=== PATIENT | female | born 1955 | race Caucasian/White ===

== ENCOUNTER 2024-10-13 19:05 | Inpatient (IN) | payer MEDICARE, OTHER, SELFPAY ==
[2024-10-13] VITALS (12 sets, daily range): BP systolic 86–148; BP diastolic 57–87; PULSE 80–91; BMI 37.5; BMI 34.8
[2024-10-13 13:21] LABS: % Basophils 0.3 % (0-2); % Immature Granulocytes 1.4 % (0-0.5); % Lymphocytes 3.8 % (20.5-51.1); % Monocytes 1.8 % (1.7-9.3); % Neutrophils 92.7 % (42.2-75.2); Absolute Basophils 0.1 10^3/uL (0-0.2); Absolute Immature Granulocytes 0.3 10^3/uL (0-0.05); Absolute Lymphocytes 0.8 10^3/uL (1.2-3.4); Absolute Monocytes 0.4 10^3/uL (0.1-0.6); Hematocrit 46.9 % (37.0-47.0); Hemoglobin 15.7 g/dL (12.0-16.0); Mean Corp Hgb Conc. 33.5 g/dL (33.0-37.0); Mean Corpuscular Hgb 31.8 pg (27.0-31.0); Mean Corpuscular Volume 95.1 fL (81.0-99.0); Mean Platelet Volume 11.6 fL (7.4-10.4); Nucleated Red Blood Cells % 0 %; Platelet Count 158 10^3/uL (130-400); Red Blood Cell Count 4.93 10^6/uL (4.20-5.40); Red Cell Dist. Width 15.7 % (11.5-14.5); White Blood Cell Count 21.6 10^3/uL (4.8-10.8)
--- NOTE | 2024-10-13 13:40 | ED.GENMED ---
History of Present Illness
General
Chief Complaint: Abdominal Pain
Source: patient
Exam Limitations: none
Time Seen by Provider: 10/13/24 13:15
Nursing documentation reviewed up to this point in time: agreed with
History of Present Illness
History of Present Illness:
69-year-old female with history as documented presents to the emergency room for evaluation of fatigue, shortness of breath, nausea and upset stomach. Patient has been feeling unwell for over a month now�unfortunately right after [place] she had
norovirus and was having GI symptoms for a week or 2. Then 2 weeks ago she developed influenza and dealt with flulike illness for a week. She says that during that time she was barely moving and sitting most of the day and unfortunately developed
right leg pain pains down the lateral aspect of the right leg for the past week�she saw her primary doctor and was diagnosed with sciatica. She has been taking Tylenol to manage her leg pain. She says that over the past few weeks through the flu
and now leg pain/sciatica she has been having trouble laying flat does she says that with the flu she developed some shortness of breath but never completely resolved and then when she developed the leg pain she noticed that it was worse when she
lays flat and so she has been sitting upright in a chair for the most part to sleep and she says generally speaking very poorly. Last night she says with exception she said she was able to sleep quite well however this morning she woke up and she
was nauseated had an upset stomach. She says that she still tried to go to work and went out to sit in her car but she called her daughter because she was feeling unwell�apparently after she got off the phone with her daughter she fell asleep in
her car because she felt so fatigued; she indicates that she does not believe she passed out. She decided she should come to the ER to be evaluated. She has not had any chest pain. She says that cough and fevers from her flulike syndrome have
resolved. Only other complaint that she offers on review of systems is some increased swelling in her legs that she attributes to sitting upright in a chair to sleep. Of note, patient is normally on 2 L of oxygen apparently after walking back from
triage her pulse ox dropped to 78% on 2 L.
Review of Systems
Review of Systems
All Other Systems: ROS reviewed and negative except as documented in HPI and ROS
Constitutional: Reports fatigue; Denies fever or chills
EENT: Denies sore throat
Respiratory: Reports trouble breathing; Denies cough
Cardiac: Denies chest pain or palpitations
ABD/GI: Reports nausea and vomiting; Denies abdominal pain
: Denies flank pain
Musculoskeletal: Reports edema; Denies neck pain or back pain
Neurological: Denies dizzy or headache
Phy Exam
Physical Exam
Physical Exam:
General: Awake, alert, oriented x3; no acute distress
Head: Normocephalic, atraumatic
Eyes: Conjunctiva normal, sclera anicteric
Throat: Airway intact, handling secretions
Neck: Trachea midline, no JVD
Lungs: Clear to auscultation bilaterally, no wheezing, rales, rhonchi
Heart: Regular rate and rhythm, no murmurs, gallops, or rubs
Abd: Soft, non distended, nontender
Neuro: No gross deficits
Extremities: +1 edema around the ankles bilaterally; no calf tenderness, no skin changes in the lower leg, good pulses in all extremities
Scores
Heart Failure Risk
Heart Failure Risk Score: Not Applicable
Heart Score for Chest Pain Patients
STEMI patient?: Not applicable
Withdrawal Assessment of Alcohol
Withdrawal Assessment Completed?: Not applicable
Course
Orders/Labs/Results
Orders:
Orders
10/13/24 12:50
Electrocardiogram (*1) Urgent
Reason for Study: Shortness of Breath
EKG- Treatment ONCE
10/13/24 13:01
Orthostatic VS- Treatment ONCE
10/13/24 13:06
Complete Blood Count/With Diff Urgent
Comprehensive Metabolic Panel Urgent
Lipase Urgent
10/13/24 13:17
Urinalysis Reflex To Culture Urgent
Date Specimen was Collected: 10/13/24
Time Specimen was Collected: 13:15
Urine Microscopic Reflex Cult Urgent
Urine Culture Urgent
EVITA Source: U
Specimen Description:
Date Specimen was Collected: 10/13/24
Time Specimen was Collected: 13:15
10/13/24 13:39
CR Chest - 2 Views Urgent
Comment:
Reason For Exam: sob, fatigued
10/13/24 14:48
D-Dimer Urgent
NT-proBNP Urgent
Troponin I Urgent
10/13/24 15:25
CT Chest PE Study Urgent
Comment:
Reason For Exam: hypoxia, SOB, +dimer
10/13/24 16:29
Cefepime HCl [Maxipime] 1,000 mg IV NOW STA
10/13/24 16:30
Vancomycin [Vancocin] 2,000 mg 0.9% Sodium Chloride 500 ml [Nss] 500 ml IV NOW
10/13/24 17:07
Blood Culture Q30M
EVITA Source: Blood/Venous
Specimen Description:
Blood Culture Q30M
EVITA Source: Blood/Venous
Specimen Description:
10/13/24 17:19
PTT Urgent
Comment: Obtain baseline before beginning heparin infusion if not already collected
Heparin 4,000 units IV NOW STA
Pharmacy Request to Place See Dose Instructions PO NOW STA
Discontinue all Active Warfarin orders?: Yes
Nursing to Place Non Medication Order As Directed
Physician Order: PTT 6 hours after initial start of Heparin infusion
10/13/24 17:30
Heparin 62077 Units/250 ml 25,000 units in 250 ml IV PER PROTOCOL
Weight to be used for heparin protocol in kilograms (kg):: 96
Protocol:: DVT/PE
PTT Goal Range to be used:: PTT 73 to 111 seconds
Order type:: Initial
INITIAL Infusion Dose (UNITS/KG/hr) & then follow protocol:: 18 units/kg/hr
Infusion Dose in UNITS/hr & then follow protocol (UNITS/hr):: 1,700
INFUSION RATE in mL/hr & then follow protocol (mL/hr):: 17
For DVT/PE algorithm, re-bolus for low PTT?: Yes
PTT less than or equal to 64 seconds:: Re-bolus 80 units/kg (max 10,000units). Increase by 400 units/hr
(+ 4mL/hr)
PTT 64.1 to 72.9 seconds:: Re-bolus 40 units/kg (max 5,000 units). Increase by 200 units/hr
(+ 2mL/hr)
PTT 73 to 111 seconds:: Target Range. No change in rate.
PTT 111.1 to 130.9 seconds:: Decrease rate by 200 units/hr (- 2 mL/hr)
PTT 131 to 199.9 seconds:: HOLD for 1 hr. Then decrease by 300 units/hr (- 3mL/hr)
PTT greater than or equal to 200 seconds:: HOLD for 2 hrs & Notify Provider. Then decrease by 400 units/hr
(- 4mL/hr)
Lab follow-up:: Each change, PTT q6h until 2 consecutive are therapeutic. Then
PTT daily.
10/13/24 18:[address] See Dose Instructions IV DIRECTED
Abnormal Lab Results
10/13/24 10/13/24 10/13/24
13:06 13:17 14:48
WBC 21.6 H 10^3/uL
(4.8-10.8)
MCH 31.8 H pg
(27.0-31.0)
RDW 15.7 H %
(11.5-14.5)
MPV 11.6 H fL
(7.4-10.4)
Abs Immat Gran (auto) 0.3 H 10^3/uL
(0-0.05)
Absolute Neuts (auto) 20.0 H 10^3/uL
(1.4-6.5)
Absolute Lymphs (auto) 0.8 L 10^3/uL
(1.2-3.4)
Immature Gran % 1.4 H %
(0-0.5)
Neutrophils % 92.7 H %
(42.2-75.2)
Lymphocytes % 3.8 L %
(20.5-51.1)
D-Dimer 2.19 H ug/mlFEU
(0.00-0.50)
Sodium 134 L mmol/L
(135-145)
Chloride 96 L mmol/L
(98-107)
BUN 38 H mg/dl
(7-17)
Creatinine 1.1 H mg/dL
(0.6-1.0)
Glucose 130 H mg/dl
(70-99)
Total Bilirubin 2.9 H mg/dl
(0.2-1.3)
Troponin I 0.063 H* ng/ml
Urine Bilirubin 1+ A
(Negative)
Urine Urobilinogen 2+ A
(Neg - 1+)
Leukocyte Esterase Rfl 1+ A
(Negative)
Urine Bacteria (Reflex) Few A
(Negative)
10/13/24 13:06
10/13/24 13:06
Vital Signs
Initial and Last Documented VS:
Initial Vital Signs
Temp Pulse Resp BP Pulse Ox
36.4 C 77 18 125/74 91
10/13/24 13:55 10/13/24 13:55 10/13/24 13:55 10/13/24 13:55 10/13/24 13:55
Last Documented Vital Signs
Temp Pulse Resp BP Pulse Ox
36.4 C 69 12 105/72 94
10/13/24 13:55 10/13/24 14:23 10/13/24 14:23 10/13/24 14:23 10/13/24 14:23
MDM/Problems Addressed
Differential Diagnosis Includes:
Pneumonia, PE, UTI, dehydration/deconditioning, CHF, dysrhythmia, ACS less likely
MDM/Problems Addressed:
69-year-old female presents for evaluation of nausea/upset stomach and tremendous fatigue in the setting of multiple recent issues including norovirus, influenza and now over the past week right leg pain/sciatica. Above. Plan to check labs
including a CBC and a CMP, proBNP. Check a lipase. Will check a D-dimer. Check urinalysis. Check chest x-ray and EKG. Will monitor closely reassess after the above.
Labs reviewed: CBC shows leukocytosis to 21.6, CMP shows creatinine of 1.1 unclear baseline. Add blood cultures with multiple SIRS although daughter mentions the patient recently had course of steroids which could affect WBC. She does have
elevated BUN suggesting that there is likely some dehydration. T. bili elevated but LFTs otherwise normal. Urinalysis no clear infection. Chest x-ray shows linear atelectasis versus pneumonia in the right lower lobe. Clinically patient has been
stable; she has needed increased oxygen requirement here now on on 4 L nasal cannula. Her D-dimer was positive. Certainly pneumonia status post influenza could account for symptoms but given hypoxia out of portion to chest x-ray findings with
positive D-dimer we will check CTA to rule out PE and better evaluate lungs. Will cover with antibiotics. Anticipate admission.
CTA was positive for segmental and subsegmental pulmonary embolism. No signs of heart strain. Normotensive, normal heart rate. Started heparin infusion. Will admit for continued treatment of acute on chronic respiratory failure secondary to PE
and possibly pneumonia. Discussed case with hospitalist.
Chronic conditions affecting care:
Chronic respiratory failure
*Radiology
Radiology exam reviewed: radiology read reviewed
*Pulse Oximetry
Patient hypoxic: no
*EKG
Interpreted by ED Provider?: Yes
Heart Rate: 92
Rate: normal
Rhythm: sinus
Interval: first degree heart block
QRS Pattern: normal QRS
Ischemia: non-specific ST changes
*Critical Care Note
Total Time (30-74mins, 75-104mins- exclusive of procedures): Not Applicable
Data Reviewed
Review of Other/Old Records Reveals: Labs and Records
Source: patient
Patient Management
Discussion with other providers: Hospitalist (Discussed with hospitalist) and Radiologist (Discussed with radiologist)
Escalation/DeEscalation of care consider admission/obs:
Admission indicated
ED Attending Note
-
Portions of this chart may have been created with voice recognition software.� Occasional wrong word or��sound alike� substitutions may have occurred due to the inherent limitations of voice recognition software.
Discharge Plan
Departure
Patient Disposition: Admit
Date of Disposition: 10/13/24
Time of Disposition: 17:22
Admit to doctor: Mayuri
Presentation/result/management discussed w/ accepting MD/DO: Hospitalist
Discharge Problem:
Pulmonary embolism, Pneumonia, Acute and chronic respiratory failure
Prescriptions:
No Action
atorvastatin [Lipitor] 40 mg Tablet
40 mg PO DAILY
fluticasone propion-salmeterol [Advair Diskus] 250-50 mcg/dose Blister With Device
1 inh INHALATION R BID
prednisone 10 mg Tablet
10 mg PO DAILY
cyanocobalamin (vitamin B-12) 1,000 mcg Tablet
1,000 mcg PO DAILY
Theragen Tablet
1 tab PO DAILY
clopidogrel [Plavix] 75 mg Tablet
75 mg PO DAILY
amlodipine [Norvasc] 5 mg Tablet
5 mg PO DAILY
omeprazole 40 mg Capsule,Delayed Release(Dr/Ec)
40 mg PO DAILY
aspirin 81 mg Tablet,Delayed Release (Dr/Ec)
81 mg PO DAILY
losartan-hydrochlorothiazide 100-25 mg Tablet
1 tab PO DAILY
levothyroxine [Synthroid] 125 mcg Tablet
125 mcg PO DAILY
Referrals:
Issa Davis, DO [Family Provider] -
Interventions
Interventions:
*Risk Screen - Suicide Last Done: 10/13/24 13:55
*General Assessment Last Done: 10/13/24 13:55
*Neglect/Abuse Screening Last Done: 10/13/24 13:55
*ED COVID-19 Vaccine History Last Done: 10/13/24 13:55
OF-Hbedmg-Jsjuecwrah Assessment Last Done: 10/13/24 15:53
Discharge Date and Time
Print Language: FRENCH
[2024-10-13 13:44] LABS: ALT (SGPT) 25 U/L (0-35); AST (SGOT) 30 U/L (14-36); Albumin 3.8 g/dl (3.5-5.0); Alkaline Phosphatase 84 U/L (38-126); Blood Urea Nitrogen 38 mg/dl (7-17); Calcium 9.4 mg/dl (8.4-10.2); Chloride 96 mmol/L (98-107); Glucose 130 mg/dl (70-99); Lipase 38 U/L (23-300); Potassium 4.1 mmol/L (3.5-5.1); Sodium 134 mmol/L (135-145); eGFR 54.39
[2024-10-13 13:57] LABS: Carbon Dioxide 29 mmol/L (22-30); Total Bilirubin 2.9 mg/dl (0.2-1.3); Total Protein 6.6 g/dl (6.3-8.2)
[2024-10-13 14:00] LABS: Urine Albumin Trace (Neg - Trace); Urine Bilirubin 1+ (Negative); Urine Character Clear (Clear); Urine Color Amber; Urine Glucose Negative (Negative); Urine Ketone Negative (Negative); Urine Leukocyte 1+ (Negative); Urine Nitrite Negative (Negative); Urine Occult Blood Negative (Negative); Urine Specific Gravity 1.015 (<1.030); Urine Urobilinogen 2+ (Neg - 1+)
[2024-10-13 14:07] LABS: Urine Mucus Few; Urine Red Blood Cell 0-2 /HPF (0-2)
[2024-10-13 14:08] LABS: Urine Bacteria Few (Negative)
[2024-10-13 15:20] LABS: D-Dimer 2.19 ug/mlFEU (0.00-0.50)
[2024-10-13 15:34] LABS: NT-proBNP 4450 pg/ml; Troponin I 0.063 ng/ml
[2024-10-13] MEDS: MAXIPIME 1000 MG IV (17:37)
[2024-10-13 17:45] LABS: APTT 26.4 Sec (23.4-35.0)
[2024-10-13] MEDS: VANCOCIN 540 MG IV (18:18)
[2024-10-13] MEDS: HEPARIN 25000 UNITS/250 ML IV (18:21)
[2024-10-13] MEDS: HEPARIN 4000 UNITS IV (18:21)
--- NOTE | 2024-10-13 18:43 | HPS.HSE ---
Addendum entered and electronically signed by Erwin Sy MD 10/14/24 09:58:
69-year-old female with a past medical history of COPD on 2 L of oxygen as needed at baseline presented with weakness and shortness of breath, and is found to have new acute PE.
She is currently satting 92% on 2 L. She is on aspirin and Plavix, had cardiac stenting 3 years ago.
Will treat with IV heparin drip, check lower extremity Dopplers, check echocardiogram, consult case management for pricing of oral anticoagulants.
Patient's chest CT is also concerning for pneumonia. Will treat with empiric antibiotics.
I have personally seen and examined the patient on 10/13/24, and agree with the plan of care as documented by Ana Mejia PA-C.
Advance care planning discussed, patient is a full code.
All other issues as outlined by the advanced care practitioner.
Total time spent to see the patient on the floor, examine the patient, review data and lab results, discuss treatment plan with patient, nursing staff around 76 minutes.
Original Note:
Family Physician
-
Family Physician: Issa Davis DO
Chief Complaint
-
Fatigue and Shortness of Breath
History of Present Illness
Patient is a 69 y/o female past medical history of ASCVD, Hypertension, and COPD/Pulmonary Fibrosis on oxygen at night and with activity who presents with weakness and shortness of breath. Additional history is obtained from patient's daughter at
the bedside. Patient has been feeling unwell for the past several weeks. She had norovirus around [place] with GI symptoms lasting several weeks. She then had influenza and dealt with flu-like symptoms for about a week. Due to ongoing illness
she has not been very active and developed sciatica. Today patient tried to go to work today, but felt too fatigued, and came to the emergency department for evaluation. Patient was noted to be hypoxic at 78% on 2L while walking back from triage and
took a very long time to recover. Patient has noted some increased swelling of her left lower extremity. She notes her prior cough has improved. She denies fevers.
Medical History
Past Medical History
Past Medical History: Reports Other
Additional Past Medical History:
Coronary Artery Disease s/p Stent
Peripheral Arterial Disease s/p Right Carotid Endarterectomy
Essential Hypertension
Hyperlipidemia
Chronic Hypoxia
COPD / Emphysema / Pulmonary Fibrosis
Hypothyroidism
Past Surgical History: Reports Other
Additional Past Surgical History:
Right Carotid Endarterectomy
Cardiac Stent
Gastric Sleeve
Section
Social History
Tobacco: Former Smoker (Quit about 25 years ago)
Employment: Employed ([employer])
Family History
Family History: Not pertinent
Allergies / Home Medications
Allergies reflects when Allergies were last updated in [employer].
Home Medications with original date entered in [employer]
Allergy/Medication List:
Allergies
Allergy/AdvReac Type Severity Reaction Status Date / Time
No Known Allergies Allergy Verified 10/13/24 14:53
Home Medications
amlodipine 5 mg tablet (Norvasc) 5 mg PO DAILY 10/13/24
aspirin 81 mg tablet,delayed release 81 mg PO DAILY 10/13/24
atorvastatin 40 mg tablet (Lipitor) 40 mg PO DAILY 10/13/24
clopidogrel 75 mg tablet (Plavix) 75 mg PO DAILY 10/13/24
cyanocobalamin (vitamin B-12) 1,000 mcg tablet 1,000 mcg PO DAILY 10/13/24
fluticasone 250 mcg-salmeterol 50 mcg/dose blistr powdr for inhalation (Advair Diskus) 1 inh inhalation R BID 10/13/24
levothyroxine 125 mcg tablet (Synthroid) 125 mcg PO DAILY 10/13/24
losartan 100 mg-hydrochlorothiazide 25 mg tablet 1 tab PO DAILY 10/13/24
omeprazole 40 mg capsule,delayed release 40 mg PO DAILY 10/13/24
prednisone 10 mg tablet 10 mg PO DAILY 10/13/24
therapeutic multivitamin 1 tab PO DAILY 10/13/24
Review of Systems
-
A 12 point ROS was completed and negative except as noted: Yes
Constitutional: Denies Fever or Chills
Respiratory: Reports Trouble Breathing; Denies Cough
Cardiac: Denies Chest Pain or Palpitations
Physical Exam
Vital Signs
Vital Signs
Temp Pulse Resp BP Pulse Ox
97.6 F 69 12 105/72 94
10/13/24 13:55 10/13/24 14:23 10/13/24 14:23 10/13/24 14:23 10/13/24 14:23
Physical Exam
General: No Apparent Distress and Comfortable
HEENT: Anicteric, Moist mucous membranes and Oxygen
Respiratory: Clear and Non Labored Respirations
Cardiac: S1/S2 and Regular Rhythm
GI: Soft and Non Tender
Rectal: Deferred by Provider
Musculoskeletal: No Clubbing, No Cyanosis and Other (Non-pitting edema LLE)
Skin: Warm and Dry
Neuro: Awake, Alert, Oriented and Nonfocal/grossly intact
Psych: Calm
Laboratory Results
-
10/13/24 13:06
10/13/24 13:06
Laboratory Results
APTT Cancelled 10/13/24 17:19
Total Bilirubin 2.9 mg/dl (0.2-1.3) H 10/13/24 13:06
AST 30 U/L (14-36) 10/13/24 13:06
ALT 25 U/L (0-35) 10/13/24 13:06
Alkaline Phosphatase 84 U/L (38-126) 10/13/24 13:06
Troponin I 0.063 ng/ml H* 10/13/24 14:48
Lipase 38 U/L (23-300) 10/13/24 13:06
Data Reviewed
-
CT Scan: Report Reviewed by me
Lab Data: Labs Reviewed by me
Impression/Plan
-
Acute on Chronic Hypoxic Respiratory Failure secondary to Pulmonary Embolism and possible pneumonia
-Continue supplemental oxygen
-Baseline 2L via nasal cannula at night and with activity
Pulmonary Embolism involving Right Middle and Right Lower Lower Subsegmental Arteries
-Consult Pulmonary
-Continue heparin drip
-Check Echo
-Check peripheral vascular ultrasound
Possible Pneumonia
-Initial CXR raised concern for left retro cardiac opacity
-Check strep and legionella antigen
-Continue empiric ceftriaxone and doxycycline
Elevated Creatinine, unknown baseline
-HCTZ on hold
-Recheck creatinine in AM
Incidental 1.6 Mass from Left Adrenal Gland
-Recommend follow-up with CT Abd W/Wo contrast in 6 months
Coronary Artery Disease s/p Stent
Peripheral Vascular Disease s/p Right Carotid Endarterectomy
-Continue Aspirin
-Stop Plavix as patient is on anticoagulation for PE
Essential Hypertension
-Continue amlodipine, and losartan
-Hold HCTZ
Hyperlipidemia
-Continue Lipitor
COPD/Emphysema/Pulmonary Fibrosis
-Continue Advair
-Continue prednisone as prior to admission
GERD
-Continue Protonix
Code Status:Full Code
--- NOTE | 2024-10-13 19:58 | W.PN.UPDATE ---
Update Note
Progress Note Update
For billing purposes.
[2024-10-13 20:26] LABS: COVID-19 Antigen Negative (Negative)
[2024-10-14] VITALS (9 sets, daily range): BP systolic 96–127; BP diastolic 51–71; PULSE 68–69; O2SAT 90–96
[2024-10-14] MEDS: ROCEPHIN 1000 MG IV (00:18)
[2024-10-14] MEDS: VIBRAMYCIN 100 MG PO ×3 (00:18→21:53)
[2024-10-14] MEDS: STERILE WATER FOR INJECTION 10 ML IV (00:18)
[2024-10-14] MEDS: ADVAIR HFA 115/21 MCG INHALER 2 PUFF INH ×3 (00:22→21:24)
[2024-10-14 00:57] LABS: APTT > 200 Sec (23.4-35.0)
[2024-10-14] MEDS: SYNTHROID 125 MCG PO (04:37)
[2024-10-14 05:06] LABS: Hematocrit 40.9 % (37.0-47.0); Mean Corp Hgb Conc. 34.2 g/dL (33.0-37.0); Mean Corpuscular Hgb 31.7 pg (27.0-31.0); Mean Corpuscular Volume 92.5 fL (81.0-99.0); Mean Platelet Volume 10.9 fL (7.4-10.4); Platelet Count 143 10^3/uL (130-400); Red Blood Cell Count 4.42 10^6/uL (4.20-5.40); Red Cell Dist. Width 15.4 % (11.5-14.5); White Blood Cell Count 17.2 10^3/uL (4.8-10.8)
[2024-10-14 05:48] LABS: ALT (SGPT) 20 U/L (0-35); AST (SGOT) 29 U/L (14-36); Albumin 3.1 g/dl (3.5-5.0); Alkaline Phosphatase 77 U/L (38-126); Blood Urea Nitrogen 29 mg/dl (7-17); Carbon Dioxide 26 mmol/L (22-30); Chloride 102 mmol/L (98-107); Direct Bilirubin 0.4 mg/dl (0.0-0.4); Estimated Creatinine Clearance 80 ml/min; Glucose 101 mg/dl (70-99); Potassium 3.6 mmol/L (3.5-5.1); Sodium 135 mmol/L (135-145); Total Bilirubin 1.4 mg/dl (0.2-1.3); Total Protein 5.8 g/dl (6.3-8.2); eGFR > 60.00
[2024-10-14 06:05] LABS: Troponin I 0.036 ng/ml
[2024-10-14 08:39] LABS: APTT 104.7 Sec (23.4-35.0)
[2024-10-14] MEDS: NORVASC 5 MG PO (09:00)
[2024-10-14] MEDS: VITAMIN B-12 1000 MCG PO (09:00)
[2024-10-14] MEDS: PROTONIX 40 MG PO (09:00)
[2024-10-14] MEDS: COZAAR 100 MG PO (09:00)
[2024-10-14] MEDS: LIPITOR 40 MG PO (09:00)
[2024-10-14] MEDS: ASPIR LOW (ENTERIC COATED) 81 MG PO (09:00)
[2024-10-14] MEDS: DELTASONE 10 MG PO (09:01)
--- NOTE | 2024-10-14 09:02 | W.PN.HOSP.TC ---
Today's Communication/Plan
-
see bold
Assessment / Plan
Assessment / Plan
HPI: 69-year-old female with a past medical history of COPD on 2 L of oxygen as needed at baseline presented with weakness and shortness of breath, and is found to have new acute PE.
She is currently satting 92% on 2 L. She is on aspirin and Plavix, had cardiac stenting 3 years ago.
#Acute PE
#Acute left lower extremity DVT
#Chronic hypoxic respiratory failure
She has a history of lower extremity DVT after trauma in the past
Patient wears 2 L of oxygen at baseline
She is currently requiring 2 L at rest
Status post IV heparin drip, now on therapeutic Lovenox, follow-up on echocardiogram
Eliquis and Xarelto prices are high, start Coumadin in case patient goes home on Coumadin
PT rec home PT vs no needs
#Possible pneumonia on chest x-ray
Patient with a leukocytosis upon admission, no fever
She is on prednisone 10 mg daily at home
Covid/flu neg, Legionella/strep antigen negative
Continue empiric antibiotics day 2
#COPD
Continue home prednisone 10 mg daily, bronchodilators
#Obstructive sleep apnea
Intolerant of CPAP, wears oxygen at night
#Acute kidney injury
Creatinine 0.7 today, was 1.1 upon admission
Resolved, continue holding hydrochlorothiazide
#Essential hypertension
Continue amlodipine, losartan
Hold hydrochlorothiazide
#Hyperlipidemia
Continue statin
#Obesity due to excess calories
Affects all aspects of care
DVT prophylaxis�therapeutic Lovenox, to bridge to Coumadin if needed
Full code
Updated daughter at bedside 10/14
Total time spent to see the patient on the floor, examine the patient, review data and lab results, discuss treatment plan with patient, nursing staff around 51 minutes.
Physical Exam
General: Obese, no acute distress
HEENT: Normocephalic, Atraumatic, EOMI, MMM
Respiratory: Clear to Auscultation bilaterally
Cardiac: Normal S1/S2, Regular Rate and Rhythm
GI: Soft, Nontender, Nondistended, Normal Bowel Sounds
Extremities: No Clubbing, Cyanosis, or Edema
Neuro: Nonfocal/Grossly Intact
Psych: Calm, Cooperative
Derm: No Visible lesions
Anticipated Discharge: Within 24 hours
Subjective/Interval History
-
Date of Service: October 14, 2024
Patient continues to feel dyspnea with activity, minimally improved from admission. No chest pain. No fever. No nausea, no vomiting.
Objective Data
-
Labs:
Laboratory Results
10/14/24 10/14/24 10/14/24
00:23 04:51 04:52
WBC 17.2 H
Hgb 14.0
Hct 40.9
Plt Count 143
APTT > 200 H*
Sodium 135
Potassium 3.6
Chloride 102
Carbon Dioxide 26
BUN 29 H
Creatinine 0.7
Glucose 101 H
Calcium 9.0
Total Bilirubin 1.4 H D
AST 29
ALT 20
Alkaline Phosphatase 77
10/14/24 10/14/24
08:03 14:55
WBC
Hgb
Hct
Plt Count
APTT 104.7 H Pending
Sodium
Potassium
Chloride
Carbon Dioxide
BUN
Creatinine
Glucose
Calcium
Total Bilirubin
AST
ALT
Alkaline Phosphatase
Vital Signs:
Vital Signs
Temp Pulse Resp BP Pulse Ox
98.3 F 62 17 127/71 94
10/14/24 08:00 10/14/24 08:00 10/14/24 08:00 10/14/24 08:00 10/14/24 08:00
I&O
10/13/24 10/14/24 10/15/24
06:59 06:59 06:59
Intake Total 480 / 480
Balance 480 / 480
[2024-10-14] MEDS: LOVENOX 80 MG SC ×2 (09:38→21:53)
--- NOTE | 2024-10-14 11:57 | CM ---
Received CM consult for trevizo check of Eliquis 5mg bid and Xarelto starter pack. Cost per [facility] pharmacist is $510/month each. Attending informed. Eliquis 30 day free coupon available.
--- NOTE | 2024-10-14 13:23 | CM ---
Reviewed the chart notes and spoke with the patient and her daughter at the bedside. CM consult received for Living Will. Provided the patient with Advanced Directive form. The patient resides alone in a one story home with two steps to enter.
The patient reports only DME is O2 through [facility]. The patient reports no VN or SNF in the past. The patient confirmed her pharmacy of choice is the [facility] [place] [place]. CM continues to be available to patient/family and is monitoring
medical plan for needs at discharge.
Plan: Discharge to home when medically stable.
--- NOTE | 2024-10-14 16:25 | CON.PUL ---
Consultation
Consultation Request
Date/Time Consultation Requested: 10/14/2024
Date/Time Consultation Performed: 10/14/2024
Requesting Provider: Dr. Sy
Performing Provider: Dr. Kyle Orr
Reason for Consultation: Acute pulmonary embolism.
Medical History
-
History of Present Illness:
69-year-old woman with past medical history significant for cardiovascular disease, hypertension, COPD/pulmonary fibrosis on chronic oxygen therapy at night and with exertion presented with weakness and shortness of breath. Apparently the patient
has not been feeling well the last several weeks. Had an episode of norovirus in [place] and her symptom has lasted several weeks. She has been debilitated. Less mobile.
She then developed influenza for about a week. Developed sciatica due to immobility. She attempted to go to work today but felt very fatigued. She was found to be hypoxemic down to 78% requiring 2 L of supplemental oxygen.
Left lower extremity was swollen. There was no fevers, chills, hemoptysis or chest pain.
Past Medical History
Past Medical History: Other (See assessment and plan)
Social History
Tobacco: Former Smoker (Quit about 25 years ago)
Employment: Employed ([employer])
Family History
Family History: Reviewed & Not Pertinent
Allergies / Home Medications
Allergies
Allergy/AdvReac Type Severity Reaction Status Date / Time
No Known Allergies Allergy Verified 10/13/24 14:53
Home Medications
�Medication �Instructions �Recorded �Confirmed �Last Taken �Type
amlodipine 5 mg tablet (Norvasc) 5 mg PO DAILY Blood Pressure 10/13/24 10/13/24 10/13/24 History
aspirin 81 mg tablet,delayed 81 mg PO DAILY Blood Clot 10/13/24 10/13/24 10/13/24 History
release Prevention/Tx
atorvastatin 40 mg tablet (Lipitor) 40 mg PO DAILY High Cholesterol 10/13/24 10/13/24 10/13/24 History
clopidogrel 75 mg tablet (Plavix) 75 mg PO DAILY Blood Clot 10/13/24 10/13/24 10/13/24 History
Prevention/Tx
cyanocobalamin (vitamin B-12) 1,000 mcg PO DAILY Supplement 10/13/24 10/13/24 10/13/24 History
1,000 mcg tablet
fluticasone 250 mcg-salmeterol 50 1 inh inhalation R BID 10/13/24 10/13/24 10/13/24 History
mcg/dose blistr powdr for Lung/Breathing Issues
inhalation (Advair Diskus)
levothyroxine 125 mcg tablet 125 mcg PO DAILY Thyroid 10/13/24 10/13/24 10/13/24 History
(Synthroid)
losartan 100 1 tab PO DAILY Blood Pressure 10/13/24 10/13/24 10/13/24 History
mg-hydrochlorothiazide 25 mg tablet
omeprazole 40 mg capsule,delayed 40 mg PO DAILY GERD 10/13/24 10/13/24 10/13/24 History
release
prednisone 10 mg tablet 10 mg PO DAILY INFLAMMATION 10/13/24 10/13/24 10/13/24 History
therapeutic multivitamin 1 tab PO DAILY Supplement 10/13/24 10/13/24 10/13/24 History
Review of Systems
-
History Source: Patient
All other systems: Negative unless noted
Vitals / Labs / Diagnostic Testing
Vital Signs
Temp Pulse Resp BP Pulse Ox
98.0 F 65 18 96/54 95
10/14/24 15:55 10/14/24 15:55 10/14/24 15:55 10/14/24 15:55 10/14/24 15:55
Lab Data
10/14/24 04:51
10/14/24 04:52
Laboratory Results
10/13/24 10/13/24 10/14/24
14:48 17:19 00:23
APTT 26.4 Cancelled > 200 H*
10/14/24 10/14/24
08:03 14:55
APTT 104.7 H Cancelled
Microbiology
10/13/24 13:17 Urine Urine Culture - Final
NO GROWTH
10/13/24 18:23 Urine Legionella Urinary Antigen - Final
Negative for Legionella pneumophila Serogroup 1 antigen.
A negative result does not rule out the possiblity of
Legionella infection due to other serogroups or species of
Legionella. Clinical correlation is recommended.
10/13/24 18:23 Urine Streptococcus pneumoniae Antigen (M - Final
Negative for Streptococcus pneumoniae antigen.
A negative result does not exclude infection with
Streptococcus pneumoniae. Clinical correlation is
recommended.
10/13/24 20:00 Nasal Swab Influenza Types A & B ([facility]) - Final
Negative for Influenza A & B, NAAT
Negative results must be combined with clinical observations
and patient history.
Nucleic Acid Amplification test (NAAT)performed on the
[email or web address] platform.
Diagnostic Testing:
Physical Exam
-
HEENT: Normocephalic
Cardiovascular: S1/S2
Respiratory: Non-Labored Respirations
GI: Soft and Non Distended
Neurology: Awake
Skin: Warm
General: Comfortable
Assessment
-
69-year-old woman with past medical history noted, admitted to the hospital due to fatigue and shortness of breath. Since has not been feeling well. Developed norovirus with prolonged GI symptoms. Subsequently developed the flu. Has
not been mobile. Today tried to go to work and felt very fatigued and short of breath came to the emergency room found to be hypoxemic. CT angiogram showed pulmonary embolism. We were consulted on 10/14/2024 for evaluation.
Acute hypoxemic respiratory failure due to pulmonary embolism and possible pneumonia.
Mild troponin leak
Increased proBNP 4000
Acute pulmonary embolism likely provoked due to immobility
CT angiogram: Reviewed, 10/13/2024 right middle lobe and right lower lobe segmental and subsegmental pulmonary embolism.
Increased RV, right atrium suggesting of elevated right pressures.
Patchy areas of linear and groundglass opacities scattered throughout both lungs, there is evidence of associated honeycombing. Emphysematous changes. Coronary artery calcifications
Incidental adrenal mass 1.6 cm-possible adenoma.
Left lower extremity deep venous thrombosis. No evidence for thrombosis in the right leg.
Mitosis
Conditions present prior admission:
Hiatal hernia
Coronary artery disease status post stent placement
Peripheral arterial disease status post right carotic endarterectomy
Essential hypertension
Hyperlipidemia
Chronic hypoxemia
COPD/emphysema/pulmonary fibrosis overlap
Does not follow-up with pulmonary locally.
Advair discus/low-dose prednisone
Hypothyroidism
Obstructive sleep apnea on CPAP
Former smoker quit about 25 years ago
obesity
Assessment and plan:
Acute right-sided pulmonary embolism: Likely provoked due to immobility after developing norovirus and subsequently influenza for the last month.
Patient report history of lower extremity VTE in the setting of a muscle injury 13 years ago.
Acute left lower extremity acute DVT documented this admission. Exam no significant tenderness or discoloration of extremity.
Increased proBNP and mild troponin leak: High risk features for this pulmonary embolism. Echocardiogram
10/14/2024: Showed normal left ventricular size and function. No regional wall tremor abnormalities. Ejection fraction 60 to 65%. Mild LVH. Diastolic dysfunction unable to be determined
Trace MR. Moderate TR. Estimated artery pulmonary pressure 81 mmHg. Enlarged right ventricular size. Reduced right ventricular systolic function. Compared to December 2023 pulmonary pressure has increased and RV function now is hypokinetic.
-
Appears that part of this pulmonary hypertension is chronic. Acute decompensation probably due to her pulmonary embolism.
Patient follows up at [facility] with pulmonary and cardiology.
-
Telemetry monitoring.
Agree with a heparin drip or Lovenox for at least 24 to 72 hours depending on clinical situation
At this point given lack of hypotension, tachycardia or worsening hypoxemia recommend against thrombolysis.
Continue oxygen supplementation to maintain pulse ox above 90%. Currently at 2 L.
-
Not unreasonable to treat for pneumonia as well given underlying pulmonary disease with fibrosis/emphysema and possible COPD, leukocytosis without fever. Not bronchospastic on exam
Not bronchospastic on exam: No indication for increased doses of systemic corticosteroids
Patient on low-dose prednisone at 10 mg continue for now.
Continue inhalers.
Patient does not follow-up locally
So far all microbiology negative
Will continue to follow
-
Continue obstructive sleep -intolerant to CPAP. Only on nocturnal oxygen.
This could partially explain part of her pulmonary hypertension.
-
Will follow.
-
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
[2024-10-14] MEDS: ROXICODONE 5 MG PO (22:02)
[2024-10-15] MEDS: STERILE WATER FOR INJECTION 10 ML IV (00:01)
[2024-10-15] MEDS: ROCEPHIN 1000 MG IV (00:01)
[2024-10-15 03:14] VITALS: BP 107/52
[2024-10-15] MEDS: SYNTHROID 125 MCG PO (06:12)
[2024-10-15 07:22] LABS: Hematocrit 39.1 % (37.0-47.0); Mean Corp Hgb Conc. 33.2 g/dL (33.0-37.0); Mean Corpuscular Hgb 31.6 pg (27.0-31.0); Mean Corpuscular Volume 94.9 fL (81.0-99.0); Mean Platelet Volume 11.8 fL (7.4-10.4); Platelet Count 168 10^3/uL (130-400); Red Blood Cell Count 4.12 10^6/uL (4.20-5.40); Red Cell Dist. Width 15.6 % (11.5-14.5); White Blood Cell Count 13.1 10^3/uL (4.8-10.8)
[2024-10-15 07:50] VITALS: BP 128/78
[2024-10-15] MEDS: COZAAR 100 MG PO (08:07)
[2024-10-15] MEDS: VITAMIN B-12 1000 MCG PO (08:07)
[2024-10-15] MEDS: VIBRAMYCIN 100 MG PO (08:07)
[2024-10-15] MEDS: PROTONIX 40 MG PO (08:07)
[2024-10-15] MEDS: ASPIR LOW (ENTERIC COATED) 81 MG PO (08:07)
[2024-10-15] MEDS: LIPITOR 40 MG PO (08:08)
[2024-10-15] MEDS: DELTASONE 10 MG PO (08:08)
[2024-10-15] MEDS: NORVASC 5 MG PO (08:08)
--- NOTE | 2024-10-15 08:15 | W.PN.HOSP.TC ---
Addendum entered and electronically signed by Erwin Sy MD 10/15/24 13:59:
Non ischemic myocardial injury
Original Note:
Today's Communication/Plan
-
Discharge when patient is able to obtain her Xarelto
Assessment / Plan
Assessment / Plan
HPI: 69-year-old female with a past medical history of COPD on 2 L of oxygen as needed at baseline presented with weakness and shortness of breath, and is found to have new acute PE.
She is currently satting 92% on 2 L. She is on aspirin and Plavix, had cardiac stenting 3 years ago.
#Acute PE
#Acute left lower extremity DVT
#Chronic hypoxic respiratory failure
She has a history of lower extremity DVT after trauma in the past
Patient wears 2 L of oxygen at baseline
She is currently requiring 2 L at rest
Status post IV heparin drip, now on therapeutic Lovenox, echocardiogram reviewed
Patient wishes to go home on Xarelto
PT rec home PT vs no needs
Discharge once patient is able to obtain her Xarelto
#Possible pneumonia on chest x-ray
Patient with a leukocytosis upon admission, no fever
She is on prednisone 10 mg daily at home
Covid/flu neg, Legionella/strep antigen negative
Continue empiric antibiotics day 3, can change to oral antibiotics upon discharge
#COPD
Continue home prednisone 10 mg daily, bronchodilators
#Obstructive sleep apnea
Intolerant of CPAP, wears oxygen at night
#Pulmonary hypertension
Likely due to untreated sleep apnea
#Acute kidney injury
Creatinine 0.7 today, was 1.1 upon admission
Resolved, continue holding hydrochlorothiazide
#Essential hypertension
Continue amlodipine, losartan
Hold hydrochlorothiazide
#Hyperlipidemia
Continue statin
#Obesity due to excess calories
Affects all aspects of care
DVT prophylaxis�therapeutic Lovenox, to bridge to Coumadin if needed
Full code
Updated daughter at bedside 10/14
Total time spent to see the patient on the floor, examine the patient, review data and lab results, discuss treatment plan with patient, nursing staff around 41 minutes.
Physical Exam
General: Obese, no acute distress
HEENT: Normocephalic, Atraumatic, EOMI, MMM
Respiratory: Clear to Auscultation bilaterally
Cardiac: Normal S1/S2, Regular Rate and Rhythm
GI: Soft, Nontender, Nondistended, Normal Bowel Sounds
Extremities: No Clubbing, Cyanosis, or Edema
Neuro: Nonfocal/Grossly Intact
Psych: Calm, Cooperative
Derm: No Visible lesions
Anticipated Discharge: Within 24 hours
Subjective/Interval History
-
Date of Service: October 15, 2024
Patient complains of pain shooting down her right posterior thigh, down her leg. Dyspnea with activity improving, denies coughing, denies hemoptysis. No fever.
Objective Data
-
Labs:
Laboratory Results
10/15/24
06:45
WBC 13.1 H
Hgb 13.0
Hct 39.1
Plt Count 168
Vital Signs:
Vital Signs
Temp Pulse Resp BP Pulse Ox
98.7 F 67 18 128/78 92
10/15/24 07:50 10/15/24 07:50 10/15/24 07:50 10/15/24 07:50 10/15/24 07:50
I&O
10/14/24 10/15/24 10/16/24
06:59 06:59 06:59
Intake Total 480 / 480 1120 / 1120
Balance 480 / 480 1120 / 1120
[2024-10-15] MEDS: ADVAIR HFA 115/21 MCG INHALER 2 PUFF INH (08:58)
[2024-10-15] MEDS: ROXICODONE 5 MG PO (09:47)
[2024-10-15] MEDS: LOVENOX 80 MG SC ×2 (10:46→17:23)
[2024-10-15 11:31] VITALS: BP 139/73
--- NOTE | 2024-10-15 13:37 | PN.CDI ---
CDI
- -
CDI:
Physician Documentation Request
Admit Date: 10/13/24 19:05
Dear Doctor Do,
Clinical Indicators:
Patient admitted with acute PE.
Troponin levels:
10/13/24 10/14/24
14:48 04:51
Troponin I 0.063 H* 0.036 H*
Based on the above, could you clarify in the progress notes, the appropriate diagnosis, if significant, that supports the above abnormalities and additional evaluation, monitoring and/or treatment rendered:
Non ischemic myocardial injury
Abnormal lab value, clinically insignificant
Other
Use of terms such as suspected, likely, concern for, or probable (associated with a specific diagnosis that is being evaluated, monitored, or treated as if it exists) are acceptable and can be coded in the inpatient setting, when documented at the
time of discharge.
Thank you,
Tresa Matthews RN BSN
CDI Specialist
available via tiger text
Please use your independent medical judgment in providing your response.
--- NOTE | 2024-10-15 13:52 | CM ---
Reviewed the chart notes and spoke with the patient at the bedside. IMM reviewed. Patient ok with paying for Xarelto [id number] until the prescription program paperwork is completed for special pricing. CM continues to be available to
patient/family and is monitoring medical plan for needs at discharge.
Plan: Discharge to home with no other needs identified at this time. Patient has home O2. Patient is still employed outside the home.
--- NOTE | 2024-10-15 14:17 | W.DCSUMMARY ---
Discharge Summary
Discharge Data
Date of Admission: 10/13/24
Date of Discharge: 10/15/24
-
Pending Results: No
Hospital Course
Discharge diagnosis:
Acute pulmonary embolism
Acute left lower extremity deep vein thrombosis
Chronic hypoxic respiratory failure
Possible pneumonia on chest x-ray
Chronic obstructive pulmonary disease
Obstructive sleep apnea
Pulmonary hypertension
Right-sided sciatica
Acute kidney injury
Nonischemic myocardial injury troponin elevation
Essential hypertension
Left adrenal mass, likely adenoma
Cholelithiasis
Obesity due to excess calories
Consults: Pulmonology
Echo:
Normal left ventricular size and systolic function. No regional wall motion
abnormalities are seen. LV ejection fraction is 60-65 % by Lamb's method of
discs. Mild concentric left ventricular hypertrophy. Diastolic function
indeterminate.
Mitral sclerosis without stenosis. Posterior mitral annular calcification.
Trace mitral regurgitation.
Structurally normal tricuspid valve. Tricuspid valve opens normally. Moderate
tricuspid regurgitation. Estimated pulmonary artery pressure of 81 mmHg.
Assuming a right atrial pressure of 3 mmHg.
Mildly dilated right atrium.
Enlarged right ventricular size. Reduced right ventricular systolic function.
Since echocardiogram December 2023, right ventricle is now hypokinetic and PA
systolic pressure is increased from 65 mmHg to [address] chest:
Examination is positive for pulmonary embolism involving segmental and subsegmental branches in the right middle lobe and the right lower lobe.
Enlargement of the main pulmonary artery, right ventricle, and right atrium, suggesting elevated right heart pressures. This may be at least partially chronic.
Patchy areas of linear and groundglass opacity scattered within both lungs, which likely represents interstitial fibrosis. Evidence for associated honeycombing. Findings of emphysema within both lungs.
Coronary artery calcifications. Please correlate with symptoms of and risk factors for coronary artery disease, with further workup as clinically appropriate.
Cholelithiasis.
1.6 cm mass arising within the left adrenal gland. This mass is not definitively characterized on the basis of attenuation value, but statistically is most likely an adenoma.
Hospital course:
69-year-old female with a past medical history of chronic hypoxic respiratory failure on 2 L, COPD, hypertension, and gastroesophageal reflux disease was admitted for acute pulmonary embolism and acute left lower extremity deep vein thrombosis.
Patient was seen in conjunction with pulmonology. Patient's PE and DVT were provoked due to immobility from recent influenza and norovirus infections. She was treated with an IV heparin drip, and then transitioned to therapeutic Lovenox.
Patient usually requires 2 L of oxygen at baseline. She continues to require 2 L of oxygen at rest, 4 L with activity.
Patient has obstructive sleep apnea, but is intolerant to CPAP. Her echocardiogram showed pulmonary hypertension, likely from untreated sleep apnea.
Patient was noted to have have acute kidney injury upon admission. Her hydrochlorothiazide was held, her creatinine normalized. Recommend that she discontinue her hydrochlorothiazide. A new prescription was sent for losartan 100 mg daily.
Patient has COPD, and is maintained on her prednisone.
Patient has right-sided sciatica, and was treated with pain meds.
Patient's multiple medical conditions have been optimized. She will be discharged on Xarelto. She needs to follow-up with her primary care doctor in 1 week, and pulmonology in the office in 2-3 weeks.
Disposition: Home self care
Discharge planning: Required 43 minutes
Discharge Plan
-
Patient Disposition: Home (Routine Discharge)
Discharge Diagnosis/Procedures: Chronic hypoxic respiratory failure, acute pulmonary embolism, acute left lower extremity deep vein thrombosis, chronic obstructive pulmonary disease, pulmonary hypertension from untreated sleep apnea, right-sided
sciatica, acute kidney injury likely from dehydration, possible pneumonia
Condition: Fair
Diet: Low Fat and Low Cholesterol
Activity: As tolerated
Driving Restrictions: As prior to admission
Activity Restrictions/Additional Instructions:
You need to take Xarelto 15 mg twice a day for 21 days, then 20 mg daily.
Recommend stopping hydrochlorothiazide due to dehydration, causing acute kidney injury.
Your blood pressure in the hospital was 139/73 without hydrochlorothiazide.
Continue wearing oxygen 2 L at rest, 4 L with activity.
Follow-up with your primary care doctor in 1 week, and pulmonology in the office in 2-3 weeks.
Referrals:
Kyle Villalobos MD [Active] - in two to three weeks
Issa Davis DO [Family Provider] - in one week
Prescriptions:
New
doxycycline hyclate 100 mg Capsule
100 mg PO Q12 5 Days Qty: 10 0RF
losartan 100 mg tablet
100 mg PO DAILY Qty: 30 0RF
Xarelto DVT-PE Treat 30d Start 15 mg (42)- 20 mg (9) tablets,dose pack
See Rx Instructions .ROUTE .COMPLEX Qty: 51 0RF
Rx Instructions:
Take as per package instructions.
cefdinir 300 mg capsule
300 mg PO BID 5 Days Qty: 10 0RF
oxycodone 5 mg tablet
5 mg PO BID PRN (Reason: Pain) Qty: 10 0RF
Continued
atorvastatin [Lipitor] 40 mg Tablet
40 mg PO DAILY
fluticasone propion-salmeterol [Advair Diskus] 250-50 mcg/dose Blister With Device
1 inh INHALATION R BID
prednisone 10 mg Tablet
10 mg PO DAILY
cyanocobalamin (vitamin B-12) 1,000 mcg Tablet
1,000 mcg PO DAILY
therapeutic multivitamin Tablet
1 tab PO DAILY
amlodipine [Norvasc] 5 mg Tablet
5 mg PO DAILY
omeprazole 40 mg Capsule,Delayed Release(Dr/Ec)
40 mg PO DAILY
aspirin 81 mg Tablet,Delayed Release (Dr/Ec)
81 mg PO DAILY
levothyroxine [Synthroid] 125 mcg Tablet
125 mcg PO DAILY
Discontinued
clopidogrel [Plavix] 75 mg Tablet
75 mg PO DAILY
losartan-hydrochlorothiazide 100-25 mg Tablet
1 tab PO DAILY
Discharge Orders:
Discharge Patient (As Directed); Ordered 10/15/24
Ordered By: Erwin Sy
Discharge Date and Time
Discharge Date/Time: 10/15/24 18:03
Print Language: MALAGASY
[2024-10-15 15:22] VITALS: BP 126/63
--- NOTE | 2024-10-15 17:38 | W.PN.PUL3 ---
Today's Communication / Plan
-
Transition to oral anticoagulation complete 3 months
She will follow-up with her animal daycare provider, daughter is at the bedside and thinking about following locally. She has our information.
Wean off oxygen if able.
Agree with discharge planning
Sign off
Assessment
-
69-year-old woman with past medical history noted, admitted to the hospital due to fatigue and shortness of breath. Since Wes has not been feeling well. Developed norovirus with prolonged GI symptoms. Subsequently developed the flu. Has
not been mobile. Today tried to go to work and felt very fatigued and short of breath came to the emergency room found to be hypoxemic. CT angiogram showed pulmonary embolism. We were consulted on 10/14/2024 for evaluation.
Acute hypoxemic respiratory failure due to pulmonary embolism and possible pneumonia.
Mild troponin leak
Increased proBNP 4000
Acute pulmonary embolism likely provoked due to immobility
CT angiogram: Reviewed, 10/13/2024 right middle lobe and right lower lobe segmental and subsegmental pulmonary embolism.
Increased RV, right atrium suggesting of elevated right pressures.
Patchy areas of linear and groundglass opacities scattered throughout both lungs, there is evidence of associated honeycombing. Emphysematous changes. Coronary artery calcifications
Incidental adrenal mass 1.6 cm-possible adenoma.
Left lower extremity deep venous thrombosis. No evidence for thrombosis in the right leg.
Mitosis
Conditions present prior admission:
Hiatal hernia
Coronary artery disease status post stent placement
Peripheral arterial disease status post right carotic endarterectomy
Essential hypertension
Hyperlipidemia
Chronic hypoxemia
COPD/emphysema/pulmonary fibrosis overlap
Does not follow-up with pulmonary locally.
Advair discus/low-dose prednisone
Hypothyroidism
Obstructive sleep apnea on CPAP
Former smoker quit about 25 years ago
obesity
Assessment and plan:
Acute right-sided pulmonary embolism: Likely provoked due to immobility after developing norovirus and subsequently influenza for the last month.
Patient report history of lower extremity VTE in the setting of a muscle injury 13 years ago.
Acute left lower extremity acute DVT documented this admission. Exam no significant tenderness or discoloration of extremity.
Increased proBNP and mild troponin leak: High risk features for this pulmonary embolism. Echocardiogram
10/14/2024: Showed normal left ventricular size and function. No regional wall tremor abnormalities. Ejection fraction 60 to 65%. Mild LVH. Diastolic dysfunction unable to be determined
Trace MR. Moderate TR. Estimated artery pulmonary pressure 81 mmHg. Enlarged right ventricular size. Reduced right ventricular systolic function. Compared to December 2023 pulmonary pressure has increased and RV function now is hypokinetic.
-
Appears that part of this pulmonary hypertension is chronic. Acute decompensation probably due to her pulmonary embolism.
Patient follows up at [facility] with pulmonary and cardiology.
-
Agree with transition to oral anticoagulants and complete 3 months.
Lovenox while able to transition to oral.
At this point given lack of hypotension, tachycardia or worsening hypoxemia recommend against thrombolysis.
Continue oxygen supplementation to maintain pulse ox above 90%. Currently at 2 L. Home oxygen assessment prior to discharge.
-
Not unreasonable to treat for pneumonia as well given underlying pulmonary disease with fibrosis/emphysema and possible COPD, leukocytosis without fever. Not bronchospastic on exam
Not bronchospastic on exam: No indication for increased doses of systemic corticosteroids
Patient on low-dose prednisone at 10 mg continue for now.
Continue inhalers.
Patient does not follow-up locally
So far all microbiology negative
-
Continue obstructive sleep -intolerant to CPAP. Only on nocturnal oxygen.
This could partially explain part of her pulmonary hypertension.
-
After discharge she will return to her animal daycare provider at [facility].
-
Agree with discharge once patient able to obtain oral anticoagulation-will be transition to Xarelto.
Subjective Data
-
Date of Service:
Date of Service: October 15, 2024
Chief Complaint: Pulmonary Follow Up (Pulmonary embolism)
Subjective:
No new pulmonary complaints
Tolerating anticoagulation
Review of Systems
Cardiopulmonary: Dyspnea (Improved) and Dyspnea on Exertion (Improved improved)
GI: Abdominal Pain (n)
Neuro: Headache (n)
Objective Data
Data Reviewed
Vital Signs / I&O / Oxygen:
Vital Signs
Temp Pulse Resp BP Pulse Ox
98.3 F 67 18 126/63 94
10/15/24 15:22 10/15/24 15:22 10/15/24 15:22 10/15/24 15:22 10/15/24 15:22
Intake and Output
10/14/24 10/15/24 10/16/24
06:59 06:59 06:59
Intake Total 480 / 480 1120 / 1120 540 / 540
Balance 480 / 480 1120 / 1120 540 / 540
SaO2 94
Nasal Cannula flow liters per 2
minute
Physical Exam
General: Comfortable
HEENT: Normocephalic
Cardiovascular: S1-S2
Respiratory: Non-Labored Respirations
GI: Soft and Non Distended
Neurology: Awake and Alert
Labs/Micro/Reports
Lab Data
10/15/24 06:45
10/14/24 04:52
Microbiology
10/13/24 17:07 Blood/Venous Blood Culture - Preliminary
No Growth in 48 hours- Final report to follow
10/13/24 17:07 Blood/Venous Blood Culture - Preliminary
No Growth in 48 hours- Final report to follow
10/13/24 13:17 Urine Urine Culture - Final
NO GROWTH
10/13/24 18:23 Urine Legionella Urinary Antigen - Final
Negative for Legionella pneumophila Serogroup 1 antigen.
A negative result does not rule out the possiblity of
Legionella infection due to other serogroups or species of
Legionella. Clinical correlation is recommended.
10/13/24 18:23 Urine Streptococcus pneumoniae Antigen (M - Final
Negative for Streptococcus pneumoniae antigen.
A negative result does not exclude infection with
Streptococcus pneumoniae. Clinical correlation is
recommended.
10/13/24 20:00 Nasal Swab Influenza Types A & B (YUNG) - Final
Negative for Influenza A & B, NAAT
Negative results must be combined with clinical observations
and patient history.
Nucleic Acid Amplification test (NAAT)performed on the
ezeep platform.
== END 2024-10-15 18:03 | disposition home or self-care (01) | DRG 175 ==
LOC: 2 NORTH 19:05
PROVIDERS: Physician Assistant Medical; Registered Nurse; ADMITTING PHYSICIAN Family Medicine; EMERGENCY PHYSICIAN Emergency Medicine; FAMILY PHYSICIAN Family Medicine; OTHER PHYSICIAN Internal Medicine Critical Care Medicine
DX: I26.94 Multiple subsegmental thrombotic pulmonary emboli without acute cor pulmonale (principal); J18.9 Pneumonia, unspecified organism; J96.21 Acute and chronic respiratory failure with hypoxia; I82.432 Acute embolism and thrombosis of left popliteal vein; I82.442 Acute embolism and thrombosis of left tibial vein; I82.452 Acute embolism and thrombosis of left peroneal vein; J44.0 Chronic obstructive pulmonary disease with (acute) lower respiratory infection; N17.9 Acute kidney failure, unspecified; I5A Non-ischemic myocardial injury (non-traumatic); I82.462 Acute embolism and thrombosis of left calf muscular vein; Z86.718 Personal history of other venous thrombosis and embolism; G47.33 Obstructive sleep apnea (adult) (pediatric); I27.20 Pulmonary hypertension, unspecified; I10 Essential (primary) hypertension; E78.5 Hyperlipidemia, unspecified; E66.09 Other obesity due to excess calories; Z68.34 Body mass index [BMI] 34.0-34.9, adult; Z11.52 Encounter for screening for COVID-19; K44.9 Diaphragmatic hernia without obstruction or gangrene; I25.10 Atherosclerotic heart disease of native coronary artery without angina pectoris; Z95.5 Presence of coronary angioplasty implant and graft; I73.9 Peripheral vascular disease, unspecified; J43.9 Emphysema, unspecified; J84.10 Pulmonary fibrosis, unspecified; E03.9 Hypothyroidism, unspecified; Z87.891 Personal history of nicotine dependence; Z79.82 Long term (current) use of aspirin; Z79.02 Long term (current) use of antithrombotics/antiplatelets; M54.31 Sciatica, right side; Z79.01 Long term (current) use of anticoagulants; K21.9 Gastro-esophageal reflux disease without esophagitis; E27.9 Disorder of adrenal gland, unspecified; I08.1 Rheumatic disorders of both mitral and tricuspid valves; Z79.890 Hormone replacement therapy; Z99.81 Dependence on supplemental oxygen
CPT/HCPCS: 71046; 71275; 80053; 81003; 81015; 82248; 83690; 83880; 84484; 85025; 85027; 85379; 85730; 87040; 87086; 87449; 87502; 87811; 87899; 93005; 93306; 93970; 94640; 96365; 96366; 96375; 97162; 97166; 99285; Q9967

== ENCOUNTER 2024-10-30 16:43 | Inpatient (IN) | payer MEDICARE, OTHER, SELFPAY ==
[2024-10-30] VITALS (10 sets, daily range): BP systolic 95–155; BP diastolic 68–87; BMI 36.7; BMI 36.0
--- NOTE | 2024-10-30 13:24 | ED.GENMED ---
History of Present Illness
General
Chief Complaint: Breathing Problem
Source: patient
Exam Limitations: none
Time Seen by Provider: 10/30/24 13:20
Nursing documentation reviewed up to this point in time: agreed with
History of Present Illness
History of Present Illness:
Patient is a 69-year-old female with recent dx of Acute PE and left dvt (admitted 10/13-10/15) history of chronic hypoxic respiratory failure, COPD sleep apnea, pulmonary hypertension presents to the ER for evaluation for evaluation of bilateral
lower extremity swelling shortness of breath and decreased pulse ox.
Patient reports for the past 1 week she has noticed increasing swelling her lower extremities and has had more shortness of breath than normal. She does have a history of COPD and she uses 4 L of oxygen only when she walks however despite this she
is more short of breath than normal. 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 She does mention that when she was here for PE
admission October 13 she was on losartan hydrochlorothiazide however they discontinued her hydrochlorothiazide.
She reports is a lot of swelling in her ankles and lower legs. She has been taking her Xarelto.
Review of Systems
Review of Systems
Allergies reviewed?: Yes
All Other Systems: ROS reviewed and negative except as documented in HPI and ROS
Constitutional: Reports no symptoms; Denies fever, fatigue or chills
Respiratory: Reports trouble breathing; Denies cough
Cardiac: Reports no symptoms
ABD/GI: Reports no symptoms
: Reports no symptoms
Musculoskeletal: Reports other (swelling in lower legs)
Skin: Reports no symptoms
Psychiatric: Reports no symptoms
Phy Exam
General Physical Exam
General Presentation: no apparent distress
General age: appears stated age
General Skin: warm and dry
General Habitus: normal
General Mental: alert
General Hydration: appears well hydrated
Cardiovascular Exam
Cardiovascular Exam: regular rate/rhythm, no murmur and normal peripheral pulses
Pulmonary Exam
Pulmonary Exam: lungs clear and no respiratory distress
Neurological Exam
Neurological Exam: alert and oriented x3
Musculoskeletal Exam
Musculoskeletal Exam: other (+ ankle and lower extremity swelling )
Skin Exam
Skin Exam: normal color and warm/dry
Psychiatric Exam
Psychiatric Exam: normal mood/affect
Scores
Heart Failure Risk
Heart Failure Risk Score: Not Applicable
Course
Orders/Labs/Results
Orders:
Orders
10/30/24 13:00
BNP [NT-proBNP] Urgent
Complete Blood Count/With Diff Urgent
Comprehensive Metabolic Panel Urgent
Troponin I Urgent
10/30/24 13:15
Electrocardiogram (*1) Urgent
Reason for Study: Shortness of Breath
EKG- Treatment ONCE
10/30/24 13:47
Chest [CR Chest - 2 Views ] Urgent
Comment:
Reason For Exam: sob
Abnormal Lab Results
10/30/24
13:00
WBC 17.7 H 10^3/uL
(4.8-10.8)
MCH 32.5 H pg
(27.0-31.0)
RDW 19.1 H %
(11.5-14.5)
MPV 10.8 H fL
(7.4-10.4)
Abs Immat Gran (auto) 0.3 H 10^3/uL
(0-0.05)
Absolute Neuts (auto) 15.5 H 10^3/uL
(1.4-6.5)
Absolute Lymphs (auto) 0.9 L 10^3/uL
(1.2-3.4)
Absolute Monos (auto) 0.8 H 10^3/uL
(0.1-0.6)
Immature Gran % 1.9 H %
(0-0.5)
Neutrophils % 87.8 H %
(42.2-75.2)
Lymphocytes % 4.9 L %
(20.5-51.1)
BUN 21 H mg/dl
(7-17)
Glucose 108 H mg/dl
(70-99)
Total Bilirubin 2.7 H mg/dl
(0.2-1.3)
AST 39 H U/L
(14-36)
ALT 38 H U/L
(0-35)
Troponin I 0.040 H* ng/ml
10/30/24 13:00
10/30/24 13:00
Vital Signs
Initial and Last Documented VS:
Initial Vital Signs
Temp Pulse Resp Pulse Ox
97.9 F 100 26 79
10/30/24 12:47 10/30/24 12:47 10/30/24 12:47 10/30/24 12:47
Last Documented Vital Signs
Temp Pulse Resp BP Pulse Ox
97.9 F 88 21 141/85 94
10/30/24 12:47 10/30/24 14:15 10/30/24 14:15 10/30/24 14:00 10/30/24 14:15
Pecan Picker consulted with Physician
Pecan Picker consulted with physician?: Yes
Name of Physician Consulted: Marleni
MDM/Problems Addressed
Differential Diagnosis Includes:
Not limited to CHF
MDM/Problems Addressed:
69 yr old female recently adm for PE/DVT presents for increasing SOB /l/e swelling she has been taking her anticoagulation.. Her HCT was stopped when she was here to improve with admission related to acute kidney injury however now patient has
elevated BNP with lower extremity swelling and shortness with exertion likely fluid overload. Patient very short of breath with exertion even on her oxygen more than normal. Will give dose of Lasix.
Patient does have a history of COPD is O2 dependent will admit for further evaluation and diuresis. Patient's troponin is elevated however was elevated prior admission patient with no chest pain, bilirubin also elevated
Case d/c with ED physician.
Chronic conditions affecting care:
hx of copd on chronic O2, recent PE/DVT
*Radiology
Radiology exam reviewed: preliminary read by ED provider (Increased vascular congestion)
*Pulse Oximetry
Patient hypoxic: yes
*Critical Care Note
Total Time (30-74mins, 75-104mins- exclusive of procedures): Not Applicable
ED Attending Note
-
Portions of this chart may have been created with voice recognition software.� Occasional wrong word or��sound alike� substitutions may have occurred due to the inherent limitations of voice recognition software.
Discharge Plan
Departure
Patient Disposition: Admit
Date of Disposition: 10/30/24
Time of Disposition: 15:36
Admit to: Telemetry
Admit to doctor: hospitalist
Presentation/result/management discussed w/ accepting MD/DO: Hospitalist
Patient with high blood pressure during this ER visit?: Yes
Covid-19: Not Applicable
Discharge Problem:
Congestive heart failure (CHF), hypoxia
Prescriptions:
No Action
atorvastatin [Lipitor] 40 mg Tablet
40 mg PO DAILY
fluticasone propion-salmeterol [Advair Diskus] 250-50 mcg/dose Blister With Device
1 inh INHALATION R BID
prednisone 10 mg Tablet
10 mg PO DAILY
cyanocobalamin (vitamin B-12) 1,000 mcg Tablet
1,000 mcg PO DAILY
therapeutic multivitamin Tablet
1 tab PO DAILY
amlodipine [Norvasc] 5 mg Tablet
5 mg PO DAILY
omeprazole 40 mg Capsule,Delayed Release(Dr/Ec)
40 mg PO DAILY
aspirin 81 mg Tablet,Delayed Release (Dr/Ec)
81 mg PO DAILY
levothyroxine [Synthroid] 125 mcg Tablet
125 mcg PO DAILY
losartan 100 mg tablet
100 mg PO DAILY Qty: 30 0RF
Xarelto DVT-PE Treat 30d Start 15 mg (42)- 20 mg (9) tablets,dose pack
See Rx Instructions .ROUTE .COMPLEX Qty: 51 0RF
Rx Instructions:
Take as per package instructions.
Referrals:
Issa Davis, [Family Provider] -
Interventions
Interventions:
*Risk Screen - Suicide Last Done: 10/30/24 12:47
*General Assessment Last Done: 10/30/24 12:47
*Neglect/Abuse Screening Last Done: 10/30/24 13:08
ED- Fall Risk Assessment Last Done: 10/30/24 13:08
*ED COVID-19 Vaccine History Last Done: 10/30/24 12:47
ED- Cardiac Assessment Last Done: 10/30/24 13:08
ED- Pulmonary Assessment Last Done: 10/30/24 13:08
Discharge Date and Time
Print Language: FAROESE
[2024-10-30 13:27] LABS: ALT (SGPT) 38 U/L (0-35); AST (SGOT) 39 U/L (14-36); Albumin 4.3 g/dl (3.5-5.0); Alkaline Phosphatase 97 U/L (38-126); Blood Urea Nitrogen 21 mg/dl (7-17); Calcium 9.6 mg/dl (8.4-10.2); Carbon Dioxide 27 mmol/L (22-30); Chloride 103 mmol/L (98-107); Estimated Creatinine Clearance 62 ml/min; Glucose 108 mg/dl (70-99); Potassium 4.5 mmol/L (3.5-5.1); Sodium 140 mmol/L (135-145); Total Bilirubin 2.7 mg/dl (0.2-1.3); Total Protein 7.1 g/dl (6.3-8.2); eGFR > 60.00
[2024-10-30 13:40] LABS: NT-proBNP 7480 pg/ml
[2024-10-30 13:49] LABS: % Basophils 0.5 % (0-2); % Eosinophils 0.3 % (0-6); % Immature Granulocytes 1.9 % (0-0.5); % Lymphocytes 4.9 % (20.5-51.1); % Monocytes 4.6 % (1.7-9.3); % Neutrophils 87.8 % (42.2-75.2); Absolute Basophils 0.1 10^3/uL (0-0.2); Absolute Eosinophils 0.1 10^3/uL (0-0.7); Absolute Immature Granulocytes 0.3 10^3/uL (0-0.05); Absolute Lymphocytes 0.9 10^3/uL (1.2-3.4); Absolute Monocytes 0.8 10^3/uL (0.1-0.6); Absolute Neutrophils 15.5 10^3/uL (1.4-6.5); Hematocrit 44.4 % (37.0-47.0); Hemoglobin 14.7 g/dL (12.0-16.0); Mean Corp Hgb Conc. 33.1 g/dL (33.0-37.0); Mean Corpuscular Hgb 32.5 pg (27.0-31.0); Mean Platelet Volume 10.8 fL (7.4-10.4); Nucleated Red Blood Cells % 0.4 %; Platelet Count 326 10^3/uL (130-400); Red Blood Cell Count 4.53 10^6/uL (4.20-5.40); Red Cell Dist. Width 19.1 % (11.5-14.5); White Blood Cell Count 17.7 10^3/uL (4.8-10.8)
--- NOTE | 2024-10-30 15:56 | HPS.HSE ---
Family Physician
-
Family Physician: Issa Davis, DO
Chief Complaint
-
shortness of breath
History of Present Illness
Ms. Vida Chow is a 69 yo woman with hx COPD, VISH, pulmonary HTN, essential HTN, obesity due to excess calories, recent admission 10/13-10/15/24 for acute PE and DVT (provoked 2/2 recent immobility from influenza and norovirus infections;
discharged on Xarelto) presents to the ER with increased lower extremity swelling and shortness of breath.
Patient states she was feeling well after discharge. Since last week she has noticed increased swelling in her LE associated with trouble breathing with exertion. She normally wears 4L O2 with ambulation but does not need it at her job (works at a
[employer]). She felt very short of breath yesterday and needed oxygen.
She denies chest pain. No recent fevers/chills. No nausea/vomiting. No abdominal pain. No cough/congestion. Her grandson is positive with covid and has been isolating at home.
Medical History
Past Medical History
Past Medical History: Reports Other
Additional Past Medical History:
Coronary Artery Disease s/p Stent
Peripheral Arterial Disease s/p Right Carotid Endarterectomy
Essential Hypertension
Hyperlipidemia
Chronic Hypoxia
COPD / Emphysema / Pulmonary Fibrosis
Hypothyroidism
Past Surgical History: Reports Other
Additional Past Surgical History:
Right Carotid Endarterectomy
Cardiac Stent
Gastric Sleeve
Section
Social History
Tobacco: Former Smoker (Quit about 25 years ago)
Employment: Employed (Hairdresser)
Family History
Family History: Not pertinent
Allergies / Home Medications
Allergies reflects when Allergies were last updated in [facility].
Home Medications with original date entered in [facility]
Allergy/Medication List:
Allergies
Allergy/AdvReac Type Severity Reaction Status Date / Time
No Known Allergies Allergy Verified 10/30/24 12:53
Home Medications
amlodipine 5 mg tablet (Norvasc) 5 mg PO DAILY Blood Pressure 10/13/24
aspirin 81 mg tablet,delayed release 81 mg PO DAILY Blood Clot Prevention/Tx 10/13/24
atorvastatin 40 mg tablet (Lipitor) 40 mg PO DAILY High Cholesterol 10/13/24
cyanocobalamin (vitamin B-12) 1,000 mcg tablet 1,000 mcg PO DAILY Supplement 10/13/24
fluticasone 250 mcg-salmeterol 50 mcg/dose blistr powdr for inhalation (Advair Diskus) 1 inh inhalation R BID Lung/Breathing Issues 10/13/24
levothyroxine 125 mcg tablet (Synthroid) 125 mcg PO DAILY Thyroid 10/13/24
omeprazole 40 mg capsule,delayed release 40 mg PO DAILY GERD 10/13/24
prednisone 10 mg tablet 10 mg PO DAILY INFLAMMATION 10/13/24
therapeutic multivitamin 1 tab PO DAILY Supplement 10/13/24
losartan 100 mg tablet 100 mg PO DAILY #30 tabs 10/15/24
rivaroxaban 15 mg (42)-20 mg (9) tablets in a starter pack (Xarelto DVT-PE Treatment 30-Day Starter) See Rx Instructions PO .COMPLEX #51 ea 10/15/24
Review of Systems
-
History Source: Patient
A 12 point ROS was completed and negative except as noted: Yes
Physical Exam
Vital Signs
Vital Signs
Temp Pulse Resp BP Pulse Ox
97.9 F 88 21 141/85 94
10/30/24 12:47 10/30/24 14:15 10/30/24 14:15 10/30/24 14:00 10/30/24 14:15
Physical Exam
General: No Apparent Distress
HEENT: PERRLA
Respiratory: Clear; No Wheezes
Cardiac: S1/S2, Regular Rhythm and JVD
GI: Soft and Non Tender
Musculoskeletal: Edema, Left Lower Extremity and Edema, Right Lower Extremity
Skin: Warm and Dry; No Rash
Neuro: AO x 3
Psych: Calm
Laboratory Results
-
10/30/24 13:00
10/30/24 13:00
Laboratory Results
Total Bilirubin 2.7 mg/dl (0.2-1.3) H 10/30/24 13:00
AST 39 U/L (14-36) H 10/30/24 13:00
ALT 38 U/L (0-35) H 10/30/24 13:00
Alkaline Phosphatase 97 U/L (38-126) 10/30/24 13:00
Troponin I 0.040 ng/ml H* 10/30/24 13:00
Data Reviewed
-
Diagnostic Radiology: Report Reviewed by me
Lab Data: Labs Reviewed by me
Impression/Plan
-
Ms. Vida Chow is a 69 yo woman with hx COPD, VISH, pulmonary HTN, essential HTN, obesity due to excess calories, recent admission 10/13-10/15/24 for acute PE and DVT (provoked 2/2 recent immobility from influenza and norovirus infections;
discharged on Xarelto) presents to the ER with increased lower extremity swelling and shortness of breath.
Triage VS: T 97.9, P 100, RR 26, SpO2 79% placed on 6L
LABS: WBC 17.7, Hg 14.7, PLT 326, Na 140, K+ 4.5, Co 103, CO2 27, BUN 21, Cr 0.9, Glucose 108, T. Bili 2.7, AST 39, ALT 38, Trop 0.040, BNP 7480
Hypoxic Respiratory Failure
Heart Failure Exacerbation, unknown EF
Recent Diagnosis PE/DVT
-suspect heart failure with increased b/l swelling. HCTZ stopped last admission (previously prescribed for BP, not swelling). However with significant hypoxia and recent PE with RV strain; will repeat CT to confirm patient is responsive to Xarelto
-admit to telemetry
-repeat TTE
-cardiology consult
-IV Lasix
-daily weights, strict I/O
-PURCHASING CLERK Xarelto (she is on 15mg PO BID dosing through 11/02 -- on 11/03 needs to start the 20mg qhs dosing)
GERD - PURCHASING CLERK PPI
COPD on chronic prednisone therapy - continue PURCHASING CLERK prednisone
-no active wheezing on exam
-PURCHASING CLERK Advair
Chronic leukocytosis
-2/2 chronic prednisone and related to stress reaction, no e/o infection
Essential HTN
-PURCHASING CLERK losartan
-hold PURCHASING CLERK amlodipine for now with b/l LE swelling
HLD
-PURCHASING CLERK asa/statin
Hypothyroidism
-F/U TSH
-PURCHASING CLERK Synthroid
DVT PPx PURCHASING CLERK Xarelto
FULL CODE
76 minutes spent on patient care
[2024-10-30 16:38] LABS: COVID-19 Antigen Negative (Negative)
--- NOTE | 2024-10-30 16:44 | CON.CAR ---
Addendum entered and electronically signed by Yvette Evans MD 10/30/24 17:48:
I saw and examined the patient.
The DIRECTOR CHEMISTRY's note was reviewed and I agree with the note.
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
Recent PE with RV dysfunction and further worsening of pulm HTN. She presents with glaser and le edema. On exam, lungs cta, rrr, mild le edema. Oxygen requirement increased. CXR looks to have pulm edema. Agree with diuresis for acute HFpEF, will need
intensive monitoring. Will transition meds to GDMT, no h/o UTI will trevizo out farxiga. Will transition amlodipine to MRA.
Continue DOAC for PE. Plan d/w Dr. Kraus.
Will follow
Original Note:
Consultation
Consultation Request
Date/Time Consultation Requested: 10/30/24 1622
Date/Time Consultation Performed: 10/30/24 1640
Requesting Provider: Dr. Kraus
Performing Provider: Nadege FLORES for Dr. Evans
Reason for Consultation: CHF
Medical History
-
Chief Complaint: SOB, LE edema
History of Present Illness:
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 She was
recently hospitalized and diagnosed with pulmonary embolism and DVT and started on Xarelto. She was feeling well, but then Sunday started to notice an increase in LE edema. Then since Sunday, she has had SOB. Of note, HCTZ 25 mg daily was stopped
last admit. She is in no distress at the time of my assessment. She is on O2 by ME.
Past Medical History
Past Medical History: CAD, COPD, HTN, Hypercholesterolemia, Hypothyroidism and Other (as above )
Social History
Tobacco: Former Smoker
Personal:
Family History
Family History: Reviewed & Not Pertinent
Allergies / Home Medications
Allergy/AdvReac Type Severity Reaction Status Date / Time
No Known Allergies Allergy Verified 10/30/24 12:53
�Medication �Instructions �Recorded �Confirmed �Type
amlodipine 5 mg tablet (Norvasc) 5 mg PO DAILY Blood Pressure 10/13/24 10/30/24 History
aspirin 81 mg tablet,delayed 81 mg PO DAILY Blood Clot 10/13/24 10/30/24 History
release Prevention/Tx
atorvastatin 40 mg tablet (Lipitor) 40 mg PO DAILY High Cholesterol 10/13/24 10/30/24 History
cyanocobalamin (vitamin B-12) 1,000 mcg PO DAILY Supplement 10/13/24 10/30/24 History
1,000 mcg tablet
fluticasone 250 mcg-salmeterol 50 1 inh inhalation R BID 10/13/24 10/30/24 History
mcg/dose blistr powdr for Lung/Breathing Issues
inhalation (Advair Diskus)
levothyroxine 125 mcg tablet 125 mcg PO DAILY Thyroid 10/13/24 10/30/24 History
(Synthroid)
omeprazole 40 mg capsule,delayed 40 mg PO DAILY GERD 10/13/24 10/30/24 History
release
prednisone 10 mg tablet 10 mg PO DAILY INFLAMMATION 10/13/24 10/30/24 History
therapeutic multivitamin 1 tab PO DAILY Supplement 10/13/24 10/30/24 History
losartan 100 mg tablet 100 mg PO DAILY #30 tabs 10/15/24 10/30/24 Rx
rivaroxaban 15 mg (42)-20 mg (9) See Rx Instructions PO .COMPLEX 10/15/24 10/30/24 Rx
tablets in a starter pack (Xarelto #51 ea
DVT-PE Treatment 30-Day Starter)
Review of Systems
-
History Source: Patient
All other systems: Negative unless noted
Constitutional: Weight Gain
Respiratory: Trouble Breathing
Musculoskeletal: Edema
Physical Exam
Vital Signs
Temp Pulse Resp BP Pulse Ox
97.9 F 88 21 141/85 94
10/30/24 12:47 10/30/24 14:15 10/30/24 14:15 10/30/24 14:00 10/30/24 14:15
Lab Results
10/30/24 13:00
10/30/24 13:00
Troponin I 0.040 ng/ml H* 10/30/24 13:00
Lap-L-Tsbnjcrgywb Pept 7480 pg/ml 10/30/24 13:00
Physical Exam
General: Well Developed, Well Nourished and No Apparent Distress
HEENT: Normocephalic and Anicteric
Respiratory: Crackles (b/l bases)
Cardiac: Regular Rhythm
Musculoskeletal: Edema (mild BLE edema)
Skin: Warm and Dry
Neuro: AO x 3
Psych: Calm
Impression / Plan
-
Acute HFpEF:
-agree with IV lasix, which requires intensive monitoring
-BNP 7480, LE edema is noted
-HCTZ recently stopped
-once diuresed further can assess for other meds- SGLT2 inhibitor, spironolactone
-recent echo as noted
PE/DVT:
-on Xarelto
-repeat CT being done per primary
Abnormal troponin:
-acute, non-ischemic myocardial injury in setting of above
-no CP
HTN:
-continue meds and monitor
CAD with hx stenting 2021:
-stable without CP
-on ASA, Xarelto, statin
Data Reviewed
-
EKG: Tracing Personally Visualized and interpreted (NSR 88, right axis, nonspecific T abnormality)
Radiology: Report Reviewed by me (Interstitial opacification with bibasilar opacities, more pronounced on the left, which are likely sequelae of interstitial fibrosis. Superimposed mild edema or interstitial pneumonitis could appear similar.)
Medical Tests (Nuc Med, Echo etc): Report Reviewed by me (Echo 10/14/24: EF 60-65%. Mild concentric LVH. Moderate tricuspid regurgitation. Estimated pulmonary artery pressure of 81 mmHg. Enlarged right ventricular size. Reduced right ventricular
systolic function.)
Labs: Labs Reviewed by me
[2024-10-30] MEDS: LASIX 40 MG IV (16:45)
[2024-10-30] MEDS: XARELTO 15 MG PO (20:48)
[2024-10-30] MEDS: ADVAIR HFA 115/21 MCG INHALER 2 PUFF INH (22:16)
[2024-10-30 22:28] LABS: Troponin I 0.034 ng/ml
--- NOTE | 2024-10-30 23:26 | PTCARENOTE ---
Patient arrived to unit from ED via stretcher. Patient able to safely ambulate into room 318-2 on . Patient AAOx3 and able to make needs known. Pt. reports urinary frequency after lasix in the ED. Oriented to unit. Call paul within reach. Plan
of care ongoing.
[2024-10-31] VITALS (8 sets, daily range): BP systolic 87–146; BP diastolic 55–81; BMI 35.8
[2024-10-31 04:09] LABS: Hematocrit 39.5 % (37.0-47.0); Hemoglobin 13.1 g/dL (12.0-16.0); Mean Corp Hgb Conc. 33.2 g/dL (33.0-37.0); Mean Corpuscular Hgb 32.4 pg (27.0-31.0); Mean Corpuscular Volume 97.8 fL (81.0-99.0); Platelet Count 266 10^3/uL (130-400); Red Blood Cell Count 4.04 10^6/uL (4.20-5.40); Red Cell Dist. Width 18.5 % (11.5-14.5); White Blood Cell Count 13.3 10^3/uL (4.8-10.8)
[2024-10-31 04:31] LABS: ALT (SGPT) 29 U/L (0-35); AST (SGOT) 29 U/L (14-36); Albumin 3.5 g/dl (3.5-5.0); Alkaline Phosphatase 78 U/L (38-126); Blood Urea Nitrogen 23 mg/dl (7-17); Carbon Dioxide 27 mmol/L (22-30); Chloride 103 mmol/L (98-107); Estimated Creatinine Clearance 61 ml/min; Glucose 87 mg/dl (70-99); HDL Cholesterol 59 mg/dl; LDL Cholesterol, Calculated 46 mg/dl; Magnesium 1.7 mg/dl (1.6-2.3); Potassium 3.9 mmol/L (3.5-5.1); Sodium 139 mmol/L (135-145); Total Bilirubin 2.4 mg/dl (0.2-1.3); Total Cholesterol 124 mg/dl (50-199); Total Protein 6.1 g/dl (6.3-8.2); Triglyceride 97 mg/dl (10-149); Very Low Density Lipoprotein 19 mg/dl (0-30); eGFR > 60.00
[2024-10-31 04:39] LABS: Troponin I 0.034 ng/ml
[2024-10-31 04:59] LABS: TSH Reflex To Free T4 0.26 uIU/ml (0.47-4.68)
[2024-10-31] MEDS: SYNTHROID 125 MCG PO (05:20)
[2024-10-31 05:29] LABS: Free T4 1.75 ng/dl (0.78-2.19)
[2024-10-31] MEDS: ADVAIR HFA 115/21 MCG INHALER 2 PUFF INH ×2 (07:27→18:03)
[2024-10-31] MEDS: VITAMIN B-12 1000 MCG PO (08:15)
[2024-10-31] MEDS: LIPITOR 40 MG PO (08:16)
[2024-10-31] MEDS: PROTONIX 40 MG PO (08:16)
[2024-10-31] MEDS: XARELTO 15 MG PO ×2 (08:18→19:43)
[2024-10-31] MEDS: ASPIR LOW (ENTERIC COATED) 81 MG PO (08:18)
[2024-10-31] MEDS: COZAAR 100 MG PO (08:19)
[2024-10-31] MEDS: DELTASONE 10 MG PO (08:20)
[2024-10-31] MEDS: LASIX 40 MG IV ×2 (08:21→15:56)
--- NOTE | 2024-10-31 09:07 | W.PN.CD ---
Today's Communication / Plan
-
Continue IV Lasix 40 mg twice daily. Can likely switch to p.o. tomorrow.
Start spironolactone 25 mg daily.
Await SGLT2 inhibitor pricing by case management
Continue Xarelto for history of PE
Impression / Plan
-
Acute HFpEF:
-agree with IV lasix, which requires intensive monitoring
-BNP 7480, LE edema is improving but crackles persist
-HCTZ recently stopped
-Switch amlodipine to spironolactone. Case management to trevizo SGLT2i
-Continue IV Lasix 40 mg twice daily. Can likely switch to p.o. tomorrow.
PE/DVT:
-on Xarelto
-repeat CT being done per primary
Abnormal troponin:
-acute, non-ischemic myocardial injury in setting of above
-no CP
HTN:
-continue meds and monitor
CAD with hx stenting 2021:
-stable without CP
-on ASA, Xarelto, statin
Subjective: Feels much improved today. Lower extremity swelling is down. Has not been up and walking around.
Physical Exam
Vital Signs/Labs
Vital Signs
Temp Pulse Resp BP Pulse Ox
97.5 F 74 16 144/70 91
10/31/24 07:22 10/31/24 08:21 10/31/24 07:31 10/31/24 08:21 10/31/24 07:31
10/30/24 10/31/24 11/01/24
06:59 06:59 06:59
Actual Weight 88.734 kg
10/31/24 03:54
10/31/24 03:54
Magnesium 1.7 mg/dl (1.6-2.3) 10/31/24 03:54
Triglycerides 97 mg/dl (10-149) 10/31/24 03:54
LDL Cholesterol, Calc 46 mg/dl 10/31/24 03:54
VLDL Cholesterol, Calc 19 mg/dl (0-30) 10/31/24 03:54
HDL Cholesterol 59 mg/dl 10/31/24 03:54
Free T4 1.75 ng/dl (0.78-2.19) 10/31/24 03:54
10/30/24
13:00
Eor-I-Vcrpvmijqqx Pept 7480
LAB Results
10/30/24 10/30/24 10/31/24
13:00 21:52 03:54
Troponin I 0.040 H* 0.034 0.034
Physical Exam
Constitutional: No acute distress and Comfortable
Cardiovascular: Rhythm & rate is regular, Pedal edema is absent, S1S2 is normal and Murmur/rub/gallop absent
Respiratory: Respiratory effort normal and Crackles Present
Neuro/Psych: AO x 3
Data Reviewed
-
Date of Service: October 31, 2024
Medical Decision Making: Reviewed Test Results, Independent Historian Assessment, Test Interpretation and Review of Case with other Provider
EKG: Tracing Personally Visualized and interpreted
Echo: Report Reviewed by me
Labs: Labs Reviewed by me
[2024-10-31] MEDS: ALDACTONE 25 MG PO (09:44)
--- NOTE | 2024-10-31 10:47 | W.PN.HOSP.TC ---
Today's Communication/Plan
-
Assessment / Plan
Assessment / Plan
NAD, without evidence of conversational dyspnea, requiring supplemental oxygen
Scleral Anicteric
MMM
No JVD
Bibasilar crackles
RRR, S1/S2
Soft, NT, ND, BS+
Warm, Dry
AAOx3
Calm
Acute on chronic HFpEF exacerbation with known EF of 60 to 65%
-IV diuretics
-Start MRA
-Await SGLT2 inhibitor pricing by case management
-Monitor urinary output
-Keep K greater than 4
-Keep mag greater than 2
-Follow renal function
-2D echocardiogram pending
-Per cardiology likely able to transition to p.o. diuretics within the next 24 hours
PE�subacute, believed to be provoked due to immobility per pulmonary
-Continue Xarelto loading dose until November 02. Then start Xarelto maintenance dose November 03
GERD
-Continue PPI
COPD on chronic prednisone therapy
Hypertension
Continue losartan
Hold amlodipine due to lower extremity edema
Hypothyroidism
Continue Synthroid
Repeat TFTs in 6 weeks with PCP
Anticipated Discharge: 24 - 48 hours
Subjective/Interval History
-
Date of Service: October 31, 2024
seen and examined. no new comaplitns. no acute overnight events
states b/l le swelling improved
breathing improving
use at home 2l at night
3-4l when walking into work
0l when at work and sitting
Objective Data
-
Labs:
Laboratory Results
10/31/24
03:54
WBC 13.3 H
Hgb 13.1
Hct 39.5
Plt Count 266
Sodium 139
Potassium 3.9
Chloride 103
Carbon Dioxide 27
BUN 23 H
Creatinine 0.9
Glucose 87
Calcium 9.0
Total Bilirubin 2.4 H
AST 29
ALT 29
Alkaline Phosphatase 78
Vital Signs:
Vital Signs
Temp Pulse Resp BP Pulse Ox
97.5 F 90 16 115/63 91
10/31/24 07:22 10/31/24 09:44 10/31/24 07:31 10/31/24 09:44 10/31/24 07:31
[2024-10-31] MEDS: FLUSH (NSS) 2 FLUSH IV (15:57)
--- NOTE | 2024-10-31 16:42 | PN.CDI ---
CDI
- -
CDI:
Physician Documentation Request
Admit Date: 10/30/24 16:43
Dear Doctor Titi,
Please review the following and provide your response in the progress notes.
Clinical Indicators:
Documentation in the H&P record on 10/30/2024 includes the diagnosis of respiratory failure. The patient's respiratory clinical indicators were the following:
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 She felt very short of breath yesterday and needed oxygen.'
Pt on 4-6L O2NC
Selected Entries
10/30/24
12:47 10/30/24
13:08 10/30/24
13:13
Resp Rate 26 28
SaO2 79 81
Nasal Cannula flow liters per minute 3 6
Recognized standard criteria for respiratory failure includes:
(Source: [employer] [facility] Jul 2013)
ABGs (1 or more)
�PO2 <60 or RA SpO2 <91%
�PcO2 >50 and pH <7.35
�pO2 decrease or pcO2 increase by 10 mmHg from baseline if known Symptoms:
�Tachypnea, SOB, dyspnea
�Pallor or cyanosis
�Anxiety or restlessness
�Use of accessory muscles
�Retractions (grunting in newborns)
�Unable to speak in complete sentences
Supplemental O2 requirement of 40% (5LPM) or more Intubation is not required
Based on the above information and the recognized standard for respiratory failure could you please verify this diagnoses is still accurate and reflective of the patient�s condition to ensure quality of the medical record.
Please clarify in the Progress Notes:
�Respiratory failure is/was present and is a clinical diagnosis
�After study respiratory failure has been ruled out
�Other
Use of terms such as suspected, likely, concern for, or probable (associated with a specific diagnosis that is being evaluated, monitored, or treated as if it exists) are acceptable and can be coded in the inpatient setting, when documented at the
time of discharge.
Thank you,
Columba Keating RN, BSN
CDI Specialist
[place] [facility]
Please use your independent medical judgment in providing your response.
[2024-11-01 03:53] VITALS: BP 120/71
[2024-11-01 05:49] VITALS: BMI 34.9
[2024-11-01] MEDS: SYNTHROID 125 MCG PO (05:49)
[2024-11-01 08:35] VITALS: BP 111/63
[2024-11-01] MEDS: PROTONIX 40 MG PO (08:35)
[2024-11-01] MEDS: ALDACTONE 25 MG PO (08:35)
[2024-11-01] MEDS: ASPIR LOW (ENTERIC COATED) 81 MG PO (08:35)
[2024-11-01] MEDS: DELTASONE 10 MG PO (08:35)
[2024-11-01] MEDS: LIPITOR 40 MG PO (08:35)
[2024-11-01] MEDS: COZAAR 100 MG PO (08:35)
[2024-11-01] MEDS: LASIX 40 MG IV (08:36)
[2024-11-01] MEDS: XARELTO 15 MG PO (08:36)
[2024-11-01] MEDS: VITAMIN B-12 1000 MCG PO (08:36)
[2024-11-01] MEDS: ADVAIR HFA 115/21 MCG INHALER 2 PUFF INH (08:37)
[2024-11-01 09:53] LABS: Hematocrit 44.9 % (37.0-47.0); Hemoglobin 14.5 g/dL (12.0-16.0); Mean Corp Hgb Conc. 32.3 g/dL (33.0-37.0); Mean Corpuscular Hgb 32.3 pg (27.0-31.0); Mean Platelet Volume 11.4 fL (7.4-10.4); Platelet Count 285 10^3/uL (130-400); Red Blood Cell Count 4.49 10^6/uL (4.20-5.40); Red Cell Dist. Width 19.1 % (11.5-14.5); White Blood Cell Count 14.7 10^3/uL (4.8-10.8)
[2024-11-01 10:14] LABS: Blood Urea Nitrogen 33 mg/dl (7-17); Calcium 9.2 mg/dl (8.4-10.2); Carbon Dioxide 35 mmol/L (22-30); Chloride 97 mmol/L (98-107); Estimated Creatinine Clearance 54 ml/min; Glucose 72 mg/dl (70-99); Potassium 3.9 mmol/L (3.5-5.1); Sodium 141 mmol/L (135-145); eGFR > 60.00
--- NOTE | 2024-11-01 11:09 | W.DCSUMMARY ---
Discharge Summary
Discharge Data
Date of Admission: 10/30/24
Date of Discharge: 11/01/24
-
Pending Results: No
Hospital Course
69 yo woman with hx COPD, VISH, pulmonary HTN, essential HTN, obesity due to excess calories, recent admission 10/13-10/15/24 for acute PE and DVT (provoked 2/2 recent immobility from influenza and norovirus infections; discharged on Xarelto)
Presented with acute on chronic shortness of breath requiring increased amount of oxygen. Found to be in acute heart failure exacerbation requiring diuresis. Was evaluated by cardiology, continued on IV diuretics 40 mg twice a day and will
transition to 40 mg daily, additionally started on Aldactone. Additionally, will provide Jardiance coupon for 1 month supply for an SGLT2 inhibitor which would be consistent with goal-directed medical therapy for heart failure. Will need to
follow-up with outpatient cardiology.
Additionally should be noted recent diagnosis of provoked pulmonary embolism only on Xarelto 15 mg p.o. twice daily. Will need to start taking Xarelto 20 mg daily starting November 03 as November 02 is the final day for Xarelto 15 mg p.o. twice a
day.
CONCLUSIONS
Normal LV size and function with no regional wall motion abnormalities.
LVEF is 60-65% by visual estimation.
Flattened septum in systole and diastole consistent with RV pressure and volume
overload.
Dilated RV with reduced systolic function.
Moderate tricuspid regurgitation.
Estimated pulmonary artery pressure of 80-85 mmHg. Assuming a right atrial
pressure of 3 mmHg.
Compared to prior from October 14, 2024, estimated PASP remains severely
elevated and there is no significant change.
Discharge Plan
-
Patient Disposition: Home with Home Care
Discharge Diagnosis/Procedures: HFpEF exacterbation
Acute on chronic hypoxemic respiratory failure
Condition: Fair
Diet: As tolerated, Low Fat, Low Cholesterol, 2 Gram Sodium and Restrict fluids to 48 oz
Activity: As tolerated
Specialty Instructions: Weigh Daily- Call MD for wt gain/loss 3 lbs overnight/5 lbs in 1 week
Activity Restrictions/Additional Instructions:
Presented with acute on chronic shortness of breath requiring increased amount of oxygen. Found to be in acute heart failure exacerbation requiring diuresis. Was evaluated by cardiology, continued on IV diuretics 40 mg twice a day and will
transition to 40 mg daily, additionally started on Aldactone. Additionally, will provide Jardiance coupon for 1 month supply for an SGLT2 inhibitor which would be consistent with goal-directed medical therapy for heart failure. Will need to
follow-up with outpatient cardiology.
Additionally should be noted recent diagnosis of provoked pulmonary embolism only on Xarelto 15 mg p.o. twice daily. Will need to start taking Xarelto 20 mg daily starting November 03 as November 02 is the final day for Xarelto 15 mg p.o. twice a
day.
CONCLUSIONS
Normal LV size and function with no regional wall motion abnormalities.
LVEF is 60-65% by visual estimation.
Flattened septum in systole and diastole consistent with RV pressure and volume
overload.
Dilated RV with reduced systolic function.
Moderate tricuspid regurgitation.
Estimated pulmonary artery pressure of 80-85 mmHg. Assuming a right atrial
pressure of 3 mmHg.
Compared to prior from October 14, 2024, estimated PASP remains severely
elevated and there is no significant change.
Referrals:
Issa Davis DO [Family Provider] -
Yvette Evans MD [Active] - in two weeks
Additional Discharge Medication Instructions: Start Lasix 40 mg daily
Start Jardiance 10 mg daily
Start Aldactone 25 mg daily
Start Xarelto 20 mg p.o. nightly on 11/03
Stop Xarelto 50 mg twice a day last dose 11/02 night
Stop amlodipine 5 mg p.o. daily
Prescriptions:
New
spironolactone 25 mg Tablet
25 mg PO DAILY Qty: 30 0RF
Jardiance 10 mg tablet
10 mg PO DAILY Qty: 30 0RF
furosemide [Lasix] 40 mg tablet
40 mg PO DAILY Qty: 30 0RF
Continued
atorvastatin [Lipitor] 40 mg Tablet
40 mg PO DAILY
fluticasone propion-salmeterol [Advair Diskus] 250-50 mcg/dose Blister With Device
1 inh INHALATION R BID
prednisone 10 mg Tablet
10 mg PO DAILY
cyanocobalamin (vitamin B-12) 1,000 mcg Tablet
1,000 mcg PO DAILY
therapeutic multivitamin Tablet
1 tab PO DAILY
omeprazole 40 mg Capsule,Delayed Release(Dr/Ec)
40 mg PO DAILY
aspirin 81 mg Tablet,Delayed Release (Dr/Ec)
81 mg PO DAILY
levothyroxine [Synthroid] 125 mcg Tablet
125 mcg PO DAILY
losartan 100 mg tablet
100 mg PO DAILY Qty: 30 0RF
Xarelto DVT-PE Treat 30d Start 15 mg (42)- 20 mg (9) tablets,dose pack
See Rx Instructions .ROUTE .COMPLEX
Rx Instructions:
Take as per package instructions.
Discontinued
amlodipine [Norvasc] 5 mg Tablet
5 mg PO DAILY
Discharge Orders:
Discharge Patient (As Directed); Ordered 11/01/24
Ordered By: Randy Walls
Discharge Date and Time
Print Language: TANZANIAN
--- NOTE | 2024-11-01 11:10 | W.PN.HOSP.TC ---
Addendum entered and electronically signed by Randy Walls MD 11/01/24 14:01:
acute on chornic respiratory fialure, present on admit
Original Note:
Today's Communication/Plan
-
DC home
More than 30 minutes spent in discharge including
Final examination of the patient
Summarizing hospital stay
Instructions for continuing care to all relevant caregivers
Preparation of discharge records, prescriptions, and referral forms
Total time spent (in minutes): 33mins
Assessment / Plan
Assessment / Plan
NAD, without evidence of conversational dyspnea, requiring supplemental oxygen
Scleral Anicteric
MMM
No JVD
Crackles worse on the right base than left
RRR, S1/S2
Soft, NT, ND, BS+
Warm, Dry
AAOx3
Calm
Acute on chronic HFpEF exacerbation with known EF of 60 to 65%
-IV diuretics, bump in bicarb, transition to p.o. diuretics
-Started MRA
-SGLT2 inhibitor -Jardiance initiated for outpatient. 30-day free coupon provided
-Monitor urinary output
-Keep K greater than 4
-Keep mag greater than 2
-Follow renal function
-2D echocardiogram completed
PE�subacute, believed to be provoked due to immobility per pulmonary
-Continue Xarelto loading dose until November 02. Then start Xarelto maintenance dose November 03
GERD
-Continue PPI
COPD on chronic prednisone therapy
Hypertension
Continue losartan
Hold amlodipine due to lower extremity edema
Hypothyroidism
Continue Synthroid
Repeat TFTs in 6 weeks with PCP
Anticipated Discharge: Today
Subjective/Interval History
-
Date of Service: November 01, 2024
Seen and examined. No new complaints. No acute overnight events
Objective Data
-
Labs:
Laboratory Results
11/01/24
08:41
WBC 14.7 H
Hgb 14.5
Hct 44.9
Plt Count 285
Sodium 141
Potassium 3.9
Chloride 97 L
Carbon Dioxide 35 H
BUN 33 H
Creatinine 1.0
Glucose 72
Calcium 9.2
Vital Signs:
Vital Signs
Temp Pulse Resp BP Pulse Ox
98.7 F 86 16 111/63 94
11/01/24 08:35 11/01/24 08:42 11/01/24 08:42 11/01/24 08:35 11/01/24 08:42
[2024-11-01 11:42] VITALS: BP 101/44
--- NOTE | 2024-11-01 13:00 | CM ---
Alert awake oriented patient who lives alone in a 2 story home with 1 steps to enter and 2 steps to bed/bathroom. She is independent in activates of daily living.She does drive .She uses oxygen at home with [employer].Her dgt will drive her home. Pt
will be staying with dgt for a while till feeloing better .Offered Vn she delcined she is not home bound.MD requested cost of Jardiance and Lauro Called [facility] pharmacist said $120.00 Pt is in agreement with trevizo.
Never had VN in past . No SNF hx
Pharmacy [facility]
PCP Dr Patel
PLAN Home with no needs
== END 2024-11-01 12:25 | disposition home or self-care (01) | DRG 291 ==
LOC: 3 WEST ACU 16:43
PROVIDERS: Emergency Medicine; ADMITTING PHYSICIAN Student in an Organized Health Care Education/Training Program; ATTENDING PHYSICIAN Hospitalist; CONSULT PHYSICIAN Internal Medicine Cardiovascular Disease; EMERGENCY PHYSICIAN Emergency Medicine; FAMILY PHYSICIAN Family Medicine
DX: I11.0 Hypertensive heart disease with heart failure (principal); I50.33 Acute on chronic diastolic (congestive) heart failure; J96.21 Acute and chronic respiratory failure with hypoxia; J43.9 Emphysema, unspecified; I27.20 Pulmonary hypertension, unspecified; G47.33 Obstructive sleep apnea (adult) (pediatric); Z11.52 Encounter for screening for COVID-19; Z86.711 Personal history of pulmonary embolism; E66.09 Other obesity due to excess calories; Z68.34 Body mass index [BMI] 34.0-34.9, adult; I25.10 Atherosclerotic heart disease of native coronary artery without angina pectoris; Z95.5 Presence of coronary angioplasty implant and graft; I73.9 Peripheral vascular disease, unspecified; E78.00 Pure hypercholesterolemia, unspecified; J84.10 Pulmonary fibrosis, unspecified; E03.9 Hypothyroidism, unspecified; Z87.891 Personal history of nicotine dependence; Z79.82 Long term (current) use of aspirin; Z79.890 Hormone replacement therapy; K21.9 Gastro-esophageal reflux disease without esophagitis; Z79.51 Long term (current) use of inhaled steroids; Z79.899 Other long term (current) drug therapy; Z86.718 Personal history of other venous thrombosis and embolism; I08.1 Rheumatic disorders of both mitral and tricuspid valves; Z98.84 Bariatric surgery status; I5A Non-ischemic myocardial injury (non-traumatic)
CPT/HCPCS: 93308; 71046; 71275; 80048; 80053; 80061; 83735; 83880; 84439; 84443; 84484; 85025; 85027; 87811; 93005; 93321; 93325; 94640; 99285; Q9967

== ENCOUNTER 2025-05-08 19:28 | Inpatient (IN) | payer MEDICARE, OTHER, SELFPAY ==
[2025-05-08] VITALS (12 sets, daily range): BP systolic 131–167; BP diastolic 78–108; BMI 32.0; BMI 31.6
--- NOTE | 2025-05-08 15:23 | ED.GENMED ---
History of Present Illness
General
Chief Complaint: Breathing Problem
Source: patient
Exam Limitations: none
Time Seen by Provider: 05/08/25 15:08
Nursing documentation reviewed up to this point in time: agreed with
History of Present Illness
History of Present Illness:
Note:
CHIEF COMPLAINT(S)
Fall with resultant arm and knee pain, difficulty breathing, and nausea.
HISTORY OF PRESENT ILLNESS
The patient is a 69-year-old female who presented following a fall at home. She reports that she tripped while carrying items, subsequently striking a crate before hitting her head. The fall resulted in tenderness to her arms and knees. She
additionally describes difficulty breathing and feelings of nausea following the incident. The patient was last described as being short of breath but is now talking in full sentences after oxygen application. The right breast appears to have a
hematoma.
REVIEW OF SYSTEMS
- Musculoskeletal: Tenderness noted in arms and knees following trauma.
- Respiratory: Reports difficulty with breathing post-fall, now improved.
- Gastrointestinal: Experienced nausea following the fall.
PHYSICAL EXAM
General: Alert, no acute distress.
Skin: Warm, dry. Evidence of hematoma on the right breast.
Head: Normocephalic, atraumatic.
Neck: Supple, trachea midline.
Eyes, ears, nose, mouth and throat: Oral mucosa moist.
Cardiovascular: Normal peripheral perfusion, no edema.
Respiratory: Respirations are non-labored, lungs clear bilaterally.
Gastrointestinal: Abdomen nondistended.
Back: Normal range of motion, normal alignment.
Musculoskeletal: Tenderness noted in arms and knees. Normal range of motion and strength.
Neurological: Alert and oriented to person, place, time, and situation. No focal neurological deficit observed.
Psychiatric: Cooperative, appropriate mood & affect.
PLAN
1. Monitor respiratory status and oxygen needs.
2. Provide pain management for bruising and tenderness.
3. Assess for any potential respiratory complications, such as a pulmonary embolism, considering the patients history and symptoms.
4. Follow up with appropriate imaging if necessary to rule out fractures or internal injuries related to the fall.
DIFFERENTIAL DIAGNOSIS
The Differential Diagnosis includes, in no particular order and is not limited to:
1. Pulmonary embolism
2. Rib fracture
3. Contusion
4. Musculoskeletal strain
5. Hemothorax
6. Pneumothorax
7. Head injury/concussion
8. Acute respiratory distress
9. Deep vein thrombosis
10. Acute myocardial infarction
CARE-UPDATE
05/08/25 - 17:54
Recent reassessment indicates the patient is stable but continues to require increased oxygen support. Server Programmer recommends monitoring fluid status closely and adjusting diuretics as necessary based on daily weight and electrolytes. Consideration
for non-invasive ventilation if respiratory status worsens.
EKG
My independent EKG interpretation is:
- Time of EKG: Not specified
- Rhythm: Normal sinus rhythm
- Heart rate: Not specified
- MI interval: Not mentioned
- QRS duration: Normal
- QT interval: Normal
- [place]: Rightward axis
- Abnormalities observed: No specific ST abnormality
Disposition:
SUMMARY OF ENCOUNTER
The patient, a 69-year-old female, was seen in the emergency department following a fall at home. She presented with arm and knee tenderness, difficulty breathing, and nausea. After initial treatment, including oxygen application, her respiratory
status improved. Management involved monitoring respiratory function and assessing potential complications such as pulmonary embolism or fractures.
DISPOSITION
Admit to hospitalists.
ASSESSMENT
The patient is experiencing acute respiratory failure likely secondary to heart failure exacerbation following the fall.
PLAN
Continue monitoring respiratory status and oxygen needs, provide pain management, and assess for any potential respiratory complications. Admit the patient to the hospital for further management and monitoring.
INDEPENDENT REVIEW OF LABS AND INTERPRETATION OF TESTS
My independent EKG interpretation is normal sinus rhythm, rightward axis with no specific ST abnormality.
MEDICATION RECONCILIATION
The patient will be evaluated for pain management medication needs.
MEDICAL DECISION MAKING
- Complexity of Data Reviewed: Chronic conditions affecting care include heart failure exacerbation. Differential Diagnosis includes pulmonary embolism, rib fracture, contusion, musculoskeletal strain, hemothorax, pneumothorax, head
injury/concussion, acute respiratory distress, deep vein thrombosis, acute myocardial infarction.
- Data:
Category 1
My independent interpretation of the EKG indicates normal sinus rhythm with a rightward axis.
Category 3
Discussion of management with hospitalists regarding the condition and need for admission due to acute respiratory failure and possible exacerbated CHF.
-Risk: Consideration of Admission/Observation: Escalation of care including admission was considered essential due to the complexity and risk presented by the acute respiratory failure and heart failure exacerbation. Admission is necessary for
further evaluation and management due to the high risk of morbidity.
DIAGNOSIS
- Acute Respiratory Failure (ICD-10: J96.00)
- Congestive Heart Failure Exacerbation (ICD-10: I50.9)
Phy Exam
Physical Exam
Physical Exam:
.
Scores
Heart Failure Risk
Heart Failure Risk Score: Yes
History of Stroke or TIA: No
History of intubation for respiratory distress: No
Heart rate on ED arrival >/= 110: No
SaO2 <90% on arrival on room air: No
HR >/=110 during 3min walk test (or too ill to perform test): Yes
ECG has acute ischemic changes: No
Urea >/=12mmol/L (BUN 33.6mg/dL): No
Serum CO2>/=35mmol/L: No
Troponin I or T elevated to OR Level (0.4mg/dL): No
NT-proBNP >/=5,000ng/L (5,000pg/ml): Yes
HF Risk Score: 3
Admission Status: HIGH RISK 15.9% Consider SNF treatment or admission to hospital
Sepsis
Sepsis Screening
Sepsis Assessment: Sepsis Ruled Out
Sepsis Screen
Sepsis Screen: Sepsis Ruled Out
Date: 05/08/25
Time: 20:02
Course
Orders/Labs/Results
Orders:
Orders
05/08/25 15:22
Electrocardiogram (*1) Stat
Reason for Study: Other
Other Reason for Exam: pneumonia
Cardiac Monitoring- Treatment ONCE
EKG- Treatment ONCE
IV Insert/Care/Rem.- Treatment PRN
O2 Therapy [RESP] Stat
Titrate/Wean O2 to maintain O2 sat greater than (%): 91
Pulse Ox/cont/shift [RESP] Stat
Quantity: 1
05/08/25 15:23
CR Chest Portable - 1 View Urgent
Comment:
Reason For Exam: hit right ribs, short of breath
Reason Study Needs to be Portable: Patient Unstable
05/08/25 15:33
Complete Blood Count/With Diff Urgent
Comprehensive Metabolic Panel Urgent
NT-proBNP Urgent
Prothrombin Time Urgent
Troponin I Urgent
05/08/25 17:52
Furosemide [Lasix] 40 mg IV NOW STA
05/08/25 18:49
Admit/Transfer Patient As Directed
Co-Sign Provider:
Level of Care: Inpatient admission
Assign to:: Telemetry
Physician / Group: Mayuri
Diagnosis: Hypoxia, CHf
Reason for Telemetry: Acute Heart Failure
Date to Stop Telemetry: 05/11/25
Time to Stop Telemetry: 11:00
Reason for Hospitalization: IV diuretics
Expected length of stay greater than two midnights?: Yes
ELOS- Estimated Length of Stay in days: 3
I certify the patient meets the requirements for IP care: Yes
05/08/25 18:52
PRN Pain Medication Management As Directed
May give lesser potent ordered pain med per pt: Yes
preference::
Protocol:: Medication orders for pain may be administered in a
manner that supports deferring to patient preference
when the pt is:
- Requesting an ordered lesser potent pain medication.
Least to most potent pain medications are defined
as: acetaminophen < NSAID < tramadol < opioids
(morphine, oxycodone, hydromorphone).
- Requesting a lesser dose of the same medication IF
ORDERED.
- Requesting a less intrusive route of administration
if both routes are prescribed by the provider (PO <
IV).
05/08/25 18:53
Code Status As Directed
Resuscitation Status: Full Code
05/11/25 11:00
DC Protocol for Telemetry ONCE
Abnormal Lab Results
05/08/25
15:33
WBC 16.6 H 10^3/uL
(4.8-10.8)
MCHC 32.1 L g/dL
(33.0-37.0)
RDW 15.4 H %
(11.5-14.5)
MPV 12.2 H fL
(7.4-10.4)
Abs Immat Gran (auto) 0.2 H 10^3/uL
(0-0.05)
Absolute Neuts (auto) 15.2 H 10^3/uL
(1.4-6.5)
Absolute Lymphs (auto) 0.7 L 10^3/uL
(1.2-3.4)
Immature Gran % 1.0 H %
(0-0.5)
Neutrophils % 91.5 H %
(42.2-75.2)
Lymphocytes % 4.2 L %
(20.5-51.1)
PT 27.5 H Sec
(11.4-14.6)
BUN 29 H mg/dl
(7-17)
Creatinine 1.1 H mg/dL
(0.6-1.0)
Glucose 136 H mg/dl
(70-99)
Total Bilirubin 1.9 H mg/dl
(0.2-1.3)
Troponin I 0.041 H* ng/ml
05/08/25 15:33
05/08/25 15:33
Vital Signs
Initial and Last Documented VS:
Initial Vital Signs
Temp Pulse Resp BP Pulse Ox
98.3 F 98 25 141/95 90
05/08/25 14:57 05/08/25 14:57 05/08/25 14:57 05/08/25 14:57 05/08/25 14:57
Last Documented Vital Signs
Temp Pulse Resp BP Pulse Ox
98.4 F 76 16 151/87 95
05/08/25 18:20 05/08/25 19:15 05/08/25 19:15 05/08/25 19:00 05/08/25 19:15
*Pulse Oximetry
SaO2: 90
Nasal Cannula flow liters per minute: 4
Patient hypoxic: yes
*Critical Care Note
Total Time (30-74mins, 75-104mins- exclusive of procedures): 32
comment:
Critical care statement: A total of 32 minutes of critical care time was provided for this patient. This includes management of unstable vital signs, evaluation of the patient at bedside, reviewing the patient's pertinent medical records, discussion
with consultants, review of old EKGs and review of pertinent medical records. This time with separate from time utilized to perform the aforementioned documented procedures
ED Attending Note
-
Portions of this chart may have been created with voice recognition software.� Occasional wrong word or��sound alike� substitutions may have occurred due to the inherent limitations of voice recognition software.
Discharge Plan
Departure
Patient Disposition: Admit
Date of Disposition: 05/08/25
Time of Disposition: 17:55
Admit to: Telemetry
Presentation/result/management discussed w/ accepting MD/DO: Hospitalist
Patient with high blood pressure during this ER visit?: Yes
Condition: Fair
Discharge Problem:
Acute and chronic respiratory failure, Acute on chronic diastolic (congestive) heart failure, COPD (chronic obstructive pulmonary disease)
Interventions
Interventions:
*Risk Screen - Suicide Last Done: 05/08/25 15:38
*General Assessment Last Done: 05/08/25 15:45
*Neglect/Abuse Screening Last Done: 05/08/25 15:38
*ED- Fall Risk Assessment Last Done: 05/08/25 15:38
*ED COVID-19 Vaccine History Last Done: 05/08/25 15:38
ED- Cardiac Assessment Last Done: 05/08/25 15:40
ED- Pulmonary Assessment Last Done: 05/08/25 15:40
[2025-05-08 15:41] LABS: Hematocrit 43.6 % (37.0-47.0); Hemoglobin 14.0 g/dL (12.0-16.0); Mean Corp Hgb Conc. 32.1 g/dL (33.0-37.0); Mean Corpuscular Volume 95.4 fL (81.0-99.0); Nucleated Red Blood Cells % 0 %; Platelet Count 215 10^3/uL (130-400); Red Cell Dist. Width 15.4 % (11.5-14.5)
[2025-05-08 15:57] LABS: INR 2.56; PT 27.5 Sec (11.4-14.6)
[2025-05-08 16:17] LABS: Troponin I 0.041 ng/ml
[2025-05-08 16:19] LABS: ALT (SGPT) 26 U/L (0-35); AST (SGOT) 33 U/L (14-36); Albumin 4.3 g/dl (3.5-5.0); Alkaline Phosphatase 89 U/L (38-126); Blood Urea Nitrogen 29 mg/dl (7-17); Calcium 9.8 mg/dl (8.4-10.2); Carbon Dioxide 24 mmol/L (22-30); Chloride 101 mmol/L (98-107); Estimated Creatinine Clearance 49 ml/min; Glucose 136 mg/dl (70-99); Potassium 4.1 mmol/L (3.5-5.1); Sodium 136 mmol/L (135-145); Total Protein 7.2 g/dl (6.3-8.2); eGFR 54.39
--- NOTE | 2025-05-08 18:09 | HPS.HSE ---
Addendum entered and electronically signed by Dev Messina MD 05/08/25 19:18:
This is an addendum to H&P written by Ana Jean-Baptiste on 05/08/2025. �Patient seen and examined independently with PA.
69-year-old female past medical history of HFpEF, pulmonary embolism on Xarelto/DVT, pulmonary fibrosis, COPD on 2 to 4 L baseline, GERD, hypertension, hypothyroidism, anxiety/depression, presenting with fall yesterday. �Short of breath and hypoxic
with increased productive cough. �Patient recently had upper respiratory infection treated with doxycycline transient cefuroxime and prednisone.
Vital signs show hypoxemia patient requiring 6 L oxygen.
Labs show leukocytosis of 16. �Cardiac BNP of 6200. �Troponin 0.04. �Creatinine of 1.1. �Chest x-ray shows similar appearance of the bibasilar predominant airspace opacities more pronounced in the left likely related to chronic interstitial fibrosis
although superimposed pneumonitis or pneumonia be difficult to exclude.
Hypoxemic respiratory insufficiency secondary to likely acute HFpEF exacerbation. �40 IV Lasix daily. �Cardiology consulted. �If no improvement with diuresis may require antibiotics for pneumonia although seems less likely.
Original Note:
Family Physician
-
Family Physician: Deny Rollins
Chief Complaint
-
Weakness, Fall and Shortness of Breath
History of Present Illness
Patient is a 69 y/o female past medical history of ASCVD, CHF, HTN, COPD / Pulmonary Fibrosis, DVT/PE and Hypothyroidism who presents with weakness, fall and shortness of breath. Patient reports tripped last evening while carrying some crates. She
hit the right side of her chest on the crates and subsequently developed a large bruising over the right breast. She denies hitting her head during the event. Patient states since the fall she has felt weak and reports some shortness of breath. She
reports she was recently treated with two different of antibiotics and coarse of steroids at the end of March for an upper respiratory infection. She reports slightly cough today with some mucus production. She denies increased lower extremity.
She does weigh herself on a daily basis and states her weight is unchanged.
Medical History
Past Medical History
Past Medical History: Reports Other
Additional Past Medical History:
Coronary Artery Disease s/p Stent
Peripheral Arterial Disease s/p Right Carotid Endarterectomy
Chronic HFpEF
Essential Hypertension
Hyperlipidemia
Chronic Hypoxia
COPD / Emphysema / Pulmonary Fibrosis
Hypothyroidism
DVT/PE
Past Surgical History: Reports Other
Additional Past Surgical History:
Right Carotid Endarterectomy
Cardiac Stent
Gastric Sleeve
Section
Social History
Tobacco: Former Smoker (Quit about 25 years ago)
Employment: Employed ([employer])
Family History
Family History: Not pertinent
Allergies / Home Medications
Allergies reflects when Allergies were last updated in [facility].
Home Medications with original date entered in [facility]
Allergy/Medication List:
Allergies
Allergy/AdvReac Type Severity Reaction Status Date / Time
No Known Allergies Allergy Verified 05/08/25 15:04
Home Medications
aspirin 81 mg tablet,delayed release 81 mg PO DAILY Blood Clot Prevention/Tx 10/13/24
atorvastatin 40 mg tablet (Lipitor) 40 mg PO DAILY High Cholesterol 10/13/24
fluticasone 250 mcg-salmeterol 50 mcg/dose blistr powdr for inhalation (Advair Diskus) 1 inh inhalation R BID Lung/Breathing Issues 10/13/24
levothyroxine 125 mcg tablet (Synthroid) 125 mcg PO DAILY Thyroid 10/13/24
omeprazole 40 mg capsule,delayed release 40 mg PO DAILY GERD 10/13/24
prednisone 10 mg tablet 10 mg PO DAILY INFLAMMATION 10/13/24
therapeutic multivitamin 1 tab PO DAILY Supplement 10/13/24
furosemide 40 mg tablet (Lasix) 40 mg PO DAILY Fluid Retention/Swelling 05/08/25
rivaroxaban 20 mg tablet (Xarelto) 20 mg PO DAILY 05/08/25
sertraline 50 mg tablet 50 mg PO DAILY Mental Health 05/08/25
spironolactone 25 mg tablet 25 mg PO DAILY Heart Failure 05/08/25
Review of Systems
-
A 12 point ROS was completed and negative except as noted: Yes
Constitutional: Denies Fever or Chills
Respiratory: Denies Cough or Trouble Breathing
Cardiac: Denies Chest Pain or Palpitations
Physical Exam
Vital Signs
Vital Signs
Temp Pulse Resp BP Pulse Ox
98.3 F 73 21 153/83 98
05/08/25 14:57 05/08/25 17:15 05/08/25 17:15 05/08/25 17:00 05/08/25 15:48
Physical Exam
General: Comfortable and Conversant
HEENT: Anicteric, Moist mucous membranes and Oxygen (Nasal Cannula)
Respiratory: Other (Decreased breath sounds left base; Rales bilaterally more prominent on the right)
Cardiac: S1/S2 and Regular Rhythm
GI: Soft and Non Tender
Rectal: Deferred by Provider
Musculoskeletal: No Clubbing, No Cyanosis and No Edema
Skin: Warm and Dry
Neuro: Awake, Alert, Oriented and Nonfocal/grossly intact
Psych: Calm
Laboratory Results
-
05/08/25 15:33
05/08/25 15:33
Laboratory Results
PT 27.5 Sec (11.4-14.6) H 05/08/25 15:33
INR 2.56 05/08/25 15:33
Total Bilirubin 1.9 mg/dl (0.2-1.3) H 05/08/25 15:33
AST 33 U/L (14-36) 05/08/25 15:33
ALT 26 U/L (0-35) 05/08/25 15:33
Alkaline Phosphatase 89 U/L (38-126) 05/08/25 15:33
Troponin I 0.041 ng/ml H* 05/08/25 15:33
Chest X-Ray:
There is similar appearance of the basilar predominant airspace opacities, more pronounced on the left, which are likely related chronic interstitial fibrosis although superimposed pneumonitis or pneumonia would be difficult to exclude.
Data Reviewed
-
Lab Data: Labs Reviewed by me
Impression/Plan
-
Acute on Chronic Hypoxic Respiratory Failure secondary to Acute on Chronic Heart Failure
-Continue supplemental oxygen - Baseline is 2L at rest and 4L with activity, currently on 6L
-Consult Cardiology
-Continue Lasix 40mg IV Daily
-Continue Spironolactone
Coronary Artery Disease s/p Stent
Peripheral Arterial Disease s/p Right Carotid Endarterectomy
-Continue aspirin
Hyperlipidemia
-Continue atorvastatin
COPD / Emphysema / Pulmonary Fibrosis - No acute exacerbation
-Continue chronic prednisone
-Continue Advair
Hypothyroidism
-Continue levothyroxine
DVT/PE - September 2024
-Continue Xarelto
Code Status: Full Code
[2025-05-08] MEDS: LASIX 40 MG IV (18:22)
[2025-05-08] MEDS: FLUSH (NSS) 1 FLUSH IV (20:45)
[2025-05-08 21:29] LABS: Troponin I 0.057 ng/ml
--- NOTE | 2025-05-08 22:15 | PTCARENOTE ---
Pt transferred to 4W. Pt able to walk from stretcher to bed, but [place] and 6L o2. Pt AAOx3, oriented to room and unit. Pt requested to stay on purwick throughout the night since she received Lasix later in the day in the ED but agreeable to use
bedside commode in the AM. Hat placed in commode to measure urine output. Bed alarm in place d/t recent fall, safety measures in place, call paul within reach.
[2025-05-09 03:08] LABS: Troponin I 0.067 ng/ml
[2025-05-09 03:28] VITALS: BP 114/62
[2025-05-09] MEDS: SYNTHROID 125 MCG PO (05:36)
[2025-05-09 05:53] VITALS: BMI 31.6
[2025-05-09 07:16] VITALS: BP 121/73
--- NOTE | 2025-05-09 07:35 | W.PN.HOSP.TC ---
Today's Communication/Plan
-
See A/P
Assessment / Plan
Assessment / Plan
Assessment/plan
#Acute on chronic HFpEF
#Acute on chronic hypoxic respiratory failure secondary to above
-CXR on presentation- There is similar appearance of the basilar predominant airspace opacities, more pronounced on the left, which are likely related chronic interstitial fibrosis although superimposed pneumonitis or pneumonia would be difficult to
exclude.
-proBNP 6290
-S/p 40 mg IV Lasix in the ED
-Continue on 40 mg IV Lasix twice daily
-Cardiology input appreciated
-Echocardiogram 10/31/2024�LVEF 60 to 65%, normal LV size and function with no regional wall abnormalities. Moderate tricuspid regurg.
-Daily weights, I's and O's
-Currently on 6 L, wean O2 to baseline 2 L at rest, 4 L with activity
-Continue spironolactone
-Jardiance stopped due to lightheadedness
#Nonischemic myocardial injury the setting of CHF
-Peak troponin 0.06, now downtrending
-Denies acute chest pain
-EKG normal sinus rhythm, no ischemic changes
-Trend trops
#CAD s/p stent 2021
#PAD s/p right carotid endarterectomy
-Continue aspirin
#Hyperlipidemia
-Continue atorvastatin
#DVT/PE�September 2024
-Continue anticoagulation with Xarelto
#COPD on chronic prednisone therapy
-Not in acute exacerbation
-Continue home
#Hypothyroidism
-Check TSH, T4
-Might possibly need adjustment of levothyroxine dose
CODE STATUS full code
DVT prophylaxis Xarelto
Anticipated Discharge: 24 - 48 hours
Subjective/Interval History
-
Date of Service: May 09, 2025
Objective Data
-
Labs:
Laboratory Results
08/23/25
06:00
WBC Pending
Hgb Pending
Hct Pending
Plt Count Pending
Sodium Pending
Potassium Pending
Chloride Pending
Carbon Dioxide Pending
BUN Pending
Creatinine Pending
Glucose Pending
Calcium Pending
Vital Signs:
Vital Signs
Temp Pulse Resp BP Pulse Ox
98.6 F 76 16 121/73 92
05/09/25 07:16 05/09/25 07:16 05/09/25 07:16 05/09/25 07:16 05/09/25 07:16
I&O
05/08/25 05/09/25 05/10/25
06:59 06:59 06:59
Intake Total 240 / 240
Output Total 1050 / 1050
Balance -810 / -810
Review of Systems
-
All other systems: Reviewed and negative (Except as documented)
Physical Exam
-
General: Well Developed and No Apparent Distress
HEENT: Oxygen
Respiratory: Crackles (Bilateral lower bases)
Cardiac: Regular Rhythm and S1/S2
GI: Soft, Nontender, Nondistended and Normal Bowel Sounds
Musculoskeletal: No Edema
Skin: Warm
Neuro: Awake, Alert, Oriented and AO x 3
Psych: Calm
[2025-05-09] MEDS: ADVAIR HFA 115/21 MCG INHALER 2 PUFF INH ×2 (08:14→18:14)
[2025-05-09 08:58] LABS: Hematocrit 38.5 % (37.0-47.0); Hemoglobin 12.6 g/dL (12.0-16.0); Mean Corp Hgb Conc. 32.7 g/dL (33.0-37.0); Mean Corpuscular Volume 92.8 fL (81.0-99.0); Platelet Count 180 10^3/uL (130-400); Red Cell Dist. Width 15.3 % (11.5-14.5)
[2025-05-09] MEDS: PROTONIX 40 MG PO (09:18)
[2025-05-09] MEDS: ASPIR LOW (ENTERIC COATED) 81 MG PO (09:18)
[2025-05-09] MEDS: LIPITOR 40 MG PO (09:19)
[2025-05-09] MEDS: ZOLOFT 50 MG PO (09:19)
[2025-05-09] MEDS: ALDACTONE 25 MG PO (09:19)
[2025-05-09] MEDS: DELTASONE 10 MG PO (09:20)
[2025-05-09] MEDS: XARELTO 20 MG PO (09:20)
[2025-05-09] MEDS: LASIX 40 MG IV ×2 (09:21→19:41)
[2025-05-09 09:27] LABS: Troponin I 0.057 ng/ml
[2025-05-09 09:29] LABS: Blood Urea Nitrogen 26 mg/dl (7-17); Calcium 9.6 mg/dl (8.4-10.2); Carbon Dioxide 29 mmol/L (22-30); Chloride 102 mmol/L (98-107); Estimated Creatinine Clearance 59 ml/min; Glucose 84 mg/dl (70-99); Magnesium 1.8 mg/dl (1.6-2.3); Potassium 4.0 mmol/L (3.5-5.1); Sodium 138 mmol/L (135-145); eGFR > 60.00
--- NOTE | 2025-05-09 09:53 | W.PN.UPDATE ---
Update Note
Progress Note Update
I saw and evaluated the patient. I reviewed the resident�s note and agree with findings and plan as documented in the resident�s note.
Shortness of breath improving.
Gen: NAD, AAOx3.
Eyes: EOMI, PERRLA, no scleral icterus.
Neck: supple.
CV: RRR, +S1/S2, no m/r/g.
Resp: Faint Velcro rales in the bases
Abd: +BS, soft, NT, ND
Skin: No rashes. No lower extremity edema.
Neuro: CN 2-12 intact, non-focal.
Psych: Normal mood and affect.
CXR: Similar appearance of the basilar predominant airspace opacities, more pronounced on the left, which are likely related chronic interstitial fibrosis although superimposed pneumonitis or pneumonia would be difficult to exclude.
Acute on Chronic Hypoxic Respiratory Failure due to Acute on Chronic HFpEF:
-proBNP 6290, CXR above
-Cont O2 support, Baseline is 2L at rest and 4L with activity, currently on 6L
-Consult Cardiology
-Change Lasix to 40mg IV BID
-Cont Spironolactone
-daily wts, I/Os
Other problems:
CAD s/p stent: cont ASA
PAD s/p R-CEA: cont ASA
COPD/Pulmonary Fibrosis, not in acute exac: Cont prednisone/Advair
HLD: cont statin
Hypothyroidism: cont Levoxyl
h/o DVT/PE: cont Xarelto
FULL/Xarelto
[2025-05-09 12:01] VITALS: BP 120/74
--- NOTE | 2025-05-09 13:27 | CON.CAR ---
Consultation
Consultation Request
Date/Time Consultation Requested: 05/08/2025 at 9:58 PM
Date/Time Consultation Performed: 05/09/2025 at 1:00 PM
Requesting Provider: ETIENNE Ley
Performing Provider: Thomas Bajwa MD
Reason for Consultation: volume overload
Medical History
-
Chief Complaint: SOB
History of Present Illness:
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
presents for acute SOB. Patient reports that she was feeling like her normal self until night when she had a fall. The following day she was going into work, walking from her car, when she felt short of breath all of a sudden and had to
sit down. She had to be taken in a wheelchair up to the floor that she works on. She worked for a bit but then continued to feel short of breath so came to the ER. She was given 40 mg IV Lasix yesterday and this morning. She feels dramatically
improved and 90% back to baseline. Notably, she did not have any recent dietary indiscretion or medication noncompliance. Her weight at home has been running ~176 lb with no significant weight gain or lower extremity edema. She last saw Dr. Crowell
on 04/23/2025 at which time she was doing well and no changes were made. She was hospitalized at in October for HFpEF exacerbation. She was discharged on p.o. Lasix 40 mg daily, spironolactone 25 mg daily, and Jardiance. Jardiance has since
been stopped due to lightheadedness.
Past Medical History
Past Medical History: CAD, COPD, HTN, Hypercholesterolemia, Hypothyroidism and Other (as above )
Social History
Tobacco: Former Smoker
Personal:
Family History
Family History: Reviewed & Not Pertinent
Allergies / Home Medications
Allergy/AdvReac Type Severity Reaction Status Date / Time
No Known Allergies Allergy Verified 05/08/25 15:04
�Medication �Instructions �Recorded �Confirmed �Type
aspirin 81 mg tablet,delayed 81 mg PO DAILY Blood Clot 10/13/24 05/08/25 History
release Prevention/Tx
atorvastatin 40 mg tablet (Lipitor) 40 mg PO DAILY High Cholesterol 10/13/24 05/08/25 History
fluticasone 250 mcg-salmeterol 50 1 inh inhalation R BID 10/13/24 05/08/25 History
mcg/dose blistr powdr for Lung/Breathing Issues
inhalation (Advair Diskus)
levothyroxine 125 mcg tablet 125 mcg PO DAILY Thyroid 10/13/24 05/08/25 History
(Synthroid)
omeprazole 40 mg capsule,delayed 40 mg PO DAILY GERD 10/13/24 05/08/25 History
release
prednisone 10 mg tablet 10 mg PO DAILY INFLAMMATION 10/13/24 05/08/25 History
therapeutic multivitamin 1 tab PO DAILY Supplement 10/13/24 05/08/25 History
furosemide 40 mg tablet (Lasix) 40 mg PO DAILY Fluid 05/08/25 05/08/25 History
Retention/Swelling
rivaroxaban 20 mg tablet (Xarelto) 20 mg PO DAILY 05/08/25 05/08/25 History
sertraline 50 mg tablet 50 mg PO DAILY Mental Health 05/08/25 05/08/25 History
spironolactone 25 mg tablet 25 mg PO DAILY Heart Failure 05/08/25 05/08/25 History
Review of Systems
-
All other systems: Negative unless noted
Physical Exam
Vital Signs
Temp Pulse Resp BP Pulse Ox
97.9 F 92 18 120/74 93
05/09/25 12:01 05/09/25 12:01 05/09/25 12:01 05/09/25 12:01 05/09/25 12:01
Lab Results
05/09/25 08:29
05/09/25 08:29
Troponin I 0.057 ng/ml H* 05/09/25 08:29
Oex-L-Cmtgqkzeasg Pept 6290 pg/ml 05/08/25 15:33
Physical Exam
General: Well Developed and Well Nourished
Respiratory: Crackles and Non Labored Respirations
Cardiac: S1/S2, Regular Rhythm and Murmur; Negative Peripheral Edema
Neuro: AO x 3
Impression / Plan
-
69-year-old female with HFpEF, CAD with PCI in 2021, pulmonary hypertension, COPD, VISH, carotid endarterectomy who presents for shortness of breath. Cardiology is consulted for CHF exacerbation.
Acute Care Clinical Nurse Specialist: Porter Crowell
Heart failure with preserved ejection fraction, acute on chronic
-Severe exacerbation requiring IV diuresis and close monitoring of labs and telemetry. Unclear trigger.
-Admitted with elevated NT proBNP and dyspnea which improved with diuresis
-Reported home dry weight ~176lb
-Continue BID IV diuresis. Suspect we can switch to p.o. tomorrow.
-Continue spironolactone. Jardiance stopped due to lightheadedness
-On discharge, we should consider increasing Lasix to 40 mg daily with BID dosing MWF
Abnormal troponin
-Suspect due to nonischemic myocardial injury in the setting of CHF exacerbation
-She denies chest discomfort. Current symptoms are different from those she presented with when she needed PCI.
-Peak troponin 0.067 and downtrending. No ischemic changes on ECG
Pulmonary hypertension
-Severe with PASP 80-85 mmHg on echo in October
-She is scheduled for repeat TTE on 05/20 with outpatient cardiology
PE/DVT
-Continue Xarelto
CAD with PCI in 2021
-Stable. Symptoms on presentation were different than those with PCI
-Continue aspirin and statin. Could consider stopping aspirin given systemic AC but will defer to primary script supervisor.
Data Reviewed
-
EKG: Tracing Personally Visualized and interpreted (NSR, no ischemia) and Discussed with Physician
Radiology: Image Personally Visualized and interpreted (interstitial fibrosis) and Discussed with Physician
Medical Tests (Nuc Med, Echo etc): Report Reviewed by me
Labs: Labs Reviewed by me, Discussed with Physician and Discussed with Patient
Old Records: Reviewed
--- NOTE | 2025-05-09 15:02 | CM ---
Initial assessment completed with patient who lives alone in a 1 story rancher with no basement, B/B are 2 steps up (rail) from kitchen to main level.1 step to enter. 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 She does drive. Uses O2 @ 2L
continuously through [facility] ([facility]). No in-home services. No HC-POA. No psychiatric hospitalizations or VA benefits. PCP is Dr. Deny Rollins with [facility]. Pharmacy is [facility] in [place]. IMM completed.
Discharge POC: Awaiting therapy evaluation.
[2025-05-09 15:05] LABS: Troponin I 0.036 ng/ml
[2025-05-09 16:00] VITALS: BP 127/85
[2025-05-09 20:29] VITALS: BP 110/76
[2025-05-09 23:52] VITALS: BP 146/76
[2025-05-10 03:26] VITALS: BP 123/71
[2025-05-10] MEDS: SYNTHROID 125 MCG PO (05:07)
[2025-05-10 05:19] VITALS: BMI 30.9
--- NOTE | 2025-05-10 07:16 | W.PN.HOSP.TC ---
Today's Communication/Plan
-
See A/P
Assessment / Plan
Assessment / Plan
Assessment/plan
#Acute on chronic HFpEF
#Acute on chronic hypoxic respiratory failure secondary to above
-CXR on presentation- There is similar appearance of the basilar predominant airspace opacities, more pronounced on the left, which are likely related chronic interstitial fibrosis although superimposed pneumonitis or pneumonia would be difficult to
exclude.
-proBNP 6290
-S/p 40 mg IV Lasix in the ED
-Continue on 40 mg IV Lasix twice daily
-To be discharged today on Lasix 40 mg daily except Sunday, Sunday, Sunday 40 mg twice daily
-Cardiology input appreciated
-Echocardiogram 10/31/2024�LVEF 60 to 65%, normal LV size and function with no regional wall abnormalities. Moderate tricuspid regurg.
-Daily weights, I's and O's
-Currently on 6 L, wean O2 to baseline 2 L at rest, 4 L with activity
-Continue spironolactone
-Jardiance stopped due to lightheadedness
#Nonischemic myocardial injury the setting of CHF
-Peak troponin 0.06, now downtrending
-Denies acute chest pain
-EKG normal sinus rhythm, no ischemic changes
-Trend trops
#CAD s/p stent 2021
#PAD s/p right carotid endarterectomy
-Continue aspirin
#Hyperlipidemia
-Continue atorvastatin
#DVT/PE�September 2024
-Continue anticoagulation with Xarelto
#COPD on chronic prednisone therapy
-Not in acute exacerbation
-Continue home
#Hypothyroidism
Levothyroxine
CODE STATUS full code
DVT prophylaxis Xarelto
Anticipated Discharge: Today
Subjective/Interval History
-
Date of Service: May 10, 2025
Objective Data
-
Labs:
Laboratory Results
05/10/25
06:00
WBC Pending
Hgb Pending
Hct Pending
Plt Count Pending
Sodium Pending
Potassium Pending
Chloride Pending
Carbon Dioxide Pending
BUN Pending
Creatinine Pending
Glucose Pending
Calcium Pending
Vital Signs:
Vital Signs
Temp Pulse Resp BP Pulse Ox
98.0 F 78 18 123/71 94
05/10/25 03:26 05/10/25 03:26 05/10/25 03:26 05/10/25 03:26 05/10/25 03:26
I&O
05/09/25 05/10/25 05/11/25
06:59 06:59 06:59
Intake Total 240 / 240 940 / 940
Output Total 1050 / 1050 2550 / 2550
Balance -810 / -810 -1610 / -1610
Review of Systems
-
All other systems: Reviewed and negative (Except as documented)
Physical Exam
-
General: Well Developed and No Apparent Distress
HEENT: Oxygen
Respiratory: Clear to Auscultation
Cardiac: Regular Rhythm and S1/S2
GI: Soft, Nontender, Nondistended and Normal Bowel Sounds
Musculoskeletal: No Edema
Skin: Warm
Neuro: Awake, Alert, Oriented and AO x 3
Psych: Calm
[2025-05-10 07:30] VITALS: BP 139/87
[2025-05-10] MEDS: ADVAIR HFA 115/21 MCG INHALER 2 PUFF INH (08:00)
[2025-05-10] MEDS: PROTONIX 40 MG PO (08:21)
[2025-05-10] MEDS: ALDACTONE 25 MG PO (08:21)
[2025-05-10] MEDS: LIPITOR 40 MG PO (08:21)
[2025-05-10] MEDS: ZOLOFT 50 MG PO (08:21)
[2025-05-10] MEDS: XARELTO 20 MG PO (08:21)
[2025-05-10] MEDS: DELTASONE 10 MG PO (08:21)
[2025-05-10] MEDS: LASIX 40 MG IV (08:21)
[2025-05-10] MEDS: ASPIR LOW (ENTERIC COATED) 81 MG PO (08:21)
[2025-05-10 09:10] VITALS: BP 148/78; PULSE 74; O2SAT 90
[2025-05-10 09:21] LABS: Hematocrit 39.8 % (37.0-47.0); Hemoglobin 13.0 g/dL (12.0-16.0); Mean Corp Hgb Conc. 32.7 g/dL (33.0-37.0); Mean Corpuscular Volume 92.6 fL (81.0-99.0); Nucleated Red Blood Cells % 0 %; Platelet Count 199 10^3/uL (130-400); Red Cell Dist. Width 15.2 % (11.5-14.5)
[2025-05-10 09:43] LABS: Blood Urea Nitrogen 26 mg/dl (7-17); Calcium 9.5 mg/dl (8.4-10.2); Carbon Dioxide 31 mmol/L (22-30); Chloride 101 mmol/L (98-107); Estimated Creatinine Clearance 66 ml/min; Glucose 83 mg/dl (70-99); Magnesium 1.7 mg/dl (1.6-2.3); Potassium 3.7 mmol/L (3.5-5.1); Sodium 137 mmol/L (135-145); eGFR > 60.00
--- NOTE | 2025-05-10 10:13 | W.PN.CD ---
Today's Communication / Plan
-
Okay for discharge
Discharge diuretic regimen: Lasix 40 mg daily and twice daily MWF
Impression / Plan
-
69-year-old female with HFpEF, CAD with PCI in 2021, pulmonary hypertension, COPD, VISH, carotid endarterectomy who presents for shortness of breath. Cardiology is consulted for CHF exacerbation.
Mortar Carrier: Porter Crowell
Heart failure with preserved ejection fraction, acute on chronic
-Improved with IV diuresis
-Back to dry weight. 174 lb today
-Switch to p.o. Lasix with plan for 40 mg daily and twice daily on Sunday.
-Continue spironolactone. Jardiance stopped due to lightheadedness
Abnormal troponin
-Suspect due to nonischemic myocardial injury in the setting of CHF exacerbation
-She denies chest discomfort. Current symptoms are different from those she presented with when she needed PCI.
-Peak troponin 0.067 and downtrending. No ischemic changes on ECG
Pulmonary hypertension
-Severe with PASP 80-85 mmHg on echo in October
-She is scheduled for repeat TTE on 05/20 with outpatient cardiology
PE/DVT
-Continue Xarelto
CAD with PCI in 2021
-Stable. Symptoms on presentation were different than those with PCI
-Continue aspirin and statin. Could consider stopping aspirin given systemic AC but will defer to primary internet sales representative.
Subjective: Feels back to baseline. Weight is dry weight.
Physical Exam
Vital Signs/Labs
Vital Signs
Temp Pulse Resp BP Pulse Ox
97.9 F 75 16 139/87 96
05/10/25 07:30 05/10/25 08:03 05/10/25 08:03 05/10/25 07:30 05/10/25 07:30
05/09/25 05/10/25 05/11/25
06:59 06:59 06:59
Actual Weight 178 lb 2 oz 174 lb 7 oz
05/10/25 08:36
05/10/25 08:36
PT 27.5 Sec (11.4-14.6) H 05/08/25 15:33
INR 2.56 05/08/25 15:33
Magnesium 1.7 mg/dl (1.6-2.3) 05/10/25 08:36
Free T4 2.41 ng/dl (0.78-2.19) H 05/09/25 08:29
05/08/25
15:33
Jhv-N-Xlkpjwqzxrg Pept 6290
LAB Results
05/08/25 05/08/25 05/09/25
15:33 20:45 02:27
Troponin I 0.041 H* 0.057 H* D 0.067 H*
05/09/25 05/09/25
08:29 14:30
Troponin I 0.057 H* 0.036 H* D
Physical Exam
Constitutional: No acute distress and Comfortable
Cardiovascular: Rhythm & rate is regular, Pedal edema is absent, S1S2 is normal and Murmur/rub/gallop absent
Respiratory: Respiratory effort normal and Lungs clear to auscul.
Neuro/Psych: AO x 3
Data Reviewed
-
Date of Service: May 10, 2025
Medical Decision Making: Reviewed Test Results, Independent Historian Assessment, Test Interpretation and Review of Case with other Provider
EKG: Tracing Personally Visualized and interpreted
Echo: Report Reviewed by me
Labs: Labs Reviewed by me
--- NOTE | 2025-05-10 10:35 | W.PN.UPDATE ---
Update Note
Progress Note Update
I saw and evaluated the patient. I reviewed the resident�s note and agree with findings and plan as documented in the resident�s note.
Shortness of breath has improved
Gen: NAD, AAOx3.
Eyes: EOMI, PERRLA, no scleral icterus.
Neck: supple.
CV: remains RRR, +S1/S2, no m/r/g.
Resp: remains with faint Velcro rales in the bases
Abd: +BS, soft, NT, ND
Skin: No rashes. No lower extremity edema.
Neuro: remains CN 2-12 intact, non-focal.
Psych: Normal mood and affect.
CXR: Similar appearance of the basilar predominant airspace opacities, more pronounced on the left, which are likely related chronic interstitial fibrosis although superimposed pneumonitis or pneumonia would be difficult to exclude.
Acute on Chronic Hypoxic Respiratory Failure due to Acute on Chronic HFpEF:
-proBNP 6290, CXR above
-Cont O2 support, Baseline is 2L at rest and 4L with activity, currently on 6L
-s/p IV lasix, d/c on PO lasix today as per cards
-Cont Spironolactone
-daily wts, I/Os
Other problems:
CAD s/p stent: cont ASA
PAD s/p R-CEA: cont ASA
COPD/Pulmonary Fibrosis, not in acute exac: Cont prednisone/Advair
HLD: cont statin
Hypothyroidism: cont Levoxyl
h/o DVT/PE: cont Xarelto
FULL/Xarelto
Medically cleared for d/c.
Total time spent on d/c = 32 min. This included today's physical exam, progress note, review of laboratory and diagnostic data, preparation of discharge documents and prescriptions, and discussions about the pt's hospital course and discharge plan
with the patient and other medical clerk involved in the patient's care.
[2025-05-10 10:41] VITALS: BP 148/78; O2SAT 90
[2025-05-10 11:23] VITALS: BP 106/67
--- NOTE | 2025-05-10 11:56 | CM ---
Chart reviewed and patient is for discharge to home home today, patient home oxygen needs have increased however per patient she has a concentrator that goes up to 6 liters at home, patient also has a [employer] portable concentrator, and portable O2
tanks. Per patient she is getting a delivery on Sunday at home. movie theater manager offered patient visiting nurses however patient declined stating that her daughter and niece are nurses and will follow with her at home.
Plan: Home today, message left with [employer] patient's home oxygen company.
--- NOTE | 2025-05-10 15:18 | W.DCSUMMARY ---
Discharge Summary
Discharge Data
Date of Admission: 05/08/25
Date of Discharge: 05/10/25
-
Pending Results: No
Hospital Course
Brief Hospital course; this is a 69-year-old female with past medical history of HFpEF, pulmonary embolism on Xarelto/DVT, COPD on 2 to 4 L baseline who presented to ED 05/08 complaining of shortness of breath, hypoxia and increased productive
cough. She required 6L of oxygen on presentation. Laboratory showed leukocytosis of 16. proBNP level was 6290. She was evaluated with a chest x-ray which showed basilar predominant airspace opacities, more pronounced on the left likely related
to chronic interstitial fibrosis although superimposed pneumonitis or pneumonia will be difficult to exclude. Etiology of symptoms was suspected to be related to CHF. She was administered 40 mg IV of Lasix in the ED, admitted on IV Lasix 40 mg
twice daily. On the second day of hospitalization, significant improvement in her symptoms. She was evaluated by cardiology, who continued the IV Lasix 40 mg twice daily, continued on home spironolactone. On the third day of hospitalization,
significant improvement of her symptoms. She was transitioned to p.o. of Lasix, and discharged home on Lasix 40 mg daily, except Sunday, Sunday, Sunday at which time she is to take medication 40 mg twice daily.
Discharge Plan
-
Patient Disposition: Home (Routine Discharge)
Discharge Diagnosis/Procedures: Acute on Chronic Hypoxic Respiratory Failure due to Acute on Chronic HFpEF
Condition: Fair
Diet: 2 Gram Sodium and Restrict fluids to 48 oz
Activity: As tolerated
Driving Restrictions: As prior to admission
Specialty Instructions: Weigh Daily- Call MD for wt gain/loss 3 lbs overnight/5 lbs in 1 week
Referrals:
Deny Rollins, DO [Family Provider, Family Practice] - in less than 1 week
Additional Discharge Medication Instructions: Lasix 40mg Daily, and twice daily on Sunday, Sunday and Sunday
Prescriptions:
New
furosemide 40 mg Tablet
40 mg PO DAILY Qty: 90 0RF
Rx Instructions:
40mg daily Sunday, , Sunday,Sunday
40mg BID Sunday, Sunday, Sunday,
Continued
atorvastatin [Lipitor] 40 mg Tablet
40 mg PO DAILY
fluticasone propion-salmeterol [Advair Diskus] 250-50 mcg/dose Blister With Device
1 inh INHALATION R BID
prednisone 10 mg Tablet
10 mg PO DAILY
therapeutic multivitamin Tablet
1 tab PO DAILY
omeprazole 40 mg Capsule,Delayed Release(Dr/Ec)
40 mg PO DAILY
aspirin 81 mg Tablet,Delayed Release (Dr/Ec)
81 mg PO DAILY
levothyroxine [Synthroid] 125 mcg Tablet
125 mcg PO DAILY
rivaroxaban [Xarelto] 20 mg Tablet
20 mg PO DAILY
sertraline 50 mg tablet
50 mg PO DAILY
spironolactone 25 mg tablet
25 mg PO DAILY
Discontinued
furosemide [Lasix] 40 mg tablet
40 mg PO DAILY
Discharge Orders:
Discharge Patient (As Directed); Ordered 05/10/25
Ordered By: Tim Hughes
Discharge Date and Time
Discharge Date/Time: 05/10/25 13:04
Print Language: LIBERIAN
== END 2025-05-10 13:04 | disposition home or self-care (01) | DRG 291 ==
LOC: 4 WEST ACU 19:28
PROVIDERS: Physician Assistant Medical; Student in an Organized Health Care Education/Training Program; ADMITTING PHYSICIAN Hospitalist; ATTENDING PHYSICIAN Internal Medicine; CONSULT PHYSICIAN Student in an Organized Health Care Education/Training Program; EMERGENCY PHYSICIAN Emergency Medicine; FAMILY PHYSICIAN Family Medicine
DX: I11.0 Hypertensive heart disease with heart failure (principal); I50.33 Acute on chronic diastolic (congestive) heart failure; J96.21 Acute and chronic respiratory failure with hypoxia; J18.9 Pneumonia, unspecified organism; I5A Non-ischemic myocardial injury (non-traumatic); J43.9 Emphysema, unspecified; K21.9 Gastro-esophageal reflux disease without esophagitis; F32.A Depression, unspecified; F41.9 Anxiety disorder, unspecified; J84.10 Pulmonary fibrosis, unspecified; I27.20 Pulmonary hypertension, unspecified; I25.10 Atherosclerotic heart disease of native coronary artery without angina pectoris; I73.9 Peripheral vascular disease, unspecified; E03.9 Hypothyroidism, unspecified; E78.00 Pure hypercholesterolemia, unspecified; G47.33 Obstructive sleep apnea (adult) (pediatric); S20.01XA Contusion of right breast, initial encounter; W01.198A Fall on same level from slipping, tripping and stumbling with subsequent striking against other object, initial encounter; Y93.01 Activity, walking, marching and hiking; Y92.009 Unspecified place in unspecified non-institutional (private) residence as the place of occurrence of the external cause; Z60.2 Problems related to living alone; Z79.01 Long term (current) use of anticoagulants; Z86.711 Personal history of pulmonary embolism; Z86.718 Personal history of other venous thrombosis and embolism; Z99.81 Dependence on supplemental oxygen; Z87.891 Personal history of nicotine dependence; Z95.5 Presence of coronary angioplasty implant and graft; Z98.84 Bariatric surgery status; Z79.82 Long term (current) use of aspirin; Z79.51 Long term (current) use of inhaled steroids; Z79.52 Long term (current) use of systemic steroids; Z79.890 Hormone replacement therapy
CPT/HCPCS: 71045; 80048; 80053; 83735; 83880; 84439; 84443; 84484; 85025; 85027; 85610; 93005; 94640; 96374; 97162; 97166; 99291

== ENCOUNTER 2025-05-27 07:48 | Emergency (ER) | payer MEDICARE, OTHER, SELFPAY ==
[2025-05-27 07:50] VITALS: BP 137/85
--- NOTE | 2025-05-27 08:04 | ED.GENMED ---
History of Present Illness
General
Chief Complaint: Fall
Time Seen by Provider: 05/27/25 08:03
History of Present Illness
History of Present Illness:
FOCUSED PAST MEDICAL HISTORY
- The patient has had DVT/PE in the past and is on Xarelto, HFpEF COPD/pulmonary fibrosis, CAD
REVIEW OF OLD RECORDS
- The patient was admitted here last month and was diuresed for acute exacerbation of HFpEF
Note:
CHIEF COMPLAINT(S)
Facial trauma following a fall.
HISTORY OF PRESENT ILLNESS
The patient is a 69-year-old female with a history of chronic obstructive pulmonary disease (COPD), pulmonary fibrosis, and heart failure, who presents with facial trauma after a fall. The incident occurred earlier this morning at approximately 5:30
AM. The patient fell forward onto her side after attempting to turn towards the center of the bed. The fall resulted in visible facial trauma, specifically bruising on the forehead and periorbital ecchymosis. She reports a mild headache but denies
any acute pain in her arms, legs, or abdomen. There are no new respiratory difficulties, and her pulmonary examination suggests stable lung status. She is currently on oxygen therapy and uses a continuous flow of 4 liters per minute. The patient is
also on anticoagulant therapy with rivaroxaban (Xarelto). There is tenderness over the nasal bone with swelling, raising the suspicion of a nasal fracture, although no active bleeding is noted. Recent hospital admission related to heart failure was
mentioned. The patient denies significant discomfort and refuses pain medication due to concerns about causing nausea.
PAST MEDICAL AND SURGICAL HISTORY
The patient has a history of COPD, pulmonary fibrosis, and heart failure.
CHRONIC MEDICAL CONDITIONS SIGNIFICANTLY AFFECTING CARE
- Chronic obstructive pulmonary disease (COPD)
- Pulmonary fibrosis
- Heart failure
MEDICATIONS
- Rivaroxaban (Xarelto)
REVIEW OF SYSTEMS
- Headache: Mild, described as 'just a snitch'
- Respiratory: No new issues, stable on current oxygen therapy
PHYSICAL EXAM
General: Alert, no acute distress.
Skin: Warm, dry.
C-spine: No midline C-spine tenderness with excellent active range of motion
Head: Tenderness over nasal bone, periorbital ecchymosis and forehead bruising noted, no signs of acute active bleeding, there is some evidence of recent bleeding to both nostrils, no septal hematoma
Neck: Supple, trachea midline.
Eyes, ears, nose, mouth, and throat: Oral mucosa moist. Dried blood in the nose, no active epistaxis.
Cardiovascular: Normal peripheral perfusion, no edema.
Respiratory: Respirations are non-labored, lungs sounds slightly diminished.
Gastrointestinal: Abdomen nondistended, non-tender on palpation.
Back: Normal range of motion, normal alignment.
Musculoskeletal: Normal range of motion, normal strength, no pain with passive range of motion of any extremity.
Neurological: Alert and oriented to person, place, time, and situation. No focal neurological deficit observed.
Psychiatric: Cooperative, appropriate mood and affect.
PROBLEM LIST
Acute Problems:
- Facial trauma
- Possible nasal fracture
Chronic Problems:
- Chronic obstructive pulmonary disease (COPD)
- Pulmonary fibrosis
- Heart failure
PLAN
- Perform computed tomography (CT) of the head and facial bones to evaluate for any intracranial bleeding or facial bone fractures.
- If CT scan is negative, discharge with appropriate follow-up recommendations.
- Apply ice to facial contusions.
- Offer acetaminophen as needed for pain relief, though the patient currently declines due to nausea concerns.
DIFFERENTIAL DIAGNOSIS
The Differential Diagnosis includes, in no particular order and is not limited to:
- Nasal fracture
- Facial contusion
- Intracranial hemorrhage
- Orbital fracture
- Subdural hematoma
- Epidural hematoma
- Concussion
- Skull fracture
- Sinus fracture
- Frontal bone fracture
RADIOLOGY
- CT head and facial bones obtained�no sign of intracranial hemorrhage nor skull fracture noted
SUMMARY OF ENCOUNTER
The patient, a 69-year-old female with a known history of chronic obstructive pulmonary disease (COPD), pulmonary fibrosis, and heart failure, was seen in the emergency department following a fall this morning which resulted in facial trauma. The
fall caused visible bruising on her forehead and periorbital area, and there was tenderness over the nasal bone with suspicion of nasal fracture. The patient had a mild headache and denied acute pain in her arms, legs, or abdomen. She was on
anticoagulant therapy with rivaroxaban (Xarelto). A CT scan of the head and facial bones was performed to assess for intracranial bleeding or facial bone fractures, further evaluating any deviation or damage to the nasal septum. The CT scan showed
no signs of internal bleeding or broken bones. Swelling and bruising were noted to likely worsen before improvement, with no septal hematoma observed.
DISPOSITION
Discharge.
ASSESSMENT
The patient has sustained facial trauma with possible nasal fracture following a fall, currently stable without evidence of acute complications on imaging.
PLAN
- Apply ice to facial contusions to manage swelling and bruising effectively.
- Acetaminophen can be taken as needed for pain relief, although the patient has expressed concerns about nausea with medication.
- Recommend use of nasal oxygen mask if the patient is more comfortable with this delivery method due to nasal congestion.
- Follow-up with primary care provider or ENT specialist as needed for monitoring and managing potential nasal fracture if symptoms persist or worsen.
INDEPENDENT REVIEW OF LABS AND INTERPRETATION OF TESTS
My independent interpretation of the CT scan of the head and facial bones indicates no intracranial bleeding or facial bone fractures. There is a noted deviation of the nasal septum, which could be chronic.
PATIENT EDUCATION AND COUNSELING
The patient was informed that facial swelling and bruising may appear worse before it improves and that further healing is expected over time. Advised to use a nasal oxygen mask for comfort if nasal congestion is an issue.
FOLLOW-UP INSTRUCTIONS
Please follow up with your primary care physician or ENT specialist for any further assessment and management, especially if nasal symptoms persist or worsen.
MEDICATION RECONCILIATION
Patient is on anticoagulant therapy with rivaroxaban (Xarelto). Offered acetaminophen as needed for pain relief, but patient currently declines due to nausea concerns.
MEDICAL DECISION MAKING
-Complexity of Data Reviewed: Chronic conditions affecting care (COPD, pulmonary fibrosis, heart failure). The DDx includes nasal fracture, facial contusion, intracranial hemorrhage, orbital fracture, subdural hematoma, epidural hematoma,
concussion, skull fracture, sinus fracture, and frontal bone fracture.
-Data:
Category 1
My independent interpretation of the CT scan indicates no intracranial bleeding or facial bone fractures. Deviation of the nasal septum was noted but may be chronic in nature.
-Risk:
Consideration of Admission/Observation: Escalation of care including admission/observation was considered given the complexity and risk of the patients presenting complaint, exam findings, and underlying comorbidities. However, the patient is deemed
safe for outpatient management with close follow-up. Reasoning: Work-up reassuring, does not reveal any acute life/organ-threatening processes, patients symptoms well controlled upon reevaluation, reexamination is reassuring, vitals are stable,
patient agreeable with discharge, reliable for follow-up.
DIAGNOSIS
- Facial trauma, unspecified (S09.93XA).
- Facial contusion
- Head injury on Xarelto
Discussed use of facemask instead of nasal cannula while she is unable to breathe out of her nostrils related to trauma
Phy Exam
Physical Exam
Physical Exam:
See HPI
Course
Orders/Labs/Results
Orders:
Orders
05/27/25 08:[address] Facial Bones W/o Iv Contras Urgent
Comment:
Reason For Exam: trauma upper facial trauma
CT Head W/o Iv Contrast Urgent
Comment:
Reason For Exam: trauma xarelto
Vital Signs
Initial and Last Documented VS:
Initial Vital Signs
Temp Pulse Resp BP Pulse Ox
36.4 C 99 20 137/85 78
05/27/25 07:50 05/27/25 07:50 05/27/25 07:50 05/27/25 07:50 05/27/25 07:50
Last Documented Vital Signs
Temp Pulse Resp BP Pulse Ox
36.4 C 87 18 118/87 91
05/27/25 07:50 05/27/25 08:38 05/27/25 08:38 05/27/25 08:38 05/27/25 08:38
*Pulse Oximetry
SaO2: 78
Nasal Cannula flow liters per minute: 4
Patient hypoxic: yes
Comment: The patient is hypoxic on room air but is improved with nasal cannula oxygen, hypoxia is chronic
*Critical Care Note
Total Time (30-74mins, 75-104mins- exclusive of procedures): Not Applicable
ED Attending Note
-
Portions of this chart may have been created with voice recognition software.� Occasional wrong word or��sound alike� substitutions may have occurred due to the inherent limitations of voice recognition software.
Discharge Plan
Departure
Patient Disposition: Home (Routine Discharge)
Date of Disposition: 05/27/25
Time of Disposition: 09:24
Patient with high blood pressure during this ER visit?: Yes
Discharge Problem:
Acute head trauma
Instructions: Head Injury in Adults (DC), Contusion (DC)
Prescriptions:
No Action
atorvastatin [Lipitor] 40 mg Tablet
40 mg PO DAILY
fluticasone propion-salmeterol [Advair Diskus] 250-50 mcg/dose Blister With Device
1 inh INHALATION R BID
prednisone 10 mg Tablet
10 mg PO DAILY
therapeutic multivitamin Tablet
1 tab PO DAILY
omeprazole 40 mg Capsule,Delayed Release(Dr/Ec)
40 mg PO DAILY
aspirin 81 mg Tablet,Delayed Release (Dr/Ec)
81 mg PO DAILY
levothyroxine [Synthroid] 125 mcg Tablet
125 mcg PO DAILY
rivaroxaban [Xarelto] 20 mg Tablet
20 mg PO DAILY
sertraline 50 mg tablet
50 mg PO DAILY
spironolactone 25 mg tablet
25 mg PO DAILY
furosemide 40 mg Tablet
40 mg PO DAILY Qty: 90 0RF
Rx Instructions:
40mg daily Sunday, , Sunday,Sunday
40mg BID Sunday, Sunday, Sunday,
Referrals:
Issa Davis DO [Family Provider, [facility]]
Activity Restrictions/Additional Instructions:
The CAT scan of the brain and facial bones showed no sign of bleeding or broken bones. Continue Xarelto. Return here if worse or other concerns.
Interventions
Interventions:
*Risk Screen - Suicide Last Done: 05/27/25 07:51
*General Assessment Last Done: 05/27/25 08:38
*Neglect/Abuse Screening Last Done: 05/27/25 08:38
*ED COVID-19 Vaccine History Last Done: 05/27/25 08:38
ED-Musculoskeletal Assessment Last Done: 05/27/25 09:23
ED- Neurological Assessment Last Done: 05/27/25 09:23
ED-Skin Assessment Last Done: 05/27/25 09:23
Discharge Date and Time
Print Language: KAZAKH
[2025-05-27 08:38] VITALS: BP 118/87; BMI 31.4
[2025-05-27 10:27] VITALS: BP 140/94
== END 2025-05-27 10:27 | disposition home or self-care (01) ==
LOC: EMR 07:48
PROVIDERS: EMERGENCY PHYSICIAN Emergency Medicine; FAMILY PHYSICIAN Family Medicine
DX: S09.90XA Unspecified injury of head, initial encounter (principal); J34.2 Deviated nasal septum; I25.10 Atherosclerotic heart disease of native coronary artery without angina pectoris; I50.33 Acute on chronic diastolic (congestive) heart failure; J44.9 Chronic obstructive pulmonary disease, unspecified; J84.10 Pulmonary fibrosis, unspecified; Z79.01 Long term (current) use of anticoagulants; Z79.82 Long term (current) use of aspirin; Z86.711 Personal history of pulmonary embolism; Z99.81 Dependence on supplemental oxygen; W01.10XA Fall on same level from slipping, tripping and stumbling with subsequent striking against unspecified object, initial encounter; Y92.003 Bedroom of unspecified non-institutional (private) residence as the place of occurrence of the external cause
CPT/HCPCS: 99284; 70450; 70486

== ENCOUNTER 2025-07-21 21:45 | Inpatient (IN) | payer MEDICARE, OTHER, SELFPAY ==
[2025-07-21] VITALS (7 sets, daily range): BP systolic 103–130; BP diastolic 80–97; BMI 30.8
[2025-07-21 18:01] LABS: Hematocrit 37.8 % (37.0-47.0); Hemoglobin 11.1 g/dL (12.0-16.0); Mean Corp Hgb Conc. 29.4 g/dL (33.0-37.0); Mean Corpuscular Volume 85.1 fL (81.0-99.0); Nucleated Red Blood Cells % 0.3 %; Platelet Count 320 10^3/uL (130-400); Red Cell Dist. Width 18.6 % (11.5-14.5)
[2025-07-21 18:28] LABS: ALT (SGPT) 70 U/L (0-35); AST (SGOT) 64 U/L (14-36); Albumin 4.1 g/dl (3.5-5.0); Alkaline Phosphatase 173 U/L (38-126); Blood Urea Nitrogen 42 mg/dl (7-17); Calcium 9.2 mg/dl (8.4-10.2); Carbon Dioxide 30 mmol/L (22-30); Chloride 93 mmol/L (98-107); Estimated Creatinine Clearance 34 ml/min; Glucose 107 mg/dl (70-99); Potassium 3.2 mmol/L (3.5-5.1); Sodium 130 mmol/L (135-145); Total Protein 7.3 g/dl (6.3-8.2); eGFR 37.49
--- NOTE | 2025-07-21 19:04 | ED.GENMED ---
History of Present Illness
<Marianela Cash FITTER WELDER - Last Filed: 07/21/25 20:19>
General
Chief Complaint: Breathing Problem
Source: patient
Exam Limitations: none
Time Seen by Provider: 07/21/25 18:58
Nursing documentation reviewed up to this point in time: agreed with
History of Present Illness
History of Present Illness:
69-year-old female with history of COPD, home oxygen 4-5 L n.c., PE/DVT on Xarelto, CAD,, HTN, HLD, hypothyroid, gastric sleeve surgery, cardiac stent, right carotid endarterectomy presents for SOB, 'my feel and legs are swelling' despite taking her
daily Lasix and Aldactone. Takes Lasix 40 mg a.m. and on takes 40 in p.m. also. Took Lasix 80 mg today.
Denies CP, abdominal pain, n/v/d/c. Denies fever. Denies cough.
Past History
<Marianela Cash, FITTER WELDER - Last Filed: 07/21/25 20:19>
Past History
ED Past Medical History: COPD, HTN, Hypercholesterolemia, Hypothyroidism and Other (PE/DVT on Xarelto)
ED Past Surgical History: Cardiac (stent, R carotid endarterectomy), and Other (gastric sleeve)
Social History
Tobacco: Former smoker
Personal: Single
Living: alone
Review of Systems
<Marianela Cash, FITTER WELDER - Last Filed: 07/21/25 20:19>
Review of Systems
Allergies reviewed?: Yes
All Other Systems: ROS reviewed and negative except as documented in HPI and ROS
Phy Exam
<Marianela Cash, FITTER WELDER - Last Filed: 07/21/25 20:19>
Physical Exam
Physical Exam:
GENERAL: No acute distress. A&Ox3.
CONSTITUTIONAL: Afebrile.
EYES: clear, conjunctivae normal
ENMT: moist mucus membranes, Pharynx nl
RESPIRATORY: Regular respirations, nonlabored, lungs with diminished sounds throughout.
CARDIOVASCULAR: Regular rate and rhythm, no murmurs, no rubs.
GI: Soft, nontender, normal BS
MUSCULOSKELETAL: Moves with ease. Well perfused. +1-2 edema bilateral LEs
SKIN: Warm, dry, pale
PSYCH: Normal mood and affect. Well kept, interactive and appropriate
NEUROLOGIC: Awake, alert and oriented. No focal neurological deficits
Scores
<Marianela Cash, FITTER WELDER - Last Filed: 07/21/25 20:19>
Heart Failure Risk
Heart Failure Risk Score: Yes
History of Stroke or TIA: No
History of intubation for respiratory distress: No
Heart rate on ED arrival >/= 110: No
SaO2 <90% on arrival on room air: Yes
HR >/=110 during 3min walk test (or too ill to perform test): Yes
ECG has acute ischemic changes: No
Urea >/=12mmol/L (BUN 33.6mg/dL): Yes
Serum CO2>/=35mmol/L: No
Troponin I or T elevated to [place] Level (0.4mg/dL): No
NT-proBNP >/=5,000ng/L (5,000pg/ml): Yes
HF Risk Score: 5
Admission Status: VERY HIGH RISK 39.8% Consider admission to hospital
<Jasiel Sher DO - Last Filed: 07/21/25 20:28>
Heart Failure Risk
HF Risk Score: 5
Admission Status: VERY HIGH RISK 39.8% Consider admission to hospital
Course
<Marianela Cash, FITTER WELDER - Last Filed: 07/21/25 20:19>
Orders/Labs/Results
Orders:
Orders
07/21/25 17:14
Electrocardiogram (*1) Urgent
Reason for Study: Shortness of Breath
07/21/25 17:15
EKG- Treatment ONCE
07/21/25 17:49
BNP [NT-proBNP] Urgent
CBC/With Diff [Complete Blood Count/With Diff] Urgent
CMP [Comprehensive Metabolic Panel] Urgent
07/21/25 17:51
CR Chest - 2 Views Urgent
Comment:
Reason For Exam: sob, chf
07/21/25 19:25
Furosemide [Lasix] 60 mg IV NOW STA
Abnormal Lab Results
07/21/25
17:49
WBC 17.7 H 10^3/uL
(4.8-10.8)
Hgb 11.1 L g/dL
(12.0-16.0)
MCH 25.0 L pg
(27.0-31.0)
MCHC 29.4 L g/dL
(33.0-37.0)
RDW 18.6 H %
(11.5-14.5)
MPV 11.0 H fL
(7.4-10.4)
Abs Immat Gran (auto) 0.1 H 10^3/uL
(0-0.05)
Absolute Neuts (auto) 16.6 H 10^3/uL
(1.4-6.5)
Absolute Lymphs (auto) 0.4 L 10^3/uL
(1.2-3.4)
Immature Gran % 0.6 H %
(0-0.5)
Neutrophils % 94.0 H %
(42.2-75.2)
Lymphocytes % 2.4 L %
(20.5-51.1)
Sodium 130 L mmol/L
(135-145)
Potassium 3.2 L mmol/L
(3.5-5.1)
Chloride 93 L mmol/L
(98-107)
BUN 42 H mg/dl
(7-17)
Creatinine 1.5 H mg/dL
(0.6-1.0)
Glucose 107 H mg/dl
(70-99)
Total Bilirubin 4.2 H mg/dl
(0.2-1.3)
AST 64 H U/L
(14-36)
ALT 70 H U/L
(0-35)
Alkaline Phosphatase 173 H U/L
(38-126)
07/21/25 17:49
07/21/25 17:49
Vital Signs
Initial and Last Documented VS:
Initial Vital Signs
Temp Pulse Resp Pulse Ox
97.6 F 91 15 97
07/21/25 17:15 07/21/25 17:15 07/21/25 17:15 07/21/25 17:15
Last Documented Vital Signs
Temp Pulse Resp BP Pulse Ox
97.6 F 94 15 103/91 92
07/21/25 17:15 07/21/25 19:34 07/21/25 19:00 07/21/25 19:34 07/21/25 19:07
<Jasiel Sher, DO - Last Filed: 07/21/25 20:28>
Orders/Labs/Results
Orders:
Orders
07/21/25 17:14
Electrocardiogram (*1) Urgent
Reason for Study: Shortness of Breath
07/21/25 17:15
EKG- Treatment ONCE
07/21/25 17:49
BNP [NT-proBNP] Urgent
CBC/With Diff [Complete Blood Count/With Diff] Urgent
CMP [Comprehensive Metabolic Panel] Urgent
07/21/25 17:51
CR Chest - 2 Views Urgent
Comment:
Reason For Exam: sob, chf
07/21/25 19:25
Furosemide [Lasix] 60 mg IV NOW STA
Abnormal Lab Results
07/21/25
17:49
WBC 17.7 H 10^3/uL
(4.8-10.8)
Hgb 11.1 L g/dL
(12.0-16.0)
MCH 25.0 L pg
(27.0-31.0)
MCHC 29.4 L g/dL
(33.0-37.0)
RDW 18.6 H %
(11.5-14.5)
MPV 11.0 H fL
(7.4-10.4)
Abs Immat Gran (auto) 0.1 H 10^3/uL
(0-0.05)
Absolute Neuts (auto) 16.6 H 10^3/uL
(1.4-6.5)
Absolute Lymphs (auto) 0.4 L 10^3/uL
(1.2-3.4)
Immature Gran % 0.6 H %
(0-0.5)
Neutrophils % 94.0 H %
(42.2-75.2)
Lymphocytes % 2.4 L %
(20.5-51.1)
Sodium 130 L mmol/L
(135-145)
Potassium 3.2 L mmol/L
(3.5-5.1)
Chloride 93 L mmol/L
(98-107)
BUN 42 H mg/dl
(7-17)
Creatinine 1.5 H mg/dL
(0.6-1.0)
Glucose 107 H mg/dl
(70-99)
Total Bilirubin 4.2 H mg/dl
(0.2-1.3)
AST 64 H U/L
(14-36)
ALT 70 H U/L
(0-35)
Alkaline Phosphatase 173 H U/L
(38-126)
07/21/25 17:49
07/21/25 17:49
Vital Signs
Initial and Last Documented VS:
Initial Vital Signs
Temp Pulse Resp Pulse Ox
97.6 F 91 15 97
07/21/25 17:15 07/21/25 17:15 07/21/25 17:15 07/21/25 17:15
Last Documented Vital Signs
Temp Pulse Resp BP Pulse Ox
97.6 F 94 15 103/91 92
07/21/25 17:15 07/21/25 19:34 07/21/25 19:00 07/21/25 19:34 07/21/25 19:07
<Marianela Cash, FITTER WELDER - Last Filed: 07/21/25 20:19>
MDM/Problems Addressed
Differential Diagnosis Includes:
CHF, fluid overload
MDM/Problems Addressed:
69-year-old female with history of COPD, home oxygen 4-5 L O2 [place] PE/DVT on Xarelto, CAD,, HTN, HLD, hypothyroid, gastric sleeve surgery, cardiac stent, right carotid endarterectomy presents for SOB, 'my feel and legs are swelling' despite taking
her daily Lasix and Aldactone. Takes Lasix 40 mg a.m. and on takes 40 in p.m. also. Took Lasix 80 mg today.
Denies CP, abdominal pain, n/v/d/c. Denies fever. Denies cough.
EKG: Sinus rhythm w PACs, RBBB
CBC: WBC 17.7, (patient on prednisone)
CMP: BUN/creat 42/1.5
BNP 10,400
CXR: Report pending. Reviewed with Dr. Sher who agrees with admit for CHF
8:15 p.m.
Admit: CHF, Acute kidney insufficiency
Hospitalist notified of admission.
Chronic conditions affecting care: HTN and COPD
<Marianela Cash FITTER WELDER - Last Filed: 07/21/25 20:19>
*Pulse Oximetry
SaO2: 92
Nasal Cannula flow liters per minute: 5
Patient hypoxic: yes
Comment: Pt on 5L NC O2. which she uses at home
*EKG
EKG Intrepretation Date: 07/21/25
Interpretation: abnormal
Comparison EKG: changes noted (PACs)
Heart Rate: 91
Rate: normal
Rhythm: sinus
[place]: normal axis
Interval: normal interval
QRS Pattern: right bundle branch block
Ischemia: non-specific ST changes
*Critical Care Note
Total Time (30-74mins, 75-104mins- exclusive of procedures): Not Applicable
ED Attending Note
<Marianela Cash FITTER WELDER - Last Filed: 07/21/25 20:19>
-
Portions of this chart may have been created with voice recognition software.� Occasional wrong word or��sound alike� substitutions may have occurred due to the inherent limitations of voice recognition software.
<Jasiel Sher DO - Last Filed: 07/21/25 20:28>
ED Attending Note
Patient seen and examined by attending physician: Yes
ED Attending Note:
I have reviewed and agree with history treatment plan by Rose cash DNP. My exam revealed 69-year-old female with diminished breath sounds throughout, pitting edema bilateral lower extremities. Patient with COPD exacerbation, acute renal
insufficiency, hyperbilirubinemia and CHF exacerbation. Patient will require diuresis. Further evaluation of hyperbilirubinemia. Abdomen exam benign.
Discharge Plan
Departure
Patient Disposition: Admit
Date of Disposition: 07/21/25
Time of Disposition: 20:11
Presentation/result/management discussed w/ accepting MD/DO: Hospitalist
Condition: Fair
Discharge Problem:
CHF (congestive heart failure), Acute kidney insufficiency
Prescriptions:
No Action
atorvastatin [Lipitor] 40 mg Tablet
40 mg PO DAILY
fluticasone propion-salmeterol [Advair Diskus] 250-50 mcg/dose Blister With Device
1 inh INHALATION R BID
prednisone 10 mg Tablet
10 mg PO DAILY
therapeutic multivitamin Tablet
1 tab PO DAILY
omeprazole 40 mg Capsule,Delayed Release(Dr/Ec)
40 mg PO DAILY
aspirin 81 mg Tablet,Delayed Release (Dr/Ec)
81 mg PO DAILY
levothyroxine [Synthroid] 125 mcg Tablet
125 mcg PO DAILY
rivaroxaban [Xarelto] 20 mg Tablet
20 mg PO DAILY
sertraline 50 mg tablet
50 mg PO DAILY
spironolactone 25 mg tablet
25 mg PO DAILY
furosemide 40 mg Tablet
40 mg PO DAILY Qty: 90 0RF
Rx Instructions:
40mg daily Sunday, , Sunday,Sunday
40mg BID Sunday, Sunday, Sunday,
Referrals:
Issa Davis DO [Family Provider, Family Practice]
Interventions
Interventions:
*Risk Screen - Suicide Last Done: 07/21/25 17:15
*General Assessment Last Done: 07/21/25 17:15
*Neglect/Abuse Screening Last Done: 07/21/25 17:15
*ED COVID-19 Vaccine History Last Done: 07/21/25 17:15
*ED Influenza Vaccine History Last Done: 07/21/25 17:15
ED- Cardiac Assessment Last Done: 07/21/25 18:24
ED- Pulmonary Assessment Last Done: 07/21/25 18:24
Discharge Date and Time
Print Language: CROATIAN
[2025-07-21] MEDS: LASIX 60 MG IV (19:34)
--- NOTE | 2025-07-21 20:39 | HPS.HSE ---
Addendum entered and electronically signed by Dev Messina MD 07/21/25 21:47:
This is an addendum to H&P written by Eden Monson on 07/21/2025. �Patient seen and examined independently with INFORMATION SCIENTIST.
69-year-old female past medical history of CAD, HFpEF, pulmonary embolism/DVT on Xarelto, pulmonary fibrosis, pulmonary hypertension, COPD on 5 L baseline, carotid stenosis status post right carotid endarterectomy, obstructive sleep apnea,
presenting with lower extremity edema, shortness of breath with exertion, worsening of chronic cough now with occasional blood-tinged sputum.
Vital signs unremarkable. Slight rales on exam. No wheezing.�
Labs show potassium 3.2. �Creatinine 1.5. �Transaminitis with bilirubin up to 4.2. �Cardiac BNP of 10,000. �Troponin 0.036. �EKG shows sinus rhythm with premature atrial complexes, incomplete right bundle branch block. �Leukocytosis of 17.
Chest x-ray shows moderate combined emphysema and interstitial pulmonary fibrosis.
Patient with likely acute CHF exacerbation. �SHANNON likely cardiorenal. �Continue 60 IV Lasix daily. �Cardiology consulted.
Original Note:
Family Physician
-
Family Physician: Issa Davis,
Chief Complaint
-
sob and LE edema
History of Present Illness
69-year-old female with history of COPD, home oxygen 4-5 L n.c., PE/DVT on Xarelto, CAD,, HTN, HLD, hypothyroid, gastric sleeve surgery, cardiac stent, right carotid endarterectomy presents for SOB which is worse with exertion for past few days.
patient stated that her legs are swollen. denied weight gain. she complained of worsening cough with clear and at times blood tinged sputum. she took extra dose of Lasix due to the sob and LE edema. denied fever, chills, LIU,dizzy or syncope. denied
abdominal pain,n,v,d. denied dysuria or hematuria.
recived a dose of lasix in ER. admitting for further management.
Medical History
Past Medical History
Past Medical History: Reports Other
Additional Past Medical History:
HLD, pulmonary HTN, CAD, HTN,CHF
Past Surgical History: Reports Other
Additional Past Surgical History:
bariatric surgery, c section.
Social History
Tobacco: Non-smoker
Alcohol: None
Drug: None
Living: With Family
Family History
Family History: Not pertinent
Allergies / Home Medications
Allergies reflects when Allergies were last updated in [facility].
Home Medications with original date entered in [facility]
Allergy/Medication List:
Allergies
Allergy/AdvReac Type Severity Reaction Status Date / Time
tape Allergy Unknown Uncoded 05/13/25 18:54
Home Medications
aspirin 81 mg tablet,delayed release 81 mg PO DAILY Blood Clot Prevention/Tx 10/13/24
levothyroxine 125 mcg tablet (Synthroid) 125 mcg PO DAILY Thyroid 10/13/24
omeprazole 40 mg capsule,delayed release 20 mg PO DAILY GERD 10/13/24
prednisone 10 mg tablet 10 mg PO DAILY INFLAMMATION 10/13/24
therapeutic multivitamin 1 tab PO DAILY Supplement 10/13/24
rivaroxaban 20 mg tablet (Xarelto) 20 mg PO DAILY 05/08/25
sertraline 50 mg tablet 50 mg PO DAILY Mental Health 05/08/25
spironolactone 25 mg tablet 25 mg PO DAILY Heart Failure 05/08/25
furosemide 40 mg tablet 40 mg PO DAILY Heart Failure #90 tabs 05/10/25
fluticasone 100 mcg-salmeterol 50 mcg/dose blistr powdr for inhalation (Wixela Inhub) 1 inh inhalation BID 07/21/25
Review of Systems
-
Constitutional: Reports No Symptoms
EENT: Reports No Symptoms
Respiratory: Reports Trouble Breathing
Cardiac: Reports Chest Pain
Abdomen/GI: Reports No Symptoms
: Reports No Symptoms
Musculoskeletal: Reports Edema (LE edema)
Skin: Reports No Symptoms
Neurological: Reports No Symptoms
Endocrine: Reports No Symptoms
Hematologic/Lymphatic: Reports No Symptoms
Psych: Reports No Symptoms
Physical Exam
Vital Signs
Vital Signs
Temp Pulse Resp BP Pulse Ox
97.6 F 94 15 103/91 92
07/21/25 17:15 07/21/25 19:34 07/21/25 19:00 07/21/25 19:34 07/21/25 19:07
Physical Exam
General: Well Developed, Well Nourished and No Apparent Distress
HEENT: NormoCephalic, Moist mucous membranes and Atraumatic
Respiratory: Crackles
Cardiac: S1/S2 and Regular Rhythm; No Murmur or Rub
GI: Soft, Non Tender, Non Distended and Normal Bowel Sounds; No Organomegaly
Rectal: Deferred by Provider
Musculoskeletal: No Clubbing, No Cyanosis and Other (LE edema)
Skin: No Rash
Neuro: AO x 3 and Nonfocal/grossly intact
Psych: Calm
Laboratory Results
-
07/21/25 17:49
07/21/25 17:49
Laboratory Results
Total Bilirubin 4.2 mg/dl (0.2-1.3) H 07/21/25 17:49
AST 64 U/L (14-36) H 07/21/25 17:49
ALT 70 U/L (0-35) H 07/21/25 17:49
Alkaline Phosphatase 173 U/L (38-126) H 07/21/25 17:49
Impression/Plan
-
#CHF exacerbation
-BNP 20485
-Lasix continued
-strict I&O, daily weight, fluid restriction
-cardiology consulted
-recent ECHO with EF of 65%
-chest x ray Moderate combined emphysema and interstitial pulmonary fibrosis.
2. Chronic pulmonary arterial hypertension.
3. Mildly decreased bilateral lung volumes.
4. No radiographic evidence for pleural effusion.
#chronic leukocytosis
-wbc 17.7, patient is afebrile
-ctm
#hypervolemic hyponatremia
#hypokalemia
#acute renal failure likely from fluid overload
-na 130, k 3.2, cr 1.5
-fluid restriction
-oral kcl
-ctm BMP
#transaminitis likely hepatic congestion
-elevated Bili
-T Bili 4.2,AST 64,ALT 70,ALK 173
-CTM
#CAD s/p stent 2021
#PAD s/p right carotid endarterectomy
-Continue aspirin
#DVT/PE�September 2024
-Continue anticoagulation with Xarelto
#COPD on chronic prednisone therapy
#chronic hypoxic respiratory failure multifactorial
-5l at home
-continue supplemental oxygen to keep sat>88-92
-wean as tolerated
#Hypothyroidism
Levothyroxine
CODE STATUS full code
DVT prophylaxis Xarelto
[2025-07-21] MEDS: KCL 40 MEQ PO (21:29)
--- NOTE | 2025-07-21 23:29 | PTCARENOTE ---
Rec'd pt from ER. Pt transferred over to bed as unable to walk as she becomes too short of breath. Denies pain. Anabel maintained. Pt on . Call beverly in reach and oriented tot the unit.
[2025-07-22] VITALS (9 sets, daily range): BP systolic 100–140; BP diastolic 60–85; PULSE 81; O2SAT 90; BMI 30.8
[2025-07-22] MEDS: SYNTHROID 125 MCG PO (05:53)
[2025-07-22] MEDS: ADVAIR HFA 115/21 MCG INHALER 2 PUFF INH ×2 (07:39→19:24)
--- NOTE | 2025-07-22 07:48 | W.PN.HOSP.TC ---
Addendum entered and electronically signed by Wilson Mobley MD 07/22/25 14:35:
69-year-old female with shortness of breath and approximately edema.
Chest [id number] combined emphysema and interstitial pulmonary fibrosis. Chronic pulmonary artery hypertension. Mildly decreased bilateral lung volumes. No radiographic evidence of pleural effusion.
EKG-sinus rhythm with PACs. Incomplete right bundle branch block. ST-T wave abnormality possibly inferior ischemia
Echo 06/11/2025-technically difficult study. LV normal in size and wall thickness. EF 65%. Grade 1 diastolic dysfunction. RV is moderately dilated and mildly hypokinetic. Tricuspid valve is normal. Leaflets have adequate excursion. Trivial TR.
RV systolic pressure 78 mmHg.
Patient awake alert
Cardiovascular system S1-S2 appreciated
Chest clear to auscultation
Abdomen soft and nontender
Not much pedal edema noted today
# Acute on chronic HFpEF-recent EF 65%
BNP 10,400
Patient is on Lasix 40 mg daily as outpatient
Got IV Lasix yesterday however creatinine is going up. She looks more euvolemic now therefore we will hold off on further IV Lasix until we get creatinine tomorrow.
Intake output charting, daily weights and fluid restriction
Patient is on Aldactone as outpatient-Hold for now.
Unclear why not on SGLT2 inhibitors.
# Acute kidney injury-bladder scan with no retention. Hold Aldactone and Lasix.
# Coronary disease with history of stent 2021
# Pulmonary hypertension-severe
# Hyponatremia- improved
# Hypokalemia-replace and follow
# Transaminitis-Hepatitis panel. Check Routine USS.
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
# NNSW-iponhct-dcezzhdsu
Chronic hypoxic respiratory failure on 5 L of oxygen as outpatient
Continue Wixela or equivalent
# Hypothyroidism-continue levothyroxine 125 mcg daily
# Peripheral artery disease with history of right carotid endarterectomy
# Chronic leukocytosis
# GERD-continue PPI
# Depression-continue sertraline
# Sleep apnea-CPAP
# Obesity with a BMI of 30-history of gastric sleeve procedure
# Ex-smoker
# DVT prophylaxis-Xarelto
# Full code
Add on Sed Rate , CRP and compliment levels.
D/W RN at bed side
D/W Cardiology at bed side
D/W Pulmonary
Part of this note was created using voice recognition system. Occasional wrong word or��sound alike� substitutions may have inadvertently occurred due to the inherent limitations of voice recognition software. If noted kindly bring it to my
attention for correction.
Original Note:
Today's Communication/Plan
-
Lasix per cardio; recommend holding
fu on sCr
pulm consult
Assessment / Plan
Assessment / Plan
#Acute on chronic HFpEF exacerbation
-BNP 42658
-Lasix iv 60 daily per cardio; since sCr rising i would recommend holding
-strict I&O, daily weight, fluid restriction
-recent ECHO with EF of 65%
chest x ray Moderate combined emphysema and interstitial pulmonary fibrosis.
2. Chronic pulmonary arterial hypertension.
3. Mildly decreased bilateral lung volumes.
4. No radiographic evidence for pleural effusion.
#chronic leukocytosis
-wbc 17.7 on admission; improved
- Patient on chronic steroids
-ctm
#hypervolemic hyponatremia; improved
#hypokalemia; resolved
#acute renal failure likely from fluid overload; worsening
#transaminitis likely hepatic congestion
-elevated Bili
-T Bili 4.2,AST 64,ALT 70,ALK 173 on arrival
#CAD s/p stent 2021
#PAD s/p right carotid endarterectomy
-Continue aspirin
#DVT/PE�September 2024
-Continue anticoagulation with Xarelto
#COPD on chronic prednisone therapy
#chronic hypoxic respiratory failure multifactorial
-5l at home
-continue supplemental oxygen to keep sat>88-92
-wean as tolerated
- consult pulm
- x ray as above
#Hypothyroidism
Levothyroxine
CODE STATUS full code
DVT prophylaxis Xarelto
Anticipated Discharge: Within 24 hours
Subjective/Interval History
-
Date of Service: July 22, 2025
AFVSS. states she is feeling better
Objective Data
-
Labs:
Laboratory Results
07/22/25
07:07
WBC Pending
Hgb Pending
Hct Pending
Plt Count Pending
Sodium Pending
Potassium Pending
Chloride Pending
Carbon Dioxide Pending
BUN Pending
Creatinine Pending
Glucose Pending
Calcium Pending
Total Bilirubin Pending
AST Pending
ALT Pending
Alkaline Phosphatase Pending
Vital Signs:
Vital Signs
Temp Pulse Resp BP Pulse Ox
97.5 F 85 20 122/85 96
07/22/25 03:01 07/22/25 07:47 07/22/25 07:47 07/22/25 03:01 07/22/25 07:47
I&O
07/21/25 07/22/25 07/23/25
06:59 06:59 06:59
Output Total 750 / 750
Balance -750 / -750
Review of Systems
-
All other systems: Reviewed and negative (Except as documented)
Physical Exam
-
General: No Apparent Distress
HEENT: Oxygen
Respiratory: Clear to Auscultation
Cardiac: Regular Rhythm and S1/S2
GI: Soft, Nontender, Nondistended and Normal Bowel Sounds
Skin: Warm
Neuro: Awake, Alert, Oriented and AO x 3
Psych: Calm
Data Reviewed
-
Diagnostic Radiology: Report Reviewed by me, Discussed with Physician and Discussed with Patient
Labs: Labs Reviewed by me, Discussed with Physician and Discussed with Patient
[2025-07-22] MEDS: ALDACTONE 25 MG PO (08:08)
[2025-07-22] MEDS: ZOLOFT 50 MG PO (08:08)
[2025-07-22] MEDS: PROTONIX 40 MG PO (08:08)
[2025-07-22] MEDS: THERAGRAN 1 TABLET PO (08:08)
[2025-07-22] MEDS: XARELTO 20 MG PO (08:08)
[2025-07-22] MEDS: ASPIR LOW (ENTERIC COATED) 81 MG PO (08:08)
[2025-07-22] MEDS: LASIX 60 MG IV (08:09)
[2025-07-22] MEDS: DELTASONE 10 MG PO (08:09)
[2025-07-22 08:23] LABS: Hematocrit 36.3 % (37.0-47.0); Hemoglobin 10.9 g/dL (12.0-16.0); Mean Corp Hgb Conc. 30.0 g/dL (33.0-37.0); Mean Corpuscular Volume 84.2 fL (81.0-99.0); Platelet Count 334 10^3/uL (130-400); Red Cell Dist. Width 18.5 % (11.5-14.5)
--- NOTE | 2025-07-22 08:25 | CON.CAR ---
Addendum entered and electronically signed by Sarbjit Merchant MD 07/22/25 11:17:
I saw and examined the patient independently, and performed majority of MDM.
The RETAIL DEPARTMENT MANAGER's note was reviewed and I agree with the note with changes/additions below.
Comment: 69 yo female with PMH of chronic HFPEF, pulm HTN, cor pulmonale, CAD, last PCI 2021, PE on xarelto is admitted with SOB, edema. She feels better after 2 doses of IV lasix. Exam with RRR, no murmurs, trace LE edema. Cr 1.6.
SOB. Likely multifactorial with lung disease contributing. Pulmonology consulted as well.
Acute on chronic HFPEF. SHANNON noted. Will need to monitor Cr closely. Hold IV lasix, and aldactone; and await AM labs before dosing diuretic.
Discussed with hospitalist team.
Original Note:
Consultation
Consultation Request
Date/Time Consultation Requested: 07/21/25 7636
Date/Time Consultation Performed: 07/22/25 [id number]
Requesting Provider: Eden FLORES
Performing Provider: Nadege FLORES for Dr. Merchant
Reason for Consultation: CHF
Medical History
-
Chief Complaint: LE edema
History of Present Illness:
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
hypothyroidism. She was hospitalized 04/2025 with HFpEF exacerbation. Lasix was increased at d/c. She is back with reports of LE edema with associated SOB for about 1 week. She has not been eating as much (it is inconvenient for her to walk to get
food) and has lost weight since last admit. She has been urinating less. There has also been a productive cough (sometimes blood-tinged). BNP elevated 10,400. She has SHANNON. CXR with evidence for lung disease as well- see below. She is admitted with
CHF and being diuresed. She is in no distress at the time of my assessment. She feels much better after some diuresis, which she reports has been successful. AM labs pending at the time of my assessment.
Past Medical History
Past Medical History: CAD, COPD, HTN, Hypercholesterolemia, Hypothyroidism and Other (as above )
Social History
Tobacco: Former Smoker
Family History
Family History: Reviewed & Not Pertinent
Allergies / Home Medications
Allergy/AdvReac Type Severity Reaction Status Date / Time
tape Allergy Unknown Uncoded 05/13/25 18:54
�Medication �Instructions �Recorded �Confirmed �Type
aspirin 81 mg tablet,delayed 81 mg PO DAILY Blood Clot 10/13/24 07/21/25 History
release Prevention/Tx
levothyroxine 125 mcg tablet 125 mcg PO DAILY Thyroid 10/13/24 07/21/25 History
(Synthroid)
omeprazole 40 mg capsule,delayed 20 mg PO DAILY GERD 10/13/24 07/21/25 History
release
prednisone 10 mg tablet 10 mg PO DAILY INFLAMMATION 10/13/24 07/21/25 History
therapeutic multivitamin 1 tab PO DAILY Supplement 10/13/24 07/21/25 History
rivaroxaban 20 mg tablet (Xarelto) 20 mg PO DAILY Blood Clot 05/08/25 07/21/25 History
Prevention/Tx
sertraline 50 mg tablet 50 mg PO DAILY Mental Health 05/08/25 07/21/25 History
spironolactone 25 mg tablet 25 mg PO DAILY Heart Failure 05/08/25 07/21/25 History
furosemide 40 mg tablet 40 mg PO DAILY Heart Failure #90 05/10/25 07/21/25 Rx
tabs
fluticasone 100 mcg-salmeterol 50 1 inh inhalation BID 07/21/25 07/21/25 History
mcg/dose blistr powdr for
inhalation (Wixela Inhub)
Review of Systems
-
History Source: Patient
Constitutional: Weight Loss
Respiratory: Cough and Trouble Breathing
Musculoskeletal: Edema
Physical Exam
Vital Signs
Temp Pulse Resp BP Pulse Ox
97.5 F 85 20 122/85 96
07/22/25 03:01 07/22/25 07:47 07/22/25 07:47 07/22/25 03:01 07/22/25 07:47
Lab Results
07/22/25 07:07
Dvi-D-Yeytlsymhtl Pept 79646 pg/ml 07/21/25 17:49
Physical Exam
General: Well Developed, Well Nourished and No Apparent Distress
HEENT: Normocephalic and Anicteric
Respiratory: Crackles and Other (on O2 by NC)
Cardiac: Regular Rhythm
Musculoskeletal: Edema (mild BLE)
Skin: Warm and Dry
Neuro: AO x 3
Psych: Calm
Impression / Plan
-
SOB:
-likely multifactorial with lung disease and CHF- see below for CHF
-CXR: Moderate combined emphysema and interstitial pulmonary fibrosis. Chronic pulmonary arterial hypertension. Mildly decreased bilateral lung volumes. Reports some blood-tinged sputum at times. She is on prednisone as OP.
-Pulmonary is consulted for this.
Heart failure with preserved ejection fraction, acute on chronic:
-Echo 06/11/25: The left ventricle is normal in size with normal wall thicknesses. Overall left ventricular wall motion and systolic function is normal with an estimated ejection fraction of 65%, although because of the suboptimal nature of the
imaging a localized wall motion abnormality cannot be excluded. There is grade 1 diastolic dysfunction. The right ventricle is moderately dilated and mildly hypokinetic. The tricuspid valve is normal. Leaflets have adequate excursion. There is
trivial tricuspid regurgitation. The right ventricular systolic pressure is estimated at 78 mmHg. Similar to previous on my review.
-on spironolactone. Jardiance stopped due to lightheadedness in the past. Lasix dosing is 40 mg daily, and BID on MWF- she reports compliance. She denies any excess sodium or fluid recently.
-agree with IV lasix, which requires intensive monitoring. Await AM renal labs for help with dosing. There is also hypokalemia (replaced) and hyponatremia.
Hx PE/DVT
-on Xarelto
CAD with PCI in 2021:
-Stable without reports of CP. EKG is stable overall.
HTN:
-stable
Data Reviewed
-
EKG: Tracing Personally Visualized and interpreted (SR with PAC's, IC RBBB- similar when compared with previous)
Radiology: Report Reviewed by me (CXR as noted)
Medical Tests (Nuc Med, Echo etc): Report Reviewed by me (echo as noted)
Labs: Labs Reviewed by me
[2025-07-22 09:15] LABS: ALT (SGPT) 75 U/L (0-35); AST (SGOT) 63 U/L (14-36); Albumin 3.7 g/dl (3.5-5.0); Alkaline Phosphatase 156 U/L (38-126); Blood Urea Nitrogen 41 mg/dl (7-17); Calcium 9.2 mg/dl (8.4-10.2); Carbon Dioxide 30 mmol/L (22-30); Chloride 95 mmol/L (98-107); Estimated Creatinine Clearance 32 ml/min; Glucose 98 mg/dl (70-99); HDL Cholesterol 33 mg/dl; LDL Cholesterol, Calculated 27 mg/dl; Magnesium 2.3 mg/dl (1.6-2.3); Potassium 4.1 mmol/L (3.5-5.1); Sodium 134 mmol/L (135-145); Total Protein 6.9 g/dl (6.3-8.2); Very Low Density Lipoprotein 18 mg/dl (0-30); eGFR 34.70
[2025-07-22 09:49] LABS: COVID-19 Antigen Negative (Negative)
--- NOTE | 2025-07-22 10:33 | CON.PUL ---
Consultation
Consultation Request
Date/Time Consultation Requested: 07/22/2025
Date/Time Consultation Performed: 07/22/2025
Requesting Provider: Dr. Mobley
Performing Provider: Dr. Kyle Orr
Reason for Consultation: Hypoxemic respiratory failure-interstitial lung disease
Medical History
-
History of Present Illness:
69-year-old woman with past medical history significant for cardiovascular disease, pulmonary embolism/DVT on Xarelto, hypertension, COPD/pulmonary fibrosis on chronic oxygen therapy at night and with exertion 5 L nasal cannula, presented to the
hospital complaining of lower extremity edema, shortness of breath with exertion, worsening coughing with occasional blood-tinged sputum.
Patient is noted that her proBNP is 10,000. Mild troponin leak.
Initially diuresed.
Creatinine increased.
Her chest x-ray showed emphysema/pulmonary fibrosis overlap.
We were consulted on 07/22/2025 for evaluation.
Cardiology was consulted-patient has preserved ejection fraction. With grade 1 diastolic dysfunction with moderately dilated RV with hypokinesis.
Continues to be on diuresis.
-
Denies purulent sputum production
Denies fevers or chills
Denies swallowing problems or GERD
Past Medical History
Past Medical History: Other
Social History
Tobacco: Former Smoker (Quit about 25 years ago)
Employment: Employed (Hairdresser)
Family History
Family History: Reviewed & Not Pertinent
Allergies / Home Medications
Allergies
Allergy/AdvReac Type Severity Reaction Status Date / Time
tape Allergy Unknown Uncoded 05/13/25 18:54
Home Medications
�Medication �Instructions �Recorded �Confirmed �Last Taken �Type
aspirin 81 mg tablet,delayed 81 mg PO DAILY Blood Clot 10/13/24 07/21/25 07/21/25 History
release Prevention/Tx
levothyroxine 125 mcg tablet 125 mcg PO DAILY Thyroid 10/13/24 07/21/25 07/21/25 History
(Synthroid)
omeprazole 40 mg capsule,delayed 20 mg PO DAILY GERD 10/13/24 07/21/25 07/21/25 History
release
prednisone 10 mg tablet 10 mg PO DAILY INFLAMMATION 10/13/24 07/21/25 07/21/25 History
therapeutic multivitamin 1 tab PO DAILY Supplement 10/13/24 07/21/25 07/21/25 History
rivaroxaban 20 mg tablet (Xarelto) 20 mg PO DAILY Blood Clot 05/08/25 07/21/25 07/21/25 History
Prevention/Tx
sertraline 50 mg tablet 50 mg PO DAILY Mental Health 05/08/25 07/21/25 07/21/25 History
spironolactone 25 mg tablet 25 mg PO DAILY Heart Failure 05/08/25 07/21/25 07/21/25 History
furosemide 40 mg tablet 40 mg PO DAILY Heart Failure #90 05/10/25 07/21/25 07/21/25 Rx
tabs
fluticasone 100 mcg-salmeterol 50 1 inh inhalation BID 07/21/25 07/21/25 07/21/25 History
mcg/dose blistr powdr for
inhalation (Wixela Inhub)
Review of Systems
-
History Source: Patient
All other systems: Negative unless noted
Vitals / Labs / Diagnostic Testing
Vital Signs
Temp Pulse Resp BP Pulse Ox
97.4 F 85 20 140/84 5
07/22/25 07:35 07/22/25 07:47 07/22/25 07:47 07/22/25 07:35 07/22/25 08:10
Lab Data
07/22/25 07:07
07/22/25 07:07
Diagnostic Testing:
Physical Exam
-
HEENT: Normocephalic
Cardiovascular: S1/S2
Respiratory: Rales and Non-Labored Respirations
GI: Soft and Non Distended
Neurology: Awake
Skin: Warm
General: Comfortable
Assessment
-
69-year-old woman with past medical history noted, admitted to the hospital due worsening lower extremity edema and shortness of breath. Chest x-ray with chronic bilateral infiltrates. proBNP significantly elevated. Lower extremity edema on
exam. We were consulted on 07/22/2025 for evaluation.
Acute hypoxemic respiratory failure -acute on chronic heart failure with preserved ejection fraction/some component of RV failure as well. Chronic cor pulmonale
Mild troponin leak
Increased proBNP 36712
Chronic hypoxemic respiratory failure on 5 L
Pulmonary fibrosis/emphysema gwxkylx-bjyejx-iwgdokf stable on chest x-ray
Acute kidney injury-post diuresis
Conditions present prior admission:
Pulmonary embolism 09/2024-on Xarelto
Left lower extremity deep venous thrombosis
Hiatal hernia
Coronary artery disease status post stent placement
Peripheral arterial disease status post right carotic endarterectomy
Essential hypertension
Hyperlipidemia
Chronic hypoxemia
COPD/emphysema/pulmonary fibrosis overlap
Does not follow-up with pulmonary locally.
Advair discus/low-dose prednisone
Pulmonary hypertension with RV dysfunction-cor pulmonale
Hypothyroidism
Obstructive sleep apnea on CPAP
Former smoker quit about 25 years ago
obesity
Assessment and plan:
-
Worsening symptoms-possibly due to volume overload-given proBNP. Underlying pulmonary disease/cor pulmonale also contributing to symptoms.
Report improvement of lower extremity edema and symptoms with diuresis.
Denies increased phlegm production or hemoptysis.
Patient does have leukocytosis but no other signs of infection at this point.
Chest x-ray reviewed, appears stable compared to April 21, 2025.
No need to obtain CT chest at this point.
Oxygenation at baseline 5 L. (baseline)
Will continue to follow closely.
-
Did receive diuresis but developed acute kidney injury-gentle diuresis going forward given RV dysfunction.
Patient has pulmonary hypertension with RV dysfunction which could explain some of her proBNP increased
Cardiology followed patient and monitoring closely
Echocardiogram noted
-
Patient does have history of severe emphysema/pulmonary fibrosis overlap-follows up at [facility].
Her pulmonary fibrosis is undifferentiated-no details available.
Not on antifibrotic therapy. She definitely has progressed compared to few years ago as she is now on 5 L supplemental oxygen.
Continue inhaler therapy
No indication for systemic corticosteroids
She is not bronchospastic on exam
-
Continue obstructive sleep -intolerant to CPAP. Only on nocturnal oxygen.
This could partially explain part of her pulmonary hypertension.
-
Continue anticoagulation
-
After discharge she will return to her ceo and founder at [facility]-- Dr. Chavez
-
Will follow
Data reviewed:
-
Chest x-ray 07/21/2025:
Emphysema/pulmonary fibrosis overlap. Signs of pulmonary hypertension.
Low lung volumes
-
CT chest 11/09/2024: No evidence for pulmonary embolism.
Emphysematous lung changes. Scattered regions of parenchymal scarring and traction bronchiectasis. Subtle groundglass opacity has increased in the left lung base, raising possibility of mild pneumonia. However, no dense consolidation.
Mild to moderate hiatal hernia. Opaque sutures associated with the distal esophagus and stomach.
-
Echocardiogram 06/11/2025:
Normal LVEF. Ejection fraction 65%. Grade 1 diastolic dysfunction
Right ventricle is moderately dilated and mildly hypokinetic.
[2025-07-22 15:10] LABS: C-Reactive Protein 29.10 mg/L (0.0-10.00)
--- NOTE | 2025-07-22 16:04 | CM ---
CM reviewed chart, patient seen bedside, initial assessment completed.
Patient resides independently in a ranch style home, one step to enter.
DME includes O2- [employer], RW.
Patient confirms current with home health- believes [facility], referral placed in [facility] to confirm.
PCP Issa Davis, Pharmacy [facility], confirms prescription coverage.
Patient confirms family support.
CM will continue to follow for all d/c planning needs.
Plan; home with [facility]
[2025-07-22] MEDS: ATARAX 25 MG PO (21:18)
[2025-07-23] VITALS (7 sets, daily range): BP systolic 106–138; BP diastolic 67–91; O2SAT 97; BMI 30.2
[2025-07-23] MEDS: SYNTHROID 125 MCG PO (05:16)
--- NOTE | 2025-07-23 07:16 | W.PN.HOSP.TC ---
Addendum entered and electronically signed by Wilson Mobley MD 07/23/25 14:16:
69-year-old female with shortness of breath and LE edema
Chest [id number]-[id number] combined emphysema and interstitial pulmonary fibrosis. Chronic pulmonary artery hypertension. Mildly decreased bilateral lung volumes. No radiographic evidence of pleural effusion.
EKG-sinus rhythm with PACs. Incomplete right bundle branch block. ST-T wave abnormality possibly inferior ischemia
Echo 06/11/2025-technically difficult study. LV normal in size and wall thickness. EF 65%. Grade 1 diastolic dysfunction. RV is moderately dilated and mildly hypokinetic. Tricuspid valve is normal. Leaflets have adequate excursion. Trivial TR.
RV systolic pressure 78 mmHg.
Patient awake alert
Cardiovascular system S1-S2 appreciated
Chest clear to auscultation
Abdomen soft and nontender
Mild pedal edema
# Acute on chronic HFpEF-recent EF 65%
BNP 10,400
Patient is on Lasix 40 mg daily as outpatient
Got IV Lasix X 2 doses however creatinine is going up. Stop further doses.
Intake output charting, daily weights and fluid restriction
Patient is on Aldactone as outpatient-hold for now
Unclear why not on SGLT2 inhibitors as OP
She is still feeling SOB
Unclear if due to pulm reasons
Will request a RHC
# Acute kidney injury-bladder scan with no retention. Hold Aldactone and Lasix. Check USS.
# Coronary disease with history of stent 2021
# Pulmonary hypertension-severe
# Hyponatremia- improved
# Hypokalemia-replace and follow
# Transaminitis-Hepatitis panel. Check Routine USS
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
# [id number]
Chronic hypoxic respiratory failure on 5 L of oxygen as outpatient
Continue Wixela or equivalent
# Hypothyroidism-continue levothyroxine 125 mcg daily
# Peripheral artery disease with history of right carotid endarterectomy
# Chronic leukocytosis
# GERD-continue PPI
# Depression-continue sertraline
# Sleep apnea-CPAP
# Obesity with a BMI of 30-history of gastric sleeve procedure
# Ex-smoker
# DVT prophylaxis-Xarelto
# Full code
Sed Rate and CRP. and compliment levels OK
I have requested for RHC .
D/W Pt's cousin Emmanuelle who works as an RN here with pt's permission.
Part of this note was created using voice recognition system. Occasional wrong word or��sound alike� substitutions may have inadvertently occurred due to the inherent limitations of voice recognition software. If noted kindly bring it to my
attention for correction.
Original Note:
Today's Communication/Plan
-
us abd
diuretics per cardio
Assessment / Plan
Assessment / Plan
#Acute on chronic HFpEF exacerbation
-BNP 90222
-Lasix currently on hold given elevated sCr. sCr rising
-strict I&O, daily weight, fluid restriction
-recent ECHO with EF of 65%
chest x ray Moderate combined emphysema and interstitial pulmonary fibrosis.
2. Chronic pulmonary arterial hypertension.
3. Mildly decreased bilateral lung volumes.
4. No radiographic evidence for pleural effusion.
#chronic leukocytosis
-wbc 17.7 on admission; improved
- Patient on chronic steroids
-ctm
#hypervolemic hyponatremia; improved
#hypokalemia; resolved
#acute renal failure likely from fluid overload; worsening
#transaminitis likely hepatic congestion
-elevated Bili
-T Bili 4.2,AST 64,ALT 70,ALK 173 on arrival
- crp elevated . esr normal, c3 c4 wnl
-usg today
#CAD s/p stent 2021
#PAD s/p right carotid endarterectomy
-Continue aspirin
#DVT/PE�September 2024
-Continue anticoagulation with Xarelto
#COPD on chronic prednisone therapy
#chronic hypoxic respiratory failure multifactorial
-5l at home; continue
-continue supplemental oxygen to keep sat>88-92
-wean as tolerated
- pulm following
- x ray as above
#Hypothyroidism
Levothyroxine
CODE STATUS full code
DVT prophylaxis Xarelto
Anticipated Discharge: 24 - 48 hours
Subjective/Interval History
-
Date of Service: July 23, 2025
AFVSS. states there is swelling on the legs again today
Objective Data
-
Labs:
Laboratory Results
07/23/25
06:00
WBC Pending
Hgb Pending
Hct Pending
Plt Count Pending
Sodium Pending
Potassium Pending
Chloride Pending
Carbon Dioxide Pending
BUN Pending
Creatinine Pending
Glucose Pending
Calcium Pending
Vital Signs:
Vital Signs
Temp Pulse Resp BP Pulse Ox
97.4 F 86 20 115/69 92
07/23/25 03:00 07/23/25 03:00 07/23/25 03:00 07/23/25 03:00 07/23/25 03:00
I&O
07/22/25 07/23/25 07/24/25
06:59 06:59 06:59
Intake Total 360 / 360
Output Total 750 / 750
Balance -750 / -750 360 / 360
Review of Systems
-
All other systems: Reviewed and negative (Except as documented)
Physical Exam
-
General: No Apparent Distress
HEENT: Oxygen (5L; chronic)
Respiratory: Clear to Auscultation
Cardiac: Regular Rhythm and S1/S2
GI: Soft, Nontender, Nondistended and Normal Bowel Sounds
Musculoskeletal: Edema, Right Lower Extrem and Edema, Left Lower Extrem
Skin: Warm
Neuro: Awake, Alert, Oriented and AO x 3
Psych: Calm
Data Reviewed
-
Labs: Labs Reviewed by me, Discussed with Physician and Discussed with Patient
[2025-07-23] MEDS: ADVAIR HFA 115/21 MCG INHALER 2 PUFF INH ×2 (08:01→20:01)
[2025-07-23 08:46] LABS: Hematocrit 37.4 % (37.0-47.0); Hemoglobin 11.4 g/dL (12.0-16.0); Mean Corp Hgb Conc. 30.5 g/dL (33.0-37.0); Mean Corpuscular Volume 86.4 fL (81.0-99.0); Platelet Count 370 10^3/uL (130-400); Red Cell Dist. Width 18.6 % (11.5-14.5)
--- NOTE | 2025-07-23 08:52 | W.PN.CD ---
Today's Communication / Plan
-
Holding lasix
Await AM Cr
Likely resume home lasix dosing tomorrow: She takes [facility] lasix
Impression / Plan
-
SOB:
-likely multifactorial with lung disease and CHF- see below for CHF
-CXR: Moderate combined emphysema and interstitial pulmonary fibrosis. Chronic pulmonary arterial hypertension. Mildly decreased bilateral lung volumes. Reports some blood-tinged sputum at times. She is on prednisone as OP.
-Pulmonary is consulted for this.
Heart failure with preserved ejection fraction, acute on chronic:
-Echo 06/11/25: The left ventricle is normal in size with normal wall thicknesses. Overall left ventricular wall motion and systolic function is normal with an estimated ejection fraction of 65%, although because of the suboptimal nature of the
imaging a localized wall motion abnormality cannot be excluded. There is grade 1 diastolic dysfunction. The right ventricle is moderately dilated and mildly hypokinetic. The tricuspid valve is normal. Leaflets have adequate excursion. There is
trivial tricuspid regurgitation. The right ventricular systolic pressure is estimated at 78 mmHg. Similar to previous on my review.
-on spironolactone. Jardiance stopped due to lightheadedness in the past. Lasix dosing is 40 mg daily, and BID on MWF- she reports compliance. She denies any excess sodium or fluid recently.
-HOLD lasix await labs
- Likely resume home dosing of lasix
- suspect SOB mostly due to lung disease
Hx PE/DVT
-on Xarelto
CAD with PCI in 2021:
-Stable without reports of CP. EKG is stable overall.
HTN:
-stable
Subjective: feeling improved
Physical Exam
Vital Signs/Labs
Vital Signs
Temp Pulse Resp BP Pulse Ox
97.2 F 88 18 138/88 91
07/23/25 07:00 07/23/25 07:00 07/23/25 08:05 07/23/25 07:00 07/23/25 08:05
07/22/25 07/23/25 07/24/25
06:59 06:59 06:59
Actual Weight 168 lb 4.8 oz 165 lb 3 oz
07/23/25 08:07
Magnesium 2.3 mg/dl (1.6-2.3) 07/22/25 07:07
Triglycerides 92 mg/dl (10-149) 07/22/25 07:07
LDL Cholesterol, Calc 27 mg/dl 07/22/25 07:07
VLDL Cholesterol, Calc 18 mg/dl (0-30) 07/22/25 07:07
HDL Cholesterol 33 mg/dl 07/22/25 07:07
07/21/25
17:49
Qpa-U-Eklwvitpbql Pept 29907
Physical Exam
Constitutional: No acute distress and Comfortable
EENT: Anicteric
Cardiovascular: Rhythm & rate is regular and Pedal edema present (trace)
Respiratory: Respiratory effort normal and Wheeze Present
GI: Soft
Neuro/Psych: AO x 3
Data Reviewed
-
Date of Service: July 23, 2025
Medical Decision Making: Reviewed Test Results
EKG: Tracing Personally Visualized and interpreted (sr)
Echo: Report Reviewed by me
Labs: Labs Reviewed by me
[2025-07-23] MEDS: THERAGRAN 1 TABLET PO (09:33)
[2025-07-23] MEDS: ASPIR LOW (ENTERIC COATED) 81 MG PO (09:33)
[2025-07-23] MEDS: PROTONIX 40 MG PO (09:33)
[2025-07-23] MEDS: XARELTO 20 MG PO (09:33)
[2025-07-23] MEDS: DELTASONE 10 MG PO (09:34)
[2025-07-23] MEDS: ZOLOFT 50 MG PO (09:34)
[2025-07-23 09:57] LABS: Blood Urea Nitrogen 49 mg/dl (7-17); Calcium 9.4 mg/dl (8.4-10.2); Carbon Dioxide 27 mmol/L (22-30); Chloride 94 mmol/L (98-107); Estimated Creatinine Clearance 26 ml/min; Glucose 101 mg/dl (70-99); Potassium 4.0 mmol/L (3.5-5.1); Sodium 134 mmol/L (135-145); eGFR 28.23
--- NOTE | 2025-07-23 12:37 | W.PN.PUL3 ---
Today's Communication / Plan
-
Workup for acute kidney injury
Diuresis on hold
No indication for systemic corticosteroids from my perspective at this point
If urine sediment abnormal can consider autoimmune evaluation.
Will follow
Assessment
-
69-year-old woman with past medical history noted, admitted to the hospital due worsening lower extremity edema and shortness of breath. Chest x-ray with chronic bilateral infiltrates. proBNP significantly elevated. Lower extremity edema on
exam. We were consulted on 07/22/2025 for evaluation.
Acute hypoxemic respiratory failure -acute on chronic heart failure with preserved ejection fraction/some component of RV failure as well. Chronic cor pulmonale
Mild troponin leak
Increased proBNP 78655
Chronic hypoxemic respiratory failure on 5 L
Pulmonary fibrosis/emphysema [id number]-oepdckx stable on chest x-ray
Acute kidney injury-?post diuresis
Conditions present prior admission:
Pulmonary embolism 09/2024-on Xarelto
Left lower extremity deep venous thrombosis
Hiatal hernia
Coronary artery disease status post stent placement
Peripheral arterial disease status post right carotic endarterectomy
Essential hypertension
Hyperlipidemia
Chronic hypoxemia
COPD/emphysema/pulmonary fibrosis overlap
Does not follow-up with pulmonary locally.
Advair discus/low-dose prednisone
Pulmonary hypertension with RV dysfunction-cor pulmonale
Hypothyroidism
Obstructive sleep apnea on CPAP
Former smoker quit about 25 years ago
obesity
Assessment and plan:
-
Worsening symptoms-possibly due to volume overload-given proBNP. Underlying pulmonary disease/cor pulmonale also contributing to symptoms.
Report improvement of lower extremity edema and symptoms with diuresis.
Denies increased phlegm production or hemoptysis.
Patient does have leukocytosis but no other signs of infection at this point.
Chest x-ray reviewed, appears stable compared to April 21, 2025.
No need to obtain CT chest at this point.
Oxygenation at baseline 5 L. (baseline)
Will continue to follow closely.
-
Did receive diuresis but developed acute kidney injury-gentle diuresis going forward given RV dysfunction.
Creatinine continues to rise
I agree with workup for acute kidney injury including ultrasound of the kidney, urinalysis etc.
If active sediment may need to do autoimmune serology
CRP is only 29-doubt related to any autoimmune disorder at this point but is possible. Will need to be followed closely
Her interstitial lung disease-it is not clear to me etiology as she follows up at [facility].
Patient is not on any anti-inflammatories or antifibrotic therapy.
-
Patient has pulmonary hypertension with RV dysfunction which could explain some of her proBNP increased
Patient has cor pulmonale and likely sensitive to diuresis.
Cardiology followed patient and monitoring closely
Echocardiogram noted
-
Patient does have history of severe emphysema/pulmonary fibrosis overlap-follows up at [facility].
Her pulmonary fibrosis is undifferentiated-no details available.
Not on antifibrotic therapy. She definitely has progressed compared to few years ago as she is now on 5 L supplemental oxygen.
Continue inhaler therapy
No indication for systemic corticosteroids
She is not bronchospastic on exam
-
Continue obstructive sleep -intolerant to CPAP. Only on nocturnal oxygen.
This could partially explain part of her pulmonary hypertension.
-
Continue anticoagulation
-
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 Chavez
-
Will follow
Data reviewed:
-
Chest x-ray 07/21/2025:
Emphysema/pulmonary fibrosis overlap. Signs of pulmonary hypertension.
Low lung volumes
-
CT chest 11/09/2024: No evidence for pulmonary embolism.
Emphysematous lung changes. Scattered regions of parenchymal scarring and traction bronchiectasis. Subtle groundglass opacity has increased in the left lung base, raising possibility of mild pneumonia. However, no dense consolidation.
Mild to moderate hiatal hernia. Opaque sutures associated with the distal esophagus and stomach.
-
Echocardiogram 06/11/2025:
Normal LVEF. Ejection fraction 65%. Grade 1 diastolic dysfunction
Right ventricle is moderately dilated and mildly hypokinetic.
Subjective Data
-
Date of Service:
Date of Service: July 23, 2025
Chief Complaint: Pulmonary Follow Up (Shortness of breath-interstitial lung disease)
Subjective:
Patient denies any new complaints
Remains on baseline oxygen requirement
Denies hemoptysis or phlegm production
Review of Systems
General: Fever (n)
Cardiopulmonary: Dyspnea and Dyspnea on Exertion
GI: Abdominal Pain (n)
Objective Data
Data Reviewed
Vital Signs / I&O / Oxygen:
Vital Signs
Temp Pulse Resp BP Pulse Ox
97.6 F 92 18 136/82 93
07/23/25 12:20 07/23/25 12:20 07/23/25 12:20 07/23/25 12:20 07/23/25 12:20
Intake and Output
07/22/25 07/23/25 07/24/25
06:59 06:59 06:59
Intake Total 360 / 360
Output Total 750 / 750
Balance -750 / -750 360 / 360
SaO2 93
Nasal Cannula flow liters per 5
minute
Physical Exam
General: Comfortable
HEENT: Normocephalic
Cardiovascular: Regular Rhythm
Respiratory: Crackles
GI: Soft and Non Distended
Neurology: Awake, Alert and AO x 3
Skin: Other (Chronic venous stasis)
Labs/Micro/Reports
Lab Data
07/23/25 08:07
07/23/25 08:07
--- NOTE | 2025-07-23 13:20 | CM ---
CM reviewed chart, patient seen bedside.
Plan remains home with [facility] once stable.
CM will continue to follow for all d.c needs.
Plan; home with [facility]
--- NOTE | 2025-07-23 13:48 | W.CON.NEPH ---
Consultation
-
Date/Time Consultation Requested: 07/23/2025 11 AM
Date/Time Consultation Performed: 07/23/2025 12 PM
Requesting Provider: Dr. Messina
Performing Provider: Dr. Garcia
Reason for Consultation: SHANNON
Medical History
-
Chief Complaint: Shortness of breath
History of Present Illness:
This is a 69-year-old female who has heart failure with preserved ejection fraction chronic diuretic therapy for which she does take a double dose on Wednesdays and Fridays but says that recently does not appear to have been maintaining
volume status. She states that she has been good with her medications as well as her diet. No new events have occurred that she thinks would have tipped her heart failure. She does have COPD with interstitial fibrosis on chronic oxygen therapy at
5 L at home. She has noticed that her breathing has also been somewhat different. She has also noticed worsening lower extremity edema. Ultimately she came to the emergency room and was felt to be in heart failure decompensated. Her creatinine
was slightly off her baseline at 1.5 from 0.9. She was given intravenous Lasix with improvement of edema, but her creatinine has risen up to 1.9. We are asked to assist in management of the acute kidney injury. She does have chronically elevated
white count given chronic prednisone usage. She denies any issues with bowel or bladder habits.
Past Medical History
HLD
COPD/IPF on 5L at home
pulmonary HTN
CAD/PCI
HTN
CHFpEF
hypothyroidism
PE/DVT
bariatric surgery gastric sleeve
R CEA
c section.
Social History
Tobacco: Former Smoker
Alcohol: None
Family History
Family History: Not Pertinent
Allergies / Home Medications
Allergy/AdvReac Type Severity Reaction Status Date / Time
tape Allergy Unknown Uncoded 05/13/25 18:54
�Medication �Instructions �Recorded �Confirmed �Type
aspirin 81 mg tablet,delayed 81 mg PO DAILY Blood Clot 10/13/24 07/21/25 History
release Prevention/Tx
levothyroxine 125 mcg tablet 125 mcg PO DAILY Thyroid 10/13/24 07/21/25 History
(Synthroid)
omeprazole 40 mg capsule,delayed 20 mg PO DAILY GERD 10/13/24 07/21/25 History
release
prednisone 10 mg tablet 10 mg PO DAILY INFLAMMATION 10/13/24 07/21/25 History
therapeutic multivitamin 1 tab PO DAILY Supplement 10/13/24 07/21/25 History
rivaroxaban 20 mg tablet (Xarelto) 20 mg PO DAILY Blood Clot 05/08/25 07/21/25 History
Prevention/Tx
sertraline 50 mg tablet 50 mg PO DAILY Mental Health 05/08/25 07/21/25 History
spironolactone 25 mg tablet 25 mg PO DAILY Heart Failure 05/08/25 07/21/25 History
furosemide 40 mg tablet 40 mg PO DAILY Heart Failure #90 05/10/25 07/21/25 Rx
tabs
fluticasone 100 mcg-salmeterol 50 1 inh inhalation BID 07/21/25 07/21/25 History
mcg/dose blistr powdr for
inhalation (Wixela Inhub)
hydroxyzine HCl 25 mg tablet 25 mg PO HS PRN sleep 07/22/25 07/22/25 History
Review of Systems
-
mild SOB
no CP
edema improving
All other systems: Negative unless noted
Physical Exam
Vital Signs
Vital Signs
Temp Pulse Resp BP Pulse Ox
97.6 F 92 18 136/82 93
07/23/25 12:20 07/23/25 12:20 07/23/25 12:20 07/23/25 12:20 07/23/25 12:20
Lab Results
WBC 14.2 10^3/uL (4.8-10.8) H 07/23/25 08:07
RBC 4.33 10^6/uL (4.20-5.40) 07/23/25 08:07
Hgb 11.4 g/dL (12.0-16.0) L 07/23/25 08:07
Hct 37.4 % (37.0-47.0) 07/23/25 08:07
Plt Count 370 10^3/uL (130-400) 07/23/25 08:07
Sodium 134 mmol/L (135-145) L 07/23/25 08:07
Potassium 4.0 mmol/L (3.5-5.1) 07/23/25 08:07
Chloride 94 mmol/L (98-107) L 07/23/25 08:07
Carbon Dioxide 27 mmol/L (22-30) 07/23/25 08:07
BUN 49 mg/dl (7-17) H 07/23/25 08:07
Creatinine 1.9 mg/dL (0.6-1.0) H 07/23/25 08:07
eGFR 28.23 07/23/25 08:07
Glucose 101 mg/dl (70-99) H 07/23/25 08:07
Calcium 9.4 mg/dl (8.4-10.2) 07/23/25 08:07
Fon-I-Qtzhaanttdx Pept 31529 pg/ml 07/21/25 17:49
Albumin 3.7 g/dl (3.5-5.0) 07/22/25 07:07
Physical Exam
Patient is awake alert oriented and in no distress. Mood and affect were pleasant, insight and judgment were good. Pupils are equal round and reactive to light, extraocular movements are intact, sclera were anicteric. Hearing was normal, ears and
nose are intact. Oropharynx was clear. Neck was supple with trachea midline and no thyromegaly. Heart was regular rate and rhythm without rubs. Lower extremities with 1+ edema. Lungs were coarse to auscultation bilaterally and with normal
excursion. Abdomen was soft, nontender, with normal active bowel sounds, and no hepatosplenomegaly. Skin was without rash and with normal turgor.
Data Reviewed
-
Radiology: Image Personally Visualized and interpreted (Chest x-ray 07/21/2025 by my reading pulmonary fibrosis, vascular prominence, cardiomegaly)
Medical Tests (Nuc Med, Echo etc): Image Personally Visualized and interpreted (EKG 07/21/2025 by my reading sinus rhythm incomplete right bundle branch block inferior ST-T wave abnormality) and Report Reviewed by me (Echocardiogram 06/11/2025
ejection fraction 65% diastolic dysfunction)
Labs: Labs Reviewed by me
Old Records: Reviewed
Assessment/Plan
-
Assessment
HFpEF
CAD/PCI
COPD/IPF chronic 5L
SHANNON
edema
HTN
PE/DVT hx
hyponatremia
Plan
hold lasix today
check Urine studies tomorrow off lasix
If there is concern she is still volume overloaded despite lower weights than last admission, would favor RHC
follow BMP
possibly SHANNON of decompensated HF worsened with fast diuresis
await abdominal US reading
check bladder scan
[2025-07-23 14:56] LABS: Urine Character Clear (Clear)
[2025-07-23 15:00] LABS: Hepatitis C Antibody Negative (Negative)
[2025-07-23 15:21] LABS: Urine Red Blood Cell 0-2 /HPF (0-2)
[2025-07-23 18:22] LABS: Hepatitis B Surface Antigen Negative (Negative)
[2025-07-23 19:40] LABS: Hepatitis A Antibody, Total Borderline (Negative)
[2025-07-23] MEDS: ATARAX 25 MG PO (20:59)
[2025-07-24] VITALS (9 sets, daily range): BP systolic 99–131; BP diastolic 71–85; BMI 30.2
[2025-07-24] MEDS: SYNTHROID 125 MCG PO (05:45)
[2025-07-24] MEDS: ADVAIR HFA 115/21 MCG INHALER 2 PUFF INH ×2 (07:41→20:18)
[2025-07-24] MEDS: XARELTO 20 MG PO (08:57)
[2025-07-24] MEDS: ZOLOFT 50 MG PO (08:57)
[2025-07-24] MEDS: PROTONIX 40 MG PO (08:57)
[2025-07-24] MEDS: THERAGRAN 1 TABLET PO (08:57)
[2025-07-24] MEDS: DELTASONE 10 MG PO (08:57)
[2025-07-24] MEDS: ASPIR LOW (ENTERIC COATED) 81 MG PO (08:57)
[2025-07-24 09:17] LABS: Blood Urea Nitrogen 51 mg/dl (7-17); Calcium 9.4 mg/dl (8.4-10.2); Carbon Dioxide 31 mmol/L (22-30); Chloride 96 mmol/L (98-107); Estimated Creatinine Clearance 34 ml/min; Glucose 85 mg/dl (70-99); Potassium 3.8 mmol/L (3.5-5.1); Sodium 135 mmol/L (135-145); eGFR 37.49
--- NOTE | 2025-07-24 12:02 | W.PN.HOSP.TC ---
Today's Communication/Plan
-
RHC
Assessment / Plan
Assessment / Plan
69-year-old female with shortness of breath and LE edema
Chest p-oes-ksqfurdo combined emphysema and interstitial pulmonary fibrosis. Chronic pulmonary artery hypertension. Mildly decreased bilateral lung volumes. No radiographic evidence of pleural effusion.
EKG-sinus rhythm with PACs. Incomplete right bundle branch block. ST-T wave abnormality possibly inferior ischemia
Echo 06/11/2025-technically difficult study. LV normal in size and wall thickness. EF 65%. Grade 1 diastolic dysfunction. RV is moderately dilated and mildly hypokinetic. Tricuspid valve is normal. Leaflets have adequate excursion. Trivial TR.
RV systolic pressure 78 mmHg.
Ultrasound of the abdomen-no acute intra-abdominal process. Limited evaluation of the midline structures secondary to overlying bowel gas. Cholelithiasis
Patient awake alert
Cardiovascular system S1-S2 appreciated
Chest clear to auscultation
Abdomen soft and nontender
Trace pedal edema
# Acute on chronic HFpEF-recent EF 65%
BNP 10,400
Patient is on Lasix 40 mg daily as outpatient
Got IV Lasix X 2 doses however creatinine is going up. Stop further doses.
Intake output charting, daily weights and fluid restriction
Patient is on Aldactone as outpatient-hold for now
Unclear why not on SGLT2 inhibitors as OP
She is still feeling SOB
Unclear if due to pulm reasons
RHC today
# Acute kidney injury-bladder scan with no retention. Hold Aldactone and Lasix. Ultrasound without any obstruction of the kidneys. Creat better.
# Coronary disease with history of stent 2021
# Pulmonary hypertension-severe
# Hyponatremia- improved
# Hypokalemia-Better
# Transaminitis-Hepatitis panel neg. Routine USS Neg
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
# [id number]-yrynjlxti
Chronic hypoxic respiratory failure on 5 L of oxygen as outpatient
Continue Wixela or equivalent
# Hypothyroidism-continue levothyroxine 125 mcg daily
# Peripheral artery disease with history of right carotid endarterectomy
# Chronic leukocytosis
# GERD-continue PPI
# Depression-continue sertraline
# Sleep apnea-CPAP
# Obesity with a BMI of 30-history of gastric sleeve procedure
# Ex-smoker
# DVT prophylaxis-Xarelto
# Full code
Sed Rate and CRP. and compliment levels OK
07/23/25-D/W Pt's cousin Emmanuelle who works as an RN here with pt's permission.
Part of this note was created using voice recognition system. Occasional wrong word or��sound alike� substitutions may have inadvertently occurred due to the inherent limitations of voice recognition software. If noted kindly bring it to my
attention for correction.
Anticipated Discharge: 24 - 48 hours
Subjective/Interval History
-
Date of Service: July 24, 2025
Objective Data
-
Labs:
Laboratory Results
07/24/25
07:30
Sodium 135
Potassium 3.8
Chloride 96 L
Carbon Dioxide 31 H
BUN 51 H
Creatinine 1.5 H
Glucose 85
Calcium 9.4
Vital Signs:
Vital Signs
Temp Pulse Resp BP Pulse Ox
97.4 F 89 18 123/77 94
07/24/25 11:05 07/24/25 11:05 07/24/25 11:05 07/24/25 11:05 07/24/25 11:05
I&O
07/23/25 07/24/25 07/25/25
06:59 06:59 06:59
Intake Total 360 / 360 480 / 480
Balance 360 / 360 480 / 480
[2025-07-24 12:33] LABS: ALT (SGPT) 91 U/L (0-35); AST (SGOT) 66 U/L (14-36); Albumin 3.8 g/dl (3.5-5.0); Alkaline Phosphatase 143 U/L (38-126); Total Protein 6.6 g/dl (6.3-8.2)
--- NOTE | 2025-07-24 13:17 | W.PN.PUL3 ---
Addendum entered and electronically signed by Kyle Villalobos MD 07/24/25 14:33:
Right heart catheterization reviewed:
SBP 140/77 (mean 102) mmHg
RA 22 mmHg
RV 81/10 (EDP 25) mmHg
PA 86/43 (mean 54) mmHg
PCWP 14 mmHg
SaO2 93.0%
SvO2 37.2%
Hb 11.0 g/dL
Weight 74.9 kg
CO/CI 2.63/1.50 L/min/m2
SVR 2433 dsc*-5
PVR 15.2 Wood units
CONCLUSION: Elevated right-sided filling pressure and severe precapillary pulmonary hypertension with severely decreased cardiac outpu.
- Surprisingly not hypotensive.
Renal function already improving with diuresis
On hold
Patient has known pulmonary hypertension-follows with pulmonary at [facility].
I did discuss with her cardiac catheterization report and she acknowledged that she knew about it.
She would like to transfer care locally-my information will be left in the chart.
I am hoping her creatinine improves and she can be discharged home. I am not sure whether she has had evaluation for pulmonary arterial hypertension including connective tissue disease, sleep study etc. She definitely has underlying pulmonary
disease COPD/pulmonary fibrosis overlap which could explain some of her pulmonary hypertension.
-
Ideally: She will need to be [facility] given multiple mechanisms for pulmonary hypertension in her case. She understands that and would like to hear more in the outpatient setting.
No indication for pulmonary vasodilators acutely at this point.
-
She seems to be at baseline from the pulmonary perspective.
Will continue to follow briefly over the weekend.
Original Note:
Today's Communication / Plan
-
Right heart cath today
Diuresis per nephrology/cardiology
No indication for increased systemic corticosteroids
Continue oxygen therapy-baseline
Will follow hemodynamic numbers
Assessment
-
69-year-old woman with past medical history noted, admitted to the hospital due worsening lower extremity edema and shortness of breath. Chest x-ray with chronic bilateral infiltrates. proBNP significantly elevated. Lower extremity edema on
exam. We were consulted on 07/22/2025 for evaluation.
Acute hypoxemic respiratory failure -acute on chronic heart failure with preserved ejection fraction/some component of RV failure as well. Chronic cor pulmonale
Mild troponin leak
Increased proBNP 28685
Chronic hypoxemic respiratory failure on 5 L
Pulmonary fibrosis/emphysema idoktnc-timdub-wngvrot stable on chest x-ray
Acute kidney injury-?post diuresis
Conditions present prior admission:
Pulmonary embolism 09/2024-on Xarelto
Left lower extremity deep venous thrombosis
Hiatal hernia
Coronary artery disease status post stent placement
Peripheral arterial disease status post right carotic endarterectomy
Essential hypertension
Hyperlipidemia
Chronic hypoxemia
COPD/emphysema/pulmonary fibrosis overlap
Does not follow-up with pulmonary locally.
Advair discus/low-dose prednisone
Pulmonary hypertension with RV dysfunction-cor pulmonale
Hypothyroidism
Obstructive sleep apnea on CPAP
Former smoker quit about 25 years ago
obesity
Assessment and plan:
-
Worsening symptoms-possibly due to volume overload-given proBNP. Underlying pulmonary disease/cor pulmonale also contributing to symptoms.
Report improvement of lower extremity edema and symptoms with diuresis.
Denies increased phlegm production or hemoptysis.
Patient does have leukocytosis but no other signs of infection at this point.
Chest x-ray reviewed, appears stable compared to April 21, 2025.
No need to obtain CT chest at this point-unlikely to private branch exchange repairer.
Oxygenation at baseline 5 L. (baseline)
-
Did receive diuresis but developed acute kidney injury-gentle diuresis going forward given RV dysfunction.
Creatinine has stabilized
Right heart cath will be obtained as it is difficult to assess volume status with underlying interstitial lung disease.
-
Acute kidney injury
Suspect post diuresis in the setting of RV dysfunction.
Sediment is bland
Nephrology following patient
Right heart catheterization to be performed
CRP is only 29-doubt related to any autoimmune disorder at this point but is possible.
-
Patient has pulmonary hypertension with RV dysfunction which could explain some of her proBNP increased
Patient has cor pulmonale and likely sensitive to diuresis.
Cardiology followed patient and monitoring closely
Echocardiogram noted
By her cath today
-
Patient does have history of severe emphysema/pulmonary fibrosis overlap-follows up at [facility].
Her pulmonary fibrosis is undifferentiated-no details available.
Dmvdfdz-tqjgkqdzp-00 mg of prednisone
Not on antifibrotic therapy. She definitely has progressed compared to few years ago as she is now on 5 L supplemental oxygen.
Continue inhaler therapy
No indication for increased systemic corticosteroids.
She is not bronchospastic on exam
-
Continue obstructive sleep -intolerant to CPAP. Only on nocturnal oxygen.
This could partially explain part of her pulmonary hypertension.
-
Continue anticoagulation
-
After discharge she will return to her marinator at [facility]-- Dr. Chavez
-
Will follow
Data reviewed:
-
Chest x-ray 07/21/2025:
Emphysema/pulmonary fibrosis overlap. Signs of pulmonary hypertension.
Low lung volumes
-
CT chest 11/09/2024: No evidence for pulmonary embolism.
Emphysematous lung changes. Scattered regions of parenchymal scarring and traction bronchiectasis. Subtle groundglass opacity has increased in the left lung base, raising possibility of mild pneumonia. However, no dense consolidation.
Mild to moderate hiatal hernia. Opaque sutures associated with the distal esophagus and stomach.
-
Echocardiogram 06/11/2025:
Normal LVEF. Ejection fraction 65%. Grade 1 diastolic dysfunction
Right ventricle is moderately dilated and mildly hypokinetic.
Subjective Data
-
Date of Service:
Date of Service: July 24, 2025
Chief Complaint: Pulmonary Follow Up (Shortness of breath-interstitial lung disease)
Subjective:
She offers no new complaints
Denies increased cough or phlegm production
Oxygen requirements at baseline
Review of Systems
Cardiopulmonary: Dyspnea and Dyspnea on Exertion
Objective Data
Data Reviewed
Vital Signs / I&O / Oxygen:
Vital Signs
Temp Pulse Resp BP Pulse Ox
97.4 F 89 18 123/77 94
07/24/25 11:05 07/24/25 11:05 07/24/25 11:05 07/24/25 11:05 07/24/25 11:05
Intake and Output
07/23/25 07/24/25 07/25/25
06:59 06:59 06:59
Intake Total 360 / 360 480 / 480
Balance 360 / 360 480 / 480
SaO2 94
Nasal Cannula flow liters per 5
minute
Physical Exam
General: Comfortable
HEENT: Normocephalic
Cardiovascular: Regular Rhythm
Respiratory: Crackles
GI: Soft and Non Distended
Neurology: Awake, Alert and AO x 3
Skin: Other (Chronic venous stasis)
Labs/Micro/Reports
Lab Data
07/23/25 08:07
07/24/25 07:30
--- NOTE | 2025-07-24 13:34 | ITS.CL.PN ---
[employer] Consultant - Procedure Note
Procedure
Procedure Note:
CARDIAC CATHETERIZATION REPORT
Date of Procedure: 07/24/2025
Referring: Dr. Gelacio Westbrook MD
Indication: heart failure
PROCEDURE: right heart catheterization
ACCESS: 5F right antecubital vein (closure: manual hemostasis)
CATHETERS: 5F Inez-Jennifer
HEMODYNAMIC DATA
SBP 140/77 (mean 102) mmHg
RA 22 mmHg
RV 81/10 (EDP 25) mmHg
PA 86/43 (mean 54) mmHg
PCWP 14 mmHg
SaO2 93.0%
SvO2 37.2%
Hb 11.0 g/dL
Weight 74.9 kg
CO/CI 2.63/1.50 L/min/m2
SVR 2433 dsc*-5
PVR 15.2 Wood units
CONCLUSION: Elevated right-sided filling pressure and severe precapillary pulmonary hypertension with severely decreased cardiac output
RECOMMENDATIONS
1. No further diuresis today. Further diuretic to maintain stable weight.
2. Need to follow-up with pulmonary hypertension specialist.
Copy to: Dr. Porter Crowell MD (bearing press machine operator); Dr. Issa Davis DO (PCP)
Signed: Feliciano Blanco MD, PhD
--- NOTE | 2025-07-24 13:45 | W.PN.CD ---
Today's Communication / Plan
-
severe pre-capillary pulmonary HTN on echo
hold lasix again today
monitor Cr
Impression / Plan
-
SOB:
-likely 2/2 severe pulmonary hypertension and underlying severe lung disease
-CXR: Moderate combined emphysema and interstitial pulmonary fibrosis. Chronic pulmonary arterial hypertension. Mildly decreased bilateral lung volumes. Reports some blood-tinged sputum at times. She is on prednisone as OP.
-Pulmonary is consulted for this.
Severe pHTN
-RHC today with RA 22, PA 86/43(54), PCWP 14, PVR 15.2, CO/CI 2.6/1.5 --> severe pre capillary pulmonary hypertension, elevated RV filling pressure, and reduced cardiac output
-likely group 3 given severe underlying lung disease
Heart failure with preserved ejection fraction, acute on chronic:
-Echo 06/11/25: The left ventricle is normal in size with normal wall thicknesses. Overall left ventricular wall motion and systolic function is normal with an estimated ejection fraction of 65%, although because of the suboptimal nature of the
imaging a localized wall motion abnormality cannot be excluded. There is grade 1 diastolic dysfunction. The right ventricle is moderately dilated and mildly hypokinetic. The tricuspid valve is normal. Leaflets have adequate excursion. There is
trivial tricuspid regurgitation. The right ventricular systolic pressure is estimated at 78 mmHg. Similar to previous on my review.
-on spironolactone. Jardiance stopped due to lightheadedness in the past. Lasix dosing is 40 mg daily, and BID on MWF- she reports compliance. She denies any excess sodium or fluid recently. Would
-Cr improved today with lasix held, would hold again today and monitor for further improvement as left sided filling pressure is normal. In long run will need evaluation for pHTN target therapy.
Hx PE/DVT
-on Xarelto
CAD with PCI in 2021:
-Stable without reports of CP. EKG is stable overall.
HTN:
-stable
Physical Exam
Vital Signs/Labs
Vital Signs
Temp Pulse Resp BP Pulse Ox
36.6 C 83 18 131/71 97
07/24/25 13:30 07/24/25 13:30 07/24/25 13:30 07/24/25 13:30 07/24/25 13:30
07/23/25 07/24/25 07/25/25
06:59 06:59 06:59
Actual Weight 74.928 kg 74.899 kg
07/23/25 08:07
07/24/25 07:30
Magnesium 2.3 mg/dl (1.6-2.3) 07/22/25 07:07
Triglycerides 92 mg/dl (10-149) 07/22/25 07:07
LDL Cholesterol, Calc 27 mg/dl 07/22/25 07:07
VLDL Cholesterol, Calc 18 mg/dl (0-30) 07/22/25 07:07
HDL Cholesterol 33 mg/dl 07/22/25 07:07
07/21/25
17:49
Yrj-B-Ikvjvtayrnu Pept [id number]
Physical Exam
Constitutional: Comfortable
Cardiovascular: Rhythm & rate is regular
Respiratory: Respiratory effort normal
Neuro/Psych: AO x 3
Data Reviewed
-
Date of Service: July 24, 2025
Medical Decision Making: Reviewed Test Results
EKG: Tracing Personally Visualized and interpreted
Echo: Tracing Personally Visualized and interpreted
Labs: Labs Reviewed by me
--- NOTE | 2025-07-24 16:18 | W.PN.NEPH.PH ---
Today's Communication / Plan
-
Continue to hold diuretics
Assessment/Plan
-
Assessment
HFpEF
CAD/PCI
COPD/IPF chronic 5L
SHANNON
edema
HTN
PE/DVT hx
hyponatremia
Plan
Status post right heart cath�Elevated right-sided filling pressure and severe precapillary pulmonary hypertension with severely decreased cardiac output/wedge 14
Agree with holding diuretics for now as patient is on her maintenance 5 L
Creatinine improved 1.5
May benefit from sildenafil and pulm hypertension. Patient apparently sees a credit specialist at [place] but will be moving here and will be transferring care.
AM lab
Discussed with hospital medicine
-
-
Date of Service: July 24, 2025
CC / HPI / ROS
-
Chief Complaint:
Acute kidney injury
History of Present Illness:
Diastolic heart kidney injury creatinine 1.5 up to 1.9
Review of Systems:
Appears to be at her baseline per her acknowledgment on 5 L
No chest pain
Labs
-
Labs:
WBC 14.2 10^3/uL (4.8-10.8) H 07/23/25 08:07
RBC 4.33 10^6/uL (4.20-5.40) 07/23/25 08:07
Hgb 11.4 g/dL (12.0-16.0) L 07/23/25 08:07
Hct 37.4 % (37.0-47.0) 07/23/25 08:07
Plt Count 370 10^3/uL (130-400) 07/23/25 08:07
Sodium 135 mmol/L (135-145) 07/24/25 07:30
Potassium 3.8 mmol/L (3.5-5.1) 07/24/25 07:30
Chloride 96 mmol/L (98-107) L 07/24/25 07:30
Carbon Dioxide 31 mmol/L (22-30) H 07/24/25 07:30
BUN 51 mg/dl (7-17) H 07/24/25 07:30
Creatinine 1.5 mg/dL (0.6-1.0) H 07/24/25 07:30
eGFR 37.49 07/24/25 07:30
Glucose 85 mg/dl (70-99) 07/24/25 07:30
Calcium 9.4 mg/dl (8.4-10.2) 07/24/25 07:30
Khr-N-Ocnfjspapdq Pept 32565 pg/ml 07/21/25 17:49
Albumin 3.8 g/dl (3.5-5.0) 07/24/25 07:30
Physical Exam
-
Vital Signs:
Vital Signs
Temp Pulse Resp BP Pulse Ox
98.3 F 90 16 130/85 96
07/24/25 14:37 07/24/25 14:37 07/24/25 14:37 07/24/25 14:37 07/24/25 14:37
Respiratory:: Bilateral: CTA
Lung Excursion:: Normal
Abdomen:: Soft
Bowel Sounds:: Normal
Extremity Edema:: None: Bilateral:
[2025-07-24] MEDS: ATARAX 25 MG PO (21:38)
[2025-07-25 03:00] VITALS: BP 140/83
[2025-07-25] MEDS: SYNTHROID 125 MCG PO (06:27)
[2025-07-25 07:25] VITALS: BP 114/77
[2025-07-25] MEDS: ADVAIR HFA 115/21 MCG INHALER 2 PUFF INH ×2 (07:25→19:53)
[2025-07-25 07:52] LABS: Hematocrit 36.0 % (37.0-47.0); Hemoglobin 10.5 g/dL (12.0-16.0); Mean Corp Hgb Conc. 29.2 g/dL (33.0-37.0); Mean Corpuscular Volume 85.7 fL (81.0-99.0); Nucleated Red Blood Cells % 0.6 %; Platelet Count 323 10^3/uL (130-400); Red Cell Dist. Width 18.6 % (11.5-14.5)
[2025-07-25 08:17] LABS: ALT (SGPT) 78 U/L (0-35); AST (SGOT) 51 U/L (14-36); Albumin 3.6 g/dl (3.5-5.0); Alkaline Phosphatase 135 U/L (38-126); Blood Urea Nitrogen 52 mg/dl (7-17); Calcium 9.2 mg/dl (8.4-10.2); Carbon Dioxide 32 mmol/L (22-30); Chloride 95 mmol/L (98-107); Estimated Creatinine Clearance 36 ml/min; Glucose 101 mg/dl (70-99); Potassium 3.5 mmol/L (3.5-5.1); Sodium 134 mmol/L (135-145); Total Protein 6.7 g/dl (6.3-8.2); eGFR 40.73
[2025-07-25] MEDS: ASPIR LOW (ENTERIC COATED) 81 MG PO (08:36)
[2025-07-25] MEDS: DELTASONE 10 MG PO (08:36)
[2025-07-25] MEDS: XARELTO 20 MG PO (08:36)
[2025-07-25] MEDS: PROTONIX 40 MG PO (08:36)
[2025-07-25] MEDS: THERAGRAN 1 TABLET PO (08:36)
[2025-07-25] MEDS: ZOLOFT 50 MG PO (08:36)
--- NOTE | 2025-07-25 10:47 | W.PN.CD ---
Today's Communication / Plan
-
- Holding LAsix and Aldactone today
- Start Revatio 20 mg TID.
Impression / Plan
-
SOB:
-likely 2/2 severe pulmonary hypertension and underlying severe lung disease
-CXR: Moderate combined emphysema and interstitial pulmonary fibrosis. Chronic pulmonary arterial hypertension. Mildly decreased bilateral lung volumes. Reports some blood-tinged sputum at times. She is on prednisone as OP.
-Pulmonary is consulted for this.
Severe pHTN
-RHC today with RA 22, PA 86/43(54), PCWP 14, PVR 15.2, CO/CI 2.6/1.5 --> severe pre capillary pulmonary hypertension, elevated RV filling pressure, and reduced cardiac output
-likely group 3 given severe underlying lung disease
-Will start Revatio 20 mg TID.
Heart failure with preserved ejection fraction, acute on chronic:
-Echo 06/11/25: The left ventricle is normal in size with normal wall thicknesses. Overall left ventricular wall motion and systolic function is normal with an estimated ejection fraction of 65%, although because of the suboptimal nature of the
imaging a localized wall motion abnormality cannot be excluded. There is grade 1 diastolic dysfunction. The right ventricle is moderately dilated and mildly hypokinetic. The tricuspid valve is normal. Leaflets have adequate excursion. There is
trivial tricuspid regurgitation. The right ventricular systolic pressure is estimated at 78 mmHg. Similar to previous on my review.
-on spironolactone. Jardiance stopped due to lightheadedness in the past. Lasix dosing is 40 mg daily, and BID on MWF- she reports compliance. She denies any excess sodium or fluid recently. Would
-Cr improved today with lasix held. Holding today but likely restart tomorrow.
-Starting Revatio today.
Hx PE/DVT
-on Xarelto
CAD with PCI in 2021:
-Stable without reports of CP. EKG is stable overall.
HTN:
-stable
Physical Exam
Vital Signs/Labs
Vital Signs
Temp Pulse Resp BP Pulse Ox
97.5 F 90 15 114/77 97
07/25/25 07:25 07/25/25 07:27 07/25/25 07:27 07/25/25 07:25 07/25/25 09:13
07/24/25 07/25/25 07/26/25
06:59 06:59 06:59
Actual Weight 74.899 kg 74.446 kg
07/25/25 07:00
07/25/25 07:00
Magnesium 2.3 mg/dl (1.6-2.3) 07/22/25 07:07
Triglycerides 92 mg/dl (10-149) 07/22/25 07:07
LDL Cholesterol, Calc 27 mg/dl 07/22/25 07:07
VLDL Cholesterol, Calc 18 mg/dl (0-30) 07/22/25 07:07
HDL Cholesterol 33 mg/dl 07/22/25 07:07
07/21/25
17:49
Xfk-E-Srcabgaetct Pept [id number]
Physical Exam
Constitutional: No acute distress and Comfortable
EENT: Anicteric and Moist mucous membranes
Cardiovascular: Rhythm & rate is regular, Pedal edema is absent and JVD pressure is normal
Respiratory: Respiratory effort normal, Lungs clear to auscul. and Wheeze Absent
GI: Soft, Non tender and Normal bowel sounds
Neuro/Psych: Alert, Oriented and AO x 3
Data Reviewed
-
Date of Service: July 25, 2025
Medical Decision Making: Reviewed Test Results, Test Interpretation and Review of Case with other Provider
EKG: Tracing Personally Visualized and interpreted
Echo: Report Reviewed by me
Labs: Labs Reviewed by me
Old Records: Reviewed
[2025-07-25 11:20] VITALS: BP 119/84
--- NOTE | 2025-07-25 14:54 | W.PN.HOSP.TC ---
Today's Communication/Plan
-
Mild epistaxis-Has been happening as OP- watch with the start of Ravatio- which can make it worse
Watch creatinine, once creatinine is better we can push some more gentle diuresis for right heart failure
Assessment / Plan
Assessment / Plan
69-year-old female with shortness of breath and LE edema
Chest g-whd-mflmoilb combined emphysema and interstitial pulmonary fibrosis. Chronic pulmonary artery hypertension. Mildly decreased bilateral lung volumes. No radiographic evidence of pleural effusion.
EKG-sinus rhythm with PACs. Incomplete right bundle branch block. ST-T wave abnormality possibly inferior ischemia
Echo 06/11/2025-technically difficult study. LV normal in size and wall thickness. EF 65%. Grade 1 diastolic dysfunction. RV is moderately dilated and mildly hypokinetic. Tricuspid valve is normal. Leaflets have adequate excursion. Trivial TR.
RV systolic pressure 78 mmHg.
Ultrasound of the abdomen-no acute intra-abdominal process. Limited evaluation of the midline structures secondary to overlying bowel gas. Cholelithiasis
Right heart catheterization-elevated right-sided filling pressure and severe precapillary pulmonary hypertension with severely decreased cardiac output. PA pressure 86/43. Wedge 14 mmHg
Patient awake alert
Cardiovascular system S1-S2 appreciated
Chest clear to auscultation
Abdomen soft and nontender
Trace pedal edema
# Acute on chronic HFpEF-recent EF 65%
BNP 10,400
Patient is on Lasix 40 mg daily as outpatient
Got IV Lasix X 2 doses however creatinine is going up. Hold further doses.
Intake output charting, daily weights and fluid restriction
Patient is on Aldactone as outpatient-hold for now
Unclear why not on SGLT2 inhibitors as OP
Likely has right heart failure/cor pulmonale
Pulmonary hypertension-started on Revatio
# Mild epistaxis-Has been happening as OP- watch with the start of Ravatio- which can make it worse
# Acute kidney injury-bladder scan with no retention. Hold Aldactone and Lasix. Ultrasound without any obstruction of the kidneys. Creat better.
# Coronary disease with history of stent 2021
# Pulmonary hypertension-severe
# Hyponatremia- improved
# Hypokalemia-Better
# Transaminitis-Hepatitis panel neg. Routine USS Neg. Likely secondary to right heart failure/cor pulmonale
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
# PWIU-eagpagp-fwanlmits
Chronic hypoxic respiratory failure on 5 L of oxygen as outpatient
Continue Wixela or equivalent
# Hypothyroidism-continue levothyroxine 125 mcg daily
# Peripheral artery disease with history of right carotid endarterectomy
# Chronic leukocytosis
# GERD-continue PPI
# Depression-continue sertraline
# Sleep apnea-CPAP
# Obesity with a BMI of 30-history of gastric sleeve procedure
# Ex-smoker
# DVT prophylaxis-Xarelto
# Full code
Discussed with nephrology
Discussed with patient's daughter on the phone and updated
Part of this note was created using voice recognition system. Occasional wrong word or��sound alike� substitutions may have inadvertently occurred due to the inherent limitations of voice recognition software. If noted kindly bring it to my
attention for correction.
Anticipated Discharge: 24 - 48 hours
Subjective/Interval History
-
Date of Service: July 25, 2025
Objective Data
-
Labs:
Laboratory Results
07/25/25
07:00
WBC 13.5 H
Hgb 10.5 L
Hct 36.0 L
Plt Count 323
Sodium 134 L
Potassium 3.5
Chloride 95 L
Carbon Dioxide 32 H
BUN 52 H
Creatinine 1.4 H
Glucose 101 H
Calcium 9.2
Total Bilirubin 3.9 H
AST 51 H
ALT 78 H
Alkaline Phosphatase 135 H
Vital Signs:
Vital Signs
Temp Pulse Resp BP Pulse Ox
97.7 F 96 16 119/84 97
07/25/25 11:20 07/25/25 11:20 07/25/25 11:20 07/25/25 11:20 07/25/25 11:20
I&O
07/24/25 07/25/25 07/26/25
06:59 06:59 06:59
Intake Total 480 / 480 720 / 720
Balance 480 / 480 720 / 720
[2025-07-25 15:35] VITALS: BP 114/68
[2025-07-25] MEDS: REVATIO 20 MG PO ×2 (16:14→21:15)
[2025-07-25 16:44] LABS: Vitamin B12 970 pg/ml (239-931)
[2025-07-25 19:56] VITALS: BP 113/73
[2025-07-25] MEDS: BACTROBAN 2% OINTMENT 1 APPLIC NASAL (20:02)
[2025-07-25 23:13] VITALS: BP 98/79
[2025-07-26 03:00] VITALS: BP 103/56
[2025-07-26] MEDS: SYNTHROID 125 MCG PO (05:24)
[2025-07-26 06:00] VITALS: BMI 30.1
[2025-07-26 07:00] VITALS: BP 123/68
[2025-07-26] MEDS: ADVAIR HFA 115/21 MCG INHALER 2 PUFF INH ×2 (07:26→19:51)
[2025-07-26] MEDS: THERAGRAN 1 TABLET PO (08:06)
[2025-07-26] MEDS: BACTROBAN 2% OINTMENT 1 APPLIC NASAL ×2 (08:06→20:30)
[2025-07-26] MEDS: REVATIO 20 MG PO ×3 (08:06→21:34)
[2025-07-26] MEDS: ZOLOFT 50 MG PO (08:06)
[2025-07-26] MEDS: PROTONIX 40 MG PO (08:06)
[2025-07-26] MEDS: ASPIR LOW (ENTERIC COATED) 81 MG PO (08:06)
[2025-07-26] MEDS: XARELTO 20 MG PO (08:06)
[2025-07-26] MEDS: DELTASONE 10 MG PO (08:06)
[2025-07-26 08:16] LABS: Hematocrit 35.2 % (37.0-47.0); Hemoglobin 10.7 g/dL (12.0-16.0); Mean Corp Hgb Conc. 30.4 g/dL (33.0-37.0); Mean Corpuscular Volume 84.8 fL (81.0-99.0); Platelet Count 318 10^3/uL (130-400); Red Cell Dist. Width 18.7 % (11.5-14.5)
[2025-07-26 09:15] LABS: Blood Urea Nitrogen 43 mg/dl (7-17); Calcium 9.1 mg/dl (8.4-10.2); Carbon Dioxide 30 mmol/L (22-30); Chloride 99 mmol/L (98-107); Estimated Creatinine Clearance 42 ml/min; Glucose 77 mg/dl (70-99); Potassium 3.9 mmol/L (3.5-5.1); Sodium 137 mmol/L (135-145); eGFR 49.00
[2025-07-26 11:00] VITALS: BP 117/65
--- NOTE | 2025-07-26 11:20 | W.PN.CD ---
Today's Communication / Plan
-
- Continue Revatio
- Resume Lasix 40 mg p.o. once a day. Continue Xarelto and Aldactone
Impression / Plan
-
SOB:
-likely 2/2 severe pulmonary hypertension and underlying severe lung disease
-CXR: Moderate combined emphysema and interstitial pulmonary fibrosis. Chronic pulmonary arterial hypertension. Mildly decreased bilateral lung volumes. Reports some blood-tinged sputum at times. She is on prednisone as OP.
-Pulmonary is consulted for this.
Severe pHTN
-RHC today with RA 22, PA 86/43(54), PCWP 14, PVR 15.2, CO/CI 2.6/1.5 --> severe pre capillary pulmonary hypertension, elevated RV filling pressure, and reduced cardiac output
-likely group 3 given severe underlying lung disease
-Revatio 20 mg TID started on 07/25/25 - tolerated well. uptitration likely as outpatient.
Heart failure with preserved ejection fraction, acute on chronic:
-Echo 06/11/25: The left ventricle is normal in size with normal wall thicknesses. Overall left ventricular wall motion and systolic function is normal with an estimated ejection fraction of 65%, although because of the suboptimal nature of the
imaging a localized wall motion abnormality cannot be excluded. There is grade 1 diastolic dysfunction. The right ventricle is moderately dilated and mildly hypokinetic. The tricuspid valve is normal. Leaflets have adequate excursion. There is
trivial tricuspid regurgitation. The right ventricular systolic pressure is estimated at 78 mmHg. Similar to previous on my review.
-on spironolactone. Jardiance stopped due to lightheadedness in the past. Lasix dosing is 40 mg daily, and BID on MWF- she reports compliance. She denies any excess sodium or fluid recently. Would
-Cr improved today with lasix held. restart today especially with steroids on board.
-On Revatio.
Hx PE/DVT
-on Xarelto
CAD with PCI in 2021:
-Stable without reports of CP. EKG is stable overall.
HTN:
-stable
Physical Exam
Vital Signs/Labs
Vital Signs
Temp Pulse Resp BP Pulse Ox
97.5 F 80 14 123/68 92
07/26/25 07:00 07/26/25 07:28 07/26/25 07:28 07/26/25 07:00 07/26/25 07:28
07/25/25 07/26/25 07/27/25
06:59 06:59 06:59
Actual Weight 74.446 kg 74.644 kg
07/26/25 07:48
07/26/25 07:48
Magnesium 2.3 mg/dl (1.6-2.3) 07/22/25 07:07
Triglycerides 92 mg/dl (10-149) 07/22/25 07:07
LDL Cholesterol, Calc 27 mg/dl 07/22/25 07:07
VLDL Cholesterol, Calc 18 mg/dl (0-30) 07/22/25 07:07
HDL Cholesterol 33 mg/dl 07/22/25 07:07
07/21/25
17:49
Wen-G-Ezkecxjqtay Pept [id number]
Physical Exam
Constitutional: No acute distress and Comfortable
EENT: Anicteric and Moist mucous membranes
Cardiovascular: Rhythm & rate is regular, Pedal edema is absent and JVD present
Respiratory: Respiratory effort normal and Rhonchi Present
GI: Soft, Non tender and Normal bowel sounds
Neuro/Psych: Alert and AO x 3
Data Reviewed
-
Date of Service: July 26, 2025
Medical Decision Making: Reviewed Test Results, Test Interpretation and Review of Case with other Provider
EKG: Tracing Personally Visualized and interpreted
Echo: Report Reviewed by me
Labs: Labs Reviewed by me
Old Records: Reviewed
--- NOTE | 2025-07-26 13:46 | W.PN.HOSP.TC ---
Today's Communication/Plan
-
Lasix restarted
Watch Creat tomorrow
Also CBC and LFTS in am
Aldactone on hold as BP low.
Assessment / Plan
Assessment / Plan
69-year-old female with shortness of breath and LE edema
Chest h-dvq-girznofw combined emphysema and interstitial pulmonary fibrosis. Chronic pulmonary artery hypertension. Mildly decreased bilateral lung volumes. No radiographic evidence of pleural effusion.
EKG-sinus rhythm with PACs. Incomplete right bundle branch block. ST-T wave abnormality possibly inferior ischemia
Echo 06/11/2025-technically difficult study. LV normal in size and wall thickness. EF 65%. Grade 1 diastolic dysfunction. RV is moderately dilated and mildly hypokinetic. Tricuspid valve is normal. Leaflets have adequate excursion. Trivial TR.
RV systolic pressure 78 mmHg.
Ultrasound of the abdomen-no acute intra-abdominal process. Limited evaluation of the midline structures secondary to overlying bowel gas. Cholelithiasis
Right heart catheterization-elevated right-sided filling pressure and severe precapillary pulmonary hypertension with severely decreased cardiac output. PA pressure 86/43. Wedge 14 mmHg
Patient awake alert
Cardiovascular system S1-S2 appreciated
Chest clear to auscultation
Abdomen soft and nontender
Trace pedal edema
# Acute on chronic HFpEF-recent EF 65%
BNP 10,400
Patient is on Lasix 40 mg daily as outpatient
Got IV Lasix X 2 doses and held ,however creatinine now trending down Started on PO lasix on 07/26/25
Intake output charting, daily weights and fluid restriction
Patient is on Aldactone as outpatient-holding as BP lower.
Unclear why not on SGLT2 inhibitors as OP
Likely has right heart failure/cor pulmonale
Pulmonary hypertension-started on Revatio on 07/25/25
# Mild epistaxis-Has been happening as OP- watch with the start of Ravatio- which can make it worse
# Acute kidney injury-bladder scan with no retention. Hold Aldactone and Lasix. Ultrasound without any obstruction of the kidneys. Creat better.
# Coronary disease with history of stent 2021
# Pulmonary hypertension-severe
# Hyponatremia- improved
# Hypokalemia-Better
# Transaminitis-Hepatitis panel neg. Routine USS Neg. Likely secondary to right heart failure/cor pulmonale
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
# SFPB-clfzzrk-uhwwjkebw
Chronic hypoxic respiratory failure on 5 L of oxygen as outpatient
Continue Wixela or equivalent
# Hypothyroidism-continue levothyroxine 125 mcg daily
# Peripheral artery disease with history of right carotid endarterectomy
# Leucocytosis- Unclear cause. Check Blddo Cx and follow. No source of infection- Hold off on AB
# GERD-continue PPI
# Depression-continue sertraline
# Sleep apnea-CPAP
# Obesity with a BMI of 30-history of gastric sleeve procedure
# Ex-smoker
# DVT prophylaxis-Xarelto
# Full code
Discussed with coufloresita Handley at bed side ( ER nurse)
Discussed with patient's daughter on the phone and updated
Part of this note was created using voice recognition system. Occasional wrong word or��sound alike� substitutions may have inadvertently occurred due to the inherent limitations of voice recognition software. If noted kindly bring it to my
attention for correction.
Anticipated Discharge: Within 24 hours
Subjective/Interval History
-
Date of Service: July 26, 2025
Objective Data
-
Labs:
Laboratory Results
07/26/25
07:48
WBC 16.0 H
Hgb 10.7 L
Hct 35.2 L
Plt Count 318
Sodium 137
Potassium 3.9
Chloride 99
Carbon Dioxide 30
BUN 43 H
Creatinine 1.2 H
Glucose 77
Calcium 9.1
Vital Signs:
Vital Signs
Temp Pulse Resp BP Pulse Ox
97.9 F 92 20 117/65 93
07/26/25 11:00 07/26/25 11:00 07/26/25 11:00 07/26/25 11:00 07/26/25 11:00
I&O
07/25/25 07/26/25 07/27/25
06:59 06:59 06:59
Intake Total 720 / 720 240 / 240
Balance 720 / 720 240 / 240
--- NOTE | 2025-07-26 14:01 | W.PN.NEPH.PH ---
Today's Communication / Plan
-
Lasix restarted
Assessment/Plan
-
Assessment
HFpEF
CAD/PCI
COPD/IPF chronic 5L
SHANNON
edema
HTN
PE/DVT hx
hyponatremia
Plan
Status post right heart cath�Elevated right-sided filling pressure and severe precapillary pulmonary hypertension with severely decreased cardiac output/wedge 14
patient is on her maintenance 5 L
Creatinine improved 1.5> 1.2
Now on sildenafil for pulm hypertension.
Lasix restarted maintenance with Aldactone still on hold
The patient will follow-up with us locally per her request
-
-
Date of Service: July 26, 2025
CC / HPI / ROS
-
Chief Complaint:
Acute kidney injury
History of Present Illness:
Diastolic heart kidney injury creatinine 1.5 up to 1.9
Review of Systems:
Appears to be at her baseline per her acknowledgment on 5 L
No chest pain
Labs
-
Labs:
WBC 16.0 10^3/uL (4.8-10.8) H 07/26/25 07:48
RBC 4.15 10^6/uL (4.20-5.40) L 07/26/25 07:48
Hgb 10.7 g/dL (12.0-16.0) L 07/26/25 07:48
Hct 35.2 % (37.0-47.0) L 07/26/25 07:48
Plt Count 318 10^3/uL (130-400) 07/26/25 07:48
Sodium 137 mmol/L (135-145) 07/26/25 07:48
Potassium 3.9 mmol/L (3.5-5.1) 07/26/25 07:48
Chloride 99 mmol/L (98-107) 07/26/25 07:48
Carbon Dioxide 30 mmol/L (22-30) 07/26/25 07:48
BUN 43 mg/dl (7-17) H 07/26/25 07:48
Creatinine 1.2 mg/dL (0.6-1.0) H 07/26/25 07:48
eGFR 49.00 07/26/25 07:48
Glucose 77 mg/dl (70-99) 07/26/25 07:48
Calcium 9.1 mg/dl (8.4-10.2) 07/26/25 07:48
Vak-T-Vzstsblnsvr Pept 10243 pg/ml 07/21/25 17:49
Physical Exam
-
Vital Signs:
Vital Signs
Temp Pulse Resp BP Pulse Ox
97.9 F 92 20 117/65 93
07/26/25 11:00 07/26/25 11:00 07/26/25 11:00 07/26/25 11:00 07/26/25 11:00
Respiratory:: Bilateral: CTA
Lung Excursion:: Normal
Abdomen:: Soft
Bowel Sounds:: Normal
Extremity Edema:: None: Bilateral:
[2025-07-26 14:22] LABS: ALT (SGPT) 69 U/L (0-35); AST (SGOT) 45 U/L (14-36); Albumin 3.5 g/dl (3.5-5.0); Alkaline Phosphatase 132 U/L (38-126); Total Protein 6.3 g/dl (6.3-8.2)
[2025-07-26 15:00] VITALS: BP 121/72
[2025-07-26 19:00] VITALS: BP 110/66
[2025-07-26 23:00] VITALS: BP 156/98
[2025-07-27 03:00] VITALS: BP 136/89
[2025-07-27] MEDS: SYNTHROID 125 MCG PO (05:44)
[2025-07-27 07:32] VITALS: BP 129/75
[2025-07-27] MEDS: ADVAIR HFA 115/21 MCG INHALER 2 PUFF INH (07:40)
--- NOTE | 2025-07-27 07:54 | W.PN.CD ---
Today's Communication / Plan
-
resume MRA as op if bp allows with new revatio
continue remaining medications
Primary director records management: Dr Crowell, she is moving shortly and may want to transition care to office. She can call [phone] if she moves, otherwise recommend follow up with Dr Crowell.
Impression / Plan
-
Primary director records management: Dr Crowell, she is moving shortly and may want to transition care to office.
SOB:
-likely 2/2 severe pulmonary hypertension and underlying severe lung disease
-CXR: Moderate combined emphysema and interstitial pulmonary fibrosis. Chronic pulmonary arterial hypertension. Mildly decreased bilateral lung volumes. Reports some blood-tinged sputum at times. She is on prednisone as OP.
-recommend pulm follow up.
Severe pHTN
-RHC 07/24/2022 with RA 22, PA 86/43(54), PCWP 14, PVR 15.2, CO/CI 2.6/1.5 --> severe pre capillary pulmonary hypertension, elevated RV filling pressure, and reduced cardiac output
-likely group 3 given severe underlying lung disease
-Revatio 20 mg TID started on 07/25/25 - tolerated well. uptitration likely as outpatient.
Heart failure with preserved ejection fraction, acute on chronic:
-Echo 06/11/25: The left ventricle is normal in size with normal wall thicknesses. Overall left ventricular wall motion and systolic function is normal with an estimated ejection fraction of 65%, although because of the suboptimal nature of the
imaging a localized wall motion abnormality cannot be excluded. There is grade 1 diastolic dysfunction. The right ventricle is moderately dilated and mildly hypokinetic. The tricuspid valve is normal. Leaflets have adequate excursion. There is
trivial tricuspid regurgitation. The right ventricular systolic pressure is estimated at 78 mmHg. Similar to previous on my review.
-on spironolactone. Jardiance stopped due to lightheadedness in the past. Lasix dosing is 40 mg daily, and BID on MWF- she reports compliance. MRA on hold. She denies any excess sodium or fluid recently.
-Lasix resumed for today
-On Revatio.
Hx PE/DVT
-on Xarelto
CAD with PCI in 2021:
-Stable without reports of CP. EKG is stable overall.
HTN:
-stable
Physical Exam
Vital Signs/Labs
Vital Signs
Temp Pulse Resp BP Pulse Ox
97.5 F 86 18 129/75 93
07/27/25 07:32 07/27/25 07:43 07/27/25 07:43 07/27/25 07:32 07/27/25 07:43
07/26/25 07/27/25 07/28/25
06:59 06:59 06:59
Actual Weight 164 lb 9 oz
Magnesium 2.3 mg/dl (1.6-2.3) 07/22/25 07:07
Triglycerides 92 mg/dl (10-149) 07/22/25 07:07
LDL Cholesterol, Calc 27 mg/dl 07/22/25 07:07
VLDL Cholesterol, Calc 18 mg/dl (0-30) 07/22/25 07:07
HDL Cholesterol 33 mg/dl 07/22/25 07:07
07/21/25
17:49
Pff-Q-Uapfbbatplh Pept [id number]
Physical Exam
Constitutional: No acute distress
Cardiovascular: Rhythm & rate is regular, Pedal edema is absent, JVD pressure is normal, Systolic murmur absent and Diastolic murmur absent
Respiratory: Respiratory effort normal, Lungs clear to auscul., Wheeze Absent, Crackles Absent and Rhonchi Absent
Neuro/Psych: AO x 3
Data Reviewed
-
Date of Service: July 27, 2025
Medical Decision Making: Review of Case with other Provider (Dr Walls, will sign off)
[2025-07-27 08:10] LABS: Hematocrit 34.2 % (37.0-47.0); Hemoglobin 9.9 g/dL (12.0-16.0); Mean Corp Hgb Conc. 28.9 g/dL (33.0-37.0); Mean Corpuscular Volume 88.6 fL (81.0-99.0); Nucleated Red Blood Cells % 0.4 %; Platelet Count 241 10^3/uL (130-400); Red Cell Dist. Width 18.6 % (11.5-14.5)
[2025-07-27] MEDS: LASIX 40 MG PO (08:10)
[2025-07-27] MEDS: REVATIO 20 MG PO ×2 (08:10→15:37)
[2025-07-27] MEDS: ASPIR LOW (ENTERIC COATED) 81 MG PO (08:10)
[2025-07-27] MEDS: DELTASONE 10 MG PO (08:10)
[2025-07-27] MEDS: XARELTO 20 MG PO (08:10)
[2025-07-27] MEDS: PROTONIX 40 MG PO (08:10)
[2025-07-27] MEDS: ZOLOFT 50 MG PO (08:10)
[2025-07-27] MEDS: THERAGRAN 1 TABLET PO (08:10)
[2025-07-27] MEDS: BACTROBAN 2% OINTMENT 1 APPLIC NASAL (08:11)
[2025-07-27 08:40] LABS: ALT (SGPT) 64 U/L (0-35); AST (SGOT) 43 U/L (14-36); Albumin 3.2 g/dl (3.5-5.0); Alkaline Phosphatase 119 U/L (38-126); Blood Urea Nitrogen 42 mg/dl (7-17); Calcium 8.8 mg/dl (8.4-10.2); Carbon Dioxide 31 mmol/L (22-30); Chloride 99 mmol/L (98-107); Estimated Creatinine Clearance 46 ml/min; Glucose 67 mg/dl (70-99); Potassium 3.7 mmol/L (3.5-5.1); Sodium 137 mmol/L (135-145); Total Protein 5.9 g/dl (6.3-8.2); eGFR 54.39
[2025-07-27 09:44] LABS: Anisocytosis 2+; Burr Cells 2+; Hypochromasia 2+; Microcytosis 1+; Normal RBC Morphology No; Stomatocytes 1+
[2025-07-27 11:00] VITALS: BP 131/81
[2025-07-27 11:24] LABS: Glucose - Point of Care 115 mg/dl (70-99)
--- NOTE | 2025-07-27 13:29 | CM ---
CM reviewed chart, patient for d.c today.
Updates to [facility], aware of d/c today.
Patient confirms transport home, confirms O2 at home.
IMM verbally reviewed, patient provided with copy, placed in chart.
CM will continue to follow.
Plan; home with [facility]
--- NOTE | 2025-07-27 13:55 | W.PN.NEPH.PH ---
Today's Communication / Plan
-
d/c plan
Assessment/Plan
-
Assessment
HFpEF
CAD/PCI
COPD/IPF chronic 5L
SHANNON
edema
HTN
PE/DVT hx
hyponatremia
Plan
Status post right heart cath�Elevated right-sided filling pressure and severe precapillary pulmonary hypertension with severely decreased cardiac output/wedge 14
patient is on her maintenance 5 L
Creatinine improved to 1.1
Now on sildenafil for pulm hypertension.
Lasix restarted maintenance with Aldactone still on hold
The patient will follow-up with us locally per her request
d/w pt
-
-
Date of Service: July 27, 2025
CC / HPI / ROS
-
Chief Complaint:
Acute kidney injury
History of Present Illness:
Diastolic heart kidney injury
cr better at 1.1
k norml, hb low 9.9
Review of Systems:
Appears to be at her baseline per her acknowledgment on 5 L
No chest pain
Labs
-
Labs:
WBC 11.3 10^3/uL (4.8-10.8) H 07/27/25 06:41
RBC 3.86 10^6/uL (4.20-5.40) L 07/27/25 06:41
Hgb 9.9 g/dL (12.0-16.0) L 07/27/25 06:41
Hct 34.2 % (37.0-47.0) L 07/27/25 06:41
Plt Count 241 10^3/uL (130-400) D 07/27/25 06:41
Sodium 137 mmol/L (135-145) 07/27/25 06:41
Potassium 3.7 mmol/L (3.5-5.1) 07/27/25 06:41
Chloride 99 mmol/L (98-107) 07/27/25 06:41
Carbon Dioxide 31 mmol/L (22-30) H 07/27/25 06:41
BUN 42 mg/dl (7-17) H 07/27/25 06:41
Creatinine 1.1 mg/dL (0.6-1.0) H 07/27/25 06:41
eGFR 54.39 07/27/25 06:41
Glucose 67 mg/dl (70-99) L 07/27/25 06:41
Calcium 8.8 mg/dl (8.4-10.2) 07/27/25 06:41
Niy-J-Wahzwjiuybf Pept 79146 pg/ml 07/21/25 17:49
Albumin 3.2 g/dl (3.5-5.0) L 07/27/25 06:41
Physical Exam
-
Vital Signs:
Vital Signs
Temp Pulse Resp BP Pulse Ox
98.3 F 96 20 130/87 98
07/27/25 15:00 07/27/25 15:00 07/27/25 15:00 07/27/25 15:00 07/27/25 15:00
Respiratory:: Bilateral: CTA
Lung Excursion:: Normal
Abdomen:: Nontender and Soft
Bowel Sounds:: Normal
Extremity Edema:: None: Bilateral:
Waller Catheter: No
--- NOTE | 2025-07-27 14:30 | PTCARENOTE ---
while removing IV from LFA, RN noticed plastic tape on IV. pt has very fragile skin. RN used adhesive remover on skin to remove IV, but pt skin still teared. skin tear was cleansed with normal saline and covered with adaptic and form.
[2025-07-27 15:00] VITALS: BP 130/87
--- NOTE | 2025-07-27 17:09 | W.DCSUMMARY ---
Discharge Summary
Discharge Data
Date of Admission: 07/21/25
Date of Discharge: 07/27/25
-
Pending Results: No
Hospital Course
Discharging Physician : Dr John Walls
Disposition : To home
Primary care physician : Dr Issa Davis
Principal Discharge diagnosis :
Acute on chronic diastolic congestive heart failure
Severe pulmonary hypertension
Acute kidney injury
Hyponatremia
Transaminitis
Chronic Discharge diagnosis :
Chronic obstructive pulmonary disease
Coronary disease with history of stents
History of deep venous thrombosis and pulm embolism
Hypothyroidism
Peripheral artery disease
Gastroesophageal reflux disease
Depression
Obstructive sleep apnea on positive airway pressure therapy
Obesity
Former smoker
Physical examination:
GEN: aox3
HEENT: moist mucus membrane,
Chest: mild rhonchi
Heart: N s1/s2, RRR, no murmur
Abd: N BS, soft, nontender,
Neuro: No motor or sensory deficits
Ext: No edema
Hospital Course :
Patient is a 69-year-old female with above-mentioned past medical history came to ER with new onset of shortness of breath with exertion and lower extremity swelling. Chest x-ray showing moderate changes of emphysema and interstitial pulmonary
fibrosis. Patient was noted to be volume overloaded on exam. Blood work showing patient having renal dysfunction. Patient was initially felt to having heart failure exacerbation and possibly renal dysfunction from cardiorenal syndrome. Patient
was started on IV diuretic therapy and cardiology and pulmonology was involved in care. Patient was started on IV diuretic therapy. Patient had slow improvement in symptoms. A follow-up right heart catheterization was done which showed patient
having severe pulmonary hypertension with increased RV filling pressure. Patient was diagnosed to having group 3 pulmonary hypertension. Cardiology started patient on Revatio. Patient was put back on her home dose of oral Lasix as well. After
improvement in clinical symptoms patient was discharged home with plan for patient to follow-up in cardiology in office.
Important imaging findings :
None
Procedure findings :
None
Discharge Plan
-
Patient Disposition: Home (Routine Discharge)
Discharge Diagnosis/Procedures: Diastolic HF exacerbation, Pulmonary hypertension
Condition: Fair
Diet: Low Cholesterol
Activity: As tolerated
Driving Restrictions: No driving
Bathing Restrictions: OK to Shower
Referrals:
Kyle Villalobos MD [Active, Pulmonary Medicine] - in four to six weeks
Referral Note: six minute walk test
PFT
Issa Davis DO [Family Provider, Family Practice] - in one week
Prescriptions:
New
sildenafil (pulm.hypertension) 20 mg Tablet
20 mg PO TID Qty: 90 2RF
Continued
prednisone 10 mg Tablet
10 mg PO DAILY
therapeutic multivitamin Tablet
1 tab PO DAILY
omeprazole 40 mg Capsule,Delayed Release(Dr/Ec)
20 mg PO DAILY
aspirin 81 mg Tablet,Delayed Release (Dr/Ec)
81 mg PO DAILY
levothyroxine [Synthroid] 125 mcg Tablet
125 mcg PO DAILY
Xarelto 20 mg Tablet
20 mg PO DAILY
sertraline 50 mg tablet
50 mg PO DAILY
fluticasone propion-salmeterol [Wixela Inhub] 100-50 mcg/dose Blister With Device
1 inh INHALATION BID
hydroxyzine HCl 25 mg Tablet
25 mg PO HS PRN (Reason: sleep)
furosemide 40 mg Tablet
40 mg PO DAILY Qty: 90 0RF
Held
spironolactone 25 mg tablet
25 mg PO DAILY
Hold Instructions: Resume on 08/10/25. Resume after discussion with cardiology on follow up
Discharge Orders:
Discharge Patient (As Directed); Ordered 07/27/25
Ordered By: John Walls
Discharge Date and Time
Discharge Date/Time: 07/27/25 16:21
Print Language: KYRGYZ
--- NOTE | 2025-07-28 14:05 | W.HF.CON ---
Heart Failure
- LV Function
Left ventricular function study result: LV Ejection fraction >/= 50%
Ejection Fraction Percentage: 65
- ARNI
Patient already on ARNI: No
Heart Failure ARNI Not Indicated: LV Ejection Fraction >/= 40%
- ACEI/ARB
Patient already on ACEI/ARB: No
Heart Failure ACEI/ARB Not Indicated: LV Ejection Fraction > 40%
- Beta Mary
Patient already on Evidence Based Beta Mary: No
Heart Failure Evidence Based Beta Mary Not Indicated: LV Ejection Fraction > 40%
- Mineralocorticord Receptor Antagonist
Patient already on MRA: Yes
- SGLT-2 Inhibitor
Patient already on SGLT-2 Inhibitor: No
Heart Failure SGLT-2 Inhibitor Contraindication: Patient Refusal
- Afib Anticoagulation
Patient already on Anticoagulation for Afib: Yes
- NYHA CHF Classification
NYHA CHF Classification Level: Class III - Symptoms w/ min exertion, interferes w/ nml daily activity (pulmonary HTN, on home oxygen)
- ACC/AHA Stage
ACC/AHA Stage: Stage C: Symptomatic Heart Failure
== END 2025-07-27 16:21 | disposition home health service (06) | DRG 286 ==
LOC: 4 WEST ACU 21:45
PROVIDERS: Hospitalist; Registered Nurse; Student in an Organized Health Care Education/Training Program; ADMITTING PHYSICIAN Hospitalist; ATTENDING PHYSICIAN Hospitalist; CONSULT PHYSICIAN Internal Medicine Critical Care Medicine; CONSULT PHYSICIAN Specialist; EMERGENCY PHYSICIAN Emergency Medicine; FAMILY PHYSICIAN Family Medicine; OTHER PHYSICIAN Internal Medicine
PROC: 4A023N6 Measurement of Cardiac Sampling and Pressure, Right Heart, Percutaneous Approach (ICD-10-PCS; 2025-07-24)
DX: I11.0 Hypertensive heart disease with heart failure (principal); I50.33 Acute on chronic diastolic (congestive) heart failure; J96.21 Acute and chronic respiratory failure with hypoxia; N17.9 Acute kidney failure, unspecified; E87.1 Hypo-osmolality and hyponatremia; J44.1 Chronic obstructive pulmonary disease with (acute) exacerbation; I82.402 Acute embolism and thrombosis of unspecified deep veins of left lower extremity; I27.23 Pulmonary hypertension due to lung diseases and hypoxia; I27.21 Secondary pulmonary arterial hypertension; Z86.718 Personal history of other venous thrombosis and embolism; Z86.711 Personal history of pulmonary embolism; E03.9 Hypothyroidism, unspecified; I73.9 Peripheral vascular disease, unspecified; K21.9 Gastro-esophageal reflux disease without esophagitis; G47.33 Obstructive sleep apnea (adult) (pediatric); E66.9 Obesity, unspecified; Z87.891 Personal history of nicotine dependence; J43.9 Emphysema, unspecified; J84.10 Pulmonary fibrosis, unspecified; I25.10 Atherosclerotic heart disease of native coronary artery without angina pectoris; I45.10 Unspecified right bundle-branch block; Z79.82 Long term (current) use of aspirin; Z79.899 Other long term (current) drug therapy; Z79.890 Hormone replacement therapy; Z79.52 Long term (current) use of systemic steroids; D72.829 Elevated white blood cell count, unspecified; E78.00 Pure hypercholesterolemia, unspecified; E87.6 Hypokalemia; I27.81 Cor pulmonale (chronic); I49.1 Atrial premature depolarization; K44.9 Diaphragmatic hernia without obstruction or gangrene; K76.1 Chronic passive congestion of liver; Z79.01 Long term (current) use of anticoagulants; Z91.048 Other nonmedicinal substance allergy status; Z95.5 Presence of coronary angioplasty implant and graft; Z98.84 Bariatric surgery status; Z99.81 Dependence on supplemental oxygen; Z11.52 Encounter for screening for COVID-19
CPT/HCPCS: 71046; 76700; 80048; 80053; 80061; 81003; 81015; 82248; 82607; 82962; 83735; 83880; 84300; 84443; 85025; 85027; 85652; 86140; 86160; 86706; 86708; 86709; 86803; 87040; 87086; 87340; 87811; 93005; 93451; 94640; 96374; 97116; 97162; 97530; 99285; C1894

== ENCOUNTER 2025-07-30 21:40 | Observation (INO) | payer MEDICARE, OTHER, SELFPAY ==
[2025-07-30] VITALS (10 sets, daily range): BP systolic 100–116; BP diastolic 55–75; BMI 29.1; BMI 30.1
[2025-07-30 17:56] LABS: Hematocrit 32.9 % (37.0-47.0); Hemoglobin 9.7 g/dL (12.0-16.0); Mean Corp Hgb Conc. 29.5 g/dL (33.0-37.0); Mean Corpuscular Volume 85.5 fL (81.0-99.0); Nucleated Red Blood Cells % 0.3 %; Platelet Count 280 10^3/uL (130-400); Red Cell Dist. Width 19.5 % (11.5-14.5)
[2025-07-30 18:19] LABS: ALT (SGPT) 57 U/L (0-35); AST (SGOT) 42 U/L (14-36); Albumin 3.5 g/dl (3.5-5.0); Alkaline Phosphatase 111 U/L (38-126); Blood Urea Nitrogen 42 mg/dl (7-17); Calcium 9.0 mg/dl (8.4-10.2); Carbon Dioxide 31 mmol/L (22-30); Chloride 96 mmol/L (98-107); Estimated Creatinine Clearance 39 ml/min; Glucose 119 mg/dl (70-99); Potassium 3.7 mmol/L (3.5-5.1); Sodium 131 mmol/L (135-145); Total Protein 6.5 g/dl (6.3-8.2); eGFR 44.51
--- NOTE | 2025-07-30 19:16 | ED.GENMED ---
History of Present Illness
<Jasiel Sher DO - Last Filed: 07/30/25 19:22>
General
Chief Complaint: Fall
Time Seen by Provider: 07/30/25 17:16
<Tiffany Andino NP - Last Filed: 07/30/25 20:58>
General
Source: patient and family (Daughter)
Exam Limitations: none
Nursing documentation reviewed up to this point in time: agreed with
History of Present Illness
History of Present Illness:
Patient to the emergency department after falling this morning. Patient states that she lost her footing and fell in the bathroom was unable to get herself. This had occurred around 5 AM. She remained on the floor in the bathroom until about 1030
and her daughter arrived at the home. Daughter was able to help patient up off of the floor. Patient refused to come to the emergency department at that time. Patient had been incontinent of stool. According to daughter patient had developed
loose stools during her hospitalization last week and this has continued. Patient denies any abdominal pain nausea or vomiting. She denies fever or chills. Patient admits to hitting her head on the floor. She has a hematoma present to the
forehead. On xarelto. She has a skin tear to her left forearm and right serrano. Visiting nurse arrived late this afternoon and advised patient that she needed to come to the emergency department for further evaluation the patient agreed. On arrival
she was awake alert and oriented without complaint. This is her second fall this week she was discharged home from an inpatient stay here on Sunday. She states she lost her footing and fell Sunday evening. She agrees that she has a weak and
having some difficulty managing at home.
Past History
<Jasiel Sher, - Last Filed: 07/30/25 19:22>
Past History
ED Past Medical History: COPD, HTN, Hypercholesterolemia, Hypothyroidism and Other (PE/DVT on Xarelto)
ED Past Surgical History: Cardiac (stent, R carotid endarterectomy), and Other (gastric sleeve)
Social History
Tobacco: Former smoker
Personal: Single
Living: alone
Review of Systems
<iTffany Andino NP - Last Filed: 07/30/25 20:58>
Review of Systems
Allergies reviewed?: Yes
All Other Systems: ROS reviewed and negative except as documented in HPI and ROS
Constitutional: Reports fatigue
EENT: Reports no symptoms
Respiratory: Reports other (Patient with a history of COPD, wears continuous O2. Pulse ox on arrival was 92%5LNC. No change in resp. status)
Cardiac: Reports no symptoms
ABD/GI: Reports no symptoms
: Reports no symptoms
Musculoskeletal: Reports no symptoms
Skin: Reports other (Skin tear to right forearm and left serrano, hematoma to forehead)
Neurological: Reports weakness
Psychiatric: Reports no symptoms
Phy Exam
<Tiffany Andino CABLE TELEVISION INSTALLER - Last Filed: 07/30/25 20:58>
General Physical Exam
General Presentation: no apparent distress
General age: appears older than age
General Skin: warm, dry and other (Multiple areas of bruising noted.)
General Habitus: normal
General Mental: alert
Cardiovascular Exam
Cardiovascular Exam: regular rate/rhythm
Pulmonary Exam
Oxygen Status: other (O2 5LNC Pulse ox 93%)
Cough: no cough
Breath Sounds: Crackles: left lower and right lower
Gastrointestinal Exam
Gastrointestinal Exam: non tender and soft
Neurological Exam
Neurological Exam: alert, oriented x3, CN II-XII intact, no motor deficits, no sensory deficits and speech normal
Musculoskeletal Exam
Musculoskeletal Exam: full ROM and neuro vasc intact
Skin Exam
Skin Exam: warm/dry and other (Skin tear to left forearm, right serrano. )
Psychiatric Exam
Psychiatric Exam: normal mood/affect
Course
<Jasiel Sher, DO - Last Filed: 07/30/25 19:22>
Orders/Labs/Results
Orders:
Orders
07/30/25 17:35
Cervical Spine wo Contrast CT [CT Cervical Spine W/o Iv Contr] Urgent
Comment:
Reason For Exam: FALL, PAIN
07/30/25 17:37
CT Head W/o Iv Contrast Urgent
Comment:
Reason For Exam: fall, onxarelto
07/30/25 17:46
CPK [Creatine Phosphokinase] Urgent
Complete Blood Count/With Diff Urgent
Comprehensive Metabolic Panel Urgent
07/30/25 19:58
Urinalysis Reflex To Culture Urgent
Date Specimen was Collected: 07/30/25
Time Specimen was Collected: 18:18
07/30/25 20:13
Case Management Consult ONCE
Case Management Consult: Other
Abnormal Lab Results
07/30/25
17:46
WBC 12.7 H 10^3/uL
(4.8-10.8)
RBC 3.85 L 10^6/uL
(4.20-5.40)
Hgb 9.7 L g/dL
(12.0-16.0)
Hct 32.9 L %
(37.0-47.0)
MCH 25.2 L pg
(27.0-31.0)
MCHC 29.5 L g/dL
(33.0-37.0)
RDW 19.5 H %
(11.5-14.5)
MPV 10.9 H fL
(7.4-10.4)
Abs Immat Gran (auto) 0.2 H 10^3/uL
(0-0.05)
Absolute Neuts (auto) 11.3 H 10^3/uL
(1.4-6.5)
Absolute Lymphs (auto) 0.7 L 10^3/uL
(1.2-3.4)
Immature Gran % 1.3 H %
(0-0.5)
Neutrophils % 89.0 H %
(42.2-75.2)
Lymphocytes % 5.3 L %
(20.5-51.1)
Sodium 131 L mmol/L
(135-145)
Chloride 96 L mmol/L
(98-107)
Carbon Dioxide 31 H mmol/L
(22-30)
BUN 42 H mg/dl
(7-17)
Creatinine 1.3 H mg/dL
(0.6-1.0)
Glucose 119 H mg/dl
(70-99)
Total Bilirubin 4.0 H mg/dl
(0.2-1.3)
AST 42 H U/L
(14-36)
ALT 57 H U/L
(0-35)
07/30/25 17:46
07/30/25 17:46
Vital Signs
Initial and Last Documented VS:
Initial Vital Signs
Temp Pulse Resp BP Pulse Ox
98.5 F 93 24 106/66 92
07/30/25 17:10 07/30/25 17:10 07/30/25 17:10 07/30/25 17:10 07/30/25 17:10
Last Documented Vital Signs
Temp Pulse Resp BP Pulse Ox
98.6 F 90 20 116/72 91
07/30/25 17:48 07/30/25 19:30 07/30/25 19:30 07/30/25 19:00 07/30/25 19:30
[place];Tiffany Andino NP - Last Filed: 07/30/25 20:58>
Orders/Labs/Results
Orders:
Orders
07/30/25 17:35
Cervical Spine wo Contrast CT [CT Cervical Spine W/o Iv Contr] Urgent
Comment:
Reason For Exam: FALL, PAIN
07/30/25 17:37
CT Head W/o Iv Contrast Urgent
Comment:
Reason For Exam: fall, onxarelto
07/30/25 17:46
CPK [Creatine Phosphokinase] Urgent
Complete Blood Count/With Diff Urgent
Comprehensive Metabolic Panel Urgent
07/30/25 19:58
Urinalysis Reflex To Culture Urgent
Date Specimen was Collected: 07/30/25
Time Specimen was Collected: 18:18
07/30/25 20:13
Case Management Consult ONCE
Case Management Consult: Other
Abnormal Lab Results
07/30/25
17:46
WBC 12.7 H 10^3/uL
(4.8-10.8)
RBC 3.85 L 10^6/uL
(4.20-5.40)
Hgb 9.7 L g/dL
(12.0-16.0)
Hct 32.9 L %
(37.0-47.0)
MCH 25.2 L pg
(27.0-31.0)
MCHC 29.5 L g/dL
(33.0-37.0)
RDW 19.5 H %
(11.5-14.5)
MPV 10.9 H fL
(7.4-10.4)
Abs Immat Gran (auto) 0.2 H 10^3/uL
(0-0.05)
Absolute Neuts (auto) 11.3 H 10^3/uL
(1.4-6.5)
Absolute Lymphs (auto) 0.7 L 10^3/uL
(1.2-3.4)
Immature Gran % 1.3 H %
(0-0.5)
Neutrophils % 89.0 H %
(42.2-75.2)
Lymphocytes % 5.3 L %
(20.5-51.1)
Sodium 131 L mmol/L
(135-145)
Chloride 96 L mmol/L
(98-107)
Carbon Dioxide 31 H mmol/L
(22-30)
BUN 42 H mg/dl
(7-17)
Creatinine 1.3 H mg/dL
(0.6-1.0)
Glucose 119 H mg/dl
(70-99)
Total Bilirubin 4.0 H mg/dl
(0.2-1.3)
AST 42 H U/L
(14-36)
ALT 57 H U/L
(0-35)
07/30/25 17:46
07/30/25 17:46
Vital Signs
Initial and Last Documented VS:
Initial Vital Signs
Temp Pulse Resp BP Pulse Ox
98.5 F 93 24 106/66 92
07/30/25 17:10 07/30/25 17:10 07/30/25 17:10 07/30/25 17:10 07/30/25 17:10
Last Documented Vital Signs
Temp Pulse Resp BP Pulse Ox
98.6 F 90 20 116/72 91
07/30/25 17:48 07/30/25 19:30 07/30/25 19:30 07/30/25 19:00 07/30/25 19:30
<Jasiel Sher, DO - Last Filed: 07/30/25 19:22>
*Pulse Oximetry
SaO2: 91
Nasal Cannula flow liters per minute: 5
<Tiffany Andino CABLE TELEVISION INSTALLER - Last Filed: 07/30/25 20:58>
*Pulse Oximetry
Patient hypoxic: no
*Critical Care Note
Total Time (30-74mins, 75-104mins- exclusive of procedures): Not Applicable
<Tiffany Andino NP - Last Filed: 07/30/25 20:58>
Update Note
Update Note:
Patient to the emergency department after falling today at home. Patient states she has been having loose stools since her admission here last week. She was attempting to get to shower to clean self but lost her balance and fell. This occurred
around 5:30 AM. She stayed on the floor until 10:30 AM when her daughter arrived. She had refused initially to come to the emergency department but after she was evaluated by the visiting nurse this evening she agreed to come into the emergency
department for evaluation. She was inpatient here from 07/21 to 07/27. Discharge diagnosis includes CHF, pulmonary hypertension, SHANNON, transaminitis. she had a fall on Sunday after arriving home. Patient and daughter both feel that she is too
weak and unsteady to safely be managed at home at this point. Patient and family requesting inpatient rehab facility. Will place consult for case management to be seen in AM. She hit her head this morning has hematoma x2 on her forehead. CT of
head and neck completed, negative for acute findings. Labs reviewed. Sodium 131 noted. Daughter states she is on a strict fluid and sodium restriction. Daughter reports she is following prescribed recommendations. All other labs are consistent
with her discharge labs from Sunday. Patient to be admitted to the hospitalist for her weakness, frequent falls. Case management consult pending. Case discussed with Dr. Sher who also evaluated this patient and he is agreeable to this plan
ED Attending Note
<Jasiel Sher DO - Last Filed: 07/30/25 19:22>
ED Attending Note
Patient seen and examined by attending physician: Yes
ED Attending Note:
I reviewed and agree with history treatment plan by Tiffany Andino NP. My exam revealed skin tears left forearm and left leg forehead contusion. Vital signs stable. No acute lab abnormalities. CT head cervical spine no acute findings. Patient
with multiple falls, concern for safety at home, and weakness. Will admit to hospitalist for further management.
-
Portions of this chart may have been created with voice recognition software.� Occasional wrong word or��sound alike� substitutions may have occurred due to the inherent limitations of voice recognition software.
Discharge Plan
Departure
Patient Disposition: Admit
Date of Disposition: 07/30/25
Time of Disposition: 20:10
Presentation/result/management discussed w/ accepting MD/DO: Hospitalist
Patient with high blood pressure during this ER visit?: No
Condition: Fair
Covid-19: Not Applicable
Discharge Problem:
Weakness
Prescriptions:
No Action
prednisone 10 mg Tablet
10 mg PO DAILY
therapeutic multivitamin Tablet
1 tab PO DAILY
omeprazole 40 mg Capsule,Delayed Release(Dr/Ec)
20 mg PO DAILY
aspirin 81 mg Tablet,Delayed Release (Dr/Ec)
81 mg PO DAILY
levothyroxine [Synthroid] 125 mcg Tablet
125 mcg PO DAILY
Xarelto 20 mg Tablet
20 mg PO DAILY
sertraline 50 mg tablet
50 mg PO DAILY
spironolactone 25 mg tablet
25 mg PO DAILY
fluticasone propion-salmeterol [Wixela Inhub] 100-50 mcg/dose Blister With Device
1 inh INHALATION BID
hydroxyzine HCl 25 mg Tablet
25 mg PO HS PRN (Reason: sleep)
sildenafil (pulm.hypertension) 20 mg Tablet
20 mg PO TID Qty: 90 2RF
furosemide 40 mg Tablet
40 mg PO DAILY Qty: 90 0RF
Referrals:
Issa Davis DO [Family Provider, Family Practice]
Interventions
Interventions:
*Risk Screen - Suicide Last Done: 07/30/25 17:10
*General Assessment Last Done: 07/30/25 17:48
*Neglect/Abuse Screening Last Done: 07/30/25 17:10
*ED- Fall Risk Assessment Last Done: 07/30/25 17:48
*ED COVID-19 Vaccine History Last Done: 07/30/25 17:48
*ED Influenza Vaccine History Last Done: 07/30/25 17:48
ED-Musculoskeletal Assessment Last Done: 07/30/25 17:48
ED- Neurological Assessment Last Done: 07/30/25 17:48
ED-Skin Assessment Last Done: 07/30/25 17:48
Discharge Date and Time
Print Language: POLISH
--- NOTE | 2025-07-30 20:22 | HPS.HSE ---
Addendum entered and electronically signed by Dev Messina MD 07/30/25 21:56:
This is an addendum to H&P written by Sandy Orlando on 07/30/2025. �Patient seen and examined independently with SHANK TAPPER.
69-year-old female past medical history of HFpEF, CAD with history of stent, severe pulmonary hypertension, history of DVT/PE, COPD on 5 L baseline, hypothyroidism, PAD with history of right carotid endarterectomy, prior gastric sleeve surgery,
GERD, depression, obstructive sleep apnea on CPAP, obesity, presenting with fall hitting her head associated with weakness in the legs and lightheadedness.
Also been having diarrhea described as frequent small loose bowel movement occasionally associated with mucus and pink blood since recent admission.
She was recently admitted here from 07/21 to 07/27 for shortness of breath and lower extremity swelling. �She was treated for CHF exacerbation cardiorenal syndrome with diuretics. �She evidently lost 5 pounds.
Vital signs unremarkable.
Labs show chronic leukocytosis of 4.7. �Hemoglobin stable at 9.7. �Mild transaminitis stable. �Creatinine 1.3 from 1[address] head shows no acute intracranial abnormality. �CT cervical spine no acute abnormality.
Patient here with weakness and fall after recent admission for CHF exacerbation. �Weakness could be secondary to deconditioning versus lightheadedness from ongoing diarrhea which was noted to have some mucus and blood. �Diarrhea could be secondary
to recently started sildenafil although should not be bloody. �Check orthostatics. �Check stool studies.�
Continue to monitor Hemoglobin and consider stopping Xarelto and GI workup if concern for more significant bleeding develops.�
Patient saturating 88 to 90% on 5 L oxygen which appears to be her baseline.
Case management consulted for rehab.
Leukocytosis and hyperbilirubinemia appears to be from CHF as she had US which only showed cholelithiasis. Hepatitis serologies were negative.
Original Note:
Family Physician
-
Family Physician: Issa Davis, DO
Chief Complaint
-
recurrent fall
History of Present Illness
Patient is a 69-year-old female with past medical history significant for CAD, PAD, chronic HFpEF, hypertension, hyperlipidemia, COPD, hypothyroidism and DVT/PE who presented to [facility] ED for evaluation of recurrent fall. Patient with recent
hospitalization 07/21/2025 -07/27/2025 for newly diagnoses severe pulmonary hypertension, acute on chronic HFpEF, SHANNON, hyponatremia and transaminitis. Patient reports that there has been no changes since discharge but has had recurrent diarrhea
since prior to discharge that is gelatinous and bloody today. She stated that Sunday evening she became weak and lowered herself to the floor, today she reports attempting to change a soiled brief when she did not clear foot and trip herself falling
forward, hitting her head on tub at home. She was unable to get up and stated on floor for a few hours until her daughter arrived and found her. Patient denies any weight gain, fever, chills, cough, shortness of breath, chest pain, nausea or
vimiting since discharge.
Medical History
Past Medical History
Past Medical History: Reports Other
Additional Past Medical History:
Coronary Artery Disease s/p Stent
Peripheral Arterial Disease s/p Right Carotid Endarterectomy
Chronic HFpEF
Essential Hypertension
Hyperlipidemia
Chronic Hypoxia
COPD / Emphysema / Pulmonary Fibrosis
Hypothyroidism
DVT/PE
Obesity
Obstructive Sleep Apnea
Past Surgical History: Reports Other
Additional Past Surgical History:
Right Carotid Endarterectomy
Cardiac Stent
Gastric Sleeve
Section
Social History
Tobacco: Former Smoker (Quit about 25 years ago)
Employment: Employed (Hairdresser)
Family History
Family History: Not pertinent
Allergies / Home Medications
Allergies reflects when Allergies were last updated in [employer]
Home Medications with original date entered in [employer]
Allergy/Medication List:
Allergies
Allergy/AdvReac Type Severity Reaction Status Date / Time
tape Allergy Unknown Uncoded 07/30/25 17:09
Home Medications
aspirin 81 mg tablet,delayed release 81 mg PO DAILY Blood Clot Prevention/Tx 10/13/24
levothyroxine 125 mcg tablet (Synthroid) 125 mcg PO DAILY Thyroid 10/13/24
omeprazole 40 mg capsule,delayed release 20 mg PO DAILY GERD 10/13/24
prednisone 10 mg tablet 10 mg PO DAILY INFLAMMATION 10/13/24
therapeutic multivitamin 1 tab PO DAILY Supplement 10/13/24
rivaroxaban 20 mg tablet (Xarelto) 20 mg PO DAILY Blood Clot Prevention/Tx 05/08/25
sertraline 50 mg tablet 50 mg PO DAILY Mental Health 05/08/25
spironolactone 25 mg tablet 25 mg PO DAILY Heart Failure 05/08/25
Held on 07/27/25. Instructions: Resume on 08/10/25. Resume after discussion with cardiology on follow up
fluticasone 100 mcg-salmeterol 50 mcg/dose blistr powdr for inhalation (Ender Inhub) 1 inh inhalation BID 07/21/25
hydroxyzine HCl 25 mg tablet 25 mg PO HS PRN sleep 07/22/25
furosemide 40 mg tablet 40 mg PO DAILY Heart Failure #90 tabs 07/27/25
sildenafil (pulm.hypertension) 20 mg tablet 20 mg PO TID #90 tabs 07/27/25
Review of Systems
-
History Source: Patient
Constitutional: Denies Fever or Chills
EENT: Denies Sore Throat
Respiratory: Denies Cough, Hemoptysis or Trouble Breathing
Cardiac: Denies Chest Pain, Diaphoresis, Palpitations or Syncope
Abdomen/GI: Reports Diarrhea; Denies Abdominal Pain, Nausea, Vomiting or Constipated
: Denies Dysuria, Frequency or Urgency
Musculoskeletal: Reports Other (generalized weakness and difficulty performing ADLs independently ); Denies Joint Pain
Skin: Denies Rash
Neurological: Reports Weakness; Denies Dizzy, Headache or Numbness
Endocrine: Denies Polyuria or Polydipsia
Physical Exam
Vital Signs
Vital Signs
Temp Pulse Resp BP Pulse Ox
98.6 F 90 20 116/72 91
07/30/25 17:48 07/30/25 19:30 07/30/25 19:30 07/30/25 19:00 07/30/25 19:30
Physical Exam
General: Well Developed, Well Nourished, No Apparent Distress, Comfortable, Conversant and Obese
HEENT: NormoCephalic, Moist mucous membranes, Atraumatic, Nose Appears Normal, Ears Appear Normal and Other (bruising noted to right forehead, right cheek )
Respiratory: Clear, Non Labored Respirations and Decreased Breath Sounds; No Wheezes
Cardiac: Regular Rhythm; No Murmur or Peripheral Edema
GI: Soft, Non Tender, Non Distended and Normal Bowel Sounds
Musculoskeletal: No Clubbing, No Cyanosis and No Edema
Skin: Warm, IV/Catheter Site and Other (multiple areas of bruising over head and body, left fore arm skin tear and right serrano skin tear )
Neuro: Awake and AO x 3
Psych: Calm and Intact Judgment/Insight
Laboratory Results
-
07/30/25 17:46
07/30/25 17:46
Laboratory Results
Total Bilirubin 4.0 mg/dl (0.2-1.3) H 07/30/25 17:46
AST 42 U/L (14-36) H 07/30/25 17:46
ALT 57 U/L (0-35) H 07/30/25 17:46
Alkaline Phosphatase 111 U/L (38-126) 07/30/25 17:46
Data Reviewed
-
CT Scan: Report Reviewed by me (C-spine: No evidence of acute fracture or dislocation.)
Lab Data: Labs Reviewed by me (WBC 12.7, hgb 9.7, hct 32.9, Neut 89.0, Na 131, BUN 42, Creat 1.3, est CrCl 39, eGFR 44.51, Tot bili 4.0, AST 42, ALT 57)
Impression/Plan
-
IMPRESSION/PLAN:
#recurrent falls 2/2 deconditioning vs. AFTT vs. orthostatic hypotension from diarrhea
recent hospitalization 07/21/2025 - 07/27/2025, generalized weakness
WBC 12.7, hgb 9.7, hct 32.9, Neut 89.0
C-Spine CT: No evidence of acute fracture or dislocation.
Head CT: No evidence of acute intracranial abnormality.
- Admit to med/surg
- Consult Case Management for placement
- Consult PT/OT
- orthostatic VS
#recurrent diarrhea
started during previous hospitalization 07/21/2025 - 07/27/2025
was started on Sildenafil
- stool cultures
- orthostatic VS
#acute kidney injury
Na 131, BUN 42, Creat 1.3, est CrCl 39, eGFR 44.51
- monitor BMP
#transaminitis
Tot bili 4.0, AST 42, ALT 57
Hepatitis panel neg. Routine USS Neg. Likely secondary to right heart failure/cor pulmonale
- monitor LFTs
#pulmonary hypertension
- continue sildenafil
#Chronic HFpEF
- daily weights
- I & Os
- continue furosemide
- spironolactone on hold
#COPD / Emphysema / Pulmonary Fibrosis
chronic hypoxic respiratory failure, requires 5L of oxygen at home
- continue Wixela
#Hypothyroidism
- continue levothyroxine
#Coronary Artery Disease
s/p Stent
- continue aspirin
#Peripheral Arterial Disease
s/p Right Carotid Endarterectomy
#DVT/PE
- continue Xarelto
#Obesity
Hx gastric sleeve
- encourage balanced diet and exercise to promote weight loss
#Obstructive Sleep Apnea
CPAP at HS
#Essential Hypertension
#Hyperlipidemia
#Chronic Hypoxia
Code status: Full code
DVT prophylaxis: Xarelto
[2025-07-30] MEDS: REVATIO 20 MG PO (22:42)
--- NOTE | 2025-07-30 23:25 | PTCARENOTE ---
Pt arrived to unit from ED at 2155-pt pulled over to bed. Pt reports weakness in LE consistent with baseline prior to admission. Pt denies nausea, vomiting or diarrhea since arrival to hospital. Pt remains on 5L O2. VSS. Pt denies pain at this time.
Bed in lowest position and locked, call paul within reach, pt has no further complaints at this time.
[2025-07-31] VITALS (7 sets, daily range): BP systolic 96–140; BP diastolic 57–93; PULSE 88–101; O2SAT 89–90; BMI 30.1
[2025-07-31] MEDS: SYNTHROID 125 MCG PO (05:55)
[2025-07-31 06:07] LABS: Hematocrit 29.5 % (37.0-47.0); Hemoglobin 8.7 g/dL (12.0-16.0); Mean Corp Hgb Conc. 29.5 g/dL (33.0-37.0); Mean Corpuscular Volume 85.8 fL (81.0-99.0); Platelet Count 249 10^3/uL (130-400); Red Cell Dist. Width 19.5 % (11.5-14.5)
[2025-07-31 06:30] LABS: Blood Urea Nitrogen 45 mg/dl (7-17); Calcium 8.7 mg/dl (8.4-10.2); Carbon Dioxide 29 mmol/L (22-30); Chloride 99 mmol/L (98-107); Estimated Creatinine Clearance 39 ml/min; Glucose 82 mg/dl (70-99); Potassium 3.9 mmol/L (3.5-5.1); Sodium 132 mmol/L (135-145); eGFR 44.51
[2025-07-31] MEDS: ADVAIR HFA 45/21 MCG INHALER 2 PUFF INH ×2 (07:52→19:54)
[2025-07-31] MEDS: ASPIR LOW (ENTERIC COATED) 81 MG PO (08:52)
[2025-07-31] MEDS: ZOLOFT 50 MG PO (08:52)
[2025-07-31] MEDS: THERAGRAN 1 TABLET PO (08:52)
[2025-07-31] MEDS: REVATIO 20 MG PO ×3 (08:52→21:43)
[2025-07-31] MEDS: PROTONIX 40 MG PO (08:53)
[2025-07-31] MEDS: LASIX 40 MG PO (08:53)
[2025-07-31] MEDS: DELTASONE 10 MG PO (08:53)
[2025-07-31] MEDS: XARELTO 20 MG PO (08:53)
--- NOTE | 2025-07-31 11:35 | W.PN.HOSP.TC ---
Today's Communication/Plan
-
Following telemetry
Continued orthostatic blood pressure monitoring
Follow H&H closely
Hold Xarelto
Consult GI
Assessment / Plan
Assessment / Plan
#recurrent falls 2/2 deconditioning vs. AFTT vs. orthostatic hypotension from diarrhea/new medication
recent hospitalization 07/21/2025 - 07/27/2025, generalized weakness
C-Spine CT: No evidence of acute fracture or dislocation.
Head CT: No evidence of acute intracranial abnormality.
- Follow on telemetry to rule out any arrhythmias
- orthostatic VS
#recurrent diarrhea with blood in the stools
started during previous hospitalization 07/21/2025 - 07/27/2025
was started on Sildenafil
-Slow drop in H&H to 8.7 which is the lowest recorded will hold the Xarelto consult GI.
-Follow H&H
- stool cultures
- orthostatic VS
# Chronic kidney disease stage IIIa
- monitor BMP
#transaminitis
Tot bili 4.0, AST 42, ALT 57
Hepatitis panel neg. Routine USS Neg. Likely secondary to right heart failure/cor pulmonale
- monitor LFTs
#pulmonary hypertension
- continue sildenafil
#Chronic HFpEF
- daily weights
- I & Os
- continue furosemide
- spironolactone on hold
#COPD / Emphysema / Pulmonary Fibrosis
chronic hypoxic respiratory failure, requires 5L of oxygen at home
- continue Wixela
#Hypothyroidism
- continue levothyroxine
#Coronary Artery Disease
s/p Stent
- continue aspirin
#Peripheral Arterial Disease
s/p Right Carotid Endarterectomy
#DVT/PE
- Hold Xarelto due to bleeding
#Obesity
Hx gastric sleeve
- encourage balanced diet and exercise to promote weight loss
#Obstructive Sleep Apnea
CPAP at HS
#Essential Hypertension
#Hyperlipidemia
#Chronic Hypoxia
Code status: Full code
DVT prophylaxis: Seq teds starting tomorrow
Discussed with GI
Anticipated Discharge: > 48 hours
Subjective/Interval History
-
Date of Service: July 31, 2025
She feels generally weak.
That she has been feeling lightheaded at home. She fell down but do not think she passed out. Denies any chest pains or palpitations.
She does not do much strength she feels in her legs. Not sure if it has anything to do with the initiation of sildenafil.
She had loose stools while she was here in the hospital last week and not continued on at home but she is also seeing some pink blood in the stool.
Denies any shortness of breath. No fever or chills. No nausea vomiting.
Objective Data
-
Labs:
Laboratory Results
07/31/25 07/31/25
05:35 18:00
WBC 11.9 H
Hgb 8.7 L Pending
Hct 29.5 L Pending
Plt Count 249
Sodium 132 L
Potassium 3.9
Chloride 99
Carbon Dioxide 29
BUN 45 H
Creatinine 1.3 H
Glucose 82
Calcium 8.7
Vital Signs:
Vital Signs
Temp Pulse Resp BP Pulse Ox
97.8 F 95 18 122/71 98
07/31/25 07:00 07/31/25 08:53 07/31/25 07:57 07/31/25 08:53 07/31/25 09:57
Physical Exam
-
General: Comfortable
HEENT: Moist Mucous Membranes
Respiratory: Crackles (Bibasilar) and Non Labored Respirations; Negative Accessory Resp Muscle Use
Cardiac: Regular Rhythm and S1/S2; Negative Tachycardic
GI: Soft and Nontender
Musculoskeletal: Edema, Right Upper Extrem and Edema, Left Upper Extrem (1+)
Neuro: AO x 3
Psych: Calm
Data Reviewed
-
Labs: Labs Reviewed by me
--- NOTE | 2025-07-31 12:20 | CON.GI ---
Addendum entered and electronically signed by Jean Sales DO 07/31/25 14:39:
I saw and examined the patient.
The FORK ASSEMBLER's note was reviewed and I agree with the note.
Comment: Ms Chow is a 69 y.o female with an extensive past medical history as listed below and notable for HFpEF, CAD (s/p prior stent), severe pulmonary HTN, hx of DVT/PE, COPD on 5 L of O2 at baseline, PAD, CEA, hx of prior gastric sleeve
surgery, VISH on CPAP, and morbid obesity who presented to the ED after a mechanical fall. Has recent admission for an acute on chronic CHF exacerbation. Found to have elevated LFTs likely secondary to congestive hepatopathy as well. Now representing
with mechanical fall and weakness and drop in Hgb 8.7 for which GI has been consulted. Denies any melena or hematochezia prior to admission. Does note multiple looser brown stools with small amount of painless, red / pink tinged blood with wiping
but denies any blood clots or overt blood within toilet bowel. She is having brown bowel movements today without any overt GI bleeding and denies any prior history of GI bleeding in the past. Prior colon[facility] was [facility] no records of this. Currently, she clearly expressed to defer any plans for an EGD or Colonoscopy given her current clinical condition. Clinically, suspect her previous small volume rectal bleeding in setting of
hemorrhoids versus mucosal irritation from over wiping. This has now resolved and having brown stools. She does have risk factors for AVMs but seems less likely. Much less likely bleeding lesion/malignancy as last colonoscopy 2-3 years ago. Suspect
her anemia is likely multifactorial but again would defer any further endoscopic work-up at this time.
Recommendations:
- Diet as tolerated
- Follow-up rest of infectious stool studies, currently pending
- Trend Hgb with serial CBC, transfuse for goal Hgb > 8.0 given cardiac hx
- Trend down serial LFTs, suspect secondary to congestive hepatopathy
- If Hgb continues to drop, would recommend dry CT Abd/pelvis w/out contrast to exclude RP bleed given falls
- Favor holding a/c over next 24 hrs if Hgb stabilizes
- No plans for any EGD or Colonoscopy as without any further bleeding and per patient request as declining any further procedures at this time. Recommend close outpatient f/u with her primary GI at [facility] ([facility])
- Notify GI if patient were to experience recurrent GI bleeding
- Rest of care as outlined below
Discussed with primary internal medicine team. GI will sign-off, please re-contact with any questions or concerns.
Original Note:
Consultation
-
Date/Time Consultation Requested: 07/31/25 1130
Date/Time Consultation Performed: 07/31/25 1230
Requesting Provider: Kali Novak MD
Performing Provider: MARK Thapa, Jean Sales DO
Reason for Consultation: anemia/GI bleeding
Medical History
Chief Complaint / HPI
Chief Complaint: weakness and falls
History of Present Illness:
Pt is a 69yo with hx PE/ DVT on chronic Xarelto, lucio's per EGD 2007 (pt did not recall), CAD with prior stent, CHF, COPD with chronic 5 liter O2 at home, GERD, prior gastric sleeve, HTN, hyperlipidemia, hypothyroidism, prior PNA, PAD,
hypoxemia, pulm fibrosis, obesity, sleep apnea presents with fall. Pt with recent admission with acute on chronic CHF, severe pulm HTN, SHANNON and hyponatremia and transaminitis. Pt has also had chronic LFT's with concern for cardiac related process.
She is now noted with drop in hbg. She was noted with normal hbg 12-13 range in April then drop ot 10 last admission and now noted 8.7. She admits to chronic GERD on Omeprazole, rectal bleeding with small amount of blood with stool prior to
admission, diarrhea during last hospital stay and wt loss of about 50 lbs which she related to stress since her spouse . She was also noted with orthostasis with physical therapy today and admits to nausea with low blood pressors at times.
Pt currently denies odynophagia, dysphagia, vomiting, or black stools. hx colonoscopy 2007 with diverticulosis, congestion in colon 5 mm non bleeding polyp TC, non bleeding hemorrhoids. EGD 2007 with lucio's. Pt reports follow up last 2-3
years with [facility] and continued to follow with GI in that group.
Past Medical History
Past Medical History: CAD, CHF, COPD, GERD, HTN, Hypercholesterolemia, Hypothyroidism and Other (Pulm HTN, PE/ DVT, prior PNA, PAD, hypoxemia, pulm fibrosis, obesity, sleep apnea, lucio's per EGD 2007)
Past Surgical History: Cardiac (prior stent ), and Other (bariatric surgery - gastric sleeve 2012, right CEA)
Social History
Tobacco: Non-Smoker
Drug: None
Personal:
Living: Alone
Employment: Retired
Family History
Family History: Other
Allergies / Home Medications
Allergy/AdvReac Type Severity Reaction Status Date / Time
tape Allergy Unknown Uncoded 07/30/25 17:09
�Medication �Instructions �Recorded
aspirin 81 mg tablet,delayed 81 mg PO DAILY Blood Clot 10/13/24
release Prevention/Tx
levothyroxine 125 mcg tablet 125 mcg PO DAILY Thyroid 10/13/24
(Synthroid)
omeprazole 40 mg capsule,delayed 20 mg PO DAILY GERD 10/13/24
release
prednisone 10 mg tablet 10 mg PO DAILY INFLAMMATION 10/13/24
therapeutic multivitamin 1 tab PO DAILY Supplement 10/13/24
rivaroxaban 20 mg tablet (Xarelto) 20 mg PO DAILY Blood Clot 05/08/25
Prevention/Tx
sertraline 50 mg tablet 50 mg PO DAILY Mental Health 05/08/25
spironolactone 25 mg tablet 25 mg PO DAILY Heart Failure 05/08/25
Held on 07/27/25.
Instructions: Resume on
08/10/25. Resume after
discussion with cardiology on
follow up
fluticasone 100 mcg-salmeterol 50 1 inh inhalation BID 07/21/25
mcg/dose blistr powdr for Lung/Breathing Issues
inhalation (Wixela Inhub)
hydroxyzine HCl 25 mg tablet 25 mg PO HS PRN sleep 07/22/25
furosemide 40 mg tablet 40 mg PO DAILY Heart Failure #90 07/27/25
tabs
sildenafil (pulm.hypertension) 20 20 mg PO TID #90 tabs 07/27/25
mg tablet
Review of Systems
-
History Source: Patient
Constitutional: Reports Weight Loss and Fatigue
EENT: Reports No Symptoms
Respiratory: Reports Trouble Breathing and Other (chronic O2 )
Cardiac: Reports No Symptoms
Abdomen/GI: Reports Nausea, Diarrhea and Bloody Stools (small amount prior to admission)
: Reports No Symptoms
Musculoskeletal: Reports Other (recent falls)
Skin: Reports Other (bruising)
Neurological: Reports Weakness
Hematologic/Lymphatic: Reports Bleeding
Vital Signs
Temp Pulse Resp BP Pulse Ox
97.8 F 95 18 122/71 98
07/31/25 07:00 07/31/25 08:53 07/31/25 07:57 07/31/25 08:53 07/31/25 09:57
Physical Exam
Exam
General: Other (chronic ill appearing, slight shortness of breath with working with PT)
HEENT: Normocephalic and Other (slight jaundice )
Respiratory: Other (decreased )
Cardiac: Regular Rhythm
GI: Soft, Non Tender and Non Distended
Rectal: Brown, Hem Positive and Other (soft formed stool in rectal vault heme neg -registered nursing professor assist with rectal exam )
Musculoskeletal: No Clubbing and No Cyanosis
Skin: Warm, Dry and Other (marked bruising throughout back, face, arms )
Neuro: Awake, Alert and AO x 3
Psych: Calm
Results
WBC 11.9 10^3/uL (4.8-10.8) H 07/31/25 05:35
Hgb 8.7 g/dL (12.0-16.0) L 07/31/25 05:35
Hct 29.5 % (37.0-47.0) L 07/31/25 05:35
MCV 85.8 fL (81.0-99.0) 07/31/25 05:35
Plt Count 249 10^3/uL (130-400) 07/31/25 05:35
Absolute Neuts (auto) 11.3 10^3/uL (1.4-6.5) H 07/30/25 17:46
Sodium 132 mmol/L (135-145) L 07/31/25 05:35
Potassium 3.9 mmol/L (3.5-5.1) 07/31/25 05:35
Chloride 99 mmol/L (98-107) 07/31/25 05:35
Carbon Dioxide 29 mmol/L (22-30) 07/31/25 05:35
BUN 45 mg/dl (7-17) H 07/31/25 05:35
Creatinine 1.3 mg/dL (0.6-1.0) H 07/31/25 05:35
Calcium 8.7 mg/dl (8.4-10.2) 07/31/25 05:35
Total Bilirubin 4.0 mg/dl (0.2-1.3) H 07/30/25 17:46
AST 42 U/L (14-36) H 07/30/25 17:46
ALT 57 U/L (0-35) H 07/30/25 17:46
Alkaline Phosphatase 111 U/L (38-126) 07/30/25 17:46
Diagnostic Image Results:
US Abdomen Complete/Upper
1. No acute intra-abdominal process identified sonographically.
2. Limited evaluation of midline structures secondary to overlying bowel gas as above.
3. Cholelithiasis.
Prior GI Procedures:
EGD:2007 [facility] - Esophageal mucosal changes suspicious for
short-segment Lucio's esophagus.
- Gastritis.
- No gross lesions in duodenum.
bx + lucio's
Colonoscopy: 2007 [facility] - Diverticulosis sigmoid colon and descending colon.
- Congested mucosa in the colon.
- A 5 mm, non-bleeding polyp in the transverse colon,
proximal. Resected and retrieved.
- Internal, non bleeding, mild hemorrhoids were found.
2-3 years ago normal HR[facility] ? repeated EGD in past
Assessment / Plan
-
Pt is a 69yo with hx PE/ DVT on chronic Xarelto, lucio's per EGD 2007 (pt did not recall), CAD with prior stent, CHF, COPD with chronic 5 liter O2 at home, GERD, prior gastric sleeve, HTN, hyperlipidemia, hypothyroidism, prior PNA, PAD,
hypoxemia, pulm fibrosis, obesity, sleep apnea presents with fall. Pt with recent admission with acute on chronic CHF, severe pulm HTN, SHANNON and hyponatremia and transaminitis. Pt has also had chronic LFT's with concern for cardiac related process.
She is now noted with drop in hbg. She was noted with normal hbg 12-13 range in April then drop ot 10 last admission and now noted 8.7. She admits to chronic GERD on Omeprazole, rectal bleeding with small amount of blood with stool prior to
admission, diarrhea during last hospital stay and wt loss of about 50 lbs which she related to stress since her spouse . She was also noted with orthostasis with physical therapy today and admits to nausea with low blood pressors at times.
Pt currently denies odynophagia, dysphagia, vomiting, or black stools. hx colonoscopy 2007 with diverticulosis, congestion in colon 5 mm non bleeding polyp TC, non bleeding hemorrhoids. EGD 2007 with lucio's. Pt reports follow up last 2-3
years with [facility] and continued to follow with GI in that group.
-anemia with progressive drop in hbg since April
-recent diarrhea- soft stool in rectal exam
-PE/DVT on chronic Xarelto
-falls with multiple bruises
-orthostasis with PT
-recent admit with acute on chronic CHF, severe pulm HTN, SHANNON and hyponatremia and transaminitis
-hx gastric sleeve
-increased LFT's possible secondary to cardiac congestion
-SHANNON on admission
-wt loss
other med problems:
lucio's per EGD 2007 (pt did not recall), CAD with prior stent, CHF, COPD with chronic 5 liter O2 at home, GERD, HTN, hyperlipidemia, hypothyroidism, prior PNA, PAD, hypoxemia, pulm fibrosis, obesity, sleep apnea
PLAN:
etiology of anemia related slow GI loss-- currently heme + brown stool on exam-- no aggressive GI loss, vs prior gastric sleeve related, vs other
if continued drop consider CT to eval for RP bleed with hx multiple fall
reviewed with patient for EGD/colon -- with multiple medical issues pt declines to proceed
trend hbg, transfuse as needed - consider OP heme to follow
pt remains on Xarelto
LFt elevated likely secondary to cardiac disease as noted higher last admission
monitor for diarrhea - c-diff neg stool cx pending -- pt newly started Sildenafil per up to date 9-12 % diarrhea risk
OP follow up with known GI at [facility]
-
-
Thank you for consultation and allowing me to participate in the patient's care. Please call the distribution sales representative GI physician during the after hours with any questions or concerns.
--- NOTE | 2025-07-31 12:26 | CM ---
Addendum entered by Deshawn Carvajal 07/31/25 16:11:
CM spoke to [facility] business unit director and she confirmed that pt is accepted for admission when medically stable.
Addendum entered by Deshawn Carvajal 07/31/25 15:14:
Requested pt's clinical from last admission 07/21/24-07/27/25 faxed to [facility] [phone]
Original Note:
CM following re: discharge planning.
Reviewed pt's chart, met with pt and spoke to pt's daughter Coby over the phone.
Pt is a 69 year old female, admitted with OBS status and primary dx of recurrent falls 2/2 deconditioning vs. AFTT vs. orthostatic hypotension from diarrhea. OBS status reviewed with the pt and her daughter, [facility] letter signed, placed on chart, pt
has a copy.
Pt reports she lives alone in a rancher style house, no steps, has 2 supportive children, ambulates with a walker, has home O2, 5L NC at baseline. Pt requested to go to a SNF for a short term rehab and pt asked to discuss SNF options with her
daughter Coby who is [facility] and [facility]. Pt stated she understands OBS status and pt stated she was here in the beginning of July this year, was staying more than 3 days and she can use those days for qualification for SNF level of care.
CM confirmed pt admission from 07/21/25 till 07/27/25. pt stated she went home last admission and it was her mistake, she needs to go to a SNF.
CM spoke to rogerio Tenorio [phone] and she requested following SNFs: [facility], [facility], [facility], [facility] and [facility]. Pt stated she already spoke to [facility] business unit director Ondina and she confirmed
they do have a bed available and they just need pt's clinical. A referral to above SNFs made.
PT and OT will evaluate the pt to determine a level of care at discharge.
D/C plan: preferred SNF.
CM will follow to assist pt with discharge to a preferred SNF.
[2025-07-31 13:16] LABS: Urine Character Clear (Clear)
[2025-07-31 14:25] LABS: Urine Squamous Cell 0-2 /LPF (Few)
[2025-07-31 14:26] LABS: Urine Red Blood Cell 0-2 /HPF (0-2); Urine White Cell 26-30 /HPF (0-5)
[2025-08-01] VITALS (7 sets, daily range): BP systolic 102–124; BP diastolic 61–81; PULSE 84–97; BMI 30.6
[2025-08-01] MEDS: SYNTHROID 125 MCG PO (05:16)
[2025-08-01] MEDS: ADVAIR HFA 45/21 MCG INHALER 2 PUFF INH ×2 (07:57→19:33)
[2025-08-01 08:09] LABS: Hematocrit 31.4 % (37.0-47.0); Hemoglobin 9.0 g/dL (12.0-16.0); Mean Corp Hgb Conc. 28.7 g/dL (33.0-37.0); Mean Corpuscular Volume 86.7 fL (81.0-99.0); Platelet Count 284 10^3/uL (130-400); Red Cell Dist. Width 19.7 % (11.5-14.5)
[2025-08-01] MEDS: ZOLOFT 50 MG PO (09:32)
[2025-08-01] MEDS: DELTASONE 10 MG PO (09:32)
[2025-08-01] MEDS: ASPIR LOW (ENTERIC COATED) 81 MG PO (09:32)
[2025-08-01] MEDS: LASIX 40 MG PO (09:32)
[2025-08-01] MEDS: REVATIO 20 MG PO ×3 (09:32→22:34)
[2025-08-01] MEDS: THERAGRAN 1 TABLET PO (09:32)
[2025-08-01] MEDS: PROTONIX 40 MG PO (09:32)
--- NOTE | 2025-08-01 12:12 | W.PN.HOSP.TC ---
Today's Communication/Plan
-
Started midodrine
Resume Xarelto and follow H&H
Will ask primary tugboat engineer on Sunday regarding role of use of aspirin while on Xarelto.
Assessment / Plan
Assessment / Plan
#recurrent falls 2/2 deconditioning vs. AFTT vs. orthostatic hypotension from diarrhea/new medication
recent hospitalization 07/21/2025 - 07/27/2025, generalized weakness
C-Spine CT: No evidence of acute fracture or dislocation.
Head CT: No evidence of acute intracranial abnormality.
- Follow on telemetry to rule out any arrhythmias
- cw orthostatic VS
# Orthostatic hypotension
Patient already on steroids so doubt adrenal insufficiency. TSH was normal recently.
Sildenafil was recently started which can play some role
Start midodrine
#recurrent diarrhea with blood in the stools
started during previous hospitalization 07/21/2025 - 07/27/2025
was started on Sildenafil
-Slow drop in H&H to 8.7 which is the lowest recorded but repeat shows stability
- Appt GI input
- No further blood in stools and color is brown
- Resume Xarelto ;will follow HH
- Will check with Cards re: role of asa and xarelto
# Chronic kidney disease stage IIIa
- monitor BMP
#transaminitis
Tot bili 4.0, AST 42, ALT 57
Hepatitis panel neg. Routine USS Neg. Likely secondary to right heart failure/cor pulmonale
- monitor LFTs
#pulmonary hypertension
- continue sildenafil
#Chronic HFpEF
- daily weights
- I & Os
- continue furosemide
- spironolactone on hold
#COPD / Emphysema / Pulmonary Fibrosis
chronic hypoxic respiratory failure, requires 5L of oxygen at home
- continue Wixela
#Hypothyroidism
- continue levothyroxine
#Coronary Artery Disease
s/p Stent
- continue aspirin
#Peripheral Arterial Disease
s/p Right Carotid Endarterectomy
#DVT/PE
- Resume Xarelto due to bleeding
#Obesity
Hx gastric sleeve
- encourage balanced diet and exercise to promote weight loss
#Obstructive Sleep Apnea
CPAP at HS
#Essential Hypertension
#Hyperlipidemia
#Chronic Hypoxia
Code status: Full code
DVT prophylaxis: Xarelto
Anticipated Discharge: > 48 hours
Subjective/Interval History
-
Date of Service: August 01, 2025
Feels dizzy with standing.
Denies any shortness of breath. Positive cough. No chest pain. No palpitations.
She was noticing dizziness even before she went on sildenafil
Objective Data
-
Labs:
Laboratory Results
08/01/25
06:32
WBC 13.4 H
Hgb 9.0 L
Hct 31.4 L
Plt Count 284
Vital Signs:
Vital Signs
Temp Pulse Resp BP Pulse Ox
97.7 F 90 16 124/81 96
08/01/25 10:58 08/01/25 10:58 08/01/25 10:58 08/01/25 10:58 08/01/25 10:58
I&O
07/31/25 08/01/25 08/02/25
06:59 06:59 06:59
Intake Total 1140 / 1140
Output Total 440 / 440
Balance 700 / 700
Physical Exam
-
General: Comfortable
Respiratory: Crackles (Bibasilar) and Non Labored Respirations; Negative Wheezes or Accessory Resp Muscle Use
Cardiac: Regular Rhythm and S1/S2; Negative Tachycardic
GI: Soft
Musculoskeletal: Edema, Right Lower Extrem and Edema, Left Lower Extrem
Neuro: AO x 3
Psych: Calm
Data Reviewed
-
Labs: Labs Reviewed by me
[2025-08-02 03:21] VITALS: BP 118/78
[2025-08-02] MEDS: SYNTHROID 125 MCG PO (05:28)
[2025-08-02 06:00] VITALS: BMI 30.6
[2025-08-02 06:56] LABS: Hematocrit 30.0 % (37.0-47.0); Hemoglobin 8.5 g/dL (12.0-16.0); Mean Corp Hgb Conc. 28.3 g/dL (33.0-37.0); Mean Corpuscular Volume 87.2 fL (81.0-99.0); Platelet Count 223 10^3/uL (130-400); Red Cell Dist. Width 19.8 % (11.5-14.5)
[2025-08-02 07:00] VITALS: BP 124/74
[2025-08-02] MEDS: ADVAIR HFA 45/21 MCG INHALER 2 PUFF INH ×2 (07:46→17:55)
[2025-08-02] MEDS: PROTONIX 40 MG PO (07:53)
[2025-08-02] MEDS: ASPIR LOW (ENTERIC COATED) 81 MG PO (07:53)
[2025-08-02] MEDS: LASIX 40 MG PO (07:53)
[2025-08-02] MEDS: REVATIO 20 MG PO ×3 (07:53→23:02)
[2025-08-02] MEDS: THERAGRAN 1 TABLET PO (07:53)
[2025-08-02] MEDS: DELTASONE 10 MG PO (07:54)
[2025-08-02] MEDS: ZOLOFT 50 MG PO (07:54)
--- NOTE | 2025-08-02 10:34 | W.PN.HOSP.TC ---
Today's Communication/Plan
-
Continue with midodrine.
Resume Xarelto.
Check with primary cardiology on Sunday regarding the role of aspirin use while on anticoagulation.
Follow H&H.
Assessment / Plan
Assessment / Plan
#recurrent falls 2/2 deconditioning vs. AFTT vs. orthostatic hypotension from diarrhea/new medication
recent hospitalization 07/21/2025 - 07/27/2025, generalized weakness
C-Spine CT: No evidence of acute fracture or dislocation.
Head CT: No evidence of acute intracranial abnormality.
- Follow on telemetry to rule out any arrhythmias
- cw orthostatic VS
# Orthostatic hypotension
Patient already on steroids so doubt adrenal insufficiency. TSH was normal recently.
Sildenafil was recently started which can play some role
Started midodrine-continue and uptitrate as needed
#recurrent diarrhea with blood in the stools
started during previous hospitalization 07/21/2025 - 07/27/2025
was started on Sildenafil
-Patient now with loose stools but not frequent. Had 2 yesterday. No blood seen.
- Appt GI input
- No further blood in stools and color is brown
- Resume Xarelto ;will follow HH
- Will check with primary cardiology re: role of asa and xarelto
# Chronic kidney disease stage IIIa
- monitor BMP
#transaminitis
Tot bili 4.0, AST 42, ALT 57
Hepatitis panel neg. Routine USS Neg. Likely secondary to right heart failure/cor pulmonale
- monitor LFTs
#pulmonary hypertension
- continue sildenafil
#Chronic HFpEF
- daily weights
- I & Os
- continue furosemide
- spironolactone on hold
#COPD / Emphysema / Pulmonary Fibrosis
chronic hypoxic respiratory failure, requires 5L of oxygen at home
- continue Wixela
#Hypothyroidism
- continue levothyroxine
#Coronary Artery Disease
s/p Stent
- continue aspirin
#Peripheral Arterial Disease
s/p Right Carotid Endarterectomy
#DVT/PE
- Resume Xarelto due to bleeding
#Obesity
Hx gastric sleeve
- encourage balanced diet and exercise to promote weight loss
#Obstructive Sleep Apnea
CPAP at HS
#Essential Hypertension
#Hyperlipidemia
#Chronic Hypoxia
Code status: Full code
DVT prophylaxis: Xarelto
Anticipated Discharge: Within 24 hours
Subjective/Interval History
-
Date of Service: August 02, 2025
Care of this morning to go to the bathroom with help. Denies any dizziness during the trip to the bathroom.
Voicing no new specific complaints.
Denies shortness of breath or chest pain.
No nausea vomiting.
Objective Data
-
Labs:
Laboratory Results
08/02/25
06:30
WBC 11.5 H
Hgb 8.5 L
Hct 30.0 L
Plt Count 223 D
Vital Signs:
Vital Signs
Temp Pulse Resp BP Pulse Ox
97.3 F 83 18 124/74 94
08/02/25 07:00 08/02/25 07:50 08/02/25 07:50 08/02/25 07:00 08/02/25 07:50
I&O
08/01/25 08/02/25 08/03/25
06:59 06:59 06:59
Intake Total 1140 / 1140 480 / 480
Output Total 440 / 440
Balance 700 / 700 480 / 480
Physical Exam
-
General: Comfortable
Respiratory: Crackles (Bibasilar) and Non Labored Respirations; Negative Wheezes or Accessory Resp Muscle Use
Cardiac: Regular Rhythm and S1/S2; Negative Tachycardic
GI: Soft
Neuro: AO x 3
Psych: Calm; Negative Confused
Data Reviewed
-
Labs: Labs Reviewed by me
[2025-08-02 10:59] VITALS: BP 88/59; BP 96/53; BP 99/65; PULSE 91; PULSE 94; PULSE 95
[2025-08-02 15:00] VITALS: BP 94/64
[2025-08-02 19:00] VITALS: BP 95/60
[2025-08-02 23:00] VITALS: BP 105/62; BP 117/59; BP 140/105; PULSE 73; PULSE 91; PULSE 93
[2025-08-03 03:00] VITALS: BP 119/63
[2025-08-03 04:43] VITALS: BMI 30.6
[2025-08-03] MEDS: SYNTHROID 125 MCG PO (05:00)
[2025-08-03 07:00] VITALS: BP 106/65
[2025-08-03 07:26] LABS: Hematocrit 31.6 % (37.0-47.0); Hemoglobin 9.0 g/dL (12.0-16.0); Mean Corp Hgb Conc. 28.5 g/dL (33.0-37.0); Mean Corpuscular Volume 86.6 fL (81.0-99.0); Platelet Count 245 10^3/uL (130-400); Red Cell Dist. Width 19.9 % (11.5-14.5)
[2025-08-03] MEDS: ADVAIR HFA 45/21 MCG INHALER 2 PUFF INH (07:35)
[2025-08-03 08:19] LABS: Blood Urea Nitrogen 36 mg/dl (7-17); Calcium 8.8 mg/dl (8.4-10.2); Carbon Dioxide 33 mmol/L (22-30); Chloride 99 mmol/L (98-107); Estimated Creatinine Clearance 51 ml/min; Glucose 78 mg/dl (70-99); Potassium 3.4 mmol/L (3.5-5.1); Sodium 135 mmol/L (135-145); eGFR > 60.00
[2025-08-03] MEDS: XARELTO 20 MG PO (09:20)
[2025-08-03] MEDS: ASPIR LOW (ENTERIC COATED) 81 MG PO (09:20)
[2025-08-03] MEDS: THERAGRAN 1 TABLET PO (09:21)
[2025-08-03] MEDS: ZOLOFT 50 MG PO (09:21)
[2025-08-03] MEDS: DELTASONE 10 MG PO (09:21)
[2025-08-03] MEDS: REVATIO 20 MG PO ×2 (09:21→16:20)
[2025-08-03] MEDS: PROTONIX 40 MG PO (09:21)
[2025-08-03] MEDS: LASIX PO (09:28)
[2025-08-03] MEDS: KCL 40 MEQ PO (09:40)
[2025-08-03] MEDS: LASIX 40 MG PO (10:00)
[2025-08-03 10:15] VITALS: BP 102/72; BP 114/52; PULSE 89; O2SAT 96
[2025-08-03 11:00] VITALS: BP 120/78
--- NOTE | 2025-08-03 11:44 | W.PN.HOSP.TC ---
Addendum entered and electronically signed by Wilson Mobley MD 08/03/25 12:25:
Spoke to . Updated.
Low threshold to stop asa as she has carotid disease and stent in 2021.
No active bleeding now. So will continue both.
Addendum entered and electronically signed by Wilson Mobley MD 08/03/25 11:57:
Left a message for at [facility]
Original Note:
Today's Communication/Plan
-
Discharge to rehab
Assessment / Plan
Assessment / Plan
69-year-old female was recently admitted here with shortness of breath. Patient was diagnosed with severe pulmonary hypertension she had a right heart cath. She was started on sildenafil. Patient was discharged on 07/28/2025 and readmitted on
07/30/2025. She also had gelatinous red bowel movement and felt weak and lowered herself to the floor.
07/24/2025-right heart catheterization-elevated right-sided filling pressure and severe precapillary pulmonary hypertension with severely decreased cardiac output. PA pressure 86/43. Wedge 14 mmHg
Echo 06/11/2025-technically difficult study. LV normal in size and wall thickness. EF 65%. Grade 1 diastolic dysfunction. RV is moderately dilated and mildly hypokinetic. Tricuspid valve is normal. Leaflets have adequate excursion. Trivial TR.
RV systolic pressure 78 mmHg.
Ultrasound of the abdomen-no acute intra-abdominal process. Limited evaluation of the midline structures secondary to overlying bowel gas. Cholelithiasis
C-Spine CT: No evidence of acute fracture or dislocation.
Head CT: No evidence of acute intracranial abnormality.
Ecchymosis right side of face and other areas of the skin
Cardiovascular system S1-S2 appreciated, systolic murmur right heart border
Chest clear to auscultation
Trace pedal edema bilaterally
# Deconditioning/fall
Possibly secondary to orthostatic hypotension from the diarrhea and also from starting Revatio
Midodrine started
# Diarrhea with gelatinous red stool
Stool studies negative for C. difficile and cultures
Per GI note prior colonoscopy 2 to 3 years ago at [facility] was reportedly normal.
Patient was seen by GI no plans for EGD or colonoscopy this admission. Outpatient follow-up with GI at [facility]
# Abnormal urinalysis-likely secondary to patient's diarrhea. Urine cultures with mixed growth
# Acute kidney injury on CKD stage III AA
# Transaminitis-ultrasound was unremarkable last admission. Hepatitis panel negative. Likely secondary to chronic right heart failure/pulmonary hypertension/cor pulmonale. Stable. Outpatient follow-up with GI
# Severe pulmonary hypertension-started on Revatio on 07/25/25
# Chronic HFpEF-recent EF 65%
Continue Lasix and Aldactone
Not on SGLT2 inhibitor -needs to look into this as outpatient
# Hyponatremia-improved
# Hypokalemia-replace
# Coronary disease with history of stent 2021
# MRNM-utypqvg-otmqptqni and also chronic hypoxic respiratory failure on 5 L of oxygen.Continue Wixela requirement
# Anemia of chronic disease-check iron studies-pending
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
# Hypothyroidism-continue levothyroxine 125 mcg daily
# Peripheral artery disease with history of right carotid endarterectomy
# Depression-continue sertraline
# GERD-continue PPI
# Sleep apnea-CPAP
# Cholelithiasis
# Obesity with a BMI of 30-history of gastric sleeve procedure
# Ex-smoker
# DVT prophylaxis-Xarelto
# Full code
Discussed with daughter
Discussed with nursing
Discussed with case management
More than 30 minutes spent in discharge including
Final examination of the patient
Summarizing hospital stay
Instructions for continuing care to all relevant caregivers
Preparation of discharge records, prescriptions, and referral forms
Part of this note was created using voice recognition system. Occasional wrong word or��sound alike� substitutions may have inadvertently occurred due to the inherent limitations of voice recognition software. If noted kindly bring it to my
attention for correction.
Anticipated Discharge: Today
Subjective/Interval History
-
Date of Service: August 03, 2025
Objective Data
-
Labs:
Laboratory Results
08/03/25
07:05
WBC 11.9 H
Hgb 9.0 L
Hct 31.6 L
Plt Count 245
Sodium 135
Potassium 3.4 L
Chloride 99
Carbon Dioxide 33 H
BUN 36 H
Creatinine 1.0
Glucose 78
Calcium 8.8
Vital Signs:
Vital Signs
Temp Pulse Resp BP Pulse Ox
97.8 F 91 14 106/65 90
08/03/25 07:00 08/03/25 09:20 08/03/25 07:47 08/03/25 09:20 08/03/25 07:47
I&O
08/02/25 08/03/25 08/04/25
06:59 06:59 06:59
Intake Total 480 / 480 960 / 960
Balance 480 / 480 960 / 960
--- NOTE | 2025-08-03 13:06 | CM ---
CM following re: discharge planning.
Reviewed pt's chart, met with pt and spoke to pt's daughter Coby over the phone to update on discharge plan progress.
According to pt is medically stable to be discharged today. Both pt and her daughter are aware and they preferred [facility]. Pt still OBS status.
CM spoke to [facility] director of adult epilepsy and she confirmed that pt is accepted for admission today.
[facility] to arrange ambulance transport BLS. [facility] completed and left with [facility].
[facility] nursing report: [phone]
Discharge instructions fax: [phone]
D/C plan: [facility]
--- NOTE | 2025-08-03 13:32 | W.DS.TRANS ---
Addendum entered and electronically signed by Wilson Mobley MD 08/03/25 17:00:
Dictation- [id number]
Original Note:
DC Summary - Numerical Control Programmer
-
Discharge Instructions:
Discharge Diagnosis/Procedures Deconditioning
Acute kidney injury-CKD stage III
Chronic transaminitis
Severe pulmonary hypertension
Chronic HFpEF
Hyponatremia
Hypokalemia
Coronary disease
COPD
Anemia
History of DVT and PE
Hypothyroidism
Peripheral artery disease
Depression
GERD
Sleep apnea
Cholelithiasis
Ex-smoker
Diet 2 Gram Sodium,Restrict fluids to 64 oz
Activity As tolerated
Driving Restrictions No driving
Blood Work BMP -3 days
Other Services PT,OT
Specialty Instructions Weigh Daily
Instructions:
Stand-Alone Forms:
Changes to Home Medications: Yes
Discharge Medications:
DC Medications w/original date entered in [facility]
aspirin 81 mg tablet,delayed release 81 mg PO DAILY Blood Clot Prevention/Tx 10/13/24
levothyroxine 125 mcg tablet (Synthroid) 125 mcg PO DAILY Thyroid 10/13/24
omeprazole 40 mg capsule,delayed release 20 mg PO DAILY GERD 10/13/24
prednisone 10 mg tablet 10 mg PO DAILY INFLAMMATION 10/13/24
therapeutic multivitamin 1 tab PO DAILY Supplement 10/13/24
rivaroxaban 20 mg tablet (Xarelto) 20 mg PO DAILY Blood Clot Prevention/Tx 05/08/25
sertraline 50 mg tablet 50 mg PO DAILY Mental Health 05/08/25
spironolactone 25 mg tablet 25 mg PO DAILY Heart Failure 05/08/25
fluticasone 100 mcg-salmeterol 50 mcg/dose blistr powdr for inhalation (Wixela Inhub) 1 inh inhalation BID Lung/Breathing Issues 07/21/25
hydroxyzine HCl 25 mg tablet 25 mg PO HS PRN sleep 07/22/25
furosemide 40 mg tablet 40 mg PO DAILY Heart Failure #90 tabs 07/27/25
midodrine 5 mg tablet 5 mg PO TID@0800,1300,1800 Blood pressure #0 tabs 08/03/25
sildenafil (pulm.hypertension) 20 mg tablet 20 mg PO TID pulm htn #90 tabs 08/03/25
Home Medication Changes
midodrine new
Pending Results: Yes
Additional Pending Results:
iron and B12
[2025-08-03 15:00] VITALS: BP 107/68; BP 118/71; BP 125/82; PULSE 89; PULSE 91; PULSE 95
[2025-08-03 15:51] LABS: Iron 42 ug/dl (37-170)
[2025-08-03 16:02] LABS: Total Iron Binding Capacity 358 ug/dl (265-497)
[2025-08-03 16:26] LABS: Ferritin 76.7 ng/ml (11.1-264.0)
[2025-08-03 16:41] LABS: Vitamin B12 884 pg/ml (239-931)
== END 2025-08-03 17:45 ==
LOC: 2 NORTH 21:40
PROVIDERS: Internal Medicine; Nurse Practitioner; Nurse Practitioner Family; ADMITTING PHYSICIAN Hospitalist; ATTENDING PHYSICIAN Hospitalist; CONSULT PHYSICIAN Student in an Organized Health Care Education/Training Program; EMERGENCY PHYSICIAN Emergency Medicine; FAMILY PHYSICIAN Family Medicine
DX: R53.1 Weakness (principal); I27.20 Pulmonary hypertension, unspecified; I25.10 Atherosclerotic heart disease of native coronary artery without angina pectoris; S51.812A Laceration without foreign body of left forearm, initial encounter; W01.0XXA Fall on same level from slipping, tripping and stumbling without subsequent striking against object, initial encounter; I13.0 Hypertensive heart and chronic kidney disease with heart failure and stage 1 through stage 4 chronic kidney disease, or unspecified chronic kidney disease; I50.32 Chronic diastolic (congestive) heart failure; J43.9 Emphysema, unspecified; J96.11 Chronic respiratory failure with hypoxia; D64.9 Anemia, unspecified; E03.9 Hypothyroidism, unspecified; E66.9 Obesity, unspecified; Z68.30 Body mass index [BMI] 30.0-30.9, adult; R19.7 Diarrhea, unspecified; E87.1 Hypo-osmolality and hyponatremia; E87.6 Hypokalemia; F32.A Depression, unspecified; G47.33 Obstructive sleep apnea (adult) (pediatric); I73.9 Peripheral vascular disease, unspecified; I95.1 Orthostatic hypotension; J84.10 Pulmonary fibrosis, unspecified; K21.9 Gastro-esophageal reflux disease without esophagitis; K57.30 Diverticulosis of large intestine without perforation or abscess without bleeding; K80.20 Calculus of gallbladder without cholecystitis without obstruction; N17.9 Acute kidney failure, unspecified; N18.31 Chronic kidney disease, stage 3a; Z79.52 Long term (current) use of systemic steroids; Z79.899 Other long term (current) drug therapy; Z79.01 Long term (current) use of anticoagulants; R74.01 Elevation of levels of liver transaminase levels; Z87.891 Personal history of nicotine dependence; K92.1 Melena; R29.6 Repeated falls; Z79.890 Hormone replacement therapy
CPT/HCPCS: 70450; 72125; 80048; 80053; 81003; 81015; 82550; 82607; 82728; 83540; 83550; 85025; 85027; 87045; 87046; 87077; 87086; 87324; 87427; 87449; 94640; 97116; 97163; 97166; 97530; 97535; 99284; G0378

== ENCOUNTER 2025-08-26 16:43 | Inpatient (IN) | payer MEDICARE, OTHER, SELFPAY ==
[2025-08-26] VITALS (27 sets, daily range): BP systolic 72–157; BP diastolic 41–116; BMI 31.3
[2025-08-26 11:42] LABS: Hematocrit 32.6 % (37.0-47.0); Hemoglobin 9.7 g/dL (12.0-16.0); Mean Corp Hgb Conc. 29.8 g/dL (33.0-37.0); Mean Corpuscular Volume 81.5 fL (81.0-99.0); Nucleated Red Blood Cells % 5.9 %; Platelet Count 312 10^3/uL (130-400); Red Cell Dist. Width 20.3 % (11.5-14.5)
[2025-08-26 11:48] LABS: COVID-19 Antigen Negative (Negative)
[2025-08-26 12:06] LABS: ALT (SGPT) 163 U/L (0-35); AST (SGOT) 87 U/L (14-36); Albumin 3.8 g/dl (3.5-5.0); Alkaline Phosphatase 163 U/L (38-126); Blood Urea Nitrogen 68 mg/dl (7-17); Calcium 9.6 mg/dl (8.4-10.2); Carbon Dioxide 26 mmol/L (22-30); Chloride 95 mmol/L (98-107); Estimated Creatinine Clearance 34 ml/min; Glucose 109 mg/dl (70-99); Lipase 82 U/L (23-300); Potassium 4.0 mmol/L (3.5-5.1); Sodium 131 mmol/L (135-145); Total Protein 6.9 g/dl (6.3-8.2); eGFR 37.26
[2025-08-26] MEDS: NSS 500 IV (13:00)
[2025-08-26] MEDS: ZOFRAN 4 MG IV (13:39)
[2025-08-26] MEDS: NSS 1000 IV (14:15)
[2025-08-26 14:21] LABS: Urine Character Clear (Clear)
--- NOTE | 2025-08-26 14:24 | ED.GENMED ---
History of Present Illness
General
Chief Complaint: Abdominal Pain
Source: patient
Exam Limitations: none
Time Seen by Provider: 08/26/25 12:23
History of Present Illness
History of Present Illness:
Patient started last evening with abdominal pain nausea and vomiting. Some mild diarrhea. No fever. No chest pain or shortness of breath. Family states patient has been ill for 2 to 3 days.
Past History
Past History
ED Past Medical History: COPD, HTN, Hypercholesterolemia, Hypothyroidism and Other (PE/DVT on Xarelto)
ED Past Surgical History: Cardiac (stent, R carotid endarterectomy), and Other (gastric sleeve)
Social History
Tobacco: Former smoker
Personal: Single
Living: alone
Review of Systems
Review of Systems
All Other Systems: Not applicable
Constitutional: Denies fever
Respiratory: Reports no symptoms
Cardiac: Reports no symptoms
Phy Exam
Physical Exam
Physical Exam:
GENERAL: Alert and oriented
EYE: Orbits normal.
NECK: Supple, no significant adenopathy.
ENT: Pharynx without erythema
CARDIAC: Regular rate and rhythm without any obvious murmurs.
LUNGS: Clear breath sounds,normal
ABDOMEN: Soft, without focal tenderness or distention
NEUROLOGICAL: Alert and oriented , grossly non-focal
SKIN: Warm and dry, no rash or lesion, no discoloration, skin intact.
MUSCULOSKELETAL: No edema,no deformity.Good color
PSYCH: Normal and appropriate interaction.
Course
Orders/Labs/Results
Orders:
Orders
08/26/25 Breakfast
NPO
Allow oral meds: Yes
NPO Except Meds: Yes
Allow clear liquids: No
Sips of clear liquids: No
08/26/25 11:08
Electrocardiogram (*1) Urgent
Reason for Study: Abdominal Pain
EKG- Treatment ONCE
08/26/25 11:16
Complete Blood Count/With Diff Urgent
Comprehensive Metabolic Panel Urgent
Lipase Urgent
Magnesium Urgent
Comment: ADD ON
Phosphorus Urgent
Comment: ADD ON
08/26/25 11:21
COVID-19 Antigen Urgent
Source: Nasal Swab
Influenza A+B Rapid Molecular Urgent
EVITA Source: Nasal Swab
Specimen Description:
08/26/25 12:51
CT Abd/pel Without Iv Or Oral Urgent
Comment:
Reason For Exam: Vomiting/lower abdominal pain
IV Insert/Care/Rem.- Treatment PRN
Straight cath- Treatment ONCE
0.9% Sodium Chloride 500 ml [Nss] 500 ml IV BOLUS
Ondansetron Injectable [Zofran] 4 mg IV NOW STA
08/26/25 13:41
Lactic Acid Q4H
Comment: CANCEL 2nd LACTIC ACID IF 1st LACTIC ACID IS LESS THAN 2
Blood Culture Q30M
EVITA Source: Blood/Venous
Specimen Description:
08/26/25 13:44
Blood Culture Q30M
EVITA Source: Blood/Venous
Specimen Description:
08/26/25 14:04
Urinalysis Reflex To Culture Urgent
Date Specimen was Collected: 08/26/25
Time Specimen was Collected: 13:49
Urine Microscopic Reflex Cult Urgent
Urine Culture Urgent
VEITA Source: U
Specimen Description:
Date Specimen was Collected: 08/26/25
Time Specimen was Collected: 13:49
08/26/25 14:11
0.9% Sodium Chloride 1000 ml [Nss] 1,000 ml IV BOLUS
08/26/25 14:13
Midline IV As Directed
08/26/25 14:30
Ampicillin/Sulbactam 3 G [Unasyn] 3 gm 0.9% Sodium Chloride 100 ml [Nss] 100 ml IV NOW
08/26/25 15:14
* Blood Bank Products Routine
Blood Bank Products: *Packed RBC Leuko (PRBC's
Quantity: 2
Transfuse Today: Hold for OR
Reason: Other
WOUND/OSTOMY CONSULT Routine
Reason for Consult: b/l marking
Anti-embolism (BENITO) Hose As Directed
Type: Knee high
Pneumatic Compression Sleeves As Directed
Type: Knee high
Surgical Procedure As Directed
Surgical Procedure: Hartmanns
DX Deep Vein Thrombosis Video Routine
08/26/25 15:17
Prothrombin Complex(Pcc),Human [Kcentra] 3,721 unit Empty Viaflex Container 100 ml [Viaflex Empty Container] 140 ml IV NOW
Does patient have a dx of serious acute active bleeding?: No
Does patient have prior history of HIT?: No
Urgent surgery/invasive procedure planned in next 6 hours?: Yes
08/26/25 15:53
Hydrocortisone Sod Succinate [Solu-Cortef] 100 mg IV NOW STA
08/26/25 16:05
HYDROmorphone [Dilaudid] 0.25 mg IV NOW STA
08/26/25 16:13
Bupivacaine Mpf 0.25% [Sensorcaine-Mpf 0.25% Vial] 60 ml .ROUTE .STK-MED ONE
Dexamethasone Pf [Decadron] 10 mg .ROUTE .STK-MED ONE
08/26/25 16:14
Admit/Transfer Patient As Directed
Co-Sign Provider:
Level of Care: Inpatient admission
Assign to:: ICU
Physician / Group: Bee Kraus
Diagnosis: diveriticulitis with perforation
Reason for Hospitalization: diverticulitis with perforation
Expected length of stay greater than two midnights?: Yes
ELOS- Estimated Length of Stay in days: 4
I certify the patient meets the requirements for IP care: Yes
* Blood Bank Products Urgent
Blood Bank Products: *Packed RBC Leuko (PRBC's
Quantity: 2
Transfuse Today: Hold for OR
Reason: Coagulopathy
Fentanyl Citrate/Pf [Sublimaze] 25 mcg IV [id number] PRN
HYDROmorphone [Dilaudid] 0.25 mg IV PACU-Q5MPRN PRN
HYDROmorphone [Dilaudid] 0.5 mg IV PACU-Q5MPRN PRN
Ondansetron Injectable [Zofran] 4 mg IV PACU-ONCEPRN PRN
Prochlorperazine [Compazine] 5 mg IV PACU-ONCEPRN PRN
Notify MD As Directed
Notify physician if: for SDS patients with known or suspected sleep obstructive sleep apnea, monitor in the
PACU.
Notify MD for any apneic/desaturation episodes
PRN Pain Medication Management As Directed
May give lesser potent ordered pain med per pt: Yes
preference::
Protocol:: Medication orders for pain may be administered in a
manner that supports deferring to patient preference
when the pt is:
- Requesting an ordered lesser potent pain medication.
Least to most potent pain medications are defined
as: acetaminophen < NSAID < tramadol < opioids
(morphine, oxycodone, hydromorphone).
- Requesting a lesser dose of the same medication IF
ORDERED.
- Requesting a less intrusive route of administration
if both routes are prescribed by the provider (PO <
IV).
O2 Therapy [RESP] Urgent
Titrate/Wean O2 to maintain O2 sat greater than (%): 92
Special Instructions: -Provide supplemental oxygen to achieve O2 sat of 92% or greater.
-After 15 min, may wean O2 and discontinue if patient is able to maintain O2 sat of 92%
or greater during recovery period.
If patient is a discharge home, without oxygen therapy, notify anestheiologist if
unable to maintain O2 SAT of 92% or greater on room air for MD clearance.
12/10/25 16:15
Normosol (Mult Electrolytes) [Normosol-R/Plasmalyte-A] 1,000 ml IV PER PROTOCOL
08/26/25 16:19
Code Status As Directed
Resuscitation Status: Do not resuscitate
Reached after discussion with pt or family/Healthcare POA: Yes
08/26/25 16:20
DNR Bracelet Application ONCE
08/26/25 16:27
Type+Screen Urgent
Lactic Acid Q4H
Comment: CANCEL 2nd LACTIC ACID IF 1st LACTIC ACID IS LESS THAN 2
PTT Urgent
Prothrombin Time Urgent
08/26/25 19:50
0.9% Sodium Chloride 1000 ml [Nss] 1,000 ml IV 60 mls/hr
Acetaminophen [Tylenol] 650 mg TUBE Q6HPRN PRN mild pain
Pantoprazole [Protonix IV] 40 mg IV DAILY
08/26/25 19:50
Consult Colorectal Surgery [ColoRectal Surgery Consult] Routine
Consulting Provider: Donnell Obregon
Was physician already notified: Yes
Consult Document Clerk [Document Clerk Consult] Routine
Consulting Provider: Ney Menard
Was physician already notified: Yes
Activity As Directed
Activity Level: As Tolerated
Pneumatic Compression Sleeves As Directed
Type: Knee high
Vital Signs As Directed
Frequency: Per unit guidelines
DX Deep Vein Thrombosis Video Routine
08/26/25 22:00
Piperacillin/Tazo 3.375 Gram [Zosyn] 3.375 gram in 50 ml IV Q6H
08/27/25 00:00
Hydrocortisone Sod Succinate [Solu-Cortef] 50 mg IV Q6
08/27/25 01:08
Lactate Level [Lactic Acid] Q6H
08/27/25 03:16
Complete Blood Count/With Diff IN AM
Comprehensive Metabolic Panel IN AM
Magnesium IN AM
08/27/25 06:00
Levothyroxine [Synthroid] 125 mcg PO DAILY@0600
08/27/25 08:00
Midodrine [ProAmatine] 5 mg TUBE TID
Sertraline HCl [Zoloft] 50 mg TUBE DAILY
Sildenafil Citrate [Revatio] 20 mg TUBE TID
Abnormal Lab Results
08/26/25 08/26/25 08/26/25
11:16 13:41 14:04
WBC 18.3 H 10^3/uL
(4.8-10.8)
RBC 4.00 L 10^6/uL
(4.20-5.40)
Hgb 9.7 L g/dL
(12.0-16.0)
Hct 32.6 L %
(37.0-47.0)
MCH 24.3 L pg
(27.0-31.0)
MCHC 29.8 L g/dL
(33.0-37.0)
RDW 20.3 H %
(11.5-14.5)
MPV 11.7 H fL
(7.4-10.4)
Abs Immat Gran (auto) 0.1 H 10^3/uL
(0-0.05)
Absolute Neuts (auto) 17.2 H 10^3/uL
(1.4-6.5)
Absolute Lymphs (auto) 0.3 L 10^3/uL
(1.2-3.4)
Neutrophils % 94.2 H %
(42.2-75.2)
Lymphocytes % 1.7 L %
(20.5-51.1)
PT
APTT
Sodium 131 L mmol/L
(135-145)
Chloride 95 L mmol/L
(98-107)
BUN 68 H mg/dl
(7-17)
Creatinine 1.5 H mg/dL
(0.6-1.0)
Glucose 109 H mg/dl
(70-99)
Lactic Acid 2.8 H mmol/L
(0.7-2.0)
Total Bilirubin 5.6 H mg/dl
(0.2-1.3)
AST 87 H U/L
(14-36)
ALT 163 H U/L
(0-35)
Alkaline Phosphatase 163 H U/L
(38-126)
Urine Ketones 1+ A
(Negative)
Urine Urobilinogen 2+ A
(Neg - 1+)
Leukocyte Esterase Rfl 1+ A
(Negative)
Urine RBC 3-6 A /HPF
(0-2)
Urine Bacteria (Reflex) Moderate A
(Negative)
Urine Albumin (Reflex) 1+ A
(Neg - Trace)
Crossmatch IS Only
08/26/25
16:27
WBC
RBC
Hgb
Hct
MCH
MCHC
RDW
MPV
Abs Immat Gran (auto)
Absolute Neuts (auto)
Absolute Lymphs (auto)
Neutrophils %
Lymphocytes %
PT 42.6 H Sec
(11.4-14.6)
APTT 37.6 H Sec
(23.4-35.0)
Sodium
Chloride
BUN
Creatinine
Glucose
Lactic Acid 3.0 H mmol/L
(0.7-2.0)
Total Bilirubin
AST
ALT
Alkaline Phosphatase
Urine Ketones
Urine Urobilinogen
Leukocyte Esterase Rfl
Urine RBC
Urine Bacteria (Reflex)
Urine Albumin (Reflex)
Crossmatch IS Only See Detail
08/26/25 11:16
08/26/25 11:16
Vital Signs
Initial and Last Documented VS:
Initial Vital Signs
Temp Pulse Resp BP Pulse Ox
98.5 F 91 16 96/69 92
08/26/25 10:59 08/26/25 10:59 08/26/25 10:59 08/26/25 10:59 08/26/25 10:59
Last Documented Vital Signs
Temp Pulse Resp BP Pulse Ox
97.5 F 82 19 109/70 100
08/27/25 03:19 08/27/25 05:45 08/27/25 05:45 08/27/25 00:00 08/27/25 04:00
MDM/Problems Addressed
Differential Diagnosis Includes:
Abdominal pain hypotension. Clinically septic. Fluids labs cultures antibiotics. CT scan shows perforation. Discussed with general surgery. Referred to colorectal surgery. Likely diverticular. DOAC will be reversed by the surgical team
*Radiology
Radiology exam reviewed: radiology read reviewed (Perforated viscus. Diverticulosis PE PUD)
*Pulse Oximetry
SaO2: 88
Nasal Cannula flow liters per minute: 5
Patient hypoxic: yes
*Service Clerk Interpretation
Rate: normal
Interpretation: normal
Heart Rate: 90
Rhythm: sinus
*Critical Care Note
Total Time (30-74mins, 75-104mins- exclusive of procedures): Not Applicable (40)
Update Note
Update Note:
Patient critically ill. Septic. Low blood pressure. Perforated viscus. Fluids ordered antibiotics ordered. General medicine and surgery looped in. Discussed with family.
ED Attending Note
-
Portions of this chart may have been created with voice recognition software.� Occasional wrong word or��sound alike� substitutions may have occurred due to the inherent limitations of voice recognition software.
Discharge Plan
Departure
Patient Disposition: Admit
Date of Disposition: 08/26/25
Time of Disposition: 14:14
Presentation/result/management discussed w/ accepting MD/DO: General Surgery/colorecta
Discharge Problem:
Perforated viscus
Interventions
Interventions:
*Risk Screen - Suicide Last Done: 08/26/25 10:59
*General Assessment Last Done: 08/26/25 16:37
*Neglect/Abuse Screening Last Done: 08/26/25 10:59
[facility] Fall Risk Assessment Tool Last Done: 08/26/25 10:59
*Nursing Disposition Last Done: 08/26/25 16:37
ZB-Fdfgio-Krzzpbspnj Assessment Last Done: 08/26/25 10:59
Discharge Date and Time
Discharge Date/Time: 08/26/25 16:41
[2025-08-26 14:40] LABS: Urine Urothelial Cell 0-2 /LPF (FEW)
--- NOTE | 2025-08-26 14:57 | CON.CRS ---
Addendum entered and electronically signed by Donnell Obregon MD 08/26/25 20:15:
Correction: on chronic oral steroids, not rectal steroids.
Original Note:
Consultation
-
Date/Time Consultation Requested: 08/26/2025,
Date/Time Consultation Performed: 08/26/2025,
Requesting Provider: Donnell Ray DO
Performing Provider: Donnell Obregon MD
Reason for Consultation: perforated diverticulitis
Medical History
-
Chief Complaint: abdominal pain
History of Present Illness:
70yo female with a PMH of COPD, gastric sleeve, and x 2, presents to [facility] complaining of severe abdominal pain in the LLQ since last night. She also admits to nausea/dry heaving and vomiting. She had loose stools yesterday.
Denies a prior history of diverticulitis. She was admitted about a month ago for rectal bleeding. Her last colonoscopy was a few years ago at [facility] (report is not available). 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
DVT/PE last September 2024. She is currently on xarelto 20mg daily. In the ER she was hypotensive with BP as low as 70's/50's. She recieved 1L NS x 1. Unasyn was given. Her WBC is 18. CT A/P shows 'Small amounts of free intraperitoneal air, suggesting
perforated hollow viscus. The favored etiology is related to acute sigmoid diverticulitis with perforated diverticulum. Other possibility includes perforated peptic/duodenal ulcer. There is a 1.3 cm mixed fluid/soft tissue density along the medial
margin of the pancreatic head and anterior margin of the duodenum, possibly reflecting a preserved island of normal pancreatic tissue, pancreatic lesion, duodenal ulcer or prominent peripancreatic lymph node. This could be further evaluated with
nonemergent MRI/MRCP abdomen without and with gadolinium contrast.' Given this, we have been consulted for further surgical opinion.
Past Medical History
Past Medical History: Other (COPD, HTN, Hypercholesterolemia, Hypothyroidism and Other (PE/DVT on Xarelto))
Past Surgical History: Other (Cardiac (stent, R carotid endarterectomy), and Other (gastric sleeve))
Social History
Tobacco: Former Smoker
Alcohol: None
Personal: Single
Family History
Family History: Reviewed & Not Pertinent (denies history of colorectal cancer)
Allergies / Home Medications
Allergy/AdvReac Type Severity Reaction Status Date / Time
tape Allergy Unknown Uncoded 08/26/25 10:59
�Medication �Instructions �Recorded �Confirmed �Type
aspirin 81 mg tablet,delayed 81 mg PO DAILY Blood Clot 10/13/24 08/26/25 History
release Prevention/Tx
levothyroxine 125 mcg tablet 125 mcg PO DAILY Thyroid 10/13/24 08/26/25 History
(Synthroid)
prednisone 10 mg tablet 10 mg PO DAILY INFLAMMATION 10/13/24 08/26/25 History
therapeutic multivitamin 1 tab PO DAILY Supplement 10/13/24 08/26/25 History
rivaroxaban 20 mg tablet (Xarelto) 20 mg PO QPM Blood Clot 05/08/25 08/26/25 History
Prevention/Tx
sertraline 50 mg tablet 50 mg PO DAILY Mental Health 05/08/25 08/26/25 History
spironolactone 25 mg tablet 25 mg PO DAILY Heart Failure 05/08/25 08/26/25 History
fluticasone 100 mcg-salmeterol 50 1 inh inhalation R BID 07/21/25 08/26/25 History
mcg/dose blistr powdr for Lung/Breathing Issues
inhalation (Wixela Inhub)
furosemide 40 mg tablet 40 mg PO DAILY Heart Failure #90 07/27/25 08/26/25 Rx
tabs
midodrine 5 mg tablet 5 mg PO TID@0800,1300,1800 Blood 08/03/25 08/26/25 Rx
pressure #0 tabs
sildenafil (pulm.hypertension) 20 20 mg PO TID pulm htn #90 tabs 08/03/25 08/26/25 Rx
mg tablet
Saccharomyces boulardii 250 mg 250 mg PO BID Supplement 08/26/25 08/26/25 History
capsule (Florastor)
acetaminophen 325 mg tablet 650 mg PO Q6HPRN PRN mild pain 08/26/25 08/26/25 History
(Tylenol)
bisacodyl 10 mg rectal suppository 10 mg ND DAILYPRN PRN if no bm 08/26/25 08/26/25 History
(Dulcolax (bisacodyl)) aftr mom
loperamide 2 mg tablet 2 mg PO Q6HPRN PRN dirrhea 08/26/25 08/26/25 History
magnesium hydroxide 400 mg/5 mL 2,400 mg PO [id number] PRN if no bm 08/26/25 08/26/25 History
oral suspension (Milk of Magnesia) aftr 9 shifts
melatonin 3 mg tablet 3 mg PO HS Sleep 08/26/25 08/26/25 History
melatonin 3 mg tablet 3 mg PO HSPRN PRN sleep 08/26/25 08/26/25 History
omeprazole 20 mg capsule,delayed 20 mg PO DAILY Gastrointestinal 08/26/25 08/26/25 History
release Issue
ondansetron HCl 4 mg tablet 4 mg PO Q8HPRN PRN nausea 08/26/25 08/26/25 History
sodium phosphates 19 gram-7 118 ml ND DAILYPRN PRN if no bm 08/26/25 08/26/25 History
gram/118 mL enema (Fleet Enema) aftr dulcolax
Review of Systems
-
History Source: Patient
Abdomen/GI: Abdominal Pain, Nausea, Vomiting and Diarrhea
A 10 point review of systems was completed, and was negative except as per HPI.
Physical Exam
Vital Signs
Temp 98.5 F 08/26/25 10:59
Pulse 94 08/26/25 14:30
Resp Rate 19 08/26/25 14:30
Blood pressure 96/70 08/26/25 14:30
SaO2 88 08/26/25 14:27
08/25/25 08/26/25 08/27/25
06:59 06:59 06:59
Actual Weight 77.5 kg
Body Mass Index (BMI) 31.3
Lab Results / Allergies
08/26/25 11:16
08/26/25 11:16
WBC 18.3 10^3/uL (4.8-10.8) H 08/26/25 11:16
Hgb 9.7 g/dL (12.0-16.0) L 08/26/25 11:16
Hct 32.6 % (37.0-47.0) L 08/26/25 11:16
Plt Count 312 10^3/uL (130-400) 08/26/25 11:16
Abs Immat Gran (auto) 0.1 10^3/uL (0-0.05) H 08/26/25 11:16
Neutrophils % 94.2 % (42.2-75.2) H 08/26/25 11:16
Allergy/AdvReac Type Severity Reaction Status Date / Time
tape Allergy Unknown Uncoded 08/26/25 10:59
Physical Exam
General: Well Developed, Well Nourished and Pain
GI: Tender (LLQ- moderate/severe) and Distended
Neuro: AO x 3
Psych: Calm
Data Reviewed
-
CT Scan: Image Personally Visualized and interpreted, Report Reviewed by me and Discussed with Patient
Labs: Labs Reviewed by me, Discussed with Physician and Discussed with Patient
Old Records: Reviewed
Assessment / Plan
-
Assessment:
Plan:
-Given the perforation, she will require a colectomy with colostomy creation. Discussed with patient and cousin at bedside.
-NPO with IVFS
-Admit to medicine
-Hold prednisone/xarelto
-Will require a xarelto reversal
-Continue IV antibiotics
-Preop orders placed
-Wound RN consulted for stoma marking
-?Eventual MRI/MRCP to address pancrease finding
[2025-08-26] MEDS: UNASYN IV (15:11)
--- NOTE | 2025-08-26 15:33 | HPS.HSE ---
Family Physician
-
Family Physician: JUAN LUIS BETH MD
Chief Complaint
-
abdominal pain
History of Present Illness
Ms. Vida Chow is a 70 yo woman with hx CKD III, HFpEF, PE/DVT on Xarelto, COPD, severe pulmonary hypertension (on Sildenafil), chronic hypoxic resp failur on 5L, hypothyroidism, PAD, GERD, diverticulitis, Depression, VISH presents to the ER
complaining of severe abdominal pain in the left lower quadrant since yesterday evening.
Pain came on suddenly yesterday evening. Patient is moaning during interview.
No vomiting, + nausea. No chest pain. She has chronic dyspnea on exertion. She is on 5L at baseline.
Medical History
Past Medical History
Past Medical History: Reports Other
Additional Past Medical History:
Coronary Artery Disease s/p Stent
Peripheral Arterial Disease s/p Right Carotid Endarterectomy
Chronic HFpEF
Essential Hypertension
Hyperlipidemia
Chronic Hypoxia
COPD / Emphysema / Pulmonary Fibrosis
Hypothyroidism
DVT/PE
Obesity
Obstructive Sleep Apnea
Past Surgical History: Reports Other
Additional Past Surgical History:
Right Carotid Endarterectomy
Cardiac Stent
Gastric Sleeve
Section
Social History
Tobacco: Former Smoker (Quit about 25 years ago)
Employment: Employed (Hairdresser)
Family History
Family History: Not pertinent
Allergies / Home Medications
Allergies reflects when Allergies were last updated in [facility]at.
Home Medications with original date entered in itzat
Allergy/Medication List:
Allergies
Allergy/AdvReac Type Severity Reaction Status Date / Time
tape Allergy Unknown Uncoded 08/26/25 10:59
Home Medications
aspirin 81 mg tablet,delayed release 81 mg PO DAILY Blood Clot Prevention/Tx 10/13/24
levothyroxine 125 mcg tablet (Synthroid) 125 mcg PO DAILY Thyroid 10/13/24
prednisone 10 mg tablet 10 mg PO DAILY INFLAMMATION 10/13/24
therapeutic multivitamin 1 tab PO DAILY Supplement 10/13/24
rivaroxaban 20 mg tablet (Xarelto) 20 mg PO QPM Blood Clot Prevention/Tx 05/08/25
sertraline 50 mg tablet 50 mg PO DAILY Mental Health 05/08/25
spironolactone 25 mg tablet 25 mg PO DAILY Heart Failure 05/08/25
fluticasone 100 mcg-salmeterol 50 mcg/dose blistr powdr for inhalation (Wixela Inhub) 1 inh inhalation R BID Lung/Breathing Issues 07/21/25
furosemide 40 mg tablet 40 mg PO DAILY Heart Failure #90 tabs 07/27/25
midodrine 5 mg tablet 5 mg PO TID@0800,1300,1800 Blood pressure #0 tabs 08/03/25
sildenafil (pulm.hypertension) 20 mg tablet 20 mg PO TID pulm htn #90 tabs 08/03/25
Saccharomyces boulardii 250 mg capsule (Florastor) 250 mg PO BID Supplement 08/26/25
acetaminophen 325 mg tablet (Tylenol) 650 mg PO Q6HPRN PRN mild pain 08/26/25
bisacodyl 10 mg rectal suppository (Dulcolax (bisacodyl)) 10 mg IA DAILYPRN PRN if no bm aftr mom 08/26/25
loperamide 2 mg tablet 2 mg PO Q6HPRN PRN dirrhea 08/26/25
magnesium hydroxide 400 mg/5 mL oral suspension (Milk of Magnesia) 2,400 mg PO [id number] PRN if no bm aftr 9 shifts 08/26/25
melatonin 3 mg tablet 3 mg PO HS Sleep 08/26/25
melatonin 3 mg tablet 3 mg PO HSPRN PRN sleep 08/26/25
omeprazole 20 mg capsule,delayed release 20 mg PO DAILY Gastrointestinal Issue 08/26/25
ondansetron HCl 4 mg tablet 4 mg PO Q8HPRN PRN nausea 08/26/25
sodium phosphates 19 gram-7 gram/118 mL enema (Fleet Enema) 118 ml IA DAILYPRN PRN if no bm aftr dulcolax 08/26/25
Review of Systems
-
History Source: Patient
A 12 point ROS was completed and negative except as noted: Yes
Physical Exam
Vital Signs
Vital Signs
Temp Pulse Resp BP Pulse Ox
98.5 F 94 15 112/62 92
08/26/25 10:59 08/26/25 15:00 08/26/25 15:00 08/26/25 15:00 08/26/25 15:00
Physical Exam
General: Other (patient is uncomfortable, moaning in pain )
HEENT: PERRLA
Respiratory: Rales; No Wheezes
Cardiac: S1/S2 and Regular Rhythm
GI: Other (tenderness LLQ, distended)
Musculoskeletal: No Edema
Skin: Warm and Dry; No Rash
Neuro: AO x 3
Psych: Calm and Anxious
Laboratory Results
-
08/26/25 11:16
08/26/25 11:16
Laboratory Results
Lactic Acid 2.8 mmol/L (0.7-2.0) H 08/26/25 13:41
Total Bilirubin 5.6 mg/dl (0.2-1.3) H 08/26/25 11:16
AST 87 U/L (14-36) H 08/26/25 11:16
ALT 163 U/L (0-35) H 08/26/25 11:16
Alkaline Phosphatase 163 U/L (38-126) H 08/26/25 11:16
Lipase 82 U/L (23-300) 08/26/25 11:16
Data Reviewed
-
Diagnostic Radiology: Report Reviewed by me
Lab Data: Labs Reviewed by me
Impression/Plan
-
Ms. Vida Chow is a 70 yo woman with hx CKD III, HFpEF, PE/DVT on Xarelto, COPD, severe pulmonary hypertension (on Sildenafil) hypothyroidism, PAD, GERD, diverticulitis, Depression, VISH presents to the ER complaining of severe abdominal pain in
the left lower quadrant since yesterday evening.
Triage VS: T 98.5, P 91, RR 16, BP 96/56, SpO2 92%
LABS: WBC 18.3, Hg 9.7, PLT 312, Na 131, K+ 4.0, Cl 95, BUN 68, Cr 1.5, Glucose 109, Lactate 2.8, T. Bili 5.6, AST 87, ALT 163, Alk Phos 163
Abdomen/Pelvis CT
IMPRESSION:
1. Small amounts of free intraperitoneal air, suggesting perforated hollow viscus. The favored etiology is related to acute sigmoid diverticulitis with perforated diverticulum. Other possibility includes perforated peptic/duodenal ulcer.
2. There is a 1.3 cm mixed fluid/soft tissue density along the medial margin of the pancreatic head and anterior margin of the duodenum, possibly reflecting a preserved island of normal pancreatic tissue, pancreatic lesion, duodenal ulcer or
prominent peripancreatic lymph node. This could be further evaluated with nonemergent MRI/MRCP abdomen without and with gadolinium contrast.
3. Hepatic cirrhosis with small volume abdominal ascites.
4. Probable cystitis.
5. Mild T12 superior endplate compression fracture, new from 10/30/2024 and age indeterminate. Recommend correlation for any point tenderness in this region.
6. Cholelithiasis.
7. Bibasilar fibrotic changes in the lungs.
Acute Sigmoid Diverticulitis with perforated Diverticulum (patient with pain LLQ on exam)
Sepsis secondary to above
Lactic Acidosis 2.8
-patient is high risk for surgery with hx severe pulmonary HTN, COPD and fibrosis, chronic O2 dependence. Surgery is emergent/ necessary to save life in setting of perforated bowel and patient has agreed to surgery
-plan for OR this evening, seen by CRS in ER
-NPO, IVF
-s/p IV Unasyn, continue IV Zosyn this ER
-gentle IVF
-stress dose steroids ordered (discussed with Security Services Manager and CRS)
-admit to ICU post-op
-CRS consult
-Security Services Manager consult
-daughter reports Reglan has worked well for nausea/dry heaves associated with anesthesia in past. Compazine ordered by anesthesia - monitor effect and consider switching to reglan if nausea persists.
DVT/PE on Xarelto
-PCC reversal ordered
-Xarelto held
-*DRYING EQUIPMENT OPERATOR aspirin also held, resume when OK with surgery
Severe pulmonary Hypertension
COPD
Chronic Hypoxic Respiratory Failure
-O2 support as needed, patient understands may remain intubated post-op
-Security Services Manager consult
-DRYING EQUIPMENT OPERATOR Sildenafil
-DRYING EQUIPMENT OPERATOR inhalers
-stress dose steroids as above
Abnormal finding 1.3cm tissue density medial margin pancreatic head
-MRI/MRCP outpatient after acute issues resolved
HFpEF
-hold DRYING EQUIPMENT OPERATOR Lasix, Spironolactone
-gentle fluids as above
Chronic Hypotension
-DRYING EQUIPMENT OPERATOR Midodrine, may require pressors
Chronic Transaminitis suspected 2/2 cor pulmonale/ congestive hepatopathy
Acute on chronic transaminitis in setting of sepsis
-monitor
Depression - DRYING EQUIPMENT OPERATOR Sertraline
Patient is DNR (post OR). She also stated that if she remained intubated post-op with difficulty extubating she would not want to be attached to the machine. Her daughter heard this conversation.
Total Critical Care Time 60 minutes. I was immediately available to the patient and staff. I personally examined, reviewed labs, diagnostic images/reports, interpretations, treatment plans, discussed patient care with other providers and family
or caregivers (if patient is unable to make decisions), entered orders as appropriate and documented the medical record.
--- NOTE | 2025-08-26 15:39 | WOUNDNOTE ---
[facility] RN NOTE: Patient visited for ostomy marking. Patient was in a lot of pain at time of assessment and could not be moved or changed from position. Attempt was made to locate rectus abdominal muscle and avoid creases and folds. Patients abdomen is
soft and obese with many creases and folds. Explained to patient and family that surgeon will make final determination of stoma placement. Patient was marked on right and left lower quadrants. TT with Jeanine Rowe with update. Will follow up with
patient if stoma is placed.
[2025-08-26] MEDS: SOLU-CORTEF 100 MG IV (16:10)
[2025-08-26] MEDS: DILAUDID 0.25 MG IV (16:14)
[2025-08-26] MEDS: KCENTRA 140 UNIT IV (16:20)
[2025-08-26 16:47] LABS: APTT 37.6 Sec (23.4-35.0); INR 4.57; PT 42.6 Sec (11.4-14.6)
--- NOTE | 2025-08-26 19:51 | W.IMMPOSTOP ---
Addendum entered and electronically signed by Donnell Obregon MD 08/26/25 20:31:
Patient's family updated in waiting area.
Original Note:
Surgical Immed Post Op Note
-
Primary Surgeon: Aletha Obregon MD
Assisting Surgeon: Arsenio Dunaway MD
Pre-op Diagnosis: peforated viscus with suspicion for perforated diverticulitis
Post-op Diagnosis: perforated sigmoid diverticulitis
Procedure Performed: sigmoidectomy with colostomy (Feli's procedure)
Anesthesia Type: general plus local
Specimen / Cultures: 1) abdominal fluid cultures 2) sigmoid colon
Estimated Blood Loss: 250 cc
Complications: no immediate
Operative Findings: 1) perforated sigmoid diverticulitis with associated pelvic area contamination 2) very oozey retroperitoneum--treated with topical Surgiflo 3) challenging NGT to place (?hiatal hernia).
#19 Godwin in pelvis.
Patient received 1 uPRBCs towards end of procedure.
On levo gtts.
Will remain intubated.
Sending to ICU.
[2025-08-26 20:12] LABS: Glucose - Point of Care 175 mg/dl (70-99)
[2025-08-26 20:25] LABS: Magnesium 1.9 mg/dl (1.6-2.3)
[2025-08-26] MEDS: SUBLIMAZE 100 IV ×2 (20:27→20:35)
[2025-08-26] MEDS: PROTONIX IV 40 MG IV (20:35)
[2025-08-26] MEDS: NORMOSOL-R/PLASMALYTE-A 1000 IV (20:35)
[2025-08-26] MEDS: NSS (PRESERVATIVE FREE) 10 ML IV (20:35)
[2025-08-26] MEDS: DIPRIVAN 100 IV (20:36)
--- NOTE | 2025-08-26 21:00 | PTCARENOTE ---
rec'd pt from OR around 1999. pt intubated with 7.0 ETT, 22cm @ lip. on levo gtt, 2 PIVs noted. restraints applied, SCDs on. prop/fent gtts initiated. NGT @ 47cm with bloody drainage, flushed and attached to LIWS. ARTURO to RLQ with sanguinous drainage.
colostomy with red stoma flush to skin. padron in place with minimal UOP, 500ml bolus ordered and given. midline incision with aquacell intact, small amt drainage noted. multiple skin tears/bruises throughout body, foams applied and documented. ICU
HIM SPECIALIST placed R radial arterial line. repeat labs sent. vent settings adjusted to AC 16/450/5/50%. repeat CXR/abdominal XR done, ETT adjusted to 21cm. levo gtt titrated off. pt in SR on monitor. afebrile. doppler DP pulses noted. family at bedside and
updated on overnight plan. CHG bath and oral care complete. care ongoing.
--- NOTE | 2025-08-26 21:26 | W.PN.UPDATE ---
Update Note
Progress Note Update
Right Wrist Arrow 20 (11/18)�
Diagnosis:��Sepsis shock
IV Line Comments: Uneventful Procedure�
Donn completed pre-procedure: Yes�
A-Line Comments: Sterile technique as per standard protocol, Ultrasound guided insertion�
Functioning�A-line in situ: Yes�
A-line Insertion Start Time:��2104
A-line in at:��2114
[2025-08-26 21:29] LABS: B.E. -6.9 mmol/L; HCO3 21.6 mmol/L (21-28); O2 Saturation % 98.6 % (94-98); PCO2 58 mmHg (32-35); PO2 129 mmHg (83-108); Potassium 4.2 mMOL/L (3.5-5.1); Sodium 130 mMOL/L (136-145)
[2025-08-26 21:38] LABS: Hematocrit 32.1 % (37.0-47.0); Hemoglobin 9.3 g/dL (12.0-16.0); Mean Corp Hgb Conc. 29.0 g/dL (33.0-37.0); Mean Corpuscular Volume 84.0 fL (81.0-99.0); Platelet Count 254 10^3/uL (130-400); Red Cell Dist. Width 19.3 % (11.5-14.5)
[2025-08-26 21:43] LABS: INR 4.11; PT 39.2 Sec (11.4-14.6)
[2025-08-26 21:44] LABS: APTT 34.7 Sec (23.4-35.0)
[2025-08-26] MEDS: LR 500 IV (21:44)
[2025-08-26 21:45] LABS: ALT (SGPT) 114 U/L (0-35); AST (SGOT) 75 U/L (14-36); Albumin 2.7 g/dl (3.5-5.0); Alkaline Phosphatase 117 U/L (38-126); Blood Urea Nitrogen 61 mg/dl (7-17); Calcium 8.8 mg/dl (8.4-10.2); Carbon Dioxide 19 mmol/L (22-30); Chloride 99 mmol/L (98-107); Estimated Creatinine Clearance 39 ml/min; Glucose 151 mg/dl (70-99); Magnesium 2.1 mg/dl (1.6-2.3); Potassium 4.2 mmol/L (3.5-5.1); Sodium 129 mmol/L (135-145); Total Protein 5.2 g/dl (6.3-8.2); Triglycerides 88 mg/dl (10-149); eGFR 44.24
[2025-08-26] MEDS: FLOVENT 110 MCG INHALER 4 PUFF INH (22:08)
[2025-08-26 22:16] LABS: Absolute Neutrophils -Man Diff 16.6 10^3/uL (1.4-6.5); Platelets Checked Yes
[2025-08-26 22:17] LABS: Anisocytosis 1+; Burr Cells 2+; Hypochromasia 3+; Macrocytosis 1+; Normal RBC Morphology No; Poikilocytosis 1+; Polychromasia 1+; Total Cells Counted 100
[2025-08-26] MEDS: ZOSYN 50 IV (22:39)
[2025-08-26] MEDS: SOLU-CORTEF 50 MG IV (23:44)
[2025-08-26] MEDS: SUBLIMAZE 50 MCG IV (23:44)
[2025-08-27] VITALS: BP 109/70
[2025-08-27 00:05] LABS: Glucose - Point of Care 150 mg/dl (70-99)
[2025-08-27] MEDS: NOVOLOG FLEXPEN-LOW RESISTANCE 1 UNITS SC ×2 (00:09→05:52)
[2025-08-27 01:27] LABS: B.E. -2.9 mmol/L; HCO3 23.6 mmol/L (21-28); O2 Saturation % 99.3 % (94-98); PCO2 48 mmHg (32-35); PO2 141 mmHg (83-108); Potassium 4.1 mMOL/L (3.5-5.1); Sodium 131 mMOL/L (136-145)
--- NOTE | 2025-08-27 01:30 | PTCARENOTE ---
0000- pt unresponsive, not w/d to pain, no corneals or gag reflex noted. not overbreathing vent. pupils 2mm b/l and sluggish. prop gtt d/c around 2230. pt still unresponsive, fent gtt d/c around 2345. ICU PAINTER HELPER SIGN made aware that all sedation is turned
off and pt still unresponsive. head CT to r/o stroke ordered. repeat ABG sent. vent settings adjusted to AC 18/450/5/40%. sedation to remain off. care ongoing.
[2025-08-27] MEDS: ZOSYN 50 IV ×4 (03:12→20:53)
[2025-08-27 03:26] LABS: B.E. -3.2 mmol/L; HCO3 22.0 mmol/L (21-28); O2 Saturation % 99.2 % (94-98); PCO2 39 mmHg (32-35); PO2 143 mmHg (83-108)
[2025-08-27 03:29] LABS: Hematocrit 29.5 % (37.0-47.0); Hemoglobin 9.0 g/dL (12.0-16.0); Mean Corp Hgb Conc. 30.5 g/dL (33.0-37.0); Mean Corpuscular Volume 82.4 fL (81.0-99.0); Nucleated Red Blood Cells % 3.2 %; Platelet Count 157 10^3/uL (130-400); Red Cell Dist. Width 18.9 % (11.5-14.5)
[2025-08-27 03:48] LABS: ALT (SGPT) 111 U/L (0-35); AST (SGOT) 58 U/L (14-36); Albumin 2.5 g/dl (3.5-5.0); Alkaline Phosphatase 102 U/L (38-126); Blood Urea Nitrogen 60 mg/dl (7-17); Calcium 8.8 mg/dl (8.4-10.2); Carbon Dioxide 20 mmol/L (22-30); Chloride 103 mmol/L (98-107); Estimated Creatinine Clearance 39 ml/min; Glucose 138 mg/dl (70-99); Magnesium 2.0 mg/dl (1.6-2.3); Potassium 4.0 mmol/L (3.5-5.1); Sodium 132 mmol/L (135-145); Total Protein 5.0 g/dl (6.3-8.2); eGFR 44.24
[2025-08-27] MEDS: SOLU-CORTEF 50 MG IV (05:52)
[2025-08-27 05:58] VITALS: BMI 31.2
[2025-08-27 06:02] LABS: Glucose - Point of Care 156 mg/dl (70-99)
--- NOTE | 2025-08-27 06:03 | PTCARENOTE ---
AM labs sent. pt arousing to voice, nods head y/n, remains extremely weak in arms and legs. sedation and pressors remain off. vent settings adjusted again AC 18/450/5/40%. otherwise assessment unchanged. care ongoing.
[2025-08-27] MEDS: FLOVENT 110 MCG INHALER 4 PUFF INH (07:36)
--- NOTE | 2025-08-27 07:55 | W.PN.HOSP.TC ---
Today's Communication/Plan
-
Continue supportive care- wean oxygen as able
Continue Zosyn
Monitor blood pressure
Follow manager union recs
Follow CRS recs
Trend LFTs
Assessment / Plan
Assessment / Plan
Impression
Ms. Vida Chow is a 70 y/o F with pmh of CKD III, HFpEF, PE/DVT on Xarelto, COPD,chronic hypoxic resp failur on 5L, severe pulmonary hypertension (on Sildenafil), hypothyroidism, PAD, GERD, diverticulitis, Depression, VISH presents to the ER
complaining of severe abdominal pain in the left lower quadrant since yesterday evening.
Imaging
CT Abd/pel Without Iv Or Oral 08/26/2025
1.Small amounts of free intraperitoneal air, suggesting perforated hollow viscus. The favored etiology is related to acute sigmoid diverticulitis with perforated diverticulum. Other possibility includes perforated peptic/duodenal ulcer
2. There is a 1.3 cm mixed fluid/soft tissue density along the medial margin of the pancreatic head and anterior margin of the duodenum, possibly reflecting a preserved island of normal pancreatic tissue, pancreatic lesion, duodenal ulcer or
prominent peripancreatic lymph node. This could be further evaluated with nonemergent MRI/MRCP abdomen without and with gadolinium contrast
3. Hepatic cirrhosis with small volume abdominal ascites
4. Probable cystitis
5. Mild T12 superior endplate compression fracture, new from 10/30/2024 and age indeterminate. Recommend correlation for any point tenderness in this region.
6. Cholelithiasis
7. Bibasilar fibrotic changes in the lungs
Chest Xray 08/26/2025
Endotracheal tube is present, tip low, 1 cm above the nicolasa.
Nasogastric tube is present with tip projecting over the superior medial left upper quadrant, just extending into the upper stomach.
There is patchy parenchymal opacity within the left mid to lower lung. Findings would suggest a component of pneumonia. This would be superimposed on changes of cystic bronchiectasis within the left lower lung.
Increased reticular markings within the right lower lung. This would also suggest a component of pneumonia superimposed on chronic interstitial changes and changes of cystic bronchiectasis.
Cardiac silhouette size appears slightly enlarged, but vasculature is likely not actively congested. There is prominence of the main pulmonary artery shadow, suggesting pulmonary hypertension
CT Head W/o Iv Contrast 08/27/2025
No acute intracranial abnormality noted
PLAN
Acute Sigmoid Diverticulitis with perforated Diverticulum (patient with pain LLQ on exam)
Sepsis secondary to above
-Lactic Acidosis 2.8 -improved 1.5
-Consult CRS, input appreciated
-CT scan of abdomen-perforated diverticulitis
-Agreed to emergent Stoddard's procedure on 08/26/2025
-admit to ICU post-op
-Discontinue IV Unasyn #D1, switch to IV Zosyn #D2
-Received Levophed once- blood pressure 109/70 -improved
-Continue stress dose steroids -methylprednisolone 20 mg IV QD #D2
-Assistant Hall Director consult, input appreciated
DVT/PE on Xarelto
-PCC reversal ordered
-Xarelto held
-*RETORT KILN BURNER aspirin also held, resume when OK with surgery
Severe pulmonary Hypertension
COPD
Chronic Hypoxic Respiratory Failure
-On mechanical ventilator 40% oxygen-wean as able
-RETORT KILN BURNER Sildenafil
-RETORT KILN BURNER inhalers
-Continue stress dose steroids
Abnormal finding 1.3cm tissue density medial margin pancreatic head
-MRI/MRCP outpatient after acute issues resolved
HFpEF
-hold RETORT KILN BURNER Lasix, Spironolactone
-gentle fluids as above
Chronic Hypotension
-RETORT KILN BURNER Midodrine
- Received Levophed once
- Blood pressure improved
Chronic Transaminitis suspected 2/2 cor pulmonale/ congestive hepatopathy
Acute on chronic transaminitis in setting of sepsis
-Trend LFTs
Depression - RETORT KILN BURNER Sertraline
Patient is DNR (post OR)
Anticipated Discharge: > 48 hours
Subjective/Interval History
-
Date of Service: August 27, 2025
She is comfortable lying in the bed. She on mechanical ventilator. She responds to my questions by moving her head. She denies pain.
Objective Data
-
Labs:
Laboratory Results
08/26/25 08/27/25 08/27/25
21:21 01:08 03:16
WBC 18.1 H 14.3 H
Hgb 9.3 L 9.0 L
Hct 32.1 L 29.5 L
Plt Count 254 157 D
PT 39.2 H
INR 4.11
APTT 34.7
HCO3 21.6 23.6 22.0
Sodium 129 L 132 L
Potassium 4.2 4.0
Chloride 99 103
Carbon Dioxide 19 L 20 L
BUN 61 H 60 H
Creatinine 1.3 H 1.3 H
Glucose 151 H 138 H
Calcium 8.8 8.8
Total Bilirubin 6.0 H 5.7 H
AST 75 H 58 H
ALT 114 H 111 H
Alkaline Phosphatase 117 102
Vital Signs:
Vital Signs
Temp Pulse Resp BP Pulse Ox
97.5 F 82 18 109/70 100
08/27/25 03:19 08/27/25 07:42 08/27/25 07:42 08/27/25 00:00 08/27/25 07:42
I&O
08/26/25 08/27/25 08/28/25
06:59 06:59 06:59
Intake Total 1704.2 / 1704.2
Output Total 990 / 990
Balance 714.2 / 714.2
Review of Systems
-
Unable to obtain full review of systems at this time due to: Patient Intubation
Physical Exam
-
General: Well Developed, Well Nourished, No Apparent Distress, Intubated and Obese
HEENT: Normocephalic, Atraumatic, Oxygen (40% mechanical ventilator) and Other (Nasogastric tube serosanguineous fluid)
Respiratory: Clear to Auscultation
Cardiac: Regular Rhythm and S1/S2
Breast: Deferred by me
GI: Soft, Nontender, Nondistended, Ostomy (Left colostomy bag is empty) and Other (ARTURO drain)
Rectal: Deferred by Provider
Genito-urinary: Waller (Yellow in color)
Musculoskeletal: No Clubbing, No Cyanosis, Edema, Right Lower Extrem and Edema, Left Lower Extrem
Skin: Warm and Dry
Neuro: Sedated
Psych: Calm
[2025-08-27] MEDS: PROTONIX IV 40 MG IV (08:06)
[2025-08-27] MEDS: NSS (PRESERVATIVE FREE) 10 ML IV (08:06)
[2025-08-27] MEDS: NORMOSOL-R/PLASMALYTE-A 1000 IV ×2 (08:06→15:39)
--- NOTE | 2025-08-27 08:30 | PTCARENOTE ---
Assumed care of pt. VSS. Fentanyl restarted for pain control. Nodding, following commands. Generalized anasarca. Intubated AC18/450/5/40% SpO2 100%, lung sounds diminished, oral care provided. NPO with NGT to LIWS, bloody drainage. Ostomy red and
flushed with no output. padron draining yellow urine. Midline aquacel nearly saturated with bloody drainage. ARTURO drain draining mod-lg amount sanguineus drainage. Normosol infusing.
[2025-08-27 10:58] VITALS: BP_SYST 109
[2025-08-27 10:59] VITALS: BP_SYST 109
--- NOTE | 2025-08-27 11:24 | W.PN.CRS1 ---
Today's Communication / Plan
-
extubated per orchid transplanter
continue IV zosyn
trend labs
maintain padron/ngt
wean levophed as able
Assessment/Plan
-
POD#1 sigmoidectomy with colostomy (Feli's procedure)
Levophed gtt
Fentanyl gtt
Propofol gtt
Zosyn gtt
NS @100ml/hr
-Extubate per orchid transplanter
-Wound RN for stoma teaching
-Maintain padron for I/O's
-Wean levophed gtt
-OOB with PT/OT once extubated
-Continue Zosyn IV
-Trend labs - transfuse PRN
-Continue to hold xarelto
-Hold lovenox given INR 4.1.
-Continue NGT if extubated
-OR pathology and cultures pending
-Continue ARTURO drain
-D/c any laxatives
Subjective Data
Procedure
08/26/2025- sigmoidectomy with colostomy (Feli's procedure)
Subjective Data
Date of Service: August 27, 2025
Patient is intubated and partially sedated. She is able to open her eyes and gives a thumbs up when asked.
Objective Data
-
Vital Signs
Temp Pulse Resp BP Pulse Ox
98.6 F 87 12 109/70 98
08/27/25 08:38 08/27/25 10:59 08/27/25 10:59 08/27/25 00:00 08/27/25 11:00
Intake & Output
08/26/25 08/27/25 08/28/25
06:59 06:59 06:59
Intake Total 1704.2 / 1804.2 400 / 400
Output Total 990 / 990 300 / 300
Balance 714.2 / 814.2 100 / 100
Intake:
IV fluids (Total) 954.2 / 1054.2 400 / 400
Fentanyl 15.0 / 15.0
Levo 30.0 / 30.0
Normosol-R/Plasmalyte-A 1,000 900 / 1000 400 / 400
ml @ 100 mls/hr IV .Q10H JEROME Rx
#:[id number]
Propofol 9.2 / 9.2
IV piggybacks 600 / 600
Amount instilled into GI Tube ( 150 / 150
Total)
Rachel Sump 150 / 150
Output:
Drain Output (Total) 535 / 535 180 / 180
Right Lower Abdomen 535 / 535 180 / 180
Gastrointestinal tube output ( 150 / 150
Total)
Rachel Sump 150 / 150
Urine, Padron 305 / 305 120 / 120
Lab Results
08/27/25 03:16
08/27/25 03:16
Physical Exam
-
General: No Acute Distress and Other (intubated and sedated)
Abdomen: Soft, Non Distended and Non Tender
Wound: Dressing in Place and Other (colostomy warm and dark red, no output)
[2025-08-27 11:25] VITALS: BP_SYST 109
[2025-08-27] MEDS: NOVOLOG FLEXPEN-LOW RESISTANCE SC ×2 (11:37→17:48)
[2025-08-27 11:44] LABS: Glucose - Point of Care 122 mg/dl (70-99)
--- NOTE | 2025-08-27 12:15 | PTCARENOTE ---
Addendum entered by Sue Curiel RN 08/27/25 12:17:
No bowel sounds and no output from ostomy.
Original Note:
Pt on SBT beginning at 1100. Alert and following commands. Daughter at bedside.
[2025-08-27 12:38] LABS: B.E. -1.3 mmol/L; HCO3 23.7 mmol/L (21-28); O2 Saturation % 99.1 % (94-98); PCO2 40 mmHg (32-35); PO2 173 mmHg (83-108)
--- NOTE | 2025-08-27 12:39 | CON.INTV ---
Consultation
Consultation Request
Date/Time Consultation Requested: 08/26 1950
Date/Time Consultation Performed: 08/27 08
Requesting Provider: Dr. Kraus
Performing Provider: Dr. Reyna; Dr. Menard
Reason for Consultation: ICU management
Medical History
-
Chief Complaint: Abdominal pain
History of Present Illness:
Patient is a 70-year-old female with PMH of pulmonary hypertension, COPD, HFpEF, PE/DVT on Xarelto, chronic hypoxic respiratory failure on 5 L, hypothyroidism, PAD, depression, VISH, HTN, and CAD s/p stent who is in the ICU for management of sepsis
2/2 perforated sigmoid diverticulitis s/p sigmoidectomy with colostomy (Feli's). Patient developed LLQ abdominal pain associated with nausea, vomiting, and diarrhea on the evening of 08/25, with subsequent presentation to the [place] ED on
the morning of 08/26. In the ED, patient was found to be septic with BP as low as 72/47, WBC 18.3, lactate 2.8, T. bili 5.6, AST 87, and ALT 163. CTAP revealed perforated viscus 2/2 suspected sigmoid diverticulitis. Colorectal surgery was
consulted, and the patient was given Unasyn, PCC reversal for Xarelto, stress dose steroids, and IVF's. Patient was taken to the OR, where she underwent a sigmoidectomy with colostomy (Feli's) and received 1 unit PRBCs. Patient remained
intubated on propofol, Levophed, and fentanyl following the operation and was admitted to the ICU. Late yesterday evening, patient was found to be unresponsive in the ICU, which prompted discontinuation of propofol, fentanyl, and Levophed. CT head
showed no acute intracranial abnormality. Blood pressure was somewhat soft overnight and times, as low as 92/60, but she did not require any pressors. Fentanyl was briefly on for 1 hour this morning.
At the bedside this morning with daughter present, patient is intubated and mechanically ventilated (18/450/5/40%). Vitals at the bedside: BP 119/67, HR 81, RR 9, SpO2 100%. She is somnolent but arousable and able to answer questions and follow
commands. Denies pain. Labs this morning include the following: WBCs 14.3, Hgb 9.0, PLT 157, sodium 132, HCO3 20, creatinine 1.3, lactate 1.5, T. bili 5.7, AST 58, ALT 111. ABG this morning, as follows: pH 7.36, pCO2 39, pO2 143, HCO3 22.
Oliguric with urine output ~30 mL/h overnight. Later in the morning, patient was put on CPAP for SBT.
Past Medical History
Past Medical History: CAD, CHF (HFpEF), COPD, HTN, Hypothyroidism, Valvular Disease (PAD, carotid stenosis), Psychiatric (Depression; PE/DVT on Xarelto; severe pulmonary hypertension; chronic hypoxic respiratory failure on 5 L) and Other (VISH)
Past Surgical History: Cardiac (Stenting), and Other (R carotid endarterectomy; gastric sleeve)
Social History
Tobacco: Former Smoker
Employment: Employed
Allergies / Home Medications
Allergies
Allergy/AdvReac Type Severity Reaction Status Date / Time
tape Allergy Unknown Uncoded 08/26/25 10:59
Home Medications
�Medication �Instructions �Recorded �Confirmed �Last Taken �Type
aspirin 81 mg tablet,delayed 81 mg PO DAILY Blood Clot 10/13/24 08/26/25 08/25/25 History
release Prevention/Tx
levothyroxine 125 mcg tablet 125 mcg PO DAILY Thyroid 10/13/24 08/26/25 08/26/25 History
(Synthroid)
prednisone 10 mg tablet 10 mg PO DAILY INFLAMMATION 10/13/24 08/26/25 08/25/25 History
therapeutic multivitamin 1 tab PO DAILY Supplement 10/13/24 08/26/25 08/25/25 History
rivaroxaban 20 mg tablet (Xarelto) 20 mg PO QPM Blood Clot 05/08/25 08/26/25 08/25/25 History
Prevention/Tx
sertraline 50 mg tablet 50 mg PO DAILY Mental Health 05/08/25 08/26/25 08/25/25 History
spironolactone 25 mg tablet 25 mg PO DAILY Heart Failure 05/08/25 08/26/25 08/25/25 History
fluticasone 100 mcg-salmeterol 50 1 inh inhalation R BID 07/21/25 08/26/25 08/25/25 History
mcg/dose blistr powdr for Lung/Breathing Issues
inhalation (Wixela Inhub)
furosemide 40 mg tablet 40 mg PO DAILY Heart Failure #90 07/27/25 08/26/25 08/25/25 Rx
tabs
midodrine 5 mg tablet 5 mg PO TID@0800,1300,1800 Blood 08/03/25 08/26/25 08/25/25 Rx
pressure #0 tabs
sildenafil (pulm.hypertension) 20 20 mg PO TID pulm htn #90 tabs 08/03/25 08/26/25 08/25/25 Rx
mg tablet
Saccharomyces boulardii 250 mg 250 mg PO BID Supplement 08/26/25 08/26/25 08/25/25 History
capsule (Florastor)
acetaminophen 325 mg tablet 650 mg PO Q6HPRN PRN mild pain 08/26/25 08/26/25 08/18/25 History
(Tylenol)
bisacodyl 10 mg rectal suppository 10 mg IL DAILYPRN PRN if no bm 08/26/25 08/26/25 Unknown History
(Dulcolax (bisacodyl)) aftr mom
loperamide 2 mg tablet 2 mg PO Q6HPRN PRN diarrhea 08/26/25 08/26/25 08/26/25 History
magnesium hydroxide 400 mg/5 mL 2,400 mg PO [id number] PRN if no bm 08/26/25 08/26/25 Unknown History
oral suspension (Milk of Magnesia) aftr 9 shifts
melatonin 3 mg tablet 3 mg PO HS Sleep 08/26/25 08/26/25 08/25/25 History
melatonin 3 mg tablet 3 mg PO HSPRN PRN sleep 08/26/25 08/26/25 Unknown History
omeprazole 20 mg capsule,delayed 20 mg PO DAILY Gastrointestinal 08/26/25 08/26/25 08/26/25 History
release Issue
ondansetron HCl 4 mg tablet 4 mg PO Q8HPRN PRN nausea 08/26/25 08/26/25 08/26/25 History
sodium phosphates 19 gram-7 118 ml IL DAILYPRN PRN if no bm 08/26/25 08/26/25 Unknown History
gram/118 mL enema (Fleet Enema) aftr dulcolax
Review of Systems
-
Unable to Obtain full review of systems at this time due to: Patient Intubation
Constitutional: Other (Denies pain)
Vitals / Labs / Diagnostic Testing
Vital Signs
Temp Pulse Resp BP Pulse Ox
97.7 F 89 15 109/70 40
08/27/25 11:00 08/27/25 12:00 08/27/25 12:00 08/27/25 00:00 08/27/25 12:00
Lab Data
08/27/25 03:16
08/27/25 03:16
Laboratory Results
08/26/25 08/26/25 08/27/25
16:27 21:21 01:08
PT 42.6 H 39.2 H
INR 4.57 4.11
APTT 37.6 H 34.7
pH 7.18 L* 7.30 L
pCO2 58 H 48 H
pO2 129 H 141 H
HCO3 21.6 23.6
O2 Delivery Level
08/27/25 08/27/25
03:16 12:29
PT
INR
APTT
pH 7.36 7.38
pCO2 39 H 40 H
pO2 143 H 173 H
HCO3 22.0 23.7
O2 Delivery Level
Microbiology
08/26/25 14:04 Urine Urine Culture - Final
NO GROWTH
08/26/25 17:42 Abdomen Gram Stain - Preliminary
08/26/25 11:21 Nasal Swab Influenza Types A & B (YUNG) - Final
Negative for Influenza A & B, NAAT
Negative results must be combined with clinical observations
and patient history.
Nucleic Acid Amplification test (NAAT)performed on the
[employer] platform.
Diagnostic Testing:
Physical Exam
-
GI: Other
Exam:
General: NAD.
HEENT: NCAT. Anicteric.
CV: S1, S2 noted. No M/R/G. Pulses 2+ all extremities.
Pulm: Intubated, mechanically ventilated. No signs of distress. CTAB. No wheezes, crackles, or rhonchi. No cyanosis.
GI: Soft, nontender. Nondistended. Surgical site is C/D/I. Colostomy draining green/brown stool. NGT draining bloody fluid. RLQ ARTURO drain draining bloody fluid.
: Waller in place draining clear, yellow urine.
Neuro: Somnolent but arousable. Answers questions, follows commands. Motor, sensation intact lower extremities.
Assessment
-
Assessment: Patient is a 70-year-old female with PMH of pulmonary hypertension, COPD, HFpEF, PE/DVT on Xarelto, chronic hypoxic respiratory failure on 5 L, hypothyroidism, PAD, depression, VISH, HTN, and CAD s/p stent who is in the ICU for management
of sepsis 2/2 perforated sigmoid diverticulitis s/p sigmoidectomy with colostomy (Feli's). Patient continues to be intubated and mechanically ventilated this morning, though she is currently undergoing CPAP for SBT, with possible extubation
thereafter. Hemodynamically stable no longer on Levophed, fentanyl, or propofol. WBCs remain elevated 14.3, though they are decreasing from 18.3 on presentation. Lactate normalized at 1.5 this morning from peak of 3.0 yesterday. Urine output
remains low at ~30 mL/h with creatinine mildly elevated at 1.3. ABG this morning reassuring with pH 7.36, CO2 39, HCO3 22, O2 143.
Plan:
#Sepsis 2/2 perforated viscus 2/2 sigmoid diverticulitis
S/p sigmoidectomy with colostomy (Feli's) yesterday evening
Levophed, fentanyl, propofol drips turned off
Patient currently hemodynamically stable, answering questions, following commands, and denying pain
Intubated mechanically ventilated, currently on CPAP for SBT, with plan for possible extubation depending on how she tolerates wean trial
Continue piperacillin�tazobactam
Start methylprednisolone 20 mg IV daily
Continue Normosol-R at 100 mL/h
WBC is now 14.3 from 18.3 on presentation yesterday
Lactate now 1.5 from peak of 3.0 yesterday
T. bili, transaminases remain elevated
P.o. meds currently on hold due to bloody NGT output
Monitor CBC, CMP, ARTURO output, NGT output
#COPD
#Chronic hypoxic respiratory failure
Start fluticasone�salmeterol twice daily
Start albuterol as needed
#HFpEF
#Pulmonary hypertension
P.o. meds currently on hold, including home spironolactone, furosemide
#Hx of PE
#Hx of DVT
Home Xarelto currently on hold due to bloody ARTURO, NGT output and surgery last night
#Depression
P.o. meds currently on hold, including home sertraline
#Hypothyroidism
P.o. meds currently on hold, including home levothyroxine
[2025-08-27] MEDS: SOLU-MEDROL PF 20 MG IV (12:56)
--- NOTE | 2025-08-27 13:07 | PTCARENOTE ---
SAT began at 0830. SBT began at 1100. ABG drawn and pt extubated to 3L MF NC at 1300.
--- NOTE | 2025-08-27 13:35 | W.PN.UPDATE ---
Update Note
Progress Note Update
HPI: 70 yo woman with PMH CKD III, HFpEF, PE/DVT on Xarelto, COPD, severe pulmonary hypertension (on Sildenafil), chronic hypoxic respiratory failure on 5L NC, hypothyroidism, PAD, GERD, diverticulitis, depression, VISH, p/w severe abdominal pain in
the left lower quadrant.
She was found to have acute diverticulitis with perforation.
CT AP:
1. Small amounts of free intraperitoneal air, suggesting perforated hollow viscus. The favored etiology is related to acute sigmoid diverticulitis with perforated diverticulum. Other possibility includes perforated peptic/duodenal ulcer.
2. There is a 1.3 cm mixed fluid/soft tissue density along the medial margin of the pancreatic head and anterior margin of the duodenum, possibly reflecting a preserved island of normal pancreatic tissue, pancreatic lesion, duodenal ulcer or
prominent peripancreatic lymph node. This could be further evaluated with nonemergent MRI/MRCP abdomen without and with gadolinium contrast.
3. Hepatic cirrhosis with small volume abdominal ascites.
4. Probable cystitis.
5. Mild T12 superior endplate compression fracture, new from 10/30/2024 and age indeterminate. Recommend correlation for any point tenderness in this region.
6. Cholelithiasis.
7. Bibasilar fibrotic changes in the lungs.
A/P:
# Acute Sigmoid Diverticulitis with perforated Diverticulum
# Sepsis secondary to above
# Resolved Lactic Acidosis
s/p OR on admission with sigmoidectomy and colostomy (Feli's procedure)
Patient remained intubated postop, sedation/mechanical ventilation management per hydraulic mechanic
Wean off pressor Levophed
continue current IV Zosyn
Continue gentle IVF
Continue stress dose steroids as patient on chronic prednisone 10 mg prior to admission
CRS and Beekeeper on board.
# h/o DVT/PE on Xarelto
s/p PCC reversal
Xarelto held
RESIDENTIAL TECH aspirin also held, resume when OK with surgery
# Severe pulmonary Hypertension
# COPD
# Chronic Hypoxic Respiratory Failure on 5L NC
Continue current mechanical ventilation per hydraulic mechanic
RESIDENTIAL TECH Sildenafil
RESIDENTIAL TECH inhalers
stress dose steroids as above
# Abnormal finding 1.3cm tissue density medial margin pancreatic head
MRI/MRCP outpatient after acute issues resolved
# HFpEF
hold RESIDENTIAL TECH Lasix, Spironolactone
gentle fluids as above
# Chronic Hypotension
RESIDENTIAL TECH Midodrine
# Chronic Transaminitis suspected 2/2 cor pulmonale/ congestive hepatopathy
# Acute on chronic transaminitis in setting of sepsis
monitor LFT
# Depression
RESIDENTIAL TECH Sertraline
Code: DNR (post OR). She also stated that if she remained intubated post-op with difficulty extubating she would not want to be attached to the machine. Her daughter heard this conversation.
Total Critical Care Time 40 minutes.
--- NOTE | 2025-08-27 15:38 | WOUNDNOTE ---
[facility] RN NOTE: Patient s/p sigmoidectomy with colostomy (Feli's procedure). Stoma flat, awaiting output. Patient recently extubated. Colostomy information left in room, daughter said she will review. Will continue to follow for ostomy teaching
needs.
--- NOTE | 2025-08-27 15:52 | W.PN.ANS.POP ---
Anesthesia Post Operative
- Anesthesia Post Op Note
Vital Signs Stable-See Nursing Note: Yes
Airway Patent: Yes
Adequate Pain Control: Yes
Change in Mental Status: No
Current Postoperative Nausea & Vomiting: No
Anesthesia Complications: No
General Anesthetic Recall: No
Unplanned Admission: No
Post Op Hydration Adequate: Yes
--- NOTE | 2025-08-27 15:56 | CM ---
Pt admitted to ICU with severe abdominal pain and found to have perforated diverticulitis. Hx COPD, chronic respiratory failure - on 5L O2 at home.
Pt s/p sigmoidectomy with colostomy. Several episodes of unresponsiveness, however improved mentation this afternoon, alert and following commands.
Plan: CM will continue to follow to coordinate all discharge planning needs.
[2025-08-27] MEDS: DILAUDID 0.25 MG IV ×2 (16:34→20:54)
[2025-08-27 16:41] VITALS: BP 112/69
[2025-08-27 17:35] LABS: Glucose - Point of Care 114 mg/dl (70-99)
--- NOTE | 2025-08-27 21:00 | PTCARENOTE ---
full assessment documented. pt drowsy but oriented. pt extremely weak, c/o abdominal pain, PRN meds given per NOV. SR/ST on monitor. on 3L NC, orthopnea and dyspnea on exertion noted. colostomy with no output, stoma red and flush to skin. ARTURO with
sanguinous drainage. midline incision w/ aquacell, drainage noted - dressing reinforced. padron intact. foams to skin tears. IVF continue. CHG bath, oral care, padron care complete. daughter updated on plan for overnight. call paul in reach. care
ongoing.
[2025-08-27] MEDS: ADVAIR HFA 45/21 MCG INHALER 2 PUFF INH (21:36)
[2025-08-28] VITALS (16 sets, daily range): BP systolic 89–126; BP diastolic 61–88; PULSE 104; O2SAT 98; BMI 31.8
[2025-08-28] MEDS: NOVOLOG FLEXPEN-LOW RESISTANCE SC ×4 (00:06→17:20)
[2025-08-28 00:16] LABS: Glucose - Point of Care 131 mg/dl (70-99)
--- NOTE | 2025-08-28 01:06 | PTCARENOTE ---
assessment unchanged. remains on 3L NC, denies pain, remains SR on monitor. following ARTURO & padron output. care ongoing.
[2025-08-28] MEDS: LR 1000 IV ×2 (03:18→12:24)
[2025-08-28] MEDS: NORMOSOL-R/PLASMALYTE-A IV (03:18)
[2025-08-28] MEDS: ZOSYN 50 IV ×4 (03:18→22:00)
[2025-08-28] MEDS: DILAUDID 0.25 MG IV ×3 (03:26→18:25)
[2025-08-28 03:37] LABS: Hematocrit 31.1 % (37.0-47.0); Hemoglobin 8.9 g/dL (12.0-16.0); Mean Corp Hgb Conc. 28.6 g/dL (33.0-37.0); Mean Corpuscular Volume 84.3 fL (81.0-99.0); Platelet Count 197 10^3/uL (130-400); Red Cell Dist. Width 19.5 % (11.5-14.5)
[2025-08-28 04:15] LABS: ALT (SGPT) 91 U/L (0-35); AST (SGOT) 45 U/L (14-36); Albumin 2.6 g/dl (3.5-5.0); Alkaline Phosphatase 114 U/L (38-126); Blood Urea Nitrogen 65 mg/dl (7-17); Calcium 8.8 mg/dl (8.4-10.2); Carbon Dioxide 22 mmol/L (22-30); Chloride 103 mmol/L (98-107); Estimated Creatinine Clearance 34 ml/min; Glucose 101 mg/dl (70-99); Magnesium 2.3 mg/dl (1.6-2.3); Potassium 4.2 mmol/L (3.5-5.1); Sodium 135 mmol/L (135-145); Total Protein 5.2 g/dl (6.3-8.2); eGFR 37.26
--- NOTE | 2025-08-28 05:35 | PTCARENOTE ---
AM labs sent, no changes in assessment noted. care continues.
[2025-08-28 05:45] LABS: Glucose - Point of Care 126 mg/dl (70-99)
--- NOTE | 2025-08-28 07:16 | W.PN.HOSP.TC ---
Today's Communication/Plan
-
Decrease LR to 80 mL/h
Maintain NGT
Continue ARTURO drain
Start heparin SQ
Continue Zosyn
PT/OT
Maintain Waller for I&O's
Assessment / Plan
Assessment / Plan
Impression
Ms. Vida Chow is a 70 y/o F with pmh of CKD III, HFpEF, PE/DVT on Xarelto, COPD,chronic hypoxic resp failur on 5L, severe pulmonary hypertension (on Sildenafil), hypothyroidism, PAD, GERD, diverticulitis, Depression, VISH presents to the ER
complaining of severe abdominal pain in the left lower quadrant since yesterday evening.
Imaging
CT Abd/pel Without Iv Or Oral 08/26/2025
1.Small amounts of free intraperitoneal air, suggesting perforated hollow viscus. The favored etiology is related to acute sigmoid diverticulitis with perforated diverticulum. Other possibility includes perforated peptic/duodenal ulcer
2. There is a 1.3 cm mixed fluid/soft tissue density along the medial margin of the pancreatic head and anterior margin of the duodenum, possibly reflecting a preserved island of normal pancreatic tissue, pancreatic lesion, duodenal ulcer or
prominent peripancreatic lymph node. This could be further evaluated with nonemergent MRI/MRCP abdomen without and with gadolinium contrast
3. Hepatic cirrhosis with small volume abdominal ascites
4. Probable cystitis
5. Mild T12 superior endplate compression fracture, new from 10/30/2024 and age indeterminate. Recommend correlation for any point tenderness in this region.
6. Cholelithiasis
7. Bibasilar fibrotic changes in the lungs
Chest Xray 08/26/2025
Endotracheal tube is present, tip low, 1 cm above the nicolasa.
Nasogastric tube is present with tip projecting over the superior medial left upper quadrant, just extending into the upper stomach.
There is patchy parenchymal opacity within the left mid to lower lung. Findings would suggest a component of pneumonia. This would be superimposed on changes of cystic bronchiectasis within the left lower lung.
Increased reticular markings within the right lower lung. This would also suggest a component of pneumonia superimposed on chronic interstitial changes and changes of cystic bronchiectasis.
Cardiac silhouette size appears slightly enlarged, but vasculature is likely not actively congested. There is prominence of the main pulmonary artery shadow, suggesting pulmonary hypertension
CT Head W/o Iv Contrast 08/27/2025
No acute intracranial abnormality noted
PLAN
Acute Sigmoid Diverticulitis with perforated Diverticulum (patient with pain LLQ on exam)
Sepsis secondary to above
-Lactic Acidosis 2.8 -improved 1.5
-Consult CRS, input appreciated
-CT scan of abdomen-perforated diverticulitis
-Agreed to emergent Stoddard's procedure on 08/26/2025
-admit to ICU post-op
-Discontinue IV Unasyn #D1, switch to IV Zosyn #D3
-Received Levophed once- blood pressure 109/70 -improved
-Continue stress dose steroids -methylprednisolone 20 mg IV QD #D3
-Fire Captain Marine consult, input appreciated
-AV line inserted
-Maintain nasogastric tube
-Consult PT/OT
-Abdominal cultures-pending
DVT/PE on Xarelto
-PCC reversal ordered
-Continue holding Xarelto at least through the weekend
-*MOTOR VEHICLE OPERATOR ROAD SUPERVISOR aspirin also held, resume when OK with surgery
- On heparin 5000 units SQ every 12 H
Severe pulmonary Hypertension
COPD
Chronic Hypoxic Respiratory Failure
-Extubated
-MOTOR VEHICLE OPERATOR RO[employer] SUPERVISOR Sildenafil
-MOTOR VEHICLE OPERATOR [employer] SUPERVISOR inhalers
-Continue stress dose steroids
Abnormal finding 1.3cm tissue density medial margin pancreatic head
-MRI/MRCP outpatient after acute issues resolved
HFpEF
-hold MOTOR VEHICLE OPER[employer] SUPERVISOR Lasix, Spironolactone
-gentle fluids as above
Chronic Hypotension
-MOTOR VEHICLE [employer]PERATOR RO[employer] SUPERVISOR Midodrine
- Received Levophed once
- Blood pressure improved
- A-V line on site
Chronic Transaminitis suspected 2/2 cor pulmonale/ congestive hepatopathy
Acute on chronic transaminitis in setting of sepsis
-Trend LFTs-downtrending
Depression - MOTOR VEHICLE OPER[employer] SUPERVISOR Sertraline
Patient is DNR (post OR)
Anticipated Discharge: > 48 hours
Subjective/Interval History
-
Date of Service: August 28, 2025
She is awake lying in the bed. She was extubated yesterday. Her daughter is at the bedside. She is complaining about mild lower abdominal pain. She denies passing gas, chest pain, shortness of breath.
Objective Data
-
Labs:
Laboratory Results
08/28/25
03:09
WBC 15.5 H
Hgb 8.9 L
Hct 31.1 L
Plt Count 197 D
Sodium 135
Potassium 4.2
Chloride 103
Carbon Dioxide 22
BUN 65 H
Creatinine 1.5 H
Glucose 101 H
Calcium 8.8
Total Bilirubin 5.1 H
AST 45 H
ALT 91 H
Alkaline Phosphatase 114
Vital Signs:
Vital Signs
Temp Pulse Resp BP Pulse Ox
97.9 F 101 12 90/63 98
08/28/25 03:20 08/28/25 06:00 08/28/25 06:00 08/28/25 03:40 08/28/25 02:00
I&O
08/27/25 08/28/25 08/29/25
06:59 06:59 06:59
Intake Total 1704.2 / 1804.2 2615 / 2615
Output Total 990 / 990 1260 / 1260
Balance 714.2 / 814.2 1355 / 1355
Review of Systems
-
History Source: Patient
Constitutional: Reports No Symptoms
EENT: Reports No Symptoms Reported
Respiratory: Reports No Symptoms
Cardiac: Reports No Symptoms
Abdomen/GI: Reports Abdominal Pain
Breast: Reports No Symptoms
Genitourinary: Reports No Symptoms
Musculoskeletal: Reports No Symptoms
Skin: Reports No Symptoms
Neuro: Reports No Symptoms
Endocrine: Reports No Symptoms
Physical Exam
-
General: Well Developed, Well Nourished, No Apparent Distress, Intubated and Obese
HEENT: Normocephalic, Atraumatic, Oxygen (Nasal cannula) and Other (Nasogastric tube serosanguineous fluid)
Respiratory: Clear to Auscultation
Cardiac: Regular Rhythm and S1/S2
Breast: Deferred by me
GI: Soft, Nondistended, Tender (Lower abdominal area), Ostomy (Left colostomy bag is empty) and Other (ARTURO drain)
Rectal: Deferred by Provider
Genito-urinary: Waller (Yellow in color)
Musculoskeletal: No Clubbing, No Cyanosis, Edema, Right Lower Extrem and Edema, Left Lower Extrem
Skin: Warm and Dry
Neuro: Awake and Alert
Psych: Calm
[2025-08-28] MEDS: ADVAIR HFA 45/21 MCG INHALER 2 PUFF INH ×2 (07:40→20:37)
[2025-08-28] MEDS: PROTONIX IV 40 MG IV (07:45)
[2025-08-28] MEDS: SOLU-MEDROL PF 20 MG IV (07:45)
[2025-08-28] MEDS: NSS (PRESERVATIVE FREE) 10 ML IV (07:45)
--- NOTE | 2025-08-28 08:00 | PTCARENOTE ---
Received pt. @ change of shift. Pt. drowsy, awakens to verbal stim, ox3, c/o mild acceptable pain @ abd surgical site. SR/ST on monitor. +1 anasarca/+3 pedal. Doppler DP pulses. SpO2 95% on 3LNC. Auscultated dim breath sounds posteriorly. BS
remains absent. L nare NGT secured @ 47cm to LIS w mod amts of red/maroon drainage; flushed per orders. NPO status maintained. Colostomy red/retracted, no output; seen by surg. Midline abd dressing w old drainage. R LQ ARTURO drain w small amt of
sang drainage. Waller catheter in place w ursula urine; UO 20-30mL/hr, relayed to MD team. #20 R AC w LR @ 100mL/hr; #20 R FA w KVO +abx; #18 L AC patent, dressing c/d/i. R rad A-line transduced, calibrated, and monitored; all ports patent and
secured. Pt. repositioned per protocol. Instructed on how to report care concerns. Call beverly morris in reach.
[2025-08-28 11:35] LABS: Glucose - Point of Care 107 mg/dl (70-99)
--- NOTE | 2025-08-28 11:48 | W.PN.CRS1 ---
Today's Communication / Plan
-
maintain ngt
OOB with PT
wean levophed
continue to hold xarelto
Assessment/Plan
-
POD#2 sigmoidectomy with colostomy (Feli's procedure)
Levophed gtt
Zosyn gtt
LR @100ml/hr
-Wound RN for stoma teaching
-Maintain padron for I/O's
-Wean levophed gtt
-OOB with PT/OT once extubated
-Continue Zosyn IV
-Trend labs - transfuse PRN
-Continue to hold xarelto at least through the weekend
-Okay to start heparin subq from our standpoint
-Maintain NGT
-OR pathology and cultures pending
-Continue ARTURO drain
-Stoma is flush with skin - warm and dark red, viable. Continue to monitor for now.
Subjective Data
Procedure
08/26/2025- sigmoidectomy with colostomy (Feli's procedure)
Subjective Data
Date of Service: August 28, 2025
Patient is extubated. She says yes and no. She states that she is not in that much pain. She is tired. No other complaints.
Objective Data
-
Vital Signs
Temp Pulse Resp BP Pulse Ox
97.6 F 104 15 90/63 95
08/28/25 11:31 08/28/25 10:00 08/28/25 10:00 08/28/25 03:40 08/28/25 08:16
Intake & Output
08/27/25 08/28/25 08/29/25
06:59 06:59 06:59
Intake Total 1704.2 / 1804.2 2615 / 2715 410 / 410
Output Total 990 / 990 1260 / 1260
Balance 714.2 / 814.2 1355 / 1455 410 / 410
Intake:
IV fluids (Total) 954.2 / 1054.2 2300 / 2400 380 / 380
Fentanyl 15.0 / 15.0
Levo 30.0 / 30.0
Lr 1,000 ml @ 80 mls/hr IV . 400 / 500 380 / 380
[id number] JEROME Rx#:[id number]
Normosol-R/Plasmalyte-A 1,000 900 / 1000 1900 / 1900
ml @ 100 mls/hr IV .Q10H JEROME Rx
#:[id number]
Propofol 9.2 / 9.2
IV piggybacks 600 / 600 200 / 200
Amount instilled into GI Tube ( 150 / 150 115 / 115 30 / 30
Total)
Blair Sump 150 / 150 115 / 115 30 / 30
Output:
Drain Output (Total) 535 / 535 500 / 500
Right Lower Abdomen 535 / 535 500 / 500
Gastrointestinal tube output ( 150 / 150 125 / 125
Total)
Blair Sump 150 / 150 125 / 125
Urine, Padron 305 / 305 635 / 635
Lab Results
08/28/25 03:09
08/28/25 03:09
Physical Exam
-
General: No Acute Distress and AOx3
Abdomen: Soft, Non Distended, Non Tender and Other (colostomy flush with skin level, warm and dark red. No output. Arturo drain serosanginous)
Skin: Warm and Dry
Wound: Dressing in Place
--- NOTE | 2025-08-28 12:19 | PN.CDI ---
CDI
- -
CDI:
Physician Documentation Request
Admit Date: 08/26/25 16:43
Dear Doctor Liliana,
Patient underwent Feli's procedure for perforated sigmoid diverticulitis.
Sodium results:
08/26/25 08/26/25 08/27/25
11:16 21:21 03:16
Sodium 131 L 129 L 132 L
Could you please provide a diagnosis , that supports the above lab abnormalities and additional evaluation/ monitoring:
hyponatremia
Abnormal lab value clinically insignificant
Other
Use of terms such as suspected, likely, concern for, or probable (associated with a specific diagnosis that is being evaluated, monitored, or treated as if it exists) are acceptable and can be coded in the inpatient setting, when documented at the
time of discharge.
Thank you,
Shanita Chan RN, BSN
CDI Specialist
tiger text
Please use your independent medical judgment in providing your response.
--- NOTE | 2025-08-28 12:24 | PN.CDI ---
CDI
- -
CDI:
Physician Documentation Request
Admit Date: 08/26/25 16:43
Dear Doctor Liliana,
Patient underwent Feli's procedure for perforated sigmoid diverticulitis.
Noted on OR report 'Very oozy retroperitoneum....'
Immediate post op note 'Patient received 1 uPRBCs towards end of procedure.'
H/H
Laboratory Tests
08/26/25 08/26/25 08/27/25
11:16 21:21 03:16
Hgb 9.7 L 9.3 L 9.0 L
Hct 32.6 L 32.1 L 29.5 L
08/28/25
03:09
Hgb 8.9 L
Hct 31.1 L
Could you please provide a diagnosis that supports the above lab abnormalities and additional evaluation/ monitoring and treatment rendered:
acute blood loss anemia
Anemia - other - please specify
Abnormal lab value clinically insignificant
Other
Use of terms such as suspected, likely, concern for, or probable (associated with a specific diagnosis that is being evaluated, monitored, or treated as if it exists) are acceptable and can be coded in the inpatient setting, when documented at the
time of discharge.
Thank you,
Shanita Chan RN, BSN
CDI Specialist
tiger text
Please use your independent medical judgment in providing your response.
--- NOTE | 2025-08-28 12:30 | PTCARENOTE ---
Addendum entered by Miriam Donovan RN 08/28/25 16:59:
Urine output dropping to approx 15mL/hr. Dr. Bergman aware.
Original Note:
Blood cx x1 drawn and sent to lab from R radial art line per DM approval; awaiting results. S/p blood draw R rad- art line removed; pressure held until bleeding ceased and clean dressing applied. Pt. mx skin tears redressed and pt. assisted w
active repositioning in bed. SpO2 dropped into mid 80's s/p activity, O2 titrated up to 5LNC to keep SpO2 >90%. Assessment otherwise unchanged. Daughter @ bedside, updated.
--- NOTE | 2025-08-28 12:40 | WOUNDNOTE ---
WOC RN NOTE: Ostomy supplies at bedside.
--- NOTE | 2025-08-28 12:53 | CM ---
Still in ICU POD #2 working with wound care nurse on ostomy care
Needs to work with PT/OT when cleared
Will continue to follow up DC > 48 hours
--- NOTE | 2025-08-28 12:55 | CON.ID ---
Consultation
-
Date/Time Consultation Requested: August 28, 2025 1201
Date/Time Consultation Performed: August 28, 2025 1300
Requesting Provider: Dr. Donnell Reyna
Performing Provider: Dr. Cindy Hein
Reason for Consultation: Perforated bowel
Chief Complaint / Past History
Chief Complaint
Abdominal pain
History of Present Illness
70-year-old female with history of CAD, PAD, HFpEF, COPD/pulmonary fibrosis on chronic 5L02 who presented to the hospital August 26 due to abdominal pain. Patient has had several recent hospitalizations in July and subsequently discharged to
rehab due to falls and deconditioned state. While at rehab, patient developed sudden severe left side abdominal pain. No nausea vomiting or diarrhea. No fevers. In the ER white count 18.3, lactic acid elevated. CAT scan of the abdomen and
pelvis showed free air likely from sigmoid diverticulitis. She was started on Zosyn. She was taken to the OR that evening and found to have perforated sigmoid colitis with pelvis contamination, status post sigmoidectomy with colostomy. OR culture
pending. Admission blood cultures positive for Streptococcus species. She required brief course of pressor which has been weaned off. Patient reports no history of diverticulitis in the past. She has postop discomfort.
Past History
Additional Past Medical History:
Coronary Artery Disease s/p Stent
Peripheral Arterial Disease s/p Right CEA
Chronic HFpEF
Essential Hypertension
Hyperlipidemia
COPD
Pulmonary Fibrosis
Chronic Hypoxemic respiratory failure on 5L02
CKD3
Hypothyroidism
DVT/PE
Obstructive Sleep Apnea
Depression
R CEA
Gastric sleeve
Allergy History:
tape Allergy (Uncoded 08/26/25 10:59)
Unknown
Medications Reviewed: Yes
Current Antibiotics:
Zosyn d3
Social History
Tobacco: Former Smoker
Alcohol: None
Drug: None
Family History
Family History: Not Pertinent
Review of Systems
Review of Systems
General: Change in Appetite; Negative Fever or Chills
HEENT: Negative Sinus Problems or Headache
Cardiovascular: Edema; Negative Chest Pain
Respiratory: Dyspnea; Negative Cough
Gasteroenterology: Negative Nausea, Vomiting or Diarrhea
Genital / Urological: Negative Dysuria or Flank Pain
Endocrine: Weakness
All systems: All other systems were reviewed and were negative
Vital Signs
Temp Pulse Resp BP Pulse Ox
97.6 F 102 11 110/75 90
08/28/25 11:31 08/28/25 12:35 08/28/25 12:35 08/28/25 12:35 08/28/25 12:35
Physical Exam
Physical Exam
Constitutional: Acutely Ill
Head: Other (NGT in place)
Eyes: No Conjunctival Hemorrhage and Other (sclera icteric)
Cardiovascular: S1/S2 (tachycardic)
Pulmonary: Rales
Gastrointestinal: Soft, Tender, Non Distended, Decreased Bowel Sounds and Other (ARTURO drain; serosanguinous fluid)
Genito-Urinary: Waller and Clear Urine
Extremities: Edema
Skin: Jaundice
Neurological: Awake
Lab / Diagnostic Study Results
08/28/25 03:09
08/28/25 03:09
Abs Immat Gran (auto) 0.1 10^3/uL (0-0.05) H 08/27/25 03:16
Absolute Neuts (auto) 13.4 10^3/uL (1.4-6.5) H 08/27/25 03:16
Absolute Lymphs (auto) 0.4 10^3/uL (1.2-3.4) L 08/27/25 03:16
Absolute Monos (auto) 0.4 10^3/uL (0.1-0.6) 08/27/25 03:16
Absolute Basos (auto) 0.0 10^3/uL (0-0.2) 08/27/25 03:16
Total Counted 100 08/26/25 21:21
Immature Gran % 0.7 % (0-0.5) H 08/27/25 03:16
Neutrophils % 93.7 % (42.2-75.2) H 08/27/25 03:16
Lymphocytes % 2.5 % (20.5-51.1) L 08/27/25 03:16
Monocytes % 2.9 % (1.7-9.3) 08/27/25 03:16
Eosinophils % 0.0 % (0-6) 08/27/25 03:16
Basophils % 0.2 % (0-2) 08/27/25 03:16
Abs Neuts (Manual) 16.6 10^3/uL (1.4-6.5) H 08/26/25 21:21
Segmented Neutrophils 73 % (42-75) 08/26/25 21:21
Band Neutrophils 19 % (0-3) H 08/26/25 21:21
Lymphocytes (Manual) 1 % (20-51) L 08/26/25 21:21
PT 39.2 Sec (11.4-14.6) H 08/26/25 21:21
INR 4.11 08/26/25 21:21
Lactic Acid Cancelled 08/27/25 01:15
Ur Squamous Epith Cells 11-15 /LPF (Few) 08/26/25 14:04
Microbiology Results
Micro:
08/26/25 17:42 Anaerobic Culture - Preliminary
Abdomen Culture pending. Anaerobic cultures are examined after 3
days incubation. Additional information to follow.
08/26/25 17:42 Wound Culture - Preliminary
Abdomen Gram Stain - Preliminary
08/28/25 11:24 Blood Culture - Pending
Blood/Venous
08/26/25 13:41 Blood Culture - Preliminary
Blood/Venous Streptococcus species
Gram Stain - Preliminary
08/26/25 13:44 Blood Culture - Preliminary
Blood/Venous Positive culture in progress
Gram Stain - Preliminary
08/26/25 14:04 Urine Culture - Final
Urine NO GROWTH
08/26/25 11:21 Influenza Types A & B (YUNG) - Final
Nasal Swab Negative for Influenza A & B, NAAT
Negative results must be combined with clinical observations
and patient history.
Nucleic Acid Amplification test (NAAT)performed on the
[employer] platform.
08/26/25 CT a/p: Small amounts of free intraperitoneal air, suggesting perforated hollow viscus. The favored etiology is related to acute sigmoid diverticulitis with perforated diverticulum. Other possibility includes perforated peptic/duodenal
ulcer. There is a 1.3 cm mixed fluid/soft tissue density along the medial margin of the pancreatic head and anterior margin of the duodenum, possibly reflecting a preserved island of normal pancreatic tissue, pancreatic lesion, duodenal ulcer or
prominent peripancreatic lymph node. This could be further evaluated with nonemergent MRI/MRCP abdomen without and with gadolinium contrast. Hepatic cirrhosis with small volume abdominal ascites.
Assessment / Plan
# Perforated sigmoid diverticulitis with peritonitis
# Strep species bacteremia (2 sets), intra-abd source
# s/p septic shock
# Leukocytosis, on steroid
# Chronic elevated LFT's
- Await OR fluid cx. Gram stain +GNR
- Continue Zosyn.
- Will de-escalate abx when cx data available.
- Trend vitals, wbc.
# Conditions present on admission
Coronary Artery Disease s/p Stent
Peripheral Arterial Disease s/p Right CEA
Chronic HFpEF
Essential Hypertension
Hyperlipidemia
COPD
Pulmonary Fibrosis
Chronic Hypoxemic respiratory failure on 5L02
CKD3
Hypothyroidism
DVT/PE
Obstructive Sleep Apnea
Depression
R CEA
Gastric sleeve
--- NOTE | 2025-08-28 13:09 | W.PN.INTV ---
Today's Communication / Plan
Recommendations
Overall clinical picture improving, with patient hemodynamically stable on 3 L and labs generally improving
Continue antibiotics given positive blood cultures, recent perforation and surgery
Continue steroids
Start DVT prophylaxis with SQH this evening
ID evaluation pending
Assessment
-
Assessment: Patient is a 70-year-old female with PMH of pulmonary hypertension, COPD, HFpEF, PE/DVT on Xarelto, chronic hypoxic respiratory failure on 5 L, hypothyroidism, PAD, depression, VISH, HTN, and CAD s/p stent who is in the ICU for management
of sepsis 2/2 perforated sigmoid diverticulitis s/p sigmoidectomy with colostomy (Feli's). Patient continues to be intubated and mechanically ventilated this morning, though she is currently undergoing CPAP for SBT, with possible extubation
thereafter. Hemodynamically stable no longer on Levophed, fentanyl, or propofol. WBCs remain elevated 14.3, though they are decreasing from 18.3 on presentation. Lactate normalized at 1.5 this morning from peak of 3.0 yesterday. Urine output
remains low at ~30 mL/h with creatinine mildly elevated at 1.3. ABG this morning reassuring with pH 7.36, CO2 39, HCO3 22, O2 143.
12/12: No acute events overnight. Pressure somewhat soft as low as 92/60, though she is currently hemodynamically stable on 3 L NC. Not requiring any pressors or sedation. WBCs remain elevated 15.5 (14.3 yesterday), the patient continues to be
afebrile. Blood cultures x 2 positive, with 1 showing strep species. Blood Gram stain x 2 shows GN bacilli, GP bacilli, and GP cocci. Hgb low but stable at 8.9 (9.0 yesterday). Creatinine slightly elevated 1.5, but relatively stable from 1.3
yesterday. Transaminases improving. T. bili improving but still elevated at 5.1. Minimal NGT output. ARTURO drain in RLQ output ~10 mL/h of serosanguineous fluid.
Plan:
#Sepsis 2/2 perforated viscus 2/2 sigmoid diverticulitis
POD #2 s/p sigmoidectomy with colostomy (Feli's) 08/26
Successfully extubated yesterday, now on 3L NC
Not requiring any pressors or sedation
Patient currently hemodynamically stable, answering questions, following commands, and denying pain
Continue piperacillin�tazobactam given positive blood cultures and recent sigmoid perforation and surgery, pending ID eval
Continue methylprednisolone 20 mg IV daily
Continue LR at 80 mL/h
Blood cultures positive for strep, with GS positive for GN bacilli, GP bacilli, and GP cocci; repeat cultures pending
WBC is now 15.5 from 14.3 yesterday and 18.3 on presentation yesterday
Lactate 1.5 yesterday, no longer trending
T. bili, transaminases remain elevated but improving
P.o. meds currently on hold given n.p.o. status
Monitor CBC, CMP, ARTURO output, NGT output
ID consulted, evaluation pending
#COPD
#Chronic hypoxic respiratory failure
Continue fluticasone�salmeterol twice daily
Continue albuterol as needed
#HFpEF
#Pulmonary hypertension
P.o. meds currently on hold, including home spironolactone, furosemide
#Hx of PE
#Hx of DVT
Plan to start DVT prophylaxis with SQH this evening
Home Xarelto currently on hold due to recent surgery 08/26
Plan to resume home Xarelto no earlier than Friday 08/31, per colorectal surgery
#Depression
P.o. meds currently on hold, including home sertraline
#Hypothyroidism
P.o. meds currently on hold, including home levothyroxine
PT/OT: Eval pending
Diet: N.p.o.
Subjective Dataa
Subjective Data
Date of Service:
Date of Service: August 28, 2025
Subjective:
Patient seen at the bedside on hospital day #3. Patient is awake and answers questions appropriately. Denies chest pain, shortness of breath, or abdominal pain. No current complaints.
Review of Systems
Cardiopulmonary: Other (Denies chest pain or shortness of breath)
GI: Other (Denies abdominal pain)
Objective Data
Data Reviewed
Vital Signs / I&O / Oxygen:
Vital Signs
Temp Pulse Resp BP Pulse Ox
97.6 F 102 11 110/75 90
08/28/25 11:31 08/28/25 12:35 08/28/25 12:35 08/28/25 12:35 08/28/25 12:35
Intake and Output
08/27/25 08/28/25 08/29/25
06:59 06:59 06:59
Intake Total 1704.2 / 1804.2 2615 / 2715 710 / 710
Output Total 990 / 990 1260 / 1275 90 / 90
Balance 714.2 / 814.2 1355 / 1440 620 / 620
SaO2 [CPAP] 40
SaO2 [A/C] 100
SaO2 90
Nasal Cannula flow liters per 3
minute
Physical Exam
General: T Max (98.6) and Other (No pain)
HEENT: Normocephalic and Anicteric
Cardiovascular: S1-S2, Regular Rhythm and Other (No M/R/G; 2+ pitting edema bilateral lower extremities, the daughter states this is chronic for patient)
Respiratory: Clear, Non-Labored Respirations and Other (No wheezes, crackles, or rhonchi; currently on 3 L NC)
GI: Soft, Non Distended, Non Tender, NG Tube (Putting out minimal fluid) and Other (Surgical site CDI; no contents in colostomy bag)
Neurology: Awake, AO x 3 and Other (Answers questions appropriately)
Skin: Dry and Good Color
Labs/Micro/Reports
Lab Data
08/28/25 03:09
08/28/25 03:09
Microbiology
08/26/25 17:42 Abdomen Anaerobic Culture - Preliminary
Culture pending. Anaerobic cultures are examined after 3
days incubation. Additional information to follow.
08/26/25 17:42 Abdomen Wound Culture - Preliminary
08/26/25 17:42 Abdomen Gram Stain - Preliminary
08/26/25 13:41 Blood/Venous Blood Culture - Preliminary
Streptococcus species
08/26/25 13:41 Blood/Venous Gram Stain - Preliminary
08/26/25 13:44 Blood/Venous Blood Culture - Preliminary
Positive culture in progress
08/26/25 13:44 Blood/Venous Gram Stain - Preliminary
08/26/25 14:04 Urine Urine Culture - Final
NO GROWTH
08/26/25 11:21 Nasal Swab Influenza Types A & B (YUNG) - Final
Negative for Influenza A & B, NAAT
Negative results must be combined with clinical observations
and patient history.
Nucleic Acid Amplification test (NAAT)performed on the
[employer] platform.
--- NOTE | 2025-08-28 14:36 | W.PN.UPDATE ---
Update Note
Progress Note Update
Patient seen and discussed with residents.
HPI: 70 yo woman with PMH CKD III, HFpEF, PE/DVT on Xarelto, COPD, severe pulmonary hypertension (on Sildenafil), chronic hypoxic respiratory failure on 5L NC, hypothyroidism, PAD, GERD, diverticulitis, depression, VISH, p/w severe abdominal pain in
the left lower quadrant.
She was found to have acute diverticulitis with perforation.
CT AP:
1. Small amounts of free intraperitoneal air, suggesting perforated hollow viscus. The favored etiology is related to acute sigmoid diverticulitis with perforated diverticulum. Other possibility includes perforated peptic/duodenal ulcer.
2. There is a 1.3 cm mixed fluid/soft tissue density along the medial margin of the pancreatic head and anterior margin of the duodenum, possibly reflecting a preserved island of normal pancreatic tissue, pancreatic lesion, duodenal ulcer or
prominent peripancreatic lymph node. This could be further evaluated with nonemergent MRI/MRCP abdomen without and with gadolinium contrast.
3. Hepatic cirrhosis with small volume abdominal ascites.
4. Probable cystitis.
5. Mild T12 superior endplate compression fracture, new from 10/30/2024 and age indeterminate. Recommend correlation for any point tenderness in this region.
6. Cholelithiasis.
7. Bibasilar fibrotic changes in the lungs.
A/P:
# Acute Sigmoid Diverticulitis with perforated Diverticulum
# Sepsis secondary to above
# Resolved Lactic Acidosis
s/p OR on admission with sigmoidectomy and colostomy (Feli's procedure)
Patient was intubated postop, and extubated 08/27/2025. Continue current O2 support with nasal cannula and wean as tolerated
BP stable off pressor support
follow wound culture
continue current IV Zosyn
Continue gentle IVF
s/p stress dose steroid, now pt on IV Solu-Medrol. Noted patient on chronic prednisone 10 mg prior to admission
NPO for now until lifted by CRS
CRS and Schedule [employer] on board.
# h/o DVT/PE on Xarelto
s/p PCC reversal
Xarelto held
BUSINESS [employer]UITY CONSULTANT aspirin also held, resume when OK with surgery
# Severe pulmonary Hypertension
# COPD
# Chronic Hypoxic Respiratory Failure on 5L NC
Continue current mechanical ventilation per tank truck driver
BUSINESS CONTINUITY CONSULTANT Sildenafil
BUSINESS CONTINUITY CONSULTANT inhalers
s/p stress dose steroid, now pt on IV Solu-Medrol. Noted patient on chronic prednisone 10 mg prior to admission
# Abnormal finding 1.3cm tissue density medial margin pancreatic head
MRI/MRCP outpatient after acute issues resolved
# HFpEF
hold BUSINESS CONTINUITY CONSULTANT Lasix, Spironolactone
gentle fluids as above
# Chronic Hypotension
[employer]INESS [employer]UITY CONSULTANT Midodrine
# Chronic Transaminitis suspected 2/2 cor pulmonale/ congestive hepatopathy
# Acute on chronic transaminitis in setting of sepsis
monitor LFT , marginally downtrending
# Depression
BUSINESS CONTINUITY CONSULTANT Sertraline
Code: DNR (post OR). She also stated that if she remained intubated post-op with difficulty extubating she would not want to be attached to the machine. Her daughter heard this conversation.
Discussed with daughter at bedside
Discussed with block and case maker
--- NOTE | 2025-08-28 17:00 | PTCARENOTE ---
PT to bedside this afternoon. Pt. able to sit @ side of bed and stand x2 w RW w therapy. PT assisted pt back to bed and placed pt. in chair position. Pt. tolerated activity and current position. Assessment remains unchanged. Call beverly morris in
reach.
[2025-08-28 17:05] LABS: INR 3.35; PT 34.2 Sec (11.4-14.6)
[2025-08-28 17:06] LABS: APTT 34.9 Sec (23.4-35.0)
[2025-08-28 17:30] LABS: Glucose - Point of Care 123 mg/dl (70-99)
[2025-08-28] MEDS: FLEXBUMIN 100 IV (22:15)
--- NOTE | 2025-08-28 22:21 | PTCARENOTE ---
Pt received drowsy but arousable to voice. NG remains intact to low int suction-minimal drainage but irrigates easily. ARTURO drain with serosanguinous drainage and large amt drainage at site-dressing changed. Remains with decreased output from
padron-35ml over last 4 hours. Discussed with dredge captain SMOKE TESTER-albumin hung as ordered. Assessment as charted.
[2025-08-29] VITALS (31 sets, daily range): BP systolic 86–128; BP diastolic 41–84; PULSE 95–98; O2SAT 95; BMI 32.6
[2025-08-29 00:06] LABS: Glucose - Point of Care 93 mg/dl (70-99)
[2025-08-29] MEDS: NOVOLOG FLEXPEN-LOW RESISTANCE SC ×4 (00:08→17:20)
[2025-08-29] MEDS: LR 1000 IV ×2 (00:09→12:25)
[2025-08-29] MEDS: ZOSYN 50 IV ×3 (04:04→17:20)
[2025-08-29 04:38] LABS: Hematocrit 30.2 % (37.0-47.0); Hemoglobin 8.9 g/dL (12.0-16.0); Mean Corp Hgb Conc. 29.5 g/dL (33.0-37.0); Mean Corpuscular Volume 83.0 fL (81.0-99.0); Platelet Count 152 10^3/uL (130-400); Red Cell Dist. Width 20.1 % (11.5-14.5)
[2025-08-29 04:40] LABS: INR 2.70; PT 28.9 Sec (11.4-14.6)
[2025-08-29 04:52] LABS: ALT (SGPT) 84 U/L (0-35); AST (SGOT) 56 U/L (14-36); Albumin 3.1 g/dl (3.5-5.0); Alkaline Phosphatase 155 U/L (38-126); Blood Urea Nitrogen 80 mg/dl (7-17); Calcium 9.0 mg/dl (8.4-10.2); Carbon Dioxide 24 mmol/L (22-30); Chloride 102 mmol/L (98-107); Estimated Creatinine Clearance 26 ml/min; Glucose 84 mg/dl (70-99); Magnesium 2.4 mg/dl (1.6-2.3); Potassium 4.1 mmol/L (3.5-5.1); Sodium 138 mmol/L (135-145); Total Protein 5.7 g/dl (6.3-8.2); eGFR 26.38
--- NOTE | 2025-08-29 05:26 | PTCARENOTE ---
Pt sleeping when undisturbed. Denies pain when asked. Continue to monitor.
[2025-08-29] MEDS: ADVAIR HFA 45/21 MCG INHALER 2 PUFF INH ×2 (07:38→19:39)
--- NOTE | 2025-08-29 07:48 | W.PN.ID1 ---
Date of Service
Date of Service: August 29, 2025
Today's Communication
Continue antibiotics
Assessment / Plan
# Perforated sigmoid diverticulitis with peritonitis
# Strep species bacteremia (2 sets), intra-abd source
# s/p septic shock
# Leukocytosis, on steroid
# Chronic elevated LFT's
# SHANNON
- Await OR fluid cx. Gram stain with GNR's
- Follow repeat blood cultures to assess clearance
- Continue Zosyn for today.
- Will de-escalate abx when cx data available.
- Trend vitals, wbc.
- Continue with supportive measures
- Trend Cr. / CrCl to guide antibiotic dosing adjustment
# Conditions present on admission
Coronary Artery Disease s/p Stent
Peripheral Arterial Disease s/p Right CEA
Chronic HFpEF
Essential Hypertension
Hyperlipidemia
COPD
Pulmonary Fibrosis
Chronic Hypoxemic respiratory failure on L02
CKD3
Hypothyroidism
DVT/PE
Obstructive Sleep Apnea
Depression
R CEA
Gastric sleeve
Chief Complaint
-: Bacteremia and Other (Perforated sigmoid diverticulitis; peritonitis)
Subjective / Review of Systems
Patient seen and examined.
Review of Systems: No Fever
Vital Signs / Physical Exam
Vital Signs
Vital Signs
Temp Pulse Resp BP Pulse Ox
97.6 F 99 16 98/64 98
08/29/25 04:00 08/29/25 07:40 08/29/25 07:40 08/29/25 05:00 08/29/25 07:40
Physical Exam
Constitutional: Acutely Ill, Chronically Ill and Non-toxic
Eyes: Sclera Anicteric
Oropharyngeal: Other (NG tube in place)
Cardiovascular: S1/S2; Negative S3/S4
Pulmonary: Coarse and Non Labored
Gastrointestinal: Soft, Non Distended, Decreased Bowel Sounds, No Rebound and Other (Ostomy in place; right sided ARTURO with serosanguineous drainage)
Extremities: Edema; Negative Erythema
Neurological: Other (Arousable to voice and responsive)
Objective Data
Lab Data
Lab Results
08/29/25 04:00
08/29/25 04:00
PT 28.9 Sec (11.4-14.6) H 08/29/25 04:00
INR 2.70 08/29/25 04:00
APTT 34.9 Sec (23.4-35.0) 08/28/25 16:43
Estimated Creat Clear 26 ml/min 08/29/25 04:00
Lactic Acid Cancelled 08/27/25 01:15
Total Bilirubin 6.2 mg/dl (0.2-1.3) H 08/29/25 04:00
AST 56 U/L (14-36) H 08/29/25 04:00
ALT 84 U/L (0-35) H 08/29/25 04:00
Alkaline Phosphatase 155 U/L (38-126) H 08/29/25 04:00
Most recent labs reviewed.
Micro Results:
08/26/25 17:42 Anaerobic Culture - Preliminary
Abdomen Culture pending. Anaerobic cultures are examined after 3
days incubation. Additional information to follow.
08/26/25 17:42 Wound Culture - Preliminary
Abdomen Gram Stain - Preliminary
08/28/25 11:24 Blood Culture - Pending
Blood/Venous
08/26/25 13:41 Blood Culture - Preliminary
Blood/Venous Streptococcus species
Gram Stain - Preliminary
08/26/25 13:44 Blood Culture - Preliminary
Blood/Venous Positive culture in progress
Gram Stain - Preliminary
08/26/25 14:04 Urine Culture - Final
Urine NO GROWTH
08/26/25 11:21 Influenza Types A & B (YUNG) - Final
Nasal Swab Negative for Influenza A & B, NAAT
Negative results must be combined with clinical observations
and patient history.
Nucleic Acid Amplification test (NAAT)performed on the
[employer] platform.
Imaging:
08/26/25 CT a/p: Small amounts of free intraperitoneal air, suggesting perforated hollow viscus. The favored etiology is related to acute sigmoid diverticulitis with perforated diverticulum. Other possibility includes perforated peptic/duodenal
ulcer. There is a 1.3 cm mixed fluid/soft tissue density along the medial margin of the pancreatic head and anterior margin of the duodenum, possibly reflecting a preserved island of normal pancreatic tissue, pancreatic lesion, duodenal ulcer or
prominent peripancreatic lymph node. This could be further evaluated with nonemergent MRI/MRCP abdomen without and with gadolinium contrast. Hepatic cirrhosis with small volume abdominal ascites.
Care Review
Plan reviewed with: Physician (Discussed with Nephrology)
--- NOTE | 2025-08-29 08:05 | W.CON.NEPH ---
Consultation
-
Date/Time Consultation Requested: 08/29/2025 8:00 AM
Date/Time Consultation Performed: 08/29/2025 8:00 AM
Requesting Provider: Dr. Ford
Performing Provider: Dr. Varela
Reason for Consultation: Acute renal failure
Medical History
-
Chief Complaint: Acute renal failure
History of Present Illness:
Patient is a 70-year-old female with a history of CKD stage III who maintains a baseline creatinine of 1.5. She is a history of congestive heart failure is maintained on Lasix and is maintained on levothyroxine for hypothyroidism. She presented
with perforated sigmoid diverticulitis with peritonitis with subsequent strep species bacteremia. She has not endorsed septic shock and underwent sigmoidectomy with colostomy on 08/27/2025. Her postop course has been complicated with vent
dependent respiratory failure and septic shock and nephrology was consulted for acute renal failure with a creatinine rise of 2 and decreased urine output overnight.
Past Medical History
Coronary Artery Disease s/p Stent
Peripheral Arterial Disease s/p Right Carotid Endarterectomy
Chronic HFpEF
Essential Hypertension
Hyperlipidemia
Chronic Hypoxia
COPD / Emphysema / Pulmonary Fibrosis
Hypothyroidism
DVT/PE
Obesity
Obstructive Sleep Apnea
Past Surgical History: Reports Other
Additional Past Surgical History:
Right Carotid Endarterectomy
Cardiac Stent
Gastric Sleeve
Section
Social History
Tobacco: Former Smoker
Alcohol: None
Family History
Family History: Not Pertinent
Allergies / Home Medications
Allergy/AdvReac Type Severity Reaction Status Date / Time
tape Allergy Unknown Uncoded 08/26/25 10:59
�Medication �Instructions �Recorded �Confirmed �Type
aspirin 81 mg tablet,delayed 81 mg PO DAILY Blood Clot 10/13/24 08/26/25 History
release Prevention/Tx
levothyroxine 125 mcg tablet 125 mcg PO DAILY Thyroid 10/13/24 08/26/25 History
(Synthroid)
prednisone 10 mg tablet 10 mg PO DAILY INFLAMMATION 10/13/24 08/26/25 History
therapeutic multivitamin 1 tab PO DAILY Supplement 10/13/24 08/26/25 History
rivaroxaban 20 mg tablet (Xarelto) 20 mg PO QPM Blood Clot 05/08/25 08/26/25 History
Prevention/Tx
sertraline 50 mg tablet 50 mg PO DAILY Mental Health 05/08/25 08/26/25 History
spironolactone 25 mg tablet 25 mg PO DAILY Heart Failure 05/08/25 08/26/25 History
fluticasone 100 mcg-salmeterol 50 1 inh inhalation R BID 07/21/25 08/26/25 History
mcg/dose blistr powdr for Lung/Breathing Issues
inhalation (Wixela Inhub)
furosemide 40 mg tablet 40 mg PO DAILY Heart Failure #90 07/27/25 08/26/25 Rx
tabs
midodrine 5 mg tablet 5 mg PO TID@0800,1300,1800 Blood 08/03/25 08/26/25 Rx
pressure #0 tabs
sildenafil (pulm.hypertension) 20 20 mg PO TID pulm htn #90 tabs 08/03/25 08/26/25 Rx
mg tablet
Saccharomyces boulardii 250 mg 250 mg PO BID Supplement 08/26/25 08/26/25 History
capsule (Florastor)
acetaminophen 325 mg tablet 650 mg PO Q6HPRN PRN mild pain 08/26/25 08/26/25 History
(Tylenol)
bisacodyl 10 mg rectal suppository 10 mg [place] DAILYPRN PRN if no bm 08/26/25 08/26/25 History
(Dulcolax (bisacodyl)) aftr mom
loperamide 2 mg tablet 2 mg PO Q6HPRN PRN diarrhea 08/26/25 08/26/25 History
magnesium hydroxide 400 mg/5 mL 2,400 mg PO [id number] PRN if no bm 08/26/25 08/26/25 History
oral suspension (Milk of Magnesia) aftr 9 shifts
melatonin 3 mg tablet 3 mg PO HS Sleep 08/26/25 08/26/25 History
melatonin 3 mg tablet 3 mg PO HSPRN PRN sleep 08/26/25 08/26/25 History
omeprazole 20 mg capsule,delayed 20 mg PO DAILY Gastrointestinal 08/26/25 08/26/25 History
release Issue
ondansetron HCl 4 mg tablet 4 mg PO Q8HPRN PRN nausea 08/26/25 08/26/25 History
sodium phosphates 19 gram-7 118 ml [place] DAILYPRN PRN if no bm 08/26/25 08/26/25 History
gram/118 mL enema (Fleet Enema) aftr dulcolax
Review of Systems
-
Unable to obtain full review of systems at this time due to: Acuity
History Source: Patient
All other systems: Negative unless noted
Respiratory: Other (Remains on oxygen)
Abdomen/GI: Abdominal Pain
: Other (Waller)
Skin: Other (Ecchymosis)
Physical Exam
Vital Signs
Vital Signs
Temp Pulse Resp BP Pulse Ox
97.6 F 99 16 98/64 98
08/29/25 04:00 08/29/25 07:40 08/29/25 07:40 08/29/25 05:00 08/29/25 07:40
Lab Results
08/29/25 04:00
08/29/25 04:00
WBC 21.6 10^3/uL (4.8-10.8) H 08/29/25 04:00
RBC 3.64 10^6/uL (4.20-5.40) L 08/29/25 04:00
Hgb 8.9 g/dL (12.0-16.0) L 08/29/25 04:00
Hct 30.2 % (37.0-47.0) L 08/29/25 04:00
Plt Count 152 10^3/uL (130-400) D 08/29/25 04:00
Sodium 138 mmol/L (135-145) 08/29/25 04:00
Potassium 4.1 mmol/L (3.5-5.1) 08/29/25 04:00
Chloride 102 mmol/L (98-107) 08/29/25 04:00
Carbon Dioxide 24 mmol/L (22-30) 08/29/25 04:00
BUN 80 mg/dl (7-17) H 08/29/25 04:00
Creatinine 2.0 mg/dL (0.6-1.0) H 08/29/25 04:00
eGFR 26.38 08/29/25 04:00
Glucose 84 mg/dl (70-99) 08/29/25 04:00
Calcium 9.0 mg/dl (8.4-10.2) 08/29/25 04:00
Phosphorus 3.7 mg/dl (2.5-4.5) 08/26/25 11:16
Albumin 3.1 g/dl (3.5-5.0) L 08/29/25 04:00
Physical Exam
General: Lethargic but arousable
HEENT: PERRL, EOMI, Anicteric, Conjunctivae Clear, Ear/Nose Intact, NGT Oropharynx Clear/dry, Dentition Intact, Facial Symmetry, Neck Supple, Neck: Trachea Midline, No JVD and No Thyromegaly, no Bruits
Respiratory: Coarse to auscultation bilaterally with normal lung exersion
Cardiac: S1/S2 and Regular Rate/Rhythm
Breast: Deferred by me
Abdomen: Soft, tender, Nondistended, decreased breath, ARTURO drain
Rectal: Deferred by Provider
Genito-urinary: No Costovertebral Tenderness, Waller catheter
Extremities: No Clubbing, No Cyanosis and noted central edema
Skin: No Rash or open lesions, ecchymosis along chest wall and face and extremity
Neuro: Nonfocal
Hematologic/Lymphatic: No Cervical Lymphadenopathy, No Submandibular Lymphadenopathy and No Supraclavicular Lymphadenopathy
Psych: Withdrawn and moaning
Vascular: plus 1 pedal and radial pulses
Data Reviewed
-
Radiology: Image Personally Visualized and interpreted (Chest x-ray from 08/26/2025 personally reviewed shows enlarged heart interstitial lung findings no)
Labs: Labs Reviewed by me (BMP CBC urinalysis)
Old Records: Reviewed (Reviewed previous labs from early July 2025 creatinine 1.5)
Assessment/Plan
-
Impression:
Acute renal failure
Status post perforated sigmoid diverticulitis with secondary peritonitis status post sigmoidectomy with colostomy on 08/27/2025
Septic shock (strep species bacteremia)
Pulmonary hypertension on Revatio
Chronic HFpEF
COPD/chronic hypoxic respiratory failure
History of CAD with PCI in 2021
History of PE and DVT on chronic anticoagulation
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
Transaminitis
Peripheral arterial disease
Hepatic cirrhosis
Chronic hypotension on midodrine's
Plan:
SHANNON:
- Likely prerenally mediated in the setting of septic shock with compromised effective circulating volume
- Maintain MAP at 65 or greater with IV fluids (lactated ringers) and midodrine support
- Do not remove Waller
- No acute dialysis requirement at this time
- Zosyn will need renally adjusted as GFR declining
- Weights up 3 kg since admission
- Will likely need to mobilize fluid in the near future with diuretics
--- NOTE | 2025-08-29 08:28 | W.PN.INTV ---
Today's Communication / Plan
Recommendations
Continue supplemental O2
Holding PO meds per surgery
Starting TPN per surgery
Continue antibiotics per ID
Continue steroids (equivalent to her home dose of prednisone)
Patient stable for downgrade out of ICU to IMU. Given her severe pulmonary hypertension, pulmonary service will continue to follow along.
Assessment
-
Assessment: 70-year-old female with a past medical history of severe group III pulmonary hypertension, combined pulmonary fibrosis and emphysema, chronic hypoxic respiratory failure, chronic HFpEF, CAD, history of PE/DVT, hypertension,
hyperlipidemia and carotid atherosclerosis who presented from [facility] with abdominal pain, dry heaves and 3 episodes of diarrhea. Patient is on 5 L/min nasal cannula at baseline. Imaging with CT abdomen/pelvis showed free
intraperitoneal air with a suspected acute sigmoid diverticulitis. Surgery consulted and patient brought to the OR and sigmoidectomy with colostomy performed. EBL was 250 cc and there were no immediate complications. Intraoperatively there was a
perforated sigmoid diverticulitis discovered with pelvic area contamination and very oozy retroperitoneum. Patient had a #19 Godwin drain placed into the pelvis and received 1 unit PRBC towards the end of the procedure. Patient remained intubated
on Levophed and was transferred to the ICU postoperatively. Brick Paver service consulted for additional management/recommendations.
Impression:
#Ventilator dependent respiratory failure - extubated 08/27/2025
#Perforated sigmoid diverticulitis with secondary peritonitis s/p sigmoidectomy with colostomy � POD #3
#Acute anemia s/p 1 U PRBC s/p OR
#SHANNON (baseline Cr ~0.8)
#Transaminitis
#Pulmonary hypertension on revatio
#Chronic HFpEF
#COPD
#CAD with PCI in 2021
#History of PE/DVT
#Combined pulmonary fibrosis and emphysema on chronic prednisone (increased from 5 to 10 mg over 1 year ago, per the daughter)
Plan:
- Continue supplemental O2 while maintaining SpO2 >89% (of note she uses between 3-5 L/min nasal cannula at home, depending on her activity)
- Continue aspiration precautions; keep HOB >30-45�
- prn nebulized bronchodilators - not currently bronchospastic
- Continue advair + albuterol prn
- Postoperative management as per surgery
- Pain control
- Hold PO meds - -> hopefully within the next 24-48 hrs we can resume oral medications, especially her Revatio (20 mg TID)
- keep NPO per surgery
- Keep NGT to LIWS + monitor output
- Maintain MAP>65 - not requiring pressors
- Replete electrolytes with K>4, Mg>2
- Maintain euglycemia with goal BG 140-180; check A1C
- Trend H/H and transfuse if needed to keep Hb>7g/dL; keep plt>50k (given post-operative status); of note, she has multiple areas of bruising seen across the right side of her face, right shoulder and across the chest � per the daughter, the patient
sleeps with her hand on her face as well as across her chest and her nails have caused trauma to her body hands causing bruising; she also had recently fallen which contributed to some of the bruising seen on her shoulder and chest
- DVT ppx: Trend INR and defer starting chemical ppx to surgery
Patient stable for downgrade out of ICU to IMU. Given her severe pulmonary hypertension, pulmonary service will continue to follow along.
Patient was seen and evaluated on 08/29/2025. Total time spent today was 36 minutes for this encounter. Time includes reviewing laboratory test/imaging results, reviewing pertinent medical records, obtaining and reviewing medical history,
performing an appropriate exam, ordering medications, tests and procedures. Time also includes documentation of this encounter, coordinating patient care and communicating with other healthcare professionals. Total time does not include separately
billed tests performed on this date of service.
Subjective Dataa
Subjective Data
Date of Service:
Date of Service: August 29, 2025
Chief Complaint: Brick Paver Follow Up
Subjective:
Patient seen today at bedside. Sitting in chair in no acute distress. Granddaughter, Ondina, present at bedside. Heart rate 100, BP 116/78 and she is saturating 94% on 6 L/min nasal cannula. No acute events reported overnight.
Review of Systems
General: Other (Negative unless mentioned above)
Objective Data
Data Reviewed
Vital Signs / I&O / Oxygen:
Vital Signs
Temp Pulse Resp BP Pulse Ox
97.6 F 97 14 122/78 97
08/29/25 11:25 08/29/25 11:00 08/29/25 11:00 08/29/25 11:00 08/29/25 10:26
Intake and Output
08/28/25 08/29/25 08/30/25
06:59 06:59 06:59
Intake Total 2615 / 2715 2370 / 2450 490 / 490
Output Total 1260 / 1275 690 / 690 180 / 180
Balance 1355 / 1440 1680 / 1760 310 / 310
SaO2 [CPAP] 40
SaO2 [A/C] 100
SaO2 97
Nasal Cannula flow liters per 5
minute
Physical Exam
General: Respiratory Distress (n) and Fever (n)
HEENT: Normocephalic and Anicteric
Cardiovascular: S1-S2 and Peripheral Edema (+1 lower extremity edema bilaterally)
Respiratory: Wheeze (n), Rhonchi (n), Non-Labored Respirations and Other ( coarse breath sounds heard bilaterally)
GI: Soft, Non Distended, Non Tender, NG Tube (on negative suction), Other (Surgical site CDI; colostomy in place) and Other (hypoactive bowel sounds)
Neurology: AO x 3 and Tremors (n)
Skin: Warm, Dry, Cyanosis (n) and Jaundice (n)
Labs/Micro/Reports
Lab Data
08/29/25 04:00
08/29/25 04:00
Laboratory Results
08/28/25 08/29/25
16:43 04:00
PT 34.2 H 28.9 H
INR 3.35 2.70
APTT 34.9
Microbiology
08/28/25 11:24 Blood/Venous Blood Culture - Preliminary
No Growth in 24 hours- Final report to follow
08/26/25 13:44 Blood/Venous Blood Culture - Preliminary
Positive culture in progress
08/26/25 13:44 Blood/Venous Gram Stain - Preliminary
08/26/25 13:41 Blood/Venous Blood Culture - Preliminary
Viridans Streptococcus Group
08/26/25 13:41 Blood/Venous Gram Stain - Preliminary
08/26/25 17:42 Abdomen Wound Culture - Preliminary
Pseudomonas species
Gram negative bacilli
Viridans Streptococcus Group
08/26/25 17:42 Abdomen Gram Stain - Preliminary
08/26/25 17:42 Abdomen Anaerobic Culture - Preliminary
Culture pending. Anaerobic cultures are examined after 3
days incubation. Additional information to follow.
08/26/25 14:04 Urine Urine Culture - Final
NO GROWTH
08/26/25 11:21 Nasal Swab Influenza Types A & B (YUNG) - Final
Negative for Influenza A & B, NAAT
Negative results must be combined with clinical observations
and patient history.
Nucleic Acid Amplification test (NAAT)performed on the
[employer] platform.
--- NOTE | 2025-08-29 08:30 | PTCARENOTE ---
Received pt. @ change of shift. Pt. drowsy, awakens to verbal stim, ox3, c/o mild acceptable pain @ abd surgical site. SR/ST on monitor. Trace anasarca/+3 pedal. Doppler DP pulses. SpO2 96% on 5LNC. Auscultated dim breath sounds posteriorly;
crackles @ b/l bases. BS remains absent. L nare NGT secured @ 47cm to LIS w mod amts of red/maroon/brown drainage; flushed per orders. NPO status maintained. Colostomy red/retracted, no output. Midline abd dressing w old drainage. R LQ ARTURO drain w
mod amt of sang drainage. Waller catheter in place w yellow urine; UO remains inadequate; MD team aware; new nephro wood setter. #20 R AC w LR @ 80mL/hr; #20 R FA w KVO +abx; #18 L AC patent, dressing c/d/i. Complete CHG bath provided. Pt. assisted w
active repositioning in bed. Call beverly w in reach.
[2025-08-29] MEDS: PROTONIX IV 40 MG IV (08:32)
[2025-08-29] MEDS: NSS (PRESERVATIVE FREE) 10 ML IV (08:32)
[2025-08-29] MEDS: SOLU-MEDROL PF 20 MG IV (08:32)
[2025-08-29 08:48] LABS: Glycohemoglobin (HgbA1c) 5.8 % (4.0-5.9)
--- NOTE | 2025-08-29 09:53 | W.PN.HOSP.TC ---
Today's Communication/Plan
-
Continue Zosyn per ID
Nephrology consult
Assessment / Plan
Assessment / Plan
Impression
Ms. Vida Chow is a 70 y/o F with pmh of CKD III, HFpEF, PE/DVT on Xarelto, COPD,chronic hypoxic resp failur on 5L, severe pulmonary hypertension (on Sildenafil), hypothyroidism, PAD, GERD, diverticulitis, Depression, VISH presents to the ER
complaining of severe abdominal pain in the left lower quadrant since yesterday evening.
Imaging
CT Abd/pel Without Iv Or Oral 08/26/2025
1.Small amounts of free intraperitoneal air, suggesting perforated hollow viscus. The favored etiology is related to acute sigmoid diverticulitis with perforated diverticulum. Other possibility includes perforated peptic/duodenal ulcer
2. There is a 1.3 cm mixed fluid/soft tissue density along the medial margin of the pancreatic head and anterior margin of the duodenum, possibly reflecting a preserved island of normal pancreatic tissue, pancreatic lesion, duodenal ulcer or
prominent peripancreatic lymph node. This could be further evaluated with nonemergent MRI/MRCP abdomen without and with gadolinium contrast
3. Hepatic cirrhosis with small volume abdominal ascites
4. Probable cystitis
5. Mild T12 superior endplate compression fracture, new from 10/30/2024 and age indeterminate. Recommend correlation for any point tenderness in this region.
6. Cholelithiasis
7. Bibasilar fibrotic changes in the lungs
Chest Xray 08/26/2025
Endotracheal tube is present, tip low, 1 cm above the nicolasa.
Nasogastric tube is present with tip projecting over the superior medial left upper quadrant, just extending into the upper stomach.
There is patchy parenchymal opacity within the left mid to lower lung. Findings would suggest a component of pneumonia. This would be superimposed on changes of cystic bronchiectasis within the left lower lung.
Increased reticular markings within the right lower lung. This would also suggest a component of pneumonia superimposed on chronic interstitial changes and changes of cystic bronchiectasis.
Cardiac silhouette size appears slightly enlarged, but vasculature is likely not actively congested. There is prominence of the main pulmonary artery shadow, suggesting pulmonary hypertension
CT Head W/o Iv Contrast 08/27/2025
No acute intracranial abnormality noted
PLAN
Acute Sigmoid Diverticulitis with perforated Diverticulum (patient with pain LLQ on exam)
Sepsis secondary to above
-Lactic Acidosis 2.8 -improved 1.5
-Agreed to emergent Stoddard's procedure on 08/26/2025
-admit to ICU post-op
-Discontinue IV Unasyn #D1, switch to IV Zosyn #D4
-Received Levophed once- blood pressure 109/70 -improved
-Continue stress dose steroids -methylprednisolone 20 mg IV QD #D4
-Taxi Dancer consult, input appreciated
-A line removed
-Maintain nasogastric tube
-Consult PT/OT
-Abdominal cultures revealed Pseudomonas, gram-negative bacilli, viridans Streptococcus group
-Blood cultures revealed viridans Streptococcus group
-WBC uptrending - Continue Zosyn per ID
DVT/PE on Xarelto
-PCC reversal ordered
-Continue holding Xarelto at least through the weekend
-*HIDE MILL WORKER aspirin also held, resume when OK with surgery
- On heparin 5000 units SQ every 12 H
SHANNON
- Creatinine increased from baseline 1.5-2.0 with only 410 cc urine output overnight
- Night team did give some albumin for low urine output
- Appreciate nephrology
Severe pulmonary Hypertension
COPD
Chronic Hypoxic Respiratory Failure
-Extubated
-HIDE MILL WORKER Sildenafil on hold with NG tube placed - restart PO meds through tube when cleared by surgery
-HIDE MILL WORKER inhalers
-Continue stress dose steroids
Abnormal finding 1.3cm tissue density medial margin pancreatic head
-MRI/MRCP outpatient after acute issues resolved
HFpEF
-hold HIDE MILL WORKER Lasix, Spironolactone
-gentle fluids as above
Chronic Hypotension
-HIDE MILL WORKER Midodrine
- Received Levophed once
- Blood pressure improved
Chronic Transaminitis suspected 2/2 cor pulmonale/ congestive hepatopathy
Acute on chronic transaminitis in setting of sepsis
-Trend LFTs
Depression - HIDE MILL WORKER Sertraline
Hypothyroidism
- Start IV levothyroxine as greater than 3 days without home dose
Patient is DNR (post OR)
Anticipated Discharge: > 48 hours
Subjective/Interval History
-
Date of Service: August 29, 2025
Ongoing abdominal pain. No other complaints overnight.
Objective Data
-
Labs:
Laboratory Results
08/29/25
04:00
WBC 21.6 H
Hgb 8.9 L
Hct 30.2 L
Plt Count 152 D
PT 28.9 H
INR 2.70
Sodium 138
Potassium 4.1
Chloride 102
Carbon Dioxide 24
BUN 80 H
Creatinine 2.0 H
Glucose 84
Calcium 9.0
Total Bilirubin 6.2 H
AST 56 H
ALT 84 H
Alkaline Phosphatase 155 H
Vital Signs:
Vital Signs
Temp Pulse Resp BP Pulse Ox
97.9 F 99 17 112/79 96
08/29/25 08:32 08/29/25 09:00 08/29/25 09:00 08/29/25 09:00 08/29/25 09:33
I&O
08/28/25 08/29/25 08/30/25
06:59 06:59 06:59
Intake Total 2615 / 2715 2370 / 2450 330 / 330
Output Total 1260 / 1275 690 / 690 180 / 180
Balance 1355 / 1440 1680 / 1760 150 / 150
Review of Systems
-
History Source: Patient
Constitutional: Reports Fatigue
Respiratory: Reports No Symptoms
Cardiac: Reports No Symptoms
Abdomen/GI: Reports Abdominal Pain
Skin: Reports No Symptoms
Neuro: Reports No Symptoms
Physical Exam
-
General: Appears Chronically Ill and Other (Bruises all over the left side of her body.)
HEENT: Oxygen
Respiratory: Other (Coarse breath sounds)
Cardiac: Regular Rhythm and S1/S2
GI: Soft, Nondistended, Normal Bowel Sounds, Tender, Ostomy (No signs of infection around ostomy ) and Other (Bloody drainage from ARTURO drain, no purulence noted)
Musculoskeletal: No Cyanosis and Other (Minimal bilateral lower extremity edema)
Skin: Warm and Dry
Neuro: Awake, Alert and Oriented
Psych: Calm
--- NOTE | 2025-08-29 10:39 | W.PN.CRS1 ---
Today's Communication / Plan
-
NPO/NGT
Assessment/Plan
-
70 yo female with a h/o CAD, PAD, HFpEF, DVT, COPD/Pulmonary fibrosis on chronic o2 of 3-5L who presented with septic shock secondary to perforated sigmoid diverticulitis with peritonitis and with bacteremia (strep species)
POD#3 sigmoidectomy with colostomy (Feli's procedure)
Extubated on 08/27
Currently off pressors, BP soft low. HR WNL. No fevers
NGT in place with low bilious outputs
Stoma retracted but appears viable, awaiting bowel recovery
Leukocytosis present, WBC rising (currently on IV steroid)
H/H stable
SHANNON/Cr rising (nephrology following)
LFT's elevated (suspect secondary to shock/hypotension), INR elevated to 2.7 (trending down)
Plan:
-Continue NGT/NPO with ice chips for comfort
-Wound RN for stoma teaching
-Waller as per ICU team/nephrology
-OOB with PT/OT once able medically
-Continue abx as per ID
-Trend labs
-Continue to hold Xarelto until good bowel recovery, Ok for SQ heparin from surgical standpoint once INR <2
-OR pathology and cultures pending
-Continue JESÚS drain
-Analgesics prn
Subjective Data
Procedure
08/26/2025- sigmoidectomy with colostomy (Feli's procedure)
Subjective Data
Date of Service: August 29, 2025
Pt seen and examined at bedside. Awake and alert. Feels quite fatigues. Discomfort present to abdomen but manageable. Notes she feels very thirsty.
Objective Data
-
Vital Signs
Temp Pulse Resp BP Pulse Ox
97.9 F 99 17 112/79 96
08/29/25 08:32 08/29/25 09:00 08/29/25 09:00 08/29/25 09:00 08/29/25 09:33
Intake & Output
08/28/25 08/29/25 08/30/25
06:59 06:59 06:59
Intake Total 2615 / 2715 2370 / 2450 330 / 330
Output Total 1260 / 1275 690 / 690 180 / 180
Balance 1355 / 1440 1680 / 1760 150 / 150
Intake:
Oral fluids 60 / 60 60 / 60
IV fluids (Total) 2300 / 2400 1979 240 / 240
Lr 1,000 ml @ 80 mls/hr IV . 400 / 500 1979 240 / 240
[id number] JEROME Rx#:[id number]
Normosol-R/Plasmalyte-A 1,000 1900 / 1900
ml @ 100 mls/hr IV .Q10H JEROME Rx
#:[id number]
IV piggybacks 200 / 200 150 / 150
Amount instilled into GI Tube ( 115 / 115 180 / 180 30 / 30
Total)
Ponce Sump 115 / 115 180 / 180 30 / 30
Output:
Drain Output (Total) 500 / 500 230 / 230 80 / 80
Right Lower Abdomen 500 / 500 230 / 230 80 / 80
Gastrointestinal tube output ( 125 / 125 50 / 50
Total)
Ponce Sump 125 / 125 50 / 50
Urine, Waller 635 / 650 410 / 410 100 / 100
Lab Results
08/29/25 04:00
08/29/25 04:00
Physical Exam
-
General: No Acute Distress and AOx3
Abdomen: Soft, Non Distended, Tender (mild/expected) and Other (colostomy stoma retracted, warm and dark red. No output but ?flatus in appliance. Jesús drain serosanguinous)
Skin: Warm and Dry
Wound: Dressing in Place (midline dressing with some shadowing)
[2025-08-29] MEDS: DILAUDID 0.25 MG IV ×2 (11:27→22:37)
[2025-08-29 11:37] LABS: Glucose - Point of Care 96 mg/dl (70-99)
--- NOTE | 2025-08-29 12:30 | PTCARENOTE ---
PT to bedside this AM; pt. assisted x2 w RW to stand/pivot OOB to chair. Generalized weakness/unsteady gait. Tolerating chair position. Assessment remains unchanged from previous. Family @ bedside updated and daughter, Coby, updated via phone.
Call beverly morris in reach.
--- NOTE | 2025-08-29 15:14 | W.PN.UPDATE ---
Update Note
Progress Note Update
Discussed case with resident
HPI: 70 yo woman with PMH CKD III, HFpEF, PE/DVT on Xarelto, COPD, severe pulmonary hypertension (on Sildenafil), chronic hypoxic respiratory failure on 5L NC, hypothyroidism, PAD, GERD, diverticulitis, depression, VISH, p/w severe abdominal pain in
the left lower quadrant.
She was found to have acute diverticulitis with perforation.
CT AP:
1. Small amounts of free intraperitoneal air, suggesting perforated hollow viscus. The favored etiology is related to acute sigmoid diverticulitis with perforated diverticulum. Other possibility includes perforated peptic/duodenal ulcer.
2. There is a 1.3 cm mixed fluid/soft tissue density along the medial margin of the pancreatic head and anterior margin of the duodenum, possibly reflecting a preserved island of normal pancreatic tissue, pancreatic lesion, duodenal ulcer or
prominent peripancreatic lymph node. This could be further evaluated with nonemergent MRI/MRCP abdomen without and with gadolinium contrast.
3. Hepatic cirrhosis with small volume abdominal ascites.
4. Probable cystitis.
5. Mild T12 superior endplate compression fracture, new from 10/30/2024 and age indeterminate. Recommend correlation for any point tenderness in this region.
6. Cholelithiasis.
7. Bibasilar fibrotic changes in the lungs.
A/P:
# Acute Sigmoid Diverticulitis with perforated Diverticulum
# Septic shock secondary to above, shock has resolved
# Resolved Lactic Acidosis
s/p OR on admission with sigmoidectomy and colostomy (Feli's procedure)
Patient was intubated postop, and extubated 08/27/2025. Continue current O2 support with nasal cannula 15 L and wean as tolerated
BP stable off pressor support
follow wound culture , currently growing Pseudomonas, GNR, viridans strep
continue current IV Zosyn
Continue gentle IVF
s/p stress dose steroid, pt now on IV Solu-Medrol. Noted patient on chronic prednisone 10 mg prior to admission
Continue NGT/NPO with ice chips for comfort per CRS
CRS and Set Decorator on board.
# SHANNON
SCr 1.5 on admission -> 2.0 today
Continue IVF
Renal CS
# h/o DVT/PE on Xarelto
s/p PCC reversal
Xarelto held
SALES SECRETARY aspirin also held, resume when OK with surgery
# Severe pulmonary Hypertension
# COPD
# Chronic Hypoxic Respiratory Failure on 5L NC
Continue current mechanical ventilation per supervisor grading
SALES SECRETARY Sildenafil
SALES SECRETARY inhalers
s/p stress dose steroid, now on IV Solu-Medrol. Noted patient on chronic prednisone 10 mg prior to admission
# Abnormal finding 1.3cm tissue density medial margin pancreatic head
MRI/MRCP outpatient after acute issues resolved
# HFpEF
hold SALES SECRETARY Lasix, Spironolactone
gentle fluids as above
# Chronic Hypotension
SALES SECRETARY Midodrine
# Chronic Transaminitis suspected 2/2 cor pulmonale/ congestive hepatopathy
# Acute on chronic transaminitis in setting of sepsis
monitor LFT , marginally downtrending
# Depression
SALES SECRETARY Sertraline
Code: DNR (post OR). She also stated that if she remained intubated post-op with difficulty extubating she would not want to be attached to the machine. Her daughter heard this conversation.
[2025-08-29] MEDS: LEVOTHROID 100 MCG IV (17:20)
[2025-08-29 17:30] LABS: Glucose - Point of Care 89 mg/dl (70-99)
--- NOTE | 2025-08-29 18:29 | PTCARENOTE ---
Pt. remained OOB x6H. Required max dependent assist back to bed. Assisted w hygiene and repositioning in bed. Family @ bedside, updated. Call beverly morris in reach.
--- NOTE | 2025-08-29 19:00 | PTCARENOTE ---
Received pt. at 1900. Pt. currently in bed. Lethargic but arousable. Oriented. C/o pain. PRN medications, see NOV. Heart rhythm sinus. Blood pressure normotensive. Currently on nasal cannula. Lungs sound diminished. Abdomen round. Colostomy intact,
no output. Waller catheter in place. Skin as documented. Discussed plan of care with patient. Vital signs stable at this time.
[2025-08-29] MEDS: OFIRMEV 100 IV (19:43)
[2025-08-30] VITALS (24 sets, daily range): BP systolic 87–119; BP diastolic 58–79; BMI 32.8
[2025-08-30] MEDS: NOVOLOG FLEXPEN-LOW RESISTANCE SC ×4 (00:41→23:17)
[2025-08-30] MEDS: ZOSYN 50 IV ×2 (00:44→05:37)
[2025-08-30 00:51] LABS: Glucose - Point of Care 80 mg/dl (70-99)
[2025-08-30] MEDS: LR 1000 IV ×2 (01:17→23:20)
[2025-08-30] MEDS: DILAUDID 0.25 MG IV ×3 (03:11→23:20)
--- NOTE | 2025-08-30 04:00 | PTCARENOTE ---
Pt. assessment unchanged. AM labs drawn. Vital signs stable at this time.
[2025-08-30 04:05] LABS: INR 2.37; PT 26.1 Sec (11.4-14.6)
[2025-08-30 04:10] LABS: Hematocrit 29.8 % (37.0-47.0); Hemoglobin 8.9 g/dL (12.0-16.0); Mean Corp Hgb Conc. 29.9 g/dL (33.0-37.0); Mean Corpuscular Volume 81.4 fL (81.0-99.0); Platelet Count 139 10^3/uL (130-400); Red Cell Dist. Width 20.4 % (11.5-14.5)
[2025-08-30 04:25] LABS: ALT (SGPT) 83 U/L (0-35); AST (SGOT) 70 U/L (14-36); Albumin 2.9 g/dl (3.5-5.0); Alkaline Phosphatase 211 U/L (38-126); Blood Urea Nitrogen 85 mg/dl (7-17); Calcium 8.7 mg/dl (8.4-10.2); Carbon Dioxide 19 mmol/L (22-30); Chloride 105 mmol/L (98-107); Estimated Creatinine Clearance 26 ml/min; Glucose 75 mg/dl (70-99); Magnesium 2.4 mg/dl (1.6-2.3); Potassium 4.4 mmol/L (3.5-5.1); Sodium 137 mmol/L (135-145); Total Protein 5.4 g/dl (6.3-8.2); Triglycerides 115 mg/dl (10-149); eGFR 26.38
[2025-08-30 04:32] LABS: Prealbumin (Transthyretin) 6.5 mg/dl (17.6-36.0)
[2025-08-30] MEDS: DEXTROSE 50% SYRINGE 12.5 GRAMS IV (05:37)
[2025-08-30] MEDS: NOVOLOG FLEXPEN-LOW RESISTANCE 2 UNITS SC (05:45)
[2025-08-30 05:54] LABS: Glucose - Point of Care 210 mg/dl (70-99)
[2025-08-30] MEDS: ADVAIR HFA 45/21 MCG INHALER 2 PUFF INH ×2 (07:40→20:00)
--- NOTE | 2025-08-30 07:42 | W.PN.NEPH.PH ---
Today's Communication / Plan
-
Lasix 40 mg IV x 1
Assessment/Plan
-
Impression:
Acute renal failure
Status post perforated sigmoid diverticulitis with secondary peritonitis status post sigmoidectomy with colostomy on 08/27/2025
Septic shock (strep species bacteremia)
Pulmonary hypertension on Revatio
Chronic HFpEF
COPD/chronic hypoxic respiratory failure
History of CAD with PCI in 2021
History of PE and DVT on chronic anticoagulation
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
Transaminitis
Peripheral arterial disease
Hepatic cirrhosis
Chronic hypotension on midodrine's
Plan:
SHANNON:, Nonoliguric via Waller
-Creatinine unchanged at 2
- Likely prerenally mediated in the setting of septic shock with compromised effective circulating volume
- Maintain MAP at 65 or greater with IV fluids (lactated ringers) and midodrine support
- Do not remove Waller
- No acute dialysis requirement at this time
- Zosyn will need renally adjusted as GFR declining
- Weights up 4kg since admission
- Will provide 40 mg IV Lasix x 1 to mobilize fluid
-
-
Date of Service: August 30, 2025
CC / HPI / ROS
-
08/30/25 03:37
08/30/25 03:37
Chief Complaint:
SHANNON
History of Present Illness:
Hemodynamically low side on midodrine support
Creatinine stable at 2
Review of Systems:
Nonoliguric via Waller
NG tube
No fever
Weights up
Labs
-
Labs:
WBC 29.9 10^3/uL (4.8-10.8) H 08/30/25 03:37
RBC 3.66 10^6/uL (4.20-5.40) L 08/30/25 03:37
Hgb 8.9 g/dL (12.0-16.0) L 08/30/25 03:37
Hct 29.8 % (37.0-47.0) L 08/30/25 03:37
Plt Count 139 10^3/uL (130-400) 08/30/25 03:37
Sodium 137 mmol/L (135-145) 08/30/25 03:37
Potassium 4.4 mmol/L (3.5-5.1) 08/30/25 03:37
Chloride 105 mmol/L (98-107) 08/30/25 03:37
Carbon Dioxide 19 mmol/L (22-30) L 08/30/25 03:37
BUN 85 mg/dl (7-17) H 08/30/25 03:37
Creatinine 2.0 mg/dL (0.6-1.0) H 08/30/25 03:37
eGFR 26.38 08/30/25 03:37
Glucose 75 mg/dl (70-99) 08/30/25 03:37
Calcium 8.7 mg/dl (8.4-10.2) 08/30/25 03:37
Phosphorus 6.0 mg/dl (2.5-4.5) H 08/30/25 03:37
Albumin 2.9 g/dl (3.5-5.0) L 08/30/25 03:37
Physical Exam
-
Vital Signs:
Vital Signs
Temp Pulse Resp BP Pulse Ox
97.7 F 102 9 109/75 96
08/30/25 07:37 08/30/25 06:00 08/30/25 06:00 08/30/25 06:00 08/30/25 06:00
Cardiovascular:: Regular rate and rhythm
Lung Excursion:: Normal
Abdomen:: Nontender and Soft
Bowel Sounds:: Decreased
Extremity Edema:: +1: Bilateral: (Center)
Waller Catheter: Yes
[2025-08-30] MEDS: LASIX 40 MG IV (07:59)
[2025-08-30] MEDS: SOLU-MEDROL PF 20 MG IV (07:59)
[2025-08-30] MEDS: NSS (PRESERVATIVE FREE) 10 ML IV (07:59)
[2025-08-30] MEDS: PROTONIX IV 40 MG IV (07:59)
--- NOTE | 2025-08-30 09:39 | W.PN.ID1 ---
Date of Service
Date of Service: August 30, 2025
Today's Communication
Continue abx. See below...
Assessment / Plan
# Perforated sigmoid diverticulitis with peritonitis
# Strep species bacteremia (2 sets), intra-abd source
# s/p septic shock
# Leukocytosis, on steroid
# Chronic elevated LFT's
# SHANNON
- OR fluid culture growing Pseudomonas aeruginosa and additional GNR in addition to Strep. viridans
- Follow repeat blood cultures to assess clearance
--> Given rise in white count, and recovery of Pseudomonas, will broaden antibiotics to meropenem pending final sensitivity data.
- Trend vitals, wbc.
- Continue with supportive measures
- Trend Cr. / CrCl to guide antibiotic dosing adjustment
# Conditions present on admission
Coronary Artery Disease s/p Stent
Peripheral Arterial Disease s/p Right CEA
Chronic HFpEF
Essential Hypertension
Hyperlipidemia
COPD
Pulmonary Fibrosis
Chronic Hypoxemic respiratory failure on 02
CKD3
Hypothyroidism
DVT/PE
Obstructive Sleep Apnea
Depression
R CEA
Gastric sleeve
Chief Complaint
-: Bacteremia and Other (Perforated sigmoid diverticulitis; peritonitis)
Subjective / Review of Systems
Patient seen and examined. No significant changes overnight.
Vital Signs / Physical Exam
Vital Signs
Vital Signs
Temp Pulse Resp BP Pulse Ox
97.7 F 102 10 115/77 94
08/30/25 07:37 08/30/25 08:00 08/30/25 08:00 08/30/25 08:00 08/30/25 08:00
Physical Exam
Constitutional: Acutely Ill and Chronically Ill
Eyes: Sclera Anicteric
Oropharyngeal: Other (NG tube in place)
Cardiovascular: S1/S2; Negative S3/S4
Pulmonary: Coarse and Non Labored
Gastrointestinal: Soft, Non Distended, Decreased Bowel Sounds, No Rebound and Other (Ostomy in place; right sided ARTURO with serosanguineous drainage)
Extremities: Edema; Negative Erythema
Neurological: Other (Arousable to voice and responsive)
Psychological: Calm
Objective Data
Lab Data
Lab Results
08/30/25 03:37
08/30/25 03:37
PT 26.1 Sec (11.4-14.6) H 08/30/25 03:37
INR 2.37 08/30/25 03:37
APTT 34.9 Sec (23.4-35.0) 08/28/25 16:43
Estimated Creat Clear 26 ml/min 08/30/25 03:37
Lactic Acid Cancelled 08/27/25 01:15
Total Bilirubin 7.0 mg/dl (0.2-1.3) H 08/30/25 03:37
AST 70 U/L (14-36) H 08/30/25 03:37
ALT 83 U/L (0-35) H 08/30/25 03:37
Alkaline Phosphatase 211 U/L (38-126) H 08/30/25 03:37
Most recent labs reviewed.
Micro Results:
08/26/25 17:42 Wound Culture - Preliminary
Abdomen Pseudomonas species
Gram negative bacilli
Viridans Streptococcus Group
Gram Stain - Preliminary
08/30/25 03:37 Blood Culture - Pending
Blood/Venous
08/28/25 11:24 Blood Culture - Preliminary
Blood/Venous No Growth in 24 hours- Final report to follow
08/26/25 13:44 Blood Culture - Preliminary
Blood/Venous Positive culture in progress
Gram Stain - Preliminary
08/26/25 13:41 Blood Culture - Preliminary
Blood/Venous Viridans Streptococcus Group
Gram Stain - Preliminary
08/26/25 17:42 Anaerobic Culture - Preliminary
Abdomen Culture pending. Anaerobic cultures are examined after 3
days incubation. Additional information to follow.
08/26/25 14:04 Urine Culture - Final
Urine NO GROWTH
08/26/25 11:21 Influenza Types A & B ([facility]) - Final
Nasal Swab Negative for Influenza A & B, NAAT
Negative results must be combined with clinical observations
and patient history.
Nucleic Acid Amplification test (NAAT)performed on the
[employer] platform.
Imaging:
08/26/25 CT a/p: Small amounts of free intraperitoneal air, suggesting perforated hollow viscus. The favored etiology is related to acute sigmoid diverticulitis with perforated diverticulum. Other possibility includes perforated peptic/duodenal
ulcer. There is a 1.3 cm mixed fluid/soft tissue density along the medial margin of the pancreatic head and anterior margin of the duodenum, possibly reflecting a preserved island of normal pancreatic tissue, pancreatic lesion, duodenal ulcer or
prominent peripancreatic lymph node. This could be further evaluated with nonemergent MRI/MRCP abdomen without and with gadolinium contrast. Hepatic cirrhosis with small volume abdominal ascites.
--- NOTE | 2025-08-30 09:56 | W.PN.HOSP.TC ---
Today's Communication/Plan
-
Meropenem
one dose IV lasix 40mg per ID
Decrease fluid rate from 80 to 60
Assessment / Plan
Assessment / Plan
Impression
Ms. Vida Chow is a 70 y/o F with pmh of CKD III, HFpEF, PE/DVT on Xarelto, COPD,chronic hypoxic resp failur on 5L, severe pulmonary hypertension (on Sildenafil), hypothyroidism, PAD, GERD, diverticulitis, Depression, VISH presents to the ER
complaining of severe abdominal pain in the left lower quadrant since yesterday evening.
Imaging
CT Abd/pel Without Iv Or Oral 08/26/2025
1.Small amounts of free intraperitoneal air, suggesting perforated hollow viscus. The favored etiology is related to acute sigmoid diverticulitis with perforated diverticulum. Other possibility includes perforated peptic/duodenal ulcer
2. There is a 1.3 cm mixed fluid/soft tissue density along the medial margin of the pancreatic head and anterior margin of the duodenum, possibly reflecting a preserved island of normal pancreatic tissue, pancreatic lesion, duodenal ulcer or
prominent peripancreatic lymph node. This could be further evaluated with nonemergent MRI/MRCP abdomen without and with gadolinium contrast
3. Hepatic cirrhosis with small volume abdominal ascites
4. Probable cystitis
5. Mild T12 superior endplate compression fracture, new from 10/30/2024 and age indeterminate. Recommend correlation for any point tenderness in this region.
6. Cholelithiasis
7. Bibasilar fibrotic changes in the lungs
Chest Xray 08/26/2025
Endotracheal tube is present, tip low, 1 cm above the nicolasa.
Nasogastric tube is present with tip projecting over the superior medial left upper quadrant, just extending into the upper stomach.
There is patchy parenchymal opacity within the left mid to lower lung. Findings would suggest a component of pneumonia. This would be superimposed on changes of cystic bronchiectasis within the left lower lung.
Increased reticular markings within the right lower lung. This would also suggest a component of pneumonia superimposed on chronic interstitial changes and changes of cystic bronchiectasis.
Cardiac silhouette size appears slightly enlarged, but vasculature is likely not actively congested. There is prominence of the main pulmonary artery shadow, suggesting pulmonary hypertension
CT Head W/o Iv Contrast 08/27/2025
No acute intracranial abnormality noted
PLAN
Acute Sigmoid Diverticulitis with perforated Diverticulum (patient with pain LLQ on exam)
Sepsis secondary to above
-Lactic Acidosis 2.8 -improved 1.5
-Agreed to emergent Stoddard's procedure on 08/26/2025
-admit to ICU post-op
-Discontinue IV Unasyn #D1, switch to IV Zosyn 4 days -> meropenem per ID due to increasing leukocytosis
-Received Levophed once- blood pressure improved
-Continue stress dose steroids -methylprednisolone 20 mg IV QD #D5
-Loss Prevention Operations Manager consult, input appreciated
-A line removed
-Maintain nasogastric tube
-Consult PT/OT
-Abdominal cultures revealed Pseudomonas, gram-negative bacilli, viridans Streptococcus group
-Blood cultures revealed viridans Streptococcus group
-WBC uptrending - Zosyn -> meropenem per ID
DVT/PE on Xarelto
-PCC reversal ordered
-Continue holding Xarelto at least through the weekend
-*WOVEN WOOD SHADE ASSEMBLER aspirin also held, resume when OK with surgery
- On heparin 5000 units SQ every 12 H
SHANNON
- Creatinine increased from baseline 1.5-2.0 -> 2.0
- Continued poor urine output
- 40 IV lasix per nephro to circulate fluid, continue fluids for pressure
- Appreciate nephrology
Severe pulmonary Hypertension
COPD
Chronic Hypoxic Respiratory Failure
-Extubated
-WOVEN WOOD SHADE ASSEMBLER Sildenafil on hold with NG tube placed - restart PO meds through tube when cleared by surgery
-WOVEN WOOD SHADE ASSEMBLER inhalers
-Continue stress dose steroids
-Some slight wheezing noted on physical exam today - PRN duonebs present. Restart sildenafil when able to tolerate PO.
Abnormal finding 1.3cm tissue density medial margin pancreatic head
-MRI/MRCP outpatient after acute issues resolved
HFpEF
-hold WOVEN WOOD SHADE ASSEMBLER Lasix, Spironolactone - one time dose IV lasix per nephro
-gentle fluids as above
Chronic Hypotension
-WOVEN WOOD SHADE ASSEMBLER Midodrine
- Received Levophed once
- Blood pressure improved
Chronic Transaminitis suspected 2/2 cor pulmonale/ congestive hepatopathy
Acute on chronic transaminitis in setting of sepsis
-Trend LFTs - increasing
Depression - WOVEN WOOD SHADE ASSEMBLER Sertraline
Hypothyroidism
- Start IV levothyroxine as greater than 3 days without home dose
Patient is DNR (post OR)
Anticipated Discharge: > 48 hours
Subjective/Interval History
-
Date of Service: August 30, 2025
No complaints overnight. Continued poor urine output and poor ostomy output.
Objective Data
-
Labs:
Laboratory Results
08/30/25
03:37
WBC 29.9 H
Hgb 8.9 L
Hct 29.8 L
Plt Count 139
PT 26.1 H
INR 2.37
Sodium 137
Potassium 4.4
Chloride 105
Carbon Dioxide 19 L
BUN 85 H
Creatinine 2.0 H
Glucose 75
Calcium 8.7
Total Bilirubin 7.0 H
AST 70 H
ALT 83 H
Alkaline Phosphatase 211 H
Vital Signs:
Vital Signs
Temp Pulse Resp BP Pulse Ox
97.7 F 102 10 115/77 94
08/30/25 07:37 08/30/25 08:00 08/30/25 08:00 08/30/25 08:00 08/30/25 08:00
I&O
08/29/25 08/30/25 08/31/25
06:59 06:59 06:59
Intake Total 2370 / 2450 2300 / 2300
Output Total 690 / 690 745 / 745
Balance 1680 / 1760 1555 / 1555
Review of Systems
-
History Source: Patient
Respiratory: Reports Trouble Breathing
Cardiac: Reports No Symptoms
Abdomen/GI: Reports Abdominal Pain
Genitourinary: Reports No Symptoms
Neuro: Reports No Symptoms
Endocrine: Reports No Symptoms
Physical Exam
-
General: Appears Chronically Ill
HEENT: Oxygen and Other (left sided face bruising )
Respiratory: Wheezes
Cardiac: Regular Rhythm and S1/S2
GI: Soft, Nondistended, Normal Bowel Sounds, Tender, Ostomy (No signs of infection around ostomy ) and Other (ARTURO drain placed. Bloody non-purulent fluid)
Genito-urinary: Waller
Musculoskeletal: Edema, Right Lower Extrem and Edema, Left Lower Extrem
Skin: Warm and Dry
Neuro: AO x 3
Psych: Calm
--- NOTE | 2025-08-30 10:21 | W.PN.CRS1 ---
Today's Communication / Plan
-
follow labs on ABX
NPO/NGT
Check ammonia, consider GI eval
Assessment/Plan
-
70 yo female with a h/o CAD, PAD, HFpEF, DVT, COPD/Pulmonary fibrosis on chronic o2 of 3-5L who presented with septic shock secondary to perforated sigmoid diverticulitis with peritonitis and with bacteremia (strep species)
POD#4 sigmoidectomy with colostomy (Feli's procedure)
Extubated on 08/27
Remains off pressors, BP stable. Mild tachycardia. No fevers
NGT in place with low bilious outputs
Stoma retracted but appears viable, awaiting bowel recovery
Leukocytosis present, WBC rising
H/H stable
SHANNON/Cr rising (nephrology following)
LFT's elevated and rising (suspect secondary to shock/hypotension), INR elevated to 2.37 (trending down)
Metabolic encephalopathy present
Plan:
-Continue NGT/NPO with ice chips for comfort
-Wound RN for stoma teaching. Will follow stoma exams closely
-Waller as per ICU team/nephrology
-OOB with PT/OT once able medically
-Continue abx as per ID, broadened abx to Merrem 08/30
-Trend labs, check ammonia level this am
-Continue to hold Xarelto until good bowel recovery, Ok for SQ heparin from surgical standpoint once INR <2
-OR pathology and cultures pending
-Continue JESÚS drain
-Analgesics prn
-Will likely need TPN, will consult delivery clerk to follow. Hold off for now given rising LFT's and risk for bleeding with central line placement in setting of elevated INR
May need repeat imaging if WBC remains elevated/continues to rise despite change in ABX
Consider Gastroenterology evaluation given worsening liver function
Subjective Data
Procedure
08/26/2025- sigmoidectomy with colostomy (Feli's procedure)
Subjective Data
Date of Service: August 30, 2025
Pt seen and examined at bedside with Dr. Reynoso. Primary RN present. Lethargic today, awakens to name. Not very conversive. Denies pain or nausea.
Objective Data
-
Vital Signs
Temp Pulse Resp BP Pulse Ox
97.7 F 102 10 115/77 94
08/30/25 07:37 08/30/25 08:00 08/30/25 08:00 08/30/25 08:00 08/30/25 08:00
Intake & Output
08/29/25 08/30/25 08/31/25
06:59 06:59 06:59
Intake Total 2370 / 2450 2300 / 2300
Output Total 690 / 690 745 / 745
Balance 1680 / 1760 1555 / 1555
Intake:
Oral fluids 60 / 60 60 / 60
IV fluids (Total) 1979
Lr 1,000 ml @ 80 mls/hr IV . 1979
[id number] JEROME Rx#:[id number]
IV piggybacks 150 / 150 105 / 105
Amount instilled into GI Tube ( 180 / 180 215 / 215
Total)
[place] Sump 180 / 180 215 / 215
Output:
Drain Output (Total) 230 / 230 240 / 240
Right Lower Abdomen 230 / 230 240 / 240
Gastrointestinal tube output ( 50 / 50
Total)
[place] Sump 50 / 50
Urine, Waller 410 / 410 505 / 505
Lab Results
08/30/25 03:37
08/30/25 03:37
Physical Exam
-
General: No Acute Distress and AOx3
Abdomen: Soft, Non Distended, Tender (mild/expected) and Other (colostomy stoma retracted, warm and dark red. No output but ?flatus in appliance. Jesús drain serosanguinous)
Skin: Warm and Dry
Incision: Other (Ray intact to midline incision, jose removed and dry gauze dressing placed. )
[2025-08-30] MEDS: STERILE WATER FOR INJECTION 10 ML IV ×2 (11:05→18:31)
[2025-08-30] MEDS: MERREM 500 MG IV ×2 (11:05→18:31)
[2025-08-30 11:49] LABS: Ammonia 17 umol/L (9-30)
[2025-08-30 12:16] LABS: Glucose - Point of Care 92 mg/dl (70-99)
--- NOTE | 2025-08-30 13:35 | W.PN.UPDATE ---
Update Note
Progress Note Update
Discussed case with resident
HPI: 70 yo woman with PMH CKD III, HFpEF, PE/DVT on Xarelto, COPD, severe pulmonary hypertension (on Sildenafil), chronic hypoxic respiratory failure on 5L NC, hypothyroidism, PAD, GERD, diverticulitis, depression, VISH, p/w severe abdominal pain in
the left lower quadrant.
She was found to have acute diverticulitis with perforation.
CT AP:
1. Small amounts of free intraperitoneal air, suggesting perforated hollow viscus. The favored etiology is related to acute sigmoid diverticulitis with perforated diverticulum. Other possibility includes perforated peptic/duodenal ulcer.
2. There is a 1.3 cm mixed fluid/soft tissue density along the medial margin of the pancreatic head and anterior margin of the duodenum, possibly reflecting a preserved island of normal pancreatic tissue, pancreatic lesion, duodenal ulcer or
prominent peripancreatic lymph node. This could be further evaluated with nonemergent MRI/MRCP abdomen without and with gadolinium contrast.
3. Hepatic cirrhosis with small volume abdominal ascites.
4. Probable cystitis.
5. Mild T12 superior endplate compression fracture, new from 10/30/2024 and age indeterminate. Recommend correlation for any point tenderness in this region.
6. Cholelithiasis.
7. Bibasilar fibrotic changes in the lungs.
A/P:
# Acute Sigmoid Diverticulitis with perforated Diverticulum
# Septic shock secondary to above, shock has resolved
# Resolved Lactic Acidosis
s/p OR on admission with sigmoidectomy and colostomy (Feli's procedure)
Patient was intubated postop, and extubated 08/27/2025. Continue current O2 support with nasal cannula 15 L and wean as tolerated
BP stable off pressor support
follow wound culture , growing Pseudomonas, Morganella, E coli, GNR, viridans strep
IV Zosyn -> Merrem
Continue gentle IVF
s/p stress dose steroid, pt now on IV Solu-Medrol. Noted patient on chronic prednisone 10 mg prior to admission
Continue NGT/NPO with ice chips for comfort per CRS
CRS and Radiator Mechanic on board.
# Acute hypoxic respiratory failure
Now on 7L NC , wean O2 as tolerated, pt not on home O2
# SHANNON
SCr 1.5 on admission -> 2.0 today
Continue gentle IVF
Renal on board
# h/o DVT/PE on Xarelto
s/p PCC reversal
Xarelto held
PUBLIC HEALTH TRAINING ASSISTANT aspirin also held, resume when OK with surgery
# Severe pulmonary Hypertension
# COPD
# Chronic Hypoxic Respiratory Failure on 5L NC
Continue current mechanical ventilation per dietary internship
PUBLIC HEALTH TRAINING ASSISTANT Sildenafil
PUBLIC HEALTH TRAINING ASSISTANT inhalers
s/p stress dose steroid, now on IV Solu-Medrol. Noted patient on chronic prednisone 10 mg prior to admission
# Abnormal finding 1.3cm tissue density medial margin pancreatic head
MRI/MRCP outpatient after acute issues resolved
# HFpEF
hold PUBLIC HEALTH TRAINING ASSISTANT Lasix, Spironolactone
gentle fluids as above
# Chronic Hypotension
PUBLIC HEALTH TRAINING ASSISTANT Midodrine
# Chronic Transaminitis suspected 2/2 cor pulmonale/ congestive hepatopathy
# Acute on chronic transaminitis in setting of sepsis
monitor LFT
# Depression
PUBLIC HEALTH TRAINING ASSISTANT Sertraline
Code: DNR (post OR). She also stated that if she remained intubated post-op with difficulty extubating she would not want to be attached to the machine. Her daughter heard this conversation.
--- NOTE | 2025-08-30 14:17 | W.PN.PUL3 ---
Today's Communication / Plan
-
Continue supplemental O2, weaning down as tolerated
Change Advair HFA to formoterol + budesonide as I am concerned that she lacks the inspiratory capacity to properly take an inhaler
Continue steroids (equivalent to her home dose of prednisone)
Holding PO meds per surgery - of note, her Revatio is currently being held, so monitor for signs of rebound pulmonary hypertension
Aspiration precautions
Up OOB as tolerated
Pain control
Starting TPN per surgery once PICC in place (once INR at appropriate level)
Antibiotics per ID
Pulmonary service will continue to follow along
Assessment
-
Assessment: 70-year-old female with a past medical history of severe group III pulmonary hypertension, combined pulmonary fibrosis and emphysema, chronic hypoxic respiratory failure, chronic HFpEF, CAD, history of PE/DVT, hypertension,
hyperlipidemia and carotid atherosclerosis who presented from [facility] with abdominal pain, dry heaves and 3 episodes of diarrhea. Patient is on 5 L/min nasal cannula at baseline. Imaging with CT abdomen/pelvis showed free
intraperitoneal air with a suspected acute sigmoid diverticulitis. Surgery consulted and patient brought to the OR and sigmoidectomy with colostomy performed. EBL was 250 cc and there were no immediate complications. Intraoperatively there was a
perforated sigmoid diverticulitis discovered with pelvic area contamination and very oozy retroperitoneum. Patient had a #19 Collin drain placed into the pelvis and received 1 unit PRBC towards the end of the procedure. Patient remained intubated
on Levophed and was transferred to the ICU postoperatively. Cryptologic Linguist service consulted for additional management/recommendations.
Impression:
#Ventilator dependent respiratory failure - extubated 08/27/2025
#Perforated sigmoid diverticulitis with secondary peritonitis s/p sigmoidectomy with colostomy � POD #4
#Acute on chronic hypoxic respiratory failure (believe a large component to her current hypoxia is physical deconditioning with hypoventilation in the setting of somnolence)
#Streptococcus bacteremia
#Acute anemia s/p 1 U PRBC s/p OR
#SHANNON (baseline Cr ~0.8)
#Transaminitis with acute on chronic hyperbilirubinemia
#Pulmonary hypertension on revatio
#Chronic HFpEF
#COPD
#CAD with PCI in 2021
#History of PE/DVT
#Combined pulmonary fibrosis and emphysema on chronic prednisone (increased from 5 to 10 mg over 1 year ago, per the daughter)
Plan:
- Continue supplemental O2 while maintaining SpO2 >89% (of note she uses between 3-5 L/min nasal cannula at home, depending on her activity)
- Continue aspiration precautions; keep HOB >30-45�
- prn nebulized bronchodilators - not currently bronchospastic
- Continue advair + albuterol prn
- Do not think she has the inspiratory capacity to properly inhale HFA inhaler at this time � I will change to formoterol + budesonide
- Postoperative management as per surgery
- Monitor appearance of colostomy and output of RLQ collin drain
- Pain control
- Hold PO meds - -> hopefully within the next day or so we can resume oral medications, especially her Revatio (20 mg TID)
- keep NPO per surgery; okay for ice chips
- Keep NGT to LIWS + monitor output
-Patient's blood culture (drawn 08/26) is positive for Streptococcus viridans
- Repeat blood culture on 08/28 has shown NGTD
- Given the patient's worsening leukocytosis today, obtain surveillance blood culture
- Continue with antibiotics with meropenem s/p zosyn
- ID consulted; defer antibiotics to them
- Maintain MAP>65 - not requiring pressors
- Replete electrolytes with K>4, Mg>2
- Maintain euglycemia with goal BG 140-180; A1C: 5.8 on 08/29/2025
- Trend H/H and transfuse if needed to keep Hb>7g/dL; keep plt>50k (given post-operative status); of note, she has multiple areas of bruising seen across the right side of her face, right shoulder and across the chest � per the daughter, the patient
sleeps with her hand on her face as well as across her chest and her nails have caused trauma to her body hands causing bruising; she also had recently fallen which contributed to some of the bruising seen on her shoulder and chest
- DVT ppx: Trend INR and defer starting chemical ppx to surgery
Pulmonary service will continue to follow along.
Total time spent today was 41 minutes for this encounter. Time includes reviewing laboratory test/imaging results, reviewing pertinent medical records, obtaining and reviewing medical history, performing an appropriate exam, ordering medications,
tests and procedures. Time also includes documentation of this encounter, coordinating patient care and communicating with other healthcare professionals. Total time does not include separately billed tests performed on this date of service.
Subjective Data
-
Date of Service:
Date of Service: August 30, 2025
Chief Complaint: Pulmonary Follow Up
Subjective:
Patient was seen and evaluated this morning (late note entry). Family members at bedside including the daughter. Patient remains drowsy but still answering questions appropriately. Afebrile overnight. Currently on 7 L/min via mid flow nasal
cannula. Saturating 96%.
Review of Systems
General: Other (Unobtainable given somnolent mental status)
Objective Data
Data Reviewed
Vital Signs / I&O / Oxygen:
Vital Signs
Temp Pulse Resp BP Pulse Ox
97.8 F 102 10 115/77 94
08/30/25 11:58 08/30/25 08:00 08/30/25 08:00 08/30/25 08:00 08/30/25 08:00
Intake and Output
08/29/25 08/30/25 08/31/25
06:59 06:59 06:59
Intake Total 2370 / 2450 2300 / 2360 480 / 480
Output Total 690 / 690 745 / 745 265 / 265
Balance 1680 / 1760 1555 / 1615 215 / 215
SaO2 [CPAP] 40
SaO2 [A/C] 100
SaO2 94
Nasal Cannula flow liters per 5
minute
Physical Exam
General: Respiratory Distress (negative), Comfortable, Chills (negative) and Sweats (negative)
HEENT: Normocephalic and Anicteric
Cardiovascular: S1-S2 and Peripheral Edema (+2 lower extremity pitting edema bilaterally)
Respiratory: Wheeze (negative), Crackles (Bibasilar), Rhonchi (negative), Non-Labored Respirations, Stridor (negative) and Other (Reduced inspiratory effort)
GI: Soft, Distended (Abdominal obesity), Non Tender, NG Tube (on suction), Other (Colostomy in place with beefy red appearing stoma with sunken in appearance) and Other (hypoactive bowel sounds)
Neurology: Tremors (negative) and Other (Somnolent although arousable to voice and answers my questions but then quickly falls back asleep)
Skin: Warm, Dry, Cyanosis (negative) and Jaundice (negative)
Labs/Micro/Reports
Lab Data
08/30/25 03:37
08/30/25 03:37
Laboratory Results
08/30/25
03:37
PT 26.1 H
INR 2.37
Microbiology
08/26/25 17:42 Abdomen Anaerobic Culture - Preliminary
Culture pending. Anaerobic cultures are examined after 3
days incubation. Additional information to follow.
08/26/25 13:44 Blood/Venous Blood Culture - Preliminary
Positive culture in progress
08/26/25 13:44 Blood/Venous Gram Stain - Preliminary
08/28/25 11:24 Blood/Venous Blood Culture - Preliminary
No Growth in 48 hours- Final report to follow
08/26/25 13:41 Blood/Venous Blood Culture - Preliminary
Viridans Streptococcus Group
08/26/25 13:41 Blood/Venous Gram Stain - Preliminary
08/26/25 17:42 Abdomen Wound Culture - Preliminary
Pseudomonas aeruginosa
Morganella morganii
Escherichia coli
Viridans Streptococcus Group
08/26/25 17:42 Abdomen Gram Stain - Preliminary
08/26/25 14:04 Urine Urine Culture - Final
NO GROWTH
--- NOTE | 2025-08-30 16:56 | PTCARENOTE ---
Pt received from assistant casino shift manager RN. She is very lethargic this AM but is able to answer all questions appropriately and follow short commands. NSR on tele 90-100. + pulses, +1 anasarca with +2 pedal edema. Tapered down to 4 L NC with sats ~ 96%, breath
sounds diminished. Absent bowel sounds, colostomy stoma is retracted with a dark red purple color-CR surgery aware. No output via colostomy, no gas noticed in appliance. L nare [place] in place at 47 cm kelly, draining brown bile, 50 mls out this
shift. Waller in place, 40mg IV Lasix given this AM with pt putting out 200mls over the next 4 hours. Wounds redressed. IV sites intact
[2025-08-30 18:16] LABS: Glucose - Point of Care 90 mg/dl (70-99)
[2025-08-30] MEDS: LEVOTHROID 100 MCG IV (18:30)
--- NOTE | 2025-08-30 20:00 | PTCARENOTE ---
Received pt. at 1900. Pt. currently in bed. Lethargic, but arousable to voice. Oriented. C/o pain. PRN medication given, see MAR. Afebrile. Heart rhythm sinus. Blood pressure normotensive. Currently on 6L nasal cannula. Lungs sound diminished.
Abdomen obese. Bowel sounds absent. Colostomy bag intact. Stoma retracted. Waller catheter in place. Skin as documented. Discussed plan of care with patient. Vital signs stable at this time.
[2025-08-30] MEDS: ZOFRAN 4 MG IV (20:01)
[2025-08-30 23:28] LABS: Glucose - Point of Care 85 mg/dl (70-99)
[2025-08-31] VITALS (40 sets, daily range): BP systolic 41–103; BP diastolic 23–88; PULSE 105–107; O2SAT 92–99; BMI 33.1
[2025-08-31] MEDS: MERREM 500 MG IV ×2 (01:28→10:36)
[2025-08-31] MEDS: STERILE WATER FOR INJECTION 10 ML IV ×2 (01:28→10:36)
[2025-08-31] MEDS: DILAUDID 0.25 MG IV ×2 (03:49→15:34)
[2025-08-31 04:00] LABS: Hematocrit 33.5 % (37.0-47.0); Hemoglobin 9.8 g/dL (12.0-16.0); Mean Corp Hgb Conc. 29.3 g/dL (33.0-37.0); Mean Corpuscular Volume 82.5 fL (81.0-99.0); Platelet Count 148 10^3/uL (130-400); Red Cell Dist. Width 22.1 % (11.5-14.5)
[2025-08-31 04:05] LABS: INR 2.46; PT 26.9 Sec (11.4-14.6)
[2025-08-31] MEDS: VENTOLIN NEBULES 2.5 MG INH ×2 (04:46→08:07)
[2025-08-31 05:45] LABS: Glucose - Point of Care 87 mg/dl (70-99)
[2025-08-31] MEDS: NOVOLOG FLEXPEN-LOW RESISTANCE SC ×2 (05:46→12:17)
--- NOTE | 2025-08-31 07:10 | PTCARENOTE ---
Received patient drowsy, RASS -1, arousable to voice, A&Ox2, looked fatigued, ST in 100s, BP WNL, on 5L Midflow, NPO, Left nare NGT @50cm to LIS draining light yellow color, Mid abdomen surgical site, Left side abdomen Colostomy, Right side abdomen
ARTURO draining serosanguineous color, Waller in place.
--- NOTE | 2025-08-31 07:10 | PTCARENOTE ---
Received patient drowsy, RASS -1, arousable to voice, A&Ox2, looked fatigued, ST in 100s, BP WNL, on 5L Midflow, NPO, Left nare NGT @47cm to LIS draining light yellow color, Mid abdomen surgical site, Left side abdomen Colostomy, Right side abdomen
ARTURO draining serosanguineous color, Waller in place.
--- NOTE | 2025-08-31 08:05 | W.PN.PUL3 ---
Addendum entered and electronically signed by Lynn Estrada MD 08/31/25 16:04:
Addendum:
Patient reevaluated through the day, increasing pressor requirement, difficult IV access. Met with patient's daughter at bedside. Patient expressed very clearly that she does not want to pursue any additional treatment and wants to pursue only
comfort focused care. She does not want any blood draws or invasive procedures either. Patient's daughter in agreement. CODE STATUS DNR/DNI, proceed with comfort focused care.
Additional 35 minutes of critical care time spent.
Addendum entered and electronically signed by Lynn Estrada MD 08/31/25 14:43:
Addendum:
Follow-up CT reviewed, suggestive of acute interstitial edematous pancreatitis along with cholelithiasis. Also developing centrilobular ground glass opacity in lower lungs suggestive of developing edema along with anasarca. Through the day, blood
pressure started to trend low, now requiring low-dose vasopressin.
#1. Acute pancreatitis. Edematous interstitial versus biliary pancreatitis. Abnormal LFTs, rising bilirubin noted along with evidence of gallstones. No biliary dilation noted however on imaging.
- Patient already quite volume overloaded and has generalized anasarca, will hold off aggressive IV hydration at this point
- GI consult
#2. Shock.
- Multifactorial, patient has strep bacteremia and now new diagnosis of acute pancreatitis.
- Appears adenomatous on exam with developing lower lobe early alveolar edema, hold off additional IV fluid bolus
- Vasopressin resumed, check VBG and lactate
Prognosis overall is guarded. Will discuss goals of care with patient's family
Original Note:
Today's Communication / Plan
-
- Daily PT/INR
- Check VBG and lactate in a.m.
- Await CT abdomen pelvis
Assessment
-
Assessment: 70-year-old female with a past medical history of severe group III pulmonary hypertension, combined pulmonary fibrosis and emphysema, chronic hypoxic respiratory failure, chronic HFpEF, CAD, history of PE/DVT, hypertension,
hyperlipidemia and carotid atherosclerosis who presented from [facility] assisted living with abdominal pain, dry heaves and 3 episodes of diarrhea. Patient is on 5 L/min nasal cannula at baseline. Imaging with CT abdomen/pelvis showed free
intraperitoneal air with a suspected acute sigmoid diverticulitis. Surgery consulted and patient brought to the OR and sigmoidectomy with colostomy performed. EBL was 250 cc and there were no immediate complications. Intraoperatively there was a
perforated sigmoid diverticulitis discovered with pelvic area contamination and very oozy retroperitoneum. Patient had a #19 Godwin drain placed into the pelvis and received 1 unit PRBC towards the end of the procedure. Patient remained intubated
on Levophed and was transferred to the ICU postoperatively. Fur Comber service consulted for additional management/recommendations.
Assessment and plan:
#1. Acute on chronic hypoxic respiratory failure.
- Multifactorial, somnolence and physical deconditioning contributing, has underlying emphysema and pulmonary fibrosis with chronic hypoxic respiratory failure and pulmonary hypertension.
- Extubated 08/27/2025, currently on O2. At baseline, required 5 l/min
#2. Perforated sigmoid diverticulitis with secondary peritonitis
- S/p sigmoidectomy with colostomy
- 08/31, WBC count rising, follow-up CT abdomen pelvis scheduled for today, surgery service on case
#3. Streptococcus bacteremia
-Streptococcus viridans noted in blood cultures, polymicrobial growth in the abdominal washout including Pseudomonas, Morganella, E. coli and strep viridans.
-Patient has been on IV meropenem, infectious disease service on case
#4. h/o CPFE (combined pulmonary fibrosis and emphysema)
- Patient chronically on prednisone ranging from 5 to 10 mg a day
- Continue IV Solu-Medrol as ordered
- Continue olodaterol as well as budesonide as ordered.
- Supplemental O2 as needed
#5. History of pulmonary hypertension
- ECHO 05/2025: RV moderately dilated and mildly hypokinetic, right ventricular systolic pressure estimated 78
- RHC 07/2025: Mean PA pressure 54, pulmonary capillary wedge pressure 14, cardiac index 1.5, PVR 15.2. 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
- Precapillary PH suggestive of Group 1 and possibly Group III PH with underlying advanced lung disease
- Chronically on Revatio, continuing the dose of 20 mg 3 times daily
- Target SpO2 above 90%
#6. H/o DVT/PE
- Has chronically been on Xarelto
- INR still high, holding of subcu heparin.
#7. H/o HFpEF, LVEF 65%
- Bilateral 1-2+ pitting edema noted. Patient also developing rising potassium and creatinine level
- Nephrology service on case, currently normal saline at 80 mL/h in view of concomitant SHANNON
#8. SHANNON with mild hyperkalemia
- Nephrology service on case, currently on normal saline at 80 mL/h
- Serial labs
Other medical diagnoses:
- Acute anemia s/p 1 U PRBC s/p OR
- Transaminitis with acute on chronic hyperbilirubinemia
- CAD with PCI in 2021
Holding off DVT prophylaxis with subcu heparin in view of still elevated INR
Total time spent today was 41 minutes for this encounter. Time includes reviewing laboratory test/imaging results, reviewing pertinent medical records, obtaining and reviewing medical history, performing an appropriate exam, ordering medications,
tests and procedures. Time also includes documentation of this encounter, coordinating patient care and communicating with other healthcare professionals. Total time does not include separately billed tests performed on this date of service.
Subjective Data
-
Date of Service:
Date of Service: August 31, 2025
Chief Complaint: Pulmonary Follow Up
Subjective:
Patient comfortably lying in bed in no acute distress, somewhat lethargic but wakes up with stimulation
Review of Systems
Genitourinary: Other (No new symptoms reported.)
Objective Data
Data Reviewed
Vital Signs / I&O / Oxygen:
Vital Signs
Temp Pulse Resp BP Pulse Ox
97.7 F 106 12 100/70 93
08/30/25 20:00 08/31/25 07:00 08/31/25 07:00 08/31/25 07:00 08/31/25 07:00
Intake and Output
08/30/25 08/31/25 09/01/25
06:59 06:59 06:59
Intake Total 2300 / 2360 1440 / 1440
Output Total 905 / 905 875 / 875
Balance 1395 / 1455 565 / 565
SaO2 [CPAP] 40
SaO2 [A/C] 100
SaO2 93
Nasal Cannula flow liters per 6
minute
Physical Exam
General: Respiratory Distress (negative), Comfortable and Sweats (negative)
HEENT: Normocephalic and Anicteric
Cardiovascular: S1-S2 and Peripheral Edema (+1-2 lower extremity pitting edema bilaterally)
Respiratory: Wheeze (negative), Crackles (Bibasilar), Rhonchi (negative), Non-Labored Respirations, Stridor (negative) and Other (Reduced inspiratory effort)
GI: Soft, Distended, Non Tender, NG Tube, Other (Colostomy in place with beefy red appearing stoma with sunken in appearance) and Other (hypoactive bowel sounds)
Neurology: Tremors (negative) and Other (Bit drowsy but wakes up with stimulation.)
Skin: Warm, Dry, Cyanosis (negative) and Jaundice (negative)
Labs/Micro/Reports
Lab Data
08/31/25 03:37
Laboratory Results
08/31/25
03:37
PT 26.9 H
INR 2.46
Microbiology
08/30/25 03:37 Blood/Venous Blood Culture - Preliminary
No Growth in 24 hours- Final report to follow
08/26/25 17:42 Abdomen Anaerobic Culture - Preliminary
Culture pending. Anaerobic cultures are examined after 3
days incubation. Additional information to follow.
08/26/25 13:44 Blood/Venous Blood Culture - Preliminary
Positive culture in progress
08/26/25 13:44 Blood/Venous Gram Stain - Preliminary
08/28/25 11:24 Blood/Venous Blood Culture - Preliminary
No Growth in 48 hours- Final report to follow
08/26/25 13:41 Blood/Venous Blood Culture - Preliminary
Viridans Streptococcus Group
08/26/25 13:41 Blood/Venous Gram Stain - Preliminary
08/26/25 17:42 Abdomen Wound Culture - Preliminary
Pseudomonas aeruginosa
Morganella morganii
Escherichia coli
Viridans Streptococcus Group
08/26/25 17:42 Abdomen Gram Stain - Preliminary
[2025-08-31] MEDS: STRIVERDI RESPIMAT 2 PUFF INH (08:06)
[2025-08-31] MEDS: PULMICORT 0.5 MG INH (08:06)
--- NOTE | 2025-08-31 08:25 | W.PN.HOSP.TC ---
Addendum entered and electronically signed by Myron Joseph MD 09/03/25 19:47:
addendum: dx: hyponatremia
Addendum entered and electronically signed by Myron Joseph MD 09/01/25 22:14:
addendum: acute blood loss anemia post op-transfused PRBC
Addendum entered and electronically signed by Myron Joseph MD 08/31/25 20:29:
Attending Addendum-
I saw and evaluated the patient. I reviewed the resident�s note and agree with findings and plan as documented in the resident�s note. Sub: Feels extremely weak and lethargic. complains of abd pain. Full 12 point ROS reviewed and negative except as
documented Exam: Vitals reviewed in chart GEN-NAD HEENT NG tube in place heart RRR lungs clear abd distended +ostomy present, padron in place dark ursula urine
Plan:
# Acute Sigmoid Diverticulitis with perforated Diverticulum
# Septic shock
-worsening, overall poor prognosis
-s/p sigmoidectomy and colostomy (Feli's procedure) 08/26-POD# 5
-intubated postop, and extubated 08/27/2025. Continue current O2 support with nasal cannula wean as tolerated
-BP unstable-start vasopressin
-wound culture , growing Pseudomonas, Morganella, E coli, GNR, viridans strep -sensi resulted cont meropenem for now
-pt now on IV Solu-Medrol. Noted patient on chronic prednisone 10 mg prior to admission
-Continue NGT/NPO with ice chips
-worsening leukocytosis- check stat ct a/p r/o abscess
# Acute hypoxic respiratory failure -Now on 5L NC , wean O2 as tolerated
# SHANNON-worsening poor prognosis
# Acute Liver failure- from sepsis poor prog
# h/o DVT/PE-Xarelto held
# Severe pulmonary Hypertension
# COPD
# Chronic Hypoxic Respiratory Failure on 5L NC
# Abnormal finding 1.3cm tissue density medial margin pancreatic head
# HFpEF-hold RECYCLING OPERATOR Lasix, Spironolactone
# Chronic Hypotension-RECYCLING OPERATOR Midodrine
# Depression -RECYCLING OPERATOR Sertraline
Code: DNR
Dispo start ip comfort care
ACP
Patient consented to discuss, d/w POA, time spent explanation of advance directives, changes in health status, patient�s health care wishes if the patient becomes unable to make health decisions, goals of care, code status, and prognosis overall
poor prognosis patient and POA have made it clear to start comfort care measures, DC all studies pressors labs abx/meds and aggressive measures- 18 minutes
CC Note
Due to a high probability of clinically significant, life-threatening deterioration, the patient required a high level of preparedness to intervene emergently. I personally spent this critical care time directly and personally managing the patient.
This critical care time included obtaining a history; examining the patient; ordering and review of studies and STAT labs; arranging urgent treatment with development of a management plan; evaluation of patient's response to treatment; reassessment;
and, discussions with other providers.
This critical care time was performed to assess and manage the high probability of imminent, life-threatening deterioration that could result in multi-organ failure. It was exclusive of separately billable procedures and treating other patients and
teaching time. Total time documented is also exclusive of any additional time listed that was spent in advance care planning discussion
Total critical care time: Approximately 33 minutes
Original Note:
Today's Communication/Plan
-
started on vasopressin
decreased iv fluids
Per Dr Estrada note today (Patient reevaluated through the day, increasing pressor requirement, difficult IV access. Met with patient's daughter at bedside. Patient expressed very clearly that she does not want to pursue any additional treatment
and wants to pursue only comfort focused care. She does not want any blood draws or invasive procedures either. Patient's daughter in agreement. CODE STATUS DNR/DNI, proceed with comfort focused care.)
The goal of care has been discussed by me and confirmed with the daughter at bedside (Coby) who is a nurse and with Ms. Guzman a nurse at the hospital and a cuson of the pt.
Comfort care orders placed
Assessment / Plan
Assessment / Plan
Impression
70 y/o F with pmh of CKD III, HFpEF, PE/DVT on Xarelto, COPD,chronic hypoxic resp failur on 5L, severe pulmonary hypertension (on Sildenafil), hypothyroidism, PAD, GERD, diverticulitis, Depression, VISH presents to the ER complaining of severe
abdominal pain in the left lower quadrant since yesterday evening.
Imaging
08/31/2025
CT of the abd and pelvis with oral contrast showed:
1. ACUTE INTERSTITIAL EDEMATOUS PANCREATITIS.
2. Postoperative from sigmoidectomy and left anterior abdominal wall colostomy (Stoddard's procedure).
3. Percutaneous drainage catheter in the pelvis.
4. Moderate-sized paraesophageal hiatal hernia containing a nasogastric tube.
5. Cholelithiasis.
6. Mild cardiomegaly.
7. Severe calcific atherosclerotic plaque in the coronary arteries.
8. Small bilateral pleural effusions.
9. Central bronchiectasis and chronic interstitial disease in both lungs.
10. Large amount of centrilobular ground-glass opacity in the lower lungs. Diagnostic possibilities are (1) chronic inflammatory pneumonitis, (2) alveolar edema, or (3) less likely infectious pneumonia.
11. SEVERE DIF
CT Abd/pel Without Iv Or Oral 08/26/2025
1.Small amounts of free intraperitoneal air, suggesting perforated hollow viscus. The favored etiology is related to acute sigmoid diverticulitis with perforated diverticulum. Other possibility includes perforated peptic/duodenal ulcer
2. There is a 1.3 cm mixed fluid/soft tissue density along the medial margin of the pancreatic head and anterior margin of the duodenum, possibly reflecting a preserved island of normal pancreatic tissue, pancreatic lesion, duodenal ulcer or
prominent peripancreatic lymph node. This could be further evaluated with nonemergent MRI/MRCP abdomen without and with gadolinium contrast
3. Hepatic cirrhosis with small volume abdominal ascites
4. Probable cystitis
5. Mild T12 superior endplate compression fracture, new from 10/30/2024 and age indeterminate. Recommend correlation for any point tenderness in this region.
6. Cholelithiasis
7. Bibasilar fibrotic changes in the lungs
Chest Xray 08/26/2025
Endotracheal tube is present, tip low, 1 cm above the nicolasa.
Nasogastric tube is present with tip projecting over the superior medial left upper quadrant, just extending into the upper stomach.
There is patchy parenchymal opacity within the left mid to lower lung. Findings would suggest a component of pneumonia. This would be superimposed on changes of cystic bronchiectasis within the left lower lung.
Increased reticular markings within the right lower lung. This would also suggest a component of pneumonia superimposed on chronic interstitial changes and changes of cystic bronchiectasis.
Cardiac silhouette size appears slightly enlarged, but vasculature is likely not actively congested. There is prominence of the main pulmonary artery shadow, suggesting pulmonary hypertension
CT Head W/o Iv Contrast 08/27/2025
No acute intracranial abnormality noted
PLAN
Acute Sigmoid Diverticulitis with perforated Diverticulum (patient with pain LLQ on exam)
Sepsis secondary to above
-WBC today 33k despite the IV antibiltis
-Lactic Acidosis 2.8 -improved 1.5
-Agreed to emergent Stoddard's procedure on 08/26/2025
-admit to ICU post-op
-Discontinue IV Unasyn #D1, switch to IV Zosyn 4 days -> meropenem per ID due to increasing leukocytosis
-Received Levophed once- blood pressure improved
-Continue stress dose steroids -methylprednisolone 20 mg IV QD #D5
-Commercial Lease Administrator consult, input appreciated
-A line removed
-Maintain nasogastric tube
-Consult PT/OT
-Abdominal cultures revealed Pseudomonas, gram-negative bacilli, viridans Streptococcus group
-Blood cultures revealed viridans Streptococcus group
-WBC uptrending - Zosyn -> meropenem per ID
# acute interstitial edematous pancreatitis
-Pt is NPO , NGT
-Patient already quite volume overloaded and has generalized anasarca, will hold off aggressive IV hydration at this point
-GI consulted
#Shock.
- Multifactorial, patient has strep bacteremia and now new diagnosis of acute pancreatitis , multiorgan failure
- Appears adenomatous on exam with developing lower lobe early alveolar edema, hold off additional IV fluid bolus
- Vasopressin resumed, check VBG and lactate
#DVT/PE on Xarelto
-PCC reversal ordered
-Continue holding Xarelto at least through the weekend
-*RECYCLING OPERATOR aspirin also held, resume when OK with surgery
- On heparin 5000 units SQ every 12 H
SHANNON
- Creatinine increased from baseline 1.5-2.0 -> 2.0
- Continued poor urine output
- 40 IV lasix per nephro to circulate fluid, continue fluids for pressure
- Appreciate nephrology and started on pressor which required increasing the dose
Severe pulmonary Hypertension
COPD
Chronic Hypoxic Respiratory Failure
-Extubated
-RECYCLING OPERATOR Sildenafil on hold with NG tube placed - restart PO meds through tube when cleared by surgery
-RECYCLING OPERATOR inhalers
-Continue stress dose steroids
-Some slight wheezing noted on physical exam today - PRN duonebs present. Restart sildenafil when able to tolerate PO.
#Abnormal finding 1.3cm tissue density medial margin pancreatic head
-MRI/MRCP outpatient after acute issues resolved
HFpEF
-hold RECYCLING OPERATOR Lasix, Spironolactone - one time dose IV lasix per nephro
-gentle fluids as above
Chronic Hypotension
-RECYCLING OPERATOR Midodrine
- Received Levophed once
- Blood pressure improved
Chronic Transaminitis suspected 2/2 cor pulmonale/ congestive hepatopathy
Acute on chronic transaminitis in setting of sepsis
-Trend LFTs - increasing
Depression - RECYCLING OPERATOR Sertraline
Hypothyroidism
- Start IV levothyroxine as greater than 3 days without home dose
Patient is DNR (post OR)
Anticipated Discharge: > 48 hours
Subjective/Interval History
-
Date of Service: August 31, 2025
no over night event, pt is still lethargic but oriented and alert, she answered the questions, no shortness of breath, chest pain, nausea. Has Padron's catheter, NGT with yellow output, colostomy with hard retracted small amount of stool.
Objective Data
-
Labs:
Laboratory Results
08/31/25 08/31/25 08/31/25
03:37 04:36 05:31
WBC 33.6 H
Hgb 9.8 L
Hct 33.5 L
Plt Count 148
PT 26.9 H
INR 2.46
Sodium Cancelled Cancelled Pending
Potassium Cancelled Cancelled Pending
Chloride Cancelled Cancelled Pending
Carbon Dioxide Cancelled Cancelled Pending
BUN Cancelled Cancelled Pending
Creatinine Cancelled Cancelled Pending
Glucose Cancelled Cancelled Pending
Calcium Cancelled Cancelled Pending
Total Bilirubin Cancelled Cancelled Pending
AST Cancelled Cancelled Pending
ALT Cancelled Cancelled Pending
Alkaline Phosphatase Cancelled Cancelled Pending
Vital Signs:
Vital Signs
Temp Pulse Resp BP Pulse Ox
97.6 F 105 14 100/70 95
08/31/25 08:00 08/31/25 08:09 08/31/25 08:09 08/31/25 07:00 08/31/25 08:09
I&O
08/30/25 08/31/25 09/01/25
06:59 06:59 06:59
Intake Total 2300 / 2360 1440 / 1440
Output Total 905 / 905 875 / 875
Balance 1395 / 1455 565 / 565
Review of Systems
-
History Source: Patient
Respiratory: Reports No Symptoms
Cardiac: Reports No Symptoms
Abdomen/GI: Reports No Symptoms
Genitourinary: Reports No Symptoms
Neuro: Reports No Symptoms
Endocrine: Reports No Symptoms
Physical Exam
-
General: Appears Chronically Ill and Other (lethargic, ecchymosis all over her body )
HEENT: Oxygen (5 L NC) and Other (left sided face bruising )
Respiratory: Clear to Auscultation
Cardiac: Regular Rhythm and S1/S2
GI: Soft, Nondistended, Normal Bowel Sounds, Tender, Ostomy (No signs of infection around ostomy , hard stool retracted in ostomy) and Other (ARTURO drain placed. Bloody non-purulent fluid)
Genito-urinary: Padron
Musculoskeletal: Edema, Right Lower Extrem
Skin: Warm and Dry
Neuro: AO x 3
Psych: Calm and Other (Lethargic)
[2025-08-31] MEDS: NSS (PRESERVATIVE FREE) 10 ML IV (08:45)
[2025-08-31] MEDS: PROTONIX IV 40 MG IV (08:45)
[2025-08-31] MEDS: SOLU-MEDROL PF 20 MG IV (08:46)
[2025-08-31] MEDS: HEPARIN 5000 UNITS SC (08:46)
--- NOTE | 2025-08-31 08:52 | W.PN.NEPH.PH ---
Today's Communication / Plan
-
follow BMP
Assessment/Plan
-
Impression:
Acute renal failure
Status post perforated sigmoid diverticulitis with secondary peritonitis status post sigmoidectomy with colostomy on 08/27/2025
Septic shock (strep species bacteremia)
Pulmonary hypertension on Revatio
Chronic HFpEF
COPD/chronic hypoxic respiratory failure
History of CAD with PCI in 2021
History of PE and DVT on chronic anticoagulation
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
Transaminitis
Peripheral arterial disease
Hepatic cirrhosis
Chronic hypotension on midodrine's
Plan:
Needs IV access. Would recommend IJ
Cause of INR elevation uncertain ?vitK def?
follow LFTs, rising
maintain Waller today
no lasix today, third spacing
need labs
check FENa
change LR to NS as we clearly are unable to follow electrolytes with concurrent SHANNON
critical care time 40 minutes
-
-
Date of Service: August 31, 2025
CC / HPI / ROS
-
Chief Complaint:
SHANNON
History of Present Illness:
BP low, on midodrine high dose
no labs, difficult stick
INR elevated
NPO
critically ill in ICU
Review of Systems:
barely nonoliguric via Waller
No fever
Weights up
Labs
-
Labs:
WBC 33.6 10^3/uL (4.8-10.8) H 08/31/25 03:37
RBC 4.06 10^6/uL (4.20-5.40) L 08/31/25 03:37
Hgb 9.8 g/dL (12.0-16.0) L 08/31/25 03:37
Hct 33.5 % (37.0-47.0) L 08/31/25 03:37
Plt Count 148 10^3/uL (130-400) 08/31/25 03:37
eGFR Cancelled 08/31/25 04:36
Phosphorus 6.0 mg/dl (2.5-4.5) H 08/30/25 03:37
Physical Exam
-
Vital Signs:
Vital Signs
Temp Pulse Resp BP Pulse Ox
97.6 F 105 14 100/70 95
08/31/25 08:00 08/31/25 08:09 08/31/25 08:09 08/31/25 07:00 08/31/25 08:09
Cardiovascular:: Regular rate and rhythm
Respiratory:: Bilateral: Coarse
Lung Excursion:: Normal
Abdomen:: Nontender and Soft
Bowel Sounds:: None
Extremity Edema:: +3: Bilateral:
--- NOTE | 2025-08-31 09:44 | CM ---
Addendum entered by Kimberly Marinelli 08/31/25 09:47:
Patient had been at [facility] as [facility] patient prior to admission; would need referral for bed availability.
Original Note:
Patient seen at bedside in ICU. Patient resting. Per chart review pending PT/OT and need for Ostomy care. Patient plan for home with VN vs SNF pending medical treatment plan. CM will continue to follow for discharge planning needs.
Plan; home with VN vs SNF pending medical treatment plan
[2025-08-31] MEDS: NSS 1000 IV (10:00)
--- NOTE | 2025-08-31 10:10 | W.PN.CRS1 ---
Addendum entered and electronically signed by Donnell Obregon MD 08/31/25 15:07:
CT scan reviewed with Dr. Telol. Radiographic interstitial pancreatitis. No abscesses noted. Patient and her daughter, bran Tenorio. Spoke also to Dr. Estrada who will consult GI.
Original Note:
Today's Communication / Plan
-
CT A/P rectal and oral contrast
Assessment/Plan
-
70 yo female with a h/o CAD, PAD, HFpEF, DVT, COPD/Pulmonary fibrosis on chronic o2 of 3-5L who presented with septic shock secondary to perforated sigmoid diverticulitis with peritonitis and with bacteremia (strep species)
POD#5 sigmoidectomy with colostomy (Feli's procedure)
Extubated on 08/27
INR: 2.46 (2.47)
Stoma with formed stool
WBC: 33.6 (29.9, 21.6)
Hgb: 9.8 (8.9, 8.9)
Creatinine: pending (2.0, 2.0)
Plan:
-Continue NGT/NPO with ice chips for comfort
-Wound RN for stoma teaching. Will follow stoma exams closely
-Waller as per ICU team/nephrology
-OOB with PT/OT once able medically
-Continue abx as per ID, broadened abx to Merrem 08/30
-Continue to hold Xarelto until good bowel recovery, Ok for SQ heparin from surgical standpoint once INR <2
-OR pathology and cultures pending
-Continue ARTURO drain
-Analgesics prn
-Given rise in WBC, will order CT A/P with oral (no IV due to GFR) and rectal contrast this AM
Subjective Data
Procedure
08/26/2025- sigmoidectomy with colostomy (Feli's procedure)
Subjective Data
Date of Service: August 31, 2025
Patient is moaning due to ngt pain. Has generalized abdominal pain.
Objective Data
-
Vital Signs
Temp Pulse Resp BP Pulse Ox
97.6 F 105 14 100/70 95
08/31/25 08:00 08/31/25 08:09 08/31/25 08:09 08/31/25 07:00 08/31/25 08:09
Intake & Output
08/30/25 08/31/25 09/01/25
06:59 06:59 06:59
Intake Total 2300 / 2360 1440 / 1500 260 / 260
Output Total 905 / 905 875 / 875 50 / 50
Balance 1395 / 1455 565 / 625 210 / 210
Intake:
Oral fluids 60 / 60
IV fluids (Total) 1919 1440 / 1500 260 / 260
Lr 1,000 ml @ 60 mls/hr IV . 1919 1440 / 1500 180 / 180
[id number] JEROME Rx#:[id number]
Nss 1,000 ml @ 80 mls/hr IV . 80 / 80
[id number] JEROME Rx#:[id number]
IV piggybacks 105 / 105
Amount instilled into GI Tube ( 215 / 215
Total)
[place] Sump 215 / 215
Output:
Drain Output (Total) 400 / 400 255 / 255
Right Lower Abdomen 400 / 400 255 / 255
Gastrointestinal tube output ( 70 / 70
Total)
[place] Sump 70 / 70
Urine, Waller 505 / 505 550 / 550 50 / 50
Lab Results
08/31/25 03:37
Physical Exam
-
General: AOx3
Abdomen: Soft, Tender (mild around incision) and Other (ARTURO drain serosanguinous, stoma retracted but warm and with stool in bag, Q tip probed into wound, some serous fluid released, nora in place)
Wound: Dressing Changed
[2025-08-31] MEDS: OMNIPAQUE 50 ML PO (10:34)
[2025-08-31 11:05] LABS: ALT (SGPT) 114 U/L (0-35); AST (SGOT) 129 U/L (14-36); Albumin 3.0 g/dl (3.5-5.0); Alkaline Phosphatase 233 U/L (38-126); Blood Urea Nitrogen 98 mg/dl (7-17); Calcium 8.6 mg/dl (8.4-10.2); Carbon Dioxide 19 mmol/L (22-30); Chloride 106 mmol/L (98-107); Glucose 74 mg/dl (70-99); Potassium 5.3 mmol/L (3.5-5.1); Sodium 139 mmol/L (135-145); Total Protein 5.7 g/dl (6.3-8.2)
[2025-08-31 11:15] LABS: Estimated Creatinine Clearance 23 ml/min; eGFR 22.31
--- NOTE | 2025-08-31 12:00 | PTCARENOTE ---
Reassessed the patient, patient's BP dropped after sitting on the edge of bed during PT session, rechecked BP remained low. Patient denied pain throughout and denied feeling dizzy. Made entire team aware. Pending CT abdomen.
[2025-08-31 12:17] LABS: Glucose - Point of Care 84 mg/dl (70-99)
--- NOTE | 2025-08-31 12:44 | W.PN.ID1 ---
Date of Service
Date of Service: August 31, 2025
Today's Communication
Continue meropenem.
Assessment / Plan
# Perforated sigmoid diverticulitis with peritonitis
# Strep viridans bacteremia (2 sets), intra-abd source
# s/p septic shock
# Leukocytosis, on steroid, trending up
# Chronic elevated LFT's - trending up
# SHANNON - worse
- 08/26 s/p sigmoidectomy with colostomy
- OR fluid culture growing Pseudomonas aeruginosa, Strep. viridans, Morganella, E. coli
- Repeat blood cultures neg to date
- Continue meropenem (d5 abx)
- Trend vitals, wbc.
- Continue with supportive measures
- Trend Cr. / CrCl to guide antibiotic dosing adjustment
- For CT a/p.
# Conditions present on admission
Coronary Artery Disease s/p Stent
Peripheral Arterial Disease s/p Right CEA
Chronic HFpEF
Essential Hypertension
Hyperlipidemia
COPD
Pulmonary Fibrosis
Chronic Hypoxemic respiratory failure on 02
CKD3
Hypothyroidism
DVT/PE
Obstructive Sleep Apnea
Depression
R CEA
Gastric sleeve
Chief Complaint
-: Bacteremia and Other (Perforated sigmoid diverticulitis; peritonitis)
Subjective / Review of Systems
Pt drowsy.
Denies pain.
Vital Signs / Physical Exam
Vital Signs
Vital Signs
Temp Pulse Resp BP Pulse Ox
97.5 F 103 16 86/47 95
08/31/25 11:01 08/31/25 12:05 08/31/25 12:05 08/31/25 12:05 08/31/25 12:05
Physical Exam
Constitutional: Acutely Ill
Eyes: No Conjunctival Hemorrhage and Other (sclera icteric)
Cardiovascular: S1/S2 (tachycardic)
Pulmonary: Clear (anterior lungs)
Gastrointestinal: Soft, Tender and Decreased Bowel Sounds
Genito-Urinary: Waller and Clear Urine
Extremities: Edema
Neurological: Other (Lethargic, arousable)
Objective Data
Lab Data
Lab Results
08/31/25 03:37
08/31/25 10:31
PT 26.9 Sec (11.4-14.6) H 08/31/25 03:37
INR 2.46 08/31/25 03:37
APTT 34.9 Sec (23.4-35.0) 08/28/25 16:43
Estimated Creat Clear 23 ml/min 08/31/25 10:31
Lactic Acid Cancelled 08/27/25 01:15
Total Bilirubin 9.2 mg/dl (0.2-1.3) H 08/31/25 10:31
AST 129 U/L (14-36) H 08/31/25 10:31
ALT 114 U/L (0-35) H 08/31/25 10:31
Alkaline Phosphatase 233 U/L (38-126) H 08/31/25 10:31
Most recent labs reviewed.
Micro Results:
08/26/25 17:42 Anaerobic Culture - Preliminary
Abdomen Culture pending. Anaerobic cultures are examined after 3
days incubation. Additional information to follow.
08/28/25 11:24 Blood Culture - Preliminary
Blood/Venous No Growth in 72 hours- Final report to follow
08/26/25 13:44 Blood Culture - Preliminary
Blood/Venous Positive culture in progress
Gram Stain - Preliminary
08/30/25 03:37 Blood Culture - Preliminary
Blood/Venous No Growth in 24 hours- Final report to follow
08/26/25 13:41 Blood Culture - Preliminary
Blood/Venous Viridans Streptococcus Group
Gram Stain - Preliminary
08/26/25 17:42 Wound Culture - Preliminary
Abdomen Pseudomonas aeruginosa
Morganella morganii
Escherichia coli
Viridans Streptococcus Group
Gram Stain - Preliminary
08/26/25 14:04 Urine Culture - Final
Urine NO GROWTH
08/26/25 11:21 Influenza Types A & B ([facility]UNG) - Final
Nasal Swab Negative for Influenza A & B, NAAT
Negative results must be combined with clinical observations
and patient history.
Nucleic Acid Amplification test (NAAT)performed on the
[employer] platform.
Imaging:
08/26/25 CT a/p: Small amounts of free intraperitoneal air, suggesting perforated hollow viscus. The favored etiology is related to acute sigmoid diverticulitis with perforated diverticulum. Other possibility includes perforated peptic/duodenal
ulcer. There is a 1.3 cm mixed fluid/soft tissue density along the medial margin of the pancreatic head and anterior margin of the duodenum, possibly reflecting a preserved island of normal pancreatic tissue, pancreatic lesion, duodenal ulcer or
prominent peripancreatic lymph node. This could be further evaluated with nonemergent MRI/MRCP abdomen without and with gadolinium contrast. Hepatic cirrhosis with small volume abdominal ascites.
[2025-08-31] MEDS: PITRESSIN 100 IV (13:57)
--- NOTE | 2025-08-31 14:39 | CON.GI ---
Addendum entered and electronically signed by Inez Jauregui DO 08/31/25 16:19:
The patient was seen and examined by me independently in collaboration with the nurse practitioner.
Past medical history/social history/medications/allergies/family history reviewed.
Lab data and imaging data reviewed.
Vida Oneal is a 70-year-old female with past medical history of pulmonary hypertension, pulmonary fibrosis emphysema on prednisone, chronic hypoxemic respiratory on chronic 5L O2, HFpEF, hx PE/DVT, HTN, HLD, chronic hypotension on midodrine,
CAD admitted with abdominal pain, nausea and diarrhea found to have perforated sigmoid diverticulitis with peritonitis now s/p sigmoidectomy with colostomy with post-operative course c/b renal failure, septic shock, and acute pancreatitis. GI is
consulted for management of acute pancreatitis.
Patient is critically ill, approaching multi organ failure, requiring pressor support, with rising leukocytosis, WBC 33K. She has diffuse anasarca on imaging. She has been very clear regarding her goals of care and does not wish to be reintubated.
Patient's daughter has decided to pursue comfort care. GI will sign off.
Original Note:
Consultation
-
Date/Time Consultation Requested: 08/31/25 1415
Date/Time Consultation Performed: 08/31/25 1440
Requesting Provider: Lynn Estrada MD
Performing Provider: MARK Thapa, Cristiana Jauregui DO
Reason for Consultation: increased LFT's, CT with pancreatitis
Medical History
Chief Complaint / HPI
Chief Complaint: weakness and falls
History of Present Illness:
Pt is a 69yo with hx PE/ DVT on chronic Xarelto prior to admission, lucio's per EGD 2007, CAD with prior stent, CHF, COPD with chronic 5 liter O2 at home, GERD, prior gastric sleeve, HTN, hyperlipidemia, hypothyroidism, prior PNA, PAD,
hypoxemia, pulm fibrosis, obesity, sleep apnea presents with several recent admission. She was admitted 07/21-07/27 with acute on chronic CHF, severe pulm HTN, SHANNON and hyponatremia and transaminitis. During that admission she had cath with severe
pulm HTN and concern for cardio renal syndrome. She was started on Sildenafil. She returned 07/30- 08/03 with weakness, orthostasis with Lasix and Sildenafil and was started on Midodrine. She was seen by GI during that admission with drop in
hbg and to 8 range and rectal bleeding. She was recommended serial hbg checks and Ct if continued drop with AC hold. He had declined GI procedures. She was also noted with elevated LFT's with concern for congestive hepatopathy. She now return
08/26 with abdominal pain with nausea and vomiting for several days. CT on admission with concern for perforated viscus. She proceeding to OR for sigmoidectomy and colostomy with pantoja's procedure 08/26. She is recovering from surgery and noted
with strep Viridans bacteremia. She initially with extubated but now concern for hypotension requiring pressors, worsening abdominal pain with rise in LFT's and Ct with pancreatitis along with multiple other findings. In review with patient she
admit to ongoing abdominal pain. She had had NGT in place with small amount of output and denies vomiting. She does have serous output from ARTURO drain but no current ostomy output.
08/26/25 CT Abd/pel (oral only)-[facility] Only
1. ACUTE INTERSTITIAL EDEMATOUS PANCREATITIS.
2. Postoperative from sigmoidectomy and left anterior abdominal wall colostomy (Pantoja's procedure).
3. Percutaneous drainage catheter in the pelvis.
4. Moderate-sized paraesophageal hiatal hernia containing a nasogastric tube.
5. Cholelithiasis.
6. Mild cardiomegaly.
7. Severe calcific atherosclerotic plaque in the coronary arteries.
8. Small bilateral pleural effusions.
9. Central bronchiectasis and chronic interstitial disease in both lungs.
10. Large amount of centrilobular ground-glass opacity in the lower lungs. Diagnostic possibilities are (1) chronic inflammatory pneumonitis, (2) alveolar edema, or (3) less likely infectious pneumonia.
11. SEVERE DIFFUSE ANASARCA.
- s/p perforated viscus with sigmoidectomy and colostomy with pantoja's procedure 08/26
-hypotension requiring pressors
-continued abdominal pain with concern for pancreatitis on follow up CT
-leukocytosis
-continued rise of LFT's with concern for possible secondary to cardiac congestion
-CT with Large amount of centrilobular ground-glass opacity in the lower lungs. Diagnostic possibilities are (1) chronic inflammatory pneumonitis, (2) alveolar edema, or (3) less likely infectious pneumonia.
-persistent anemia
-worsening creat
-cholelithiasis
-recent admission with with acute on chronic CHF, severe pulm HTN, SHANNON and hyponatremia and transaminitis
-hx gastric sleeve
-increased LFT's possible secondary to cardiac congestion
- recent wt loss
other med problems:
lucio's per EGD 2007 (pt did not recall), CAD with prior stent, CHF, COPD with chronic 5 liter O2 at home, steroid use prior to admission, GERD, HTN, hyperlipidemia, hypothyroidism, prior PNA, PAD, hypoxemia, pulm fibrosis, obesity, sleep
apnea, hx falls, moderate PEH
PLAN:
Etiology of pancreatitis unclear -- noted cholelithiasis vs concern for multi system failure with recent surgery with hx pulm HTN, now worsening renal and liver dysfunction, hypotension requiring pressor, increased resp effort
daughter now at bedside, discussed with Dr. Estrada along with daughter for goals of care with worsening status today for comfort vs continued aggressive care with pressors, A-line etc.
pt is currently DNR
daughter will review with patient
cont to maintain adequate perfusion
cont post -op management per surgical team
trend labs
limited hepatotoxic medication
if continued aggressive care would check bedside US for eval of CBD, pt currently too ill for MRI imaging
Past Medical History
Past Medical History: CAD, CHF, COPD, GERD, HTN, Hypercholesterolemia, Hypothyroidism and Other (Pulm HTN, PE/ DVT, prior PNA, PAD, hypoxemia, pulm fibrosis, obesity, sleep apnea, lucio's per EGD 2007)
Past Surgical History: Bowel Resection (sigmoidectomy and colostomy with pantoja's procedure 08/26), Cardiac (prior stent ), and Other (bariatric surgery - gastric sleeve 2012, right CEA)
Social History
Tobacco: Former Smoker
Drug: None
Personal:
Living: Alone (recent rehab)
Employment: Retired (prior hairdresser )
Family History
Family History: Reviewed & Not Pertinent
Allergies / Home Medications
Allergy/AdvReac Type Severity Reaction Status Date / Time
tape Allergy Unknown Uncoded 08/26/25 10:59
�Medication �Instructions �Recorded
aspirin 81 mg tablet,delayed 81 mg PO DAILY Blood Clot 10/13/24
release Prevention/Tx
levothyroxine 125 mcg tablet 125 mcg PO DAILY Thyroid 10/13/24
(Synthroid)
prednisone 10 mg tablet 10 mg PO DAILY INFLAMMATION 10/13/24
therapeutic multivitamin 1 tab PO DAILY Supplement 10/13/24
rivaroxaban 20 mg tablet (Xarelto) 20 mg PO QPM Blood Clot 05/08/25
Prevention/Tx
sertraline 50 mg tablet 50 mg PO DAILY Mental Health 05/08/25
spironolactone 25 mg tablet 25 mg PO DAILY Heart Failure 05/08/25
fluticasone 100 mcg-salmeterol 50 1 inh inhalation R BID 07/21/25
mcg/dose blistr powdr for Lung/Breathing Issues
inhalation (Wixela Inhub)
furosemide 40 mg tablet 40 mg PO DAILY Heart Failure #90 07/27/25
tabs
midodrine 5 mg tablet 5 mg PO TID@0800,1300,1800 Blood 08/03/25
pressure #0 tabs
sildenafil (pulm.hypertension) 20 20 mg PO TID pulm htn #90 tabs 08/03/25
mg tablet
Saccharomyces boulardii 250 mg 250 mg PO BID Supplement 08/26/25
capsule (Florastor)
acetaminophen 325 mg tablet 650 mg PO Q6HPRN PRN mild pain 08/26/25
(Tylenol)
bisacodyl 10 mg rectal suppository 10 mg DC DAILYPRN PRN if no bm 08/26/25
(Dulcolax (bisacodyl)) aftr mom
loperamide 2 mg tablet 2 mg PO Q6HPRN PRN diarrhea 08/26/25
magnesium hydroxide 400 mg/5 mL 2,400 mg PO [id number] PRN if no bm 08/26/25
oral suspension (Milk of Magnesia) aftr 9 shifts
melatonin 3 mg tablet 3 mg PO HS Sleep 08/26/25
melatonin 3 mg tablet 3 mg PO HSPRN PRN sleep 08/26/25
omeprazole 20 mg capsule,delayed 20 mg PO DAILY Gastrointestinal 08/26/25
release Issue
ondansetron HCl 4 mg tablet 4 mg PO Q8HPRN PRN nausea 08/26/25
sodium phosphates 19 gram-7 118 ml DC DAILYPRN PRN if no bm 08/26/25
gram/118 mL enema (Fleet Enema) aftr dulcolax
Review of Systems
-
History Source: Patient and Family
Constitutional: Reports Weight Loss (during last evaluation) and Fatigue
EENT: Reports No Symptoms
Respiratory: Reports Trouble Breathing (chronic )
Abdomen/GI: Reports Abdominal Pain (with recent surgery ) and Other (NGT with minimal drainage )
: Reports No Symptoms
Skin: Reports No Symptoms
Neurological: Reports Weakness
Hematologic/Lymphatic: Reports No Symptoms
Vital Signs
Temp Pulse Resp BP Pulse Ox
97.5 F 103 16 86/47 95
08/31/25 11:01 08/31/25 12:05 08/31/25 12:05 08/31/25 12:05 08/31/25 12:05
Physical Exam
Exam
General: Other (chronic ill appearing, some shortness of breath )
HEENT: Normocephalic and Other (slight jaundice )
Respiratory: Other (decreased )
Cardiac: Other (tachy)
GI: Soft, Tender (diffuse) and Other (lower abdominal dressing intact, ostomy no drainage )
Rectal: Other (no ostomy drainage )
Musculoskeletal: No Clubbing and No Cyanosis
Skin: Warm, Dry and Other (marked bruising throughout back, face, arms )
Neuro: Awake, Alert and Other (answering most questions )
Psych: Calm
Results
WBC 33.6 10^3/uL (4.8-10.8) H 08/31/25 03:37
Hgb 9.8 g/dL (12.0-16.0) L 08/31/25 03:37
Hct 33.5 % (37.0-47.0) L 08/31/25 03:37
MCV 82.5 fL (81.0-99.0) 08/31/25 03:37
Plt Count 148 10^3/uL (130-400) 08/31/25 03:37
Absolute Neuts (auto) 13.4 10^3/uL (1.4-6.5) H 08/27/25 03:16
PT 26.9 Sec (11.4-14.6) H 08/31/25 03:37
INR 2.46 08/31/25 03:37
APTT 34.9 Sec (23.4-35.0) 08/28/25 16:43
Sodium 139 mmol/L (135-145) 08/31/25 10:31
Potassium 5.3 mmol/L (3.5-5.1) H 08/31/25 10:31
Chloride 106 mmol/L (98-107) 08/31/25 10:31
Carbon Dioxide 19 mmol/L (22-30) L 08/31/25 10:31
BUN 98 mg/dl (7-17) H 08/31/25 10:31
Creatinine 2.3 mg/dL (0.6-1.0) H 08/31/25 10:31
Calcium 8.6 mg/dl (8.4-10.2) 08/31/25 10:31
Total Bilirubin 9.2 mg/dl (0.2-1.3) H 08/31/25 10:31
AST 129 U/L (14-36) H 08/31/25 10:31
ALT 114 U/L (0-35) H 08/31/25 10:31
Alkaline Phosphatase 233 U/L (38-126) H 08/31/25 10:31
Lipase 82 U/L (23-300) 08/26/25 11:16
Diagnostic Image Results:
08/26/25 CT Abd/pel (oral only)-[facility] Only
1. ACUTE INTERSTITIAL EDEMATOUS PANCREATITIS.
2. Postoperative from sigmoidectomy and left anterior abdominal wall colostomy (Pantoja's procedure).
3. Percutaneous drainage catheter in the pelvis.
4. Moderate-sized paraesophageal hiatal hernia containing a nasogastric tube.
5. Cholelithiasis.
6. Mild cardiomegaly.
7. Severe calcific atherosclerotic plaque in the coronary arteries.
8. Small bilateral pleural effusions.
9. Central bronchiectasis and chronic interstitial disease in both lungs.
10. Large amount of centrilobular ground-glass opacity in the lower lungs. Diagnostic possibilities are (1) chronic inflammatory pneumonitis, (2) alveolar edema, or (3) less likely infectious pneumonia.
11. SEVERE DIFFUSE ANASARCA.
08/26/25- abd X ray Correlating with concurrent chest radiograph, nasogastric tube is present with tip within the upper stomach.
08/26/25 CT Abd/pel Without Iv Or Oral
1. Small amounts of free intraperitoneal air, suggesting perforated hollow viscus. The favored etiology is related to acute sigmoid diverticulitis with perforated diverticulum. Other possibility includes perforated peptic/duodenal ulcer.
2. There is a 1.3 cm mixed fluid/soft tissue density along the medial margin of the pancreatic head and anterior margin of the duodenum, possibly reflecting a preserved island of normal pancreatic tissue, pancreatic lesion, duodenal ulcer or
prominent peripancreatic lymph node. This could be further evaluated with nonemergent MRI/MRCP abdomen without and with gadolinium contrast.
3. Hepatic cirrhosis with small volume abdominal ascites.
4. Probable cystitis.
5. Mild T12 superior endplate compression fracture, new from 10/30/2024 and age indeterminate. Recommend correlation for any point tenderness in this region.
6. Cholelithiasis.
7. Bibasilar fibrotic changes in the lungs.
07/23/25 US Abdomen Complete/Upper
1. No acute intra-abdominal process identified sonographically.
2. Limited evaluation of midline structures secondary to overlying bowel gas as above.
3. Cholelithiasis.
Prior GI Procedures:
EGD:2007 [facility] - Esophageal mucosal changes suspicious for
short-segment Lucio's esophagus.
- Gastritis.
- No gross lesions in duodenum.
bx + lucio's
Colonoscopy: 2007 [facility] - Diverticulosis sigmoid colon and descending colon.
- Congested mucosa in the colon.
- A 5 mm, non-bleeding polyp in the transverse colon,
proximal. Resected and retrieved.
- Internal, non bleeding, mild hemorrhoids were found.
2-3 years ago normal HR[facility] ? repeated EGD in past
Assessment / Plan
-
Pt is a 69yo with hx PE/ DVT on chronic Xarelto prior to admission, lucio's per EGD 2007, CAD with prior stent, CHF, COPD with chronic 5 liter O2 at home, GERD, prior gastric sleeve, HTN, hyperlipidemia, hypothyroidism, prior PNA, PAD,
hypoxemia, pulm fibrosis, obesity, sleep apnea presents with several recent admission. She was admitted 07/21-07/27 with acute on chronic CHF, severe pulm HTN, SHANNON and hyponatremia and transaminitis. During that admission she had cath with severe
pulm HTN and concern for cardio renal syndrome. She was started on Sildenafil. She returned 07/30- 08/03 with weakness, orthostasis with Lasix and Sildenafil and was started on Midodrine. She was seen by GI during that admission with drop in
hbg and to 8 range and rectal bleeding. She was recommended serial hbg checks and Ct if continued drop with AC hold. He had declined GI procedures. She was also noted with elevated LFT's with concern for congestive hepatopathy. She now return
08/26 with abdominal pain with nausea and vomiting for several days. CT on admission with concern for perforated viscus. She proceeding to OR for sigmoidectomy and colostomy with pantoja's procedure 08/26. She is recovering from surgery and noted
with strep Viridans bacteremia. She initially with extubated but now concern for hypotension requiring pressors, worsening abdominal pain with rise in LFT's and Ct with pancreatitis along with multiple other findings.
In review with patient she admit to ongoing abdominal pain. She had had NGT in place with small amount of output and denies vomiting. She does have serous output from ARTURO drain but no current ostomy output.
. hx colonoscopy 2007 with diverticulosis, congestion in colon 5 mm non bleeding polyp TC, non bleeding hemorrhoids. EGD 2007 with lucio's. Pt reports follow up last 2-3 years with [facility] and continued to follow with GI in that group.
08/26/25 CT Abd/pel (oral only)-[facility] Only
1. ACUTE INTERSTITIAL EDEMATOUS PANCREATITIS.
2. Postoperative from sigmoidectomy and left anterior abdominal wall colostomy (Pantoja's procedure).
3. Percutaneous drainage catheter in the pelvis.
4. Moderate-sized paraesophageal hiatal hernia containing a nasogastric tube.
5. Cholelithiasis.
6. Mild cardiomegaly.
7. Severe calcific atherosclerotic plaque in the coronary arteries.
8. Small bilateral pleural effusions.
9. Central bronchiectasis and chronic interstitial disease in both lungs.
10. Large amount of centrilobular ground-glass opacity in the lower lungs. Diagnostic possibilities are (1) chronic inflammatory pneumonitis, (2) alveolar edema, or (3) less likely infectious pneumonia.
11. SEVERE DIFFUSE ANASARCA.
-
-
Thank you for consultation and allowing me to participate in the patient's care. Please call the ignition specialist GI physician during the after hours with any questions or concerns.
--- NOTE | 2025-08-31 14:48 | WOUNDNOTE ---
WOC RN NOTE: Per chart review, Jeanine CLIFTON changed stoma appliance and midline dressing today. Will continue to follow up with patient and family for ostomy teachings. Per chart review, patients status is currently guarded.
--- NOTE | 2025-08-31 16:30 | PTCARENOTE ---
Reassessed the patient, entire team talked to both the patient and the daughter at bedside to discuss GOC. Patient wanted comfort care and the daughter agreed. Will discontinue pressors once the remaining family members finish visiting.
--- NOTE | 2025-08-31 18:12 | PTCARENOTE ---
Per Daughter Coby, majority of family spent time with the patient. Okay to start full comfort care measures. All pressors discontinued. Patient looked comfortable in bed, no s/s of pain or dyspnea at this time.
[2025-08-31] MEDS: MORPHINE SULFATE 2 MG IV ×5 (18:47→23:51)
[2025-08-31] MEDS: MORPHINE 100 IV (18:48)
[2025-08-31] MEDS: ATIVAN 0.5 MG IV (23:51)
[2025-08-31] MEDS: NSS (PRESERVATIVE FREE) 0.25 ML IV (23:51)
--- NOTE | 2025-09-01 01:12 | W.PN.DEATH ---
Pronouncement of
-
Called to see patient to pronounce.
No spontaneous heart tones or respirations noted.
Patient not responsive to verbal stimuli.
Patient is pronounced .
Time of : 00:37
Date of : 09/01/25
Cause of : multi organ failure r/t septic shock from a perforated viscus
Family Notified: Yes
--- NOTE | 2025-09-01 04:05 | PTCARENOTE ---
Patient became aystolic on the monitor at approximately 0037. Tele strip in chart. Family at bedside with patient. Emotional support provided. FERMENTATION MANAGER notified and to bedside to pronounce patient. Postmortem care provided.
--- NOTE | 2025-09-01 07:41 | CM ---
Patient 09/01/25. Patient family had been with patient earlier in the day, and per chart review patient was transitioned to comfort care. CM will be available for supports as needed.
Plan;
--- NOTE | 2025-09-01 09:22 | W.PN.UPDATE ---
Update Note
Progress Note Update
I was made aware this morning of the patient's passing. I reached out to Coby Brunson and Emmanuelle Lilly, her relatives, and offered condolences.
--- NOTE | 2025-09-02 21:00 | W.DCSUMMARY ---
Addendum entered and electronically signed by Myron Joseph MD 09/04/25 23:16:
Read, reviewed, and agree. See same day progress note for additional details. Patient during overnight shift.
Mehrdad Joseph MD
Original Note:
Documented by User: Luzma Last MD, Resident 09/04/25 22:07
Discharge Summary
Discharge Data
Date of Admission: 08/26/25
Date of Discharge: 09/01/25
-
Pending Results: No
Hospital Course
Discharging Physician:
Myron Joseph M.D
Luzma Last M.D
Primary Care Physician:
Aleksey Mayberry M.D
Disposition:
Time of : 00:37
Date of : 09/01/25
Cause of : multi organ failure r/t septic shock from a perforated viscus
Family Notified: Yes
Chronic Medical diseases:
Coronary Artery Disease s/p Stent
Peripheral Arterial Disease s/p Right Carotid Endarterectomy
Chronic HFpEF
CKD III
Essential Hypertension
Hyperlipidemia
Diverticulitis
severe pulmonary hypertension (on Sildenafil)
Chronic Hypoxia on 5 L O2
COPD / Emphysema / Pulmonary Fibrosis
Hypothyroidism
DVT/PE
Depression
Obesity
Obstructive Sleep Apnea
Hospital Course:
Patient was a 70 yo woman presented to the ER complaining of severe abdominal pain in the left lower quadrant since the evening before the admission.
Triage VS: normal except BP 96/56, SpO2 92%
LABS: WBC 18.3, Hg 9.7, Na 131, K+ 4.0, Cl 95, BUN 68, Cr 1.5, Lactate 2.8, T. Bili 5.6, AST 87, ALT 163
On 08/26/2025 CT Abd/pel Without Iv Or Oral showed acute sigmoid diverticulitis with perforated diverticulum with mall amounts of free intraperitoneal air, suggesting perforated hollow viscus. Started on IV Unasyn #D1 then switched to IV Zosyn.
Colorectal surgeon consulted and patient had an emergent sigmoidectomy with colostomy (Feli's procedure) and received 1 unite PRBCs towards end of procedure and remained intubated and sent to ICU. She was on Levophed IV once for low blood
pressure.
Patient developed sepsis secondary to acute diverticulitis with perforation, She continued receiving IV Zosyn.Worsted Winder and electrical journeyman consulted, then she extubated on 08/27/2025 and kept on aspiration precaution. Blood culture showed growth
of viridance streptococcal group and anaerobic gram negative and positive bacilli. Abdominal cultures revealed Pseudomonas, gram-negative bacilli, viridans Streptococcus group so IV Zosyn switched to Merrem IV on 08/30.
During Hospitalization she developed cute on chronic hypoxic respiratory failure; multifactorial, somnolence and physical deconditioning contributing, has underlying emphysema and pulmonary fibrosis with chronic hypoxic respiratory failure and
pulmonary hypertension. She developed acute Kidney Injury due to vent dependent respiratory failure and septic shock, nephrology was consulted for acute renal failure with a creatinine rise of 2 and decreased urine output ov
During hospital course , Xarelto was held with aspirin 81 mg and started on SC heparin for DVT prophylaxis on 08/31/2025. Patient was on 5 L NC Oxygen and her WBC count increased , was 18.3 (at admission)-18.1-14.3-15.5-21.6-29.9-33.[address]
of abdominal and pelvis was done on 08/31/2025 which showed acute pancreatitis , edematous interstitial versus biliary pancreatitis. Abnormal LFTs, rising bilirubin noted along with evidence of gallstones . No biliary dilation noted however on
imaging.Patient was quite volume overloaded and has generalized anasarca, GI consulted.
All other chronic disease had been managers with her home medication and all electrolytes had been repleted accordingly.
Patient had a shock with a strep bacteremia and new diagnosis of acute pancreatitis, so Vasopressin started and increasing pressor requirement. The film printer met with patient's daughter at bedside. Patient expressed very clearly that she does not
want to pursue any additional treatment and wants to pursue only comfort focused care. She does not want any blood draws or invasive procedures either. Patient's daughter in agreement. CODE STATUS DNR/DNI, proceed with comfort focused care. on
09/01/2025 there was no spontaneous heart tones or respirations noted, and not responsive to verbal stimuli, patient pronounced on 09/01/2025 at 00:37.
Important Imaging Findings:
CT Abd/pel (oral only)-[facility] Only 08/31/2025
1. ACUTE INTERSTITIAL EDEMATOUS PANCREATITIS.
2. Postoperative from sigmoidectomy and left anterior abdominal wall colostomy (Stoddard's procedure).
3. Percutaneous drainage catheter in the pelvis.
4. Moderate-sized paraesophageal hiatal hernia containing a nasogastric tube.
5. Cholelithiasis.
6. Mild cardiomegaly.
7. Severe calcific atherosclerotic plaque in the coronary arteries.
8. Small bilateral pleural effusions.
9. Central bronchiectasis and chronic interstitial disease in both lungs.
10. Large amount of centrilobular ground-glass opacity in the lower lungs. Diagnostic possibilities are (1) chronic inflammatory pneumonitis, (2) alveolar edema, or (3) less likely infectious pneumonia.
11. SEVERE DIFFUSE ANASARCA.
Head CT scan on 08/27/2025
No acute intracranial abnormality noted.
Chest X-ray on 08/26/2025
Endotracheal tube is present, tip low, 1 cm above the nicolasa.
Nasogastric tube is present with tip projecting over the superior medial left upper quadrant, just extending into the upper stomach.
Lung findings as described
Not mentioned above, cardiac silhouette size appears slightly enlarged, but vasculature is likely not actively congested. There is prominence of the main pulmonary artery shadow, suggesting pulmonary hypertension.
CT Abd/pel Without Iv Or Oral on 08/26/2025
1. Small amounts of free intraperitoneal air, suggesting perforated hollow viscus. The favored etiology is related to acute sigmoid diverticulitis with perforated diverticulum. Other possibility includes perforated peptic/duodenal ulcer.
2. There is a 1.3 cm mixed fluid/soft tissue density along the medial margin of the pancreatic head and anterior margin of the duodenum, possibly reflecting a preserved island of normal pancreatic tissue, pancreatic lesion, duodenal ulcer or
prominent peripancreatic lymph node. This could be further evaluated with nonemergent MRI/MRCP abdomen without and with gadolinium contrast.
3. Hepatic cirrhosis with small volume abdominal ascites.
4. Probable cystitis.
5. Mild T12 superior endplate compression fracture, new from 10/30/2024 and age indeterminate. Recommend correlation for any point tenderness in this region.
6. Cholelithiasis.
7. Bibasilar fibrotic changes in the lungs.
Important Procedure:
08/26/2025
Sigmoidectomy with colostomy (Feli's procedure)
Discharge Plan
-
Patient Disposition:
Date/Time
Date/Time: 09/01/25 00:37
Discharge Date and Time
Discharge Date/Time: 09/01/25 00:37
Print Language: GEORGIAN

Documented by User: Myron Joseph MD 09/04/25 23:15
Discharge Summary
Discharge Data
Date of Admission: 08/26/25
Date of Discharge: 09/04/25
Discharge Plan
-
Patient Disposition:
Date/Time
Date/Time: 09/01/25 00:37
Discharge Date and Time
Discharge Date/Time: 09/01/25 00:37
Print Language: GEORGIAN
== END 2025-09-01 00:37 | disposition expired | DRG 853 ==
LOC: ICU 16:43
PROVIDERS: Emergency Medicine; Nurse Practitioner Primary Care; Physician Assistant; Registered Nurse; Specialist; Specialist Research Data Abstracter/Coder; ADMITTING PHYSICIAN Student in an Organized Health Care Education/Training Program; ATTENDING PHYSICIAN Family Medicine; CONSULT PHYSICIAN Internal Medicine; CONSULT PHYSICIAN Internal Medicine Critical Care Medicine; CONSULT PHYSICIAN Specialist; CONSULT PHYSICIAN Surgery; EMERGENCY PHYSICIAN Emergency Medicine; FAMILY PHYSICIAN Internal Medicine; OTHER PHYSICIAN Internal Medicine Infectious Disease
PROC: 0D9670Z Drainage of Stomach with Drainage Device, Via Natural or Artificial Opening (ICD-10-PCS; 2025-08-26)
PROC: 30233N1 Transfusion of Nonautologous Red Blood Cells into Peripheral Vein, Percutaneous Approach (ICD-10-PCS; 2025-08-26)
PROC: 0DTN0ZZ Resection of Sigmoid Colon, Open Approach (ICD-10-PCS; 2025-08-26)
PROC: 3E0M05Z Introduction of Adhesion Barrier into Peritoneal Cavity, Open Approach (ICD-10-PCS; 2025-08-26)
PROC: 0BH17EZ Insertion of Endotracheal Airway into Trachea, Via Natural or Artificial Opening (ICD-10-PCS; 2025-08-26)
PROC: 0D1M0Z4 Bypass Descending Colon to Cutaneous, Open Approach (ICD-10-PCS; 2025-08-26)
PROC: 5A1935Z Respiratory Ventilation, Less than 24 Consecutive Hours (ICD-10-PCS; 2025-08-26)
DX: A40.8 Other streptococcal sepsis (principal); J96.21 Acute and chronic respiratory failure with hypoxia; K65.9 Peritonitis, unspecified; R65.21 Severe sepsis with septic shock; K72.00 Acute and subacute hepatic failure without coma; K85.80 Other acute pancreatitis without necrosis or infection; K57.20 Diverticulitis of large intestine with perforation and abscess without bleeding; I13.0 Hypertensive heart and chronic kidney disease with heart failure and stage 1 through stage 4 chronic kidney disease, or unspecified chronic kidney disease; D68.9 Coagulation defect, unspecified; Z51.5 Encounter for palliative care; I50.32 Chronic diastolic (congestive) heart failure; R18.8 Other ascites; M48.54XA Collapsed vertebra, not elsewhere classified, thoracic region, initial encounter for fracture; E87.20 Acidosis, unspecified; N17.9 Acute kidney failure, unspecified; Z99.11 Dependence on respirator [ventilator] status; D62 Acute posthemorrhagic anemia; E87.1 Hypo-osmolality and hyponatremia; E03.9 Hypothyroidism, unspecified; J84.10 Pulmonary fibrosis, unspecified; E78.00 Pure hypercholesterolemia, unspecified; N18.30 Chronic kidney disease, stage 3 unspecified; J43.9 Emphysema, unspecified; G47.33 Obstructive sleep apnea (adult) (pediatric); I73.9 Peripheral vascular disease, unspecified; K21.9 Gastro-esophageal reflux disease without esophagitis; F32.A Depression, unspecified; I95.89 Other hypotension; I27.23 Pulmonary hypertension due to lung diseases and hypoxia; K44.9 Diaphragmatic hernia without obstruction or gangrene; E66.9 Obesity, unspecified; I25.10 Atherosclerotic heart disease of native coronary artery without angina pectoris; K74.60 Unspecified cirrhosis of liver; K80.20 Calculus of gallbladder without cholecystitis without obstruction; E87.5 Hyperkalemia; J47.9 Bronchiectasis, uncomplicated; N30.90 Cystitis, unspecified without hematuria; Z66 Do not resuscitate; Z86.711 Personal history of pulmonary embolism; Z86.718 Personal history of other venous thrombosis and embolism; Z95.5 Presence of coronary angioplasty implant and graft; Z98.84 Bariatric surgery status; Z87.891 Personal history of nicotine dependence; Z79.52 Long term (current) use of systemic steroids; Z79.01 Long term (current) use of anticoagulants; Z91.048 Other nonmedicinal substance allergy status; Z79.82 Long term (current) use of aspirin; Z79.890 Hormone replacement therapy; Z79.899 Other long term (current) drug therapy; Z68.33 Body mass index [BMI] 33.0-33.9, adult; Z11.52 Encounter for screening for COVID-19; Z99.81 Dependence on supplemental oxygen; Z87.01 Personal history of pneumonia (recurrent); Z86.0100 Personal history of colon polyps, unspecified
CPT/HCPCS: 70450; 71045; 74018; 74176; 80053; 81003; 81015; 82140; 82248; 82330; 82570; 82805; 82962; 83036; 83605; 83690; 83735; 84100; 84132; 84134; 84300; 84302; 84478; 85025; 85027; 85610; 85730; 86850; 86900; 86901; 86920; 87040; 87070; 87075; 87077; 87086; 87154; 87186; 87205; 87502; 87811; 88307; 93005; 94002; 94003; 94640; 96361; 96365; 96375; 97163; 97167; 97530; 99291; J7168; P9016; P9045; P9047